=== PATIENT | male | born 1945 | race Caucasian/White ===

== ENCOUNTER → 2018-09-10 14:07 | Outpatient (CLI) | payer MEDICARE, SELFPAY ==
[2013-10-19 15:30] VITALS: BMI 32.5
[2018-09-10 14:30] LABS: International Normalized Ratio 2.2; Prothrombin Time (Protime)PT. 24.5 SECONDS (11.7-14.9)
== END ==
PROVIDERS: Referring Provider Family Medicine; Visit Provider Family Medicine
DX: I48.92 Unspecified atrial flutter (principal)
CPT/HCPCS: 85610

== ENCOUNTER → 2018-10-25 10:11 | Outpatient (CLI) | payer MEDICARE, SELFPAY ==
[2013-10-19 15:30] VITALS: BMI 32.5
[2018-10-25 10:39] LABS: International Normalized Ratio 1.9; Prothrombin Time (Protime)PT. 21.7 SECONDS (11.7-14.9)
== END ==
PROVIDERS: Visit Provider Family Medicine
DX: I26.99 Other pulmonary embolism without acute cor pulmonale (principal); Z86.718 Personal history of other venous thrombosis and embolism
CPT/HCPCS: 85610

== ENCOUNTER → 2018-12-27 09:54 | Outpatient (CLI) | payer MEDICARE, OTHER, SELFPAY ==
[2018-12-27 10:14] LABS: International Normalized Ratio 1.9
== END ==
PROVIDERS: Referring Provider Family Medicine; Visit Provider Family Medicine
DX: I74.9 Embolism and thrombosis of unspecified artery (principal)
CPT/HCPCS: 85610

== ENCOUNTER → 2019-12-26 08:50 | Outpatient (CLI) | payer MEDICARE, OTHER, SELFPAY ==
--- NOTE | 2019-12-26 09:10 | RAD_ITS ---
STUDY: BARIUM ENEMA. REASON FOR EXAM: Male, 74 years old. cologard test, multiple hernia repairs, hemorrhoids, spleenectomy, FLUOROSCOPY TIME (if supplied): ( 73 seconds ) minutes/seconds. 16 images were obtained. TECHNIQUE: A capital project engineer film was obtained. Following this, barium was introduced retrograde through the rectum. The entire colon was opacified. COMPARISON: None. FINDINGS: A IVC filter is seen. There is evidence of diffuse sigmoid diverticulosis. Diverticula are also seen in the descending colon and distal transverse colon. There is no evidence of obstruction to the retrograde or antegrade flow of barium. No mass lesion is seen. No filling defect is present. RAD/Barium Enema w/Air Contrast IMPRESSION: Diverticulosis. Electronically Signed: Yaya Walton, at 11:08 EDT , Service support ,
== END ==
PROVIDERS: PCP Family Medicine; Referring Provider Physician Assistant; Visit Provider Physician Assistant
DX: K92.1 Melena (principal)
CPT/HCPCS: 74280

== ENCOUNTER → 2021-04-29 12:10 | Outpatient (CLI) | payer MEDICARE, OTHER, SELFPAY ==
--- NOTE | 2021-04-29 12:33 | RAD_ITS ---
PROCEDURE: Fluoroscopic guided Hip Injection DATE: 04/29/2021. INDICATION: Male, 75 years old. PHYSICIAN: Yaya Walton M.D. MEDICATIONS: 40 mg of KENALOG and 4 cc of 1% LIDOCAINE. 2% Lidocaine administered subcutaneously for local anesthesia. ACCESS SITE: Left hip. NEEDLE: 22-gauge spinal needle. FLUOROSCOPY TIME (if supplied): (1:42) minutes/seconds. 2 images were obtained. FINDINGS: The risks, benefits, and alternatives to the procedure were explained to the patient. The specific risks of bleeding, infection, and neurovascular injury were detailed and accepted. Witnessed informed consent was obtained. A 22-gauge spinal needle was positioned under radiographic fluoroscopic localization. Approximately 2 cc of ISOVUE-300 instilled for localization purposes. Medication was then injected. The patient tolerated the procedure well without any immediate complications. RAD/Inj/Asp Buddy Jt Should/Hip/Knee IMPRESSION: 1. Successful fluoroscopic guided hip injection. Electronically Signed: Yaya Walton MD at 14:26 EST , Service support ,
[2021-04-29 13:05] LABS: International Normalized Ratio 1.3; Prothrombin Time (Protime)PT. 15.3 SECONDS (11.7-14.9)
[2021-04-29 13:06] LABS: Partial Thromboplast Time 28.5 Seconds (24.1-36.2)
[2021-04-29] MEDS: Lidocaine 2% (5ml sdv) 5 ML VIAL.MPF INFILT (13:45)
[2021-04-29] MEDS: Triamcinolone Acetonide 40 MG/ML Vial INTRAARTIC (13:45)
== END ==
PROVIDERS: PCP Family Medicine
DX: M16.12 Unilateral primary osteoarthritis, left hip (principal)
CPT/HCPCS: 20610; 36415; 77002; 85610; 85730; Q9967

== ENCOUNTER 2021-11-12 13:01 | Inpatient (IN) | payer MEDICARE, OTHER, SELFPAY ==
[2021-11-12] VITALS (14 sets, daily range): BP systolic 122–153; BP diastolic 43–100; PULSE 71–128; RESP 16–34; TEMP 36.4–36.7; O2SAT 92–100; BMI 47.7
--- NOTE | 2021-11-12 13:12 | EKG12_ITS ---
Test Reason : GI BLEED Blood Pressure : / mmHG Vent. Rate : 075 BPM Atrial Rate : 340 BPM P-R Int : 000 ms QRS Dur : 080 ms QT Int : 378 ms P-R-T Axes : 000 014 015 degrees QTc Int : 422 ms Atrial fibrillation Abnormal ECG Confirmed by JOVAN GUTIÉRREZ, MARCELA ([id number]), editor & co founder SUNITA SCHWARZ ([id number]) on 11/16/2021 8:05:11 AM Referred By: Confirmed By:MARCELA ALDANA MD
[2021-11-12 14:51] LABS: Absolute Lymphocyte Count 2.22 X10^3/uL (0.83-4.51); Absolute Neutrophil Count 12.2 X10^3/uL (2.0-7.7); Basophil# 0.07 X10^3/uL; Basophil% 0.4 % (0-1); Eosinophil# 0.56 X10^3/uL; Eosinophils% 3.2 % (0-5); Hematocrit 27.5 % (40-54); Hemoglobin 8.7 g/dL (13.0-16.5); Lymphocyte # 2.22 X10^3/ul (0.83-4.51); Lymphocyte % 12.8 % (19-41); Mean Corp Hgb Conc 31.6 g/dL (32-36); Mean Corpuscular Hgb 31.5 pg (27.0-32.0); Mean Corpuscular Volume 99.6 fL (80-94); Monocyte# 2.23 X10^3/uL; Monocyte% 12.8 % (0-10); NRBC Flagged by Analyzer 0.6 % (0-5); Neutrophil # 12.17 X10^3/uL (2.7-7.7); Neutrophil % 70.2 % (47-70); POSITIVE DIFFERENTIAL YES; Platelet Count 440 K/mm3 (150-450); RBC Distribution Width CV 15.6 % (11.6-14.6); RBC Distribution Width SD 55.5 fl (35.1-43.9); Red Blood Count 2.76 M/mm3 (4.6-6.2); White Blood Count 17.4 K/mm3 (4.4-11.0)
[2021-11-12 14:52] LABS: Differential Indicated SCAN CRITERIA MET
[2021-11-12 14:57] LABS: Prothrombin Time (Protime)PT. 30.9 SECONDS (11.7-14.9)
--- NOTE | 2021-11-12 15:05 | IMM_PTH ---
PATIENT: GLENYS ALARCON LOC: [facility] U#:[id number] AGE/SX: 76/M ROOM: [facility] RE11/12/[address]: Dr. Jose Mayo MD : 1945 BED: 1 DIS: 11/13/2021 SPEC #: [id number] RECD: 11/15/21 08:13 STATUS: JUAN ANTONIO AVALOS #: [id number] JAIME: 11/12/21 15:[address]: Speedy Flores DEPT: IMMUNOHISTOCHEMISTRY RECD BY: Aminta Oneal ENTERED: 11/15/21 08:13 SP TYPE: IMMUNO OTHR DR: MD Dr. Hubert Alejandra MD Tissues: A - Stomach, NOS Procedures: H Pylori (initial) PHYSICIAN & INSTITUTION [place] [id number] SPECIMEN INFORMATION: Tissue Source: A ? Gastric polyp Clinical Info: GI bleed Specimen Number: [id number] CPT code: 56716 METHODOLOGY: Deparaffinized sections of prefer/formalin-fixed tissue or PAP/DQ stained slides are incubated with monoclonal/polyclonal antibodies/oligonucleotide probes. Localization is made via biotin free immunoperoxidase method. Appropriate controls are performed and reacted as expected. Results on target cell population are indicated in the following table: RESULTS: ANTIBODY / CLONE RESULT Block A H Pylori (polyclonal) negative These tests were developed and their performance characteristics determined by [facility]. They may not have been cleared or approved by the U.S. Food and Drug Administration. The FDA has determined that such clearance or approval is not necessary. The above immunohistochemical/dualISH markers are ordered and reviewed by the Pathologist. INTERPRETATION: A. Gastric polyp, biopsy: Negative for Helicobacter pylori organisms. SJ:chloe 11/16/2021
--- NOTE | 2021-11-12 15:05 | EGD_PTH ---
PATIENT: GLENYS ALARCON LOC: [facility] U#:[id number] AGE/SX: 76/M ROOM: [facility] RE11/12/[address]: Dr. Jose Mayo MD : 1945 BED: 1 DIS: 11/13/2021 SPEC #: [id number] RECD: 11/12/21 18:39 STATUS: JUAN ANTONIO AVALOS #: [id number] JAIME: 11/12/21 15:[address]: Speedy Flores DEPT: SURGICAL PATHOLOGY RECD BY: Carol Ann Bansal ENTERED: 11/15/21 06:49 SP TYPE: EGD BIOPSY OTHR DR: MD Dr. Hubert Alejandra MD Tissues: A - Gastric mucous membrane B - Gastric mucous membrane Procedures: Surgery Specimen Level IV HEADER OPER[place] [place] with biopsy and snare PRE-OP DIAGNOSIS: GI bleed TISSUE SUBMITTED: A ? Gastric polyp #1, B - Gastric polyp #2 MICROSCOPIC DIAGNOSIS A. Gastric polyp #1, biopsy: Fragments of hyperplastic/inflammatory polyp. Mild chronic inflammation. See comment. B. Gastric polyp #2, polypectomy: Hyperplastic/inflammatory polyp. Mild chronic inflammation. LESLIE:chloe 11/16/2021 COMMENT A. The results of immunohistochemistry for Helicobacter pylori will be reported separately ([id number]). MICROSCOPIC DESCRIPTION Slides are reviewed. GROSS DESCRIPTION A - Received in fixative is one container labeled with the patient's name and designated gastric polyp #1. The specimen consists of two irregular fragments of light gotti soft tissue that in aggregate measure 0.6 x 0.7 x 0.1 cm. The specimen is totally submitted in one cassette. B - Received in fixative is one container labeled with the patient's name and designated gastric polyp #2. The specimen consists of a gotti-pink polyp measuring 1 x 1 x 0.5 cm. Apparent base is inked. The specimen serially sectioned and submitted entirely in one cassette. / LESLIE:chloe 11/15/2021 TC:5 CPT: 82512 x2
[2021-11-12 15:10] LABS: ALB/GLOB Ratio 0.7 RATIO (0.9-2.4); AST(SGOT) 19 U/L (15-37); Alanine Aminotransfer ALT/SGPT 20 U/L (16-61); Albumin, Serum 3.1 g/dL (3.2-5.0); Alkaline Phosphatase 91 U/L (45-117); Anion Gap 7 (5-15); BUN 19 mg/dL (7-18); BUN/Creat Ratio 13.3 RATIO (10-20); Calcium,Total 8.8 mg/dL (8.5-10.1); Chloride 104 mmol/L (98-107); Creatinine, Serum 1.43 mg/dL (0.70-1.30); EST Glomerular Filtration Rate 51 mL/min (>60); Est Glom Filt Rate - Afr Amer 62 mL/min (>60); Globulin 4.4 g/dL (2.2-4.2); Glucose 110 mg/dL (74-106); Protein, Total 7.5 g/dL (6.4-8.2); Sodium Level 137 mmol/L (136-145)
[2021-11-12 15:20] LABS: Lactic Acid 2.2 mmol/L (0.4-1.9)
--- NOTE | 2021-11-12 15:24 | EDS_ITS ---
HPI HPI - GI History of Present Illness Chief Complaint: GI Bleed Detail of Chief Complaint: Black to maroon-colored stool Informant: patient and family Abdominal Pain/Flank Pain Onset: - (Patient denies abdominal pain) Nausea/Vomiting/Emesis GI Symptom: Positive for Nausea Diarrhea/Melena/Hematochezia GI Symptom: Positive for Melena (Started approximately 5 to 7 days ago. Patient on Coumadin for atrial fibrillation) Onset: Days Stool Quality: Positive for Black and Maroon (Stool is maroon today) Severity: Moderate Associated Symptoms Associated Symptoms: Negative for Dysuria, Frequency, Hematuria or Urgency Narrative Narrative: Patient is an elderly male on Coumadin for A. fib. He presents because of significant drop in his hemoglobin. Hemoglobin last week was 13.6 at the [facility]. Hemoglobin that was obtained yesterday was 8.2. Patient gives orthostatic symptoms. He has numerous medical problems. He denies fever, chills night sweats. He denies ocular, visual or auditory symptoms. He denies chest discomfort. He does report dyspnea on exertion for the past 2 days. He denies hematuria. He states he bruises easily. He is aware that his INR was elevated. He refused admission last evening. I did receive a call from his physician, Dr. Camarena hours prior to his presentation. He was brought to the ER by his son-in-law. Patient has stable orthopnea. Denies PND. Patient has lymphedema with venous stasis dermatitis. Prior similar symptoms: No Recent Illness/Hospitalization: No PFSH PFSH Medical History CHF (congestive heart failure) HTN (hypertension) Home Medications Centrum Cardio 1 tab PO BID 10/01/13 [History Last Taken Unknown] Orderless Garlic 2,000 mg PO BID 10/01/13 [History Last Taken Unknown] aspirin 81 mg chewable tablet 81 mg PO DAILY@0800 10/01/13 [History Last Taken Unknown] calcium citrate 315 mg calcium-vitamin D3 6.25 mcg (250 unit) tablet 1 ea PO DAILY 10/01/13 [History Last Taken Unknown] folic acid 800 mcg tablet 2 mg PO QHS 10/01/13 [History Last Taken Unknown] furosemide 20 mg tablet 20 mg PO QHS 10/01/13 [History Last Taken Unknown] furosemide 40 mg tablet 40 mg PO DAILY 10/01/13 [History Last Taken Unknown] methotrexate sodium 2.5 mg tablet 10 mg PO Q7D 10/01/13 [History Last Taken Unknown] metoprolol tartrate 25 mg tablet 25 mg PO BID 10/01/13 [History Last Taken Unknown] omega-3 fatty acids-fish oil 684 mg-1,200 mg capsule,delayed release (One-Per-Day [place]-3) 2 ea PO DAILY 10/01/13 [History Last Taken Unknown] omeprazole 20 mg capsule,delayed release 20 mg PO BID 10/01/13 [History Last Taken Unknown] potassium chloride 20 mEq tablet,extended release(part/cryst) (Klor-Con M) 40 meq PO BID 10/01/13 [History Last Taken Unknown] spironolactone 25 mg tablet 25 mg PO DAILY 10/01/13 [History Last Taken Unknown] warfarin 4 mg tablet (Jantoven) 9 mg PO DAILY 10/01/13 [History Last Taken Unknown] Allergy/AdvReac Type Severity Reaction Status Date / Time chlorpromazine HCl Allergy Other Verified 11/12/21 13:04 [From Thorazine] Social History (Updated 11/12/21 @ 15:[address] Ramírez Jack MD) household members: none Smoking Status: Unknown if ever smoked substance use type: does not use ROS ROS ED Constitutional Constitutional ED: Denies chills, fever(s), subjective, sweats or weight loss ENT ENT ED: Denies ear pain, rhinorrhea or sore throat Cardiovascular Cardiovascular: Denies chest pain, orthopnea, palpitations, paroxysmal nocturnal dyspnea or racing heartbeat Respiratory/Chest Respiratory/Chest: Reports dyspnea and dyspnea on exertion; Denies cough, orthopnea or paroxysmal nocturnal dyspnea Gastrointestinal Gastrointestinal: Reports melena and nausea; Denies abdominal pain, constipation, diarrhea or vomiting Genitourinary Genitourinary ED: Denies dysuria, hematuria or urinary frequency Musculoskeletal Musculoskeletal: Denies arthralgias, back pain, myalgias or neck pain Integumentary Denies Abrasions or rash Neurologic Neurologic: Reports weakness; Denies headache(s) or paresthesias Endocrine Endocrinology: Denies polydipsia, polyphagia or polyuria Hematologic/Lymphatic Hematologic/Lymphatic: Reports easy bruising; Denies easy bleeding or lymphadenopathy EXAM Physical Exam Narrative Exam Narrative: Patient is morbidly obese. He is slightly tachypneic since he just walked from triage. He has a depends diaper on because of incontinence. Son-in-law states his stools been black. Const Vital Signs: 11/12/21 13:02 Temperature 98 F Temperature Source Temporal Pulse Rate 128 H Respiratory Rate 20 H Blood Pressure 122/43 H Blood Pressure Mean 69 Pulse Ox 96 Oxygen Delivery Method Room Air Positive well nourished, well developed, obese and unkempt; Negative for cachectic or contractures General Appearance ED: unkempt, well developed and pallor; Negative for cachectic or contractures Nutritional Appearance: obese; Negative for cachectic HEENT Reports moist mucous membranes normocephalic and atraumatic Eyes PERRL and EOMs intact bilaterally General Eye ED: Yes pale conjunctiva; Negative for scleral icterus Neck no lymphadenopathy, supple and no JVD Resp normal respiratory effort and clear to auscultation bilaterally Cardio regular rate, S1 normal heart sound, S2 normal heart sound and no murmurs Rhythm: abnormal rhythm irregularly irregular GI non-tender, non-distended and no masses GI Narrative: Stool is maroon. Auscultation: hyperactive bowel sounds Palpation: soft Narrative: Normal external genitalia. Prostate slightly enlarged. Back/Spine no CVA tenderness Cervical Spine: Negative for cervical spine tenderness Thoracic Spine / Upper Back: Negative for thoracic spinal tenderness Lumbar Spine / Lower Back: Negative for lumbar spinal tenderness Neuro CN's II-XII intact bilaterally, moves all extremities and no sensory deficits noted Sensorium / Orientation: alert Motor Exam: strength 5/5 throughout Psych mental status grossly normal and thought process normal Appearance: unkempt Skin Skin Narrative: Patient with significant lymphedema/elephantitis with venous aces dermatitis. General Skin Exam: pallor; Negative for jaundice MDM MDM MDM Narrative Medical decision making narrative: Kcentra and vitamin K were ordered for GI bleed on Coumadin. He had a significant drop in his hemoglobin. He was typed and crossed for 2 units of blo od. 2 units of blood sugar are to be administered. Hemoglobin has decreased approximately 5 g. White count is elevated 17.4 which is nonspecific. CO2 is normal as well as anion gap. BUN is elevated as well as creatinine at 19 and 1.43 respectively. Lactate elevated 2.2. Patient was tachycardic in triage. This most likely represents orthostatic hypotension. Patient's case was discussed with Dr. Flores. He agreed with IV Protonix and Kcentra. Will contact hospitalist for admission. Lab Data Labs: Laboratory Results - last 24 hr 11/12/21 11/12/21 11/12/21 14:32 14:32 14:32 WBC 17.4 H RBC 2.76 L Hgb 8.7 L Hct 27.5 L MCV 99.6 H MCH 31.5 MCHC 31.6 L RDW Std Deviation 55.5 H RDW Coeff of Ira 15.6 H Plt Count 440 MPV 10.0 Immature Gran % (Auto) 0.600 Neut % (Auto) 70.2 H Lymph % (Auto) 12.8 L [place] % (Auto) 12.8 H Eos % (Auto) 3.2 Baso % (Auto) 0.4 Absolute Neuts (auto) 12.2 H Absolute Lymphs (auto) 2.22 Nucleated RBC % 0.6 Differential Comment COMMENT Diff Path Review May foll PT 30.9 H INR 3.0 Sodium 137 Potassium 4.0 Chloride 104 Carbon Dioxide 26.0 Anion Gap 7 BUN 19 H Creatinine 1.43 H Estim Creat Clear Calc 39.80 Est GFR (MDRD) Af Amer 62 Est GFR (MDRD) Non-Af 51 L BUN/Creatinine Ratio 13.3 Glucose 110 H Lactic Acid Calcium 8.8 Total Bilirubin 0.60 AST 19 ALT 20 Alkaline Phosphatase 91 Total Protein 7.5 Albumin 3.1 L Globulin 4.4 H Albumin/Globulin Ratio 0.7 L Crossmatch 11/12/21 11/12/21 14:32 14:32 WBC RBC Hgb Hct MCV MCH MCHC RDW Std Deviation RDW Coeff of Ira Plt Count MPV Immature Gran % (Auto) Neut % (Auto) Lymph % (Auto) [place] % (Auto) Eos % (Auto) Baso % (Auto) Absolute Neuts (auto) Absolute Lymphs (auto) Nucleated RBC % Differential Comment Diff Path Review PT INR Sodium Potassium Chloride Carbon Dioxide Anion Gap BUN Creatinine Estim Creat Clear Calc Est GFR (MDRD) Af Amer Est GFR (MDRD) Non-Af BUN/Creatinine Ratio Glucose Lactic Acid 2.2 H* Calcium Total Bilirubin AST ALT Alkaline Phosphatase Total Protein Albumin Globulin Albumin/Globulin Ratio Crossmatch See Detail EKG Initial EKG: Attestation: I personally reviewed and interpreted this EKG as follows: Interpretation: Atrial Fibrillation (Ventricular rate of 75 otherwise normal. QS duration 80. QT durations are 70 ms. [place] normal) Critical Care Time Critical Care Time: Yes Critical care time (excluding procedures): 30-74 minutes (33 minutes), Including time spent: (History, physical, documentation, review of prior records, discussion with PCP, GI and hospitalist), Discussing w/Patient &/or Family/Cupola Charger, Discussing w/Consultants and Arranging Admission or Transfer Discharge Plan Dx/Rx/DC Orders Clinical Impression: Acute gastrointestinal bleeding, Anticoagulant long-term use, Anemia due to acute blood loss, Transfusion of blood during current hospitalization, Orthostatic hypotension, Atrial fibrillation, Acidosis, lactic Disposition Disposition: Acute Care Hospital [facility]
[2021-11-12] MEDS: HUMAN PROTHROMBIN COMPLX(PCC) 2,500 UNIT in Viaflex Bag 1 BAG 500 UNIT IV (15:56)
--- NOTE | 2021-11-12 16:45 | ED.RN ---
Pt called out complaining of severe lower back pain, ringing/hearing loss in left ear and pressure in his head. Notified Dr Cummins who prev doctor signed out to. States continue to monitor. Pt states he has never had pain like this before. VS remain stable.
--- NOTE | 2021-11-12 16:54 | ED.RN ---
Pt states it feels like it's around my kidneys and it is like a pulsating feeling. Page sent to Dr Mayo, admitting physician as he has already seen pt.
--- NOTE | 2021-11-12 17:04 | HP.PCM.HOS_ITS ---
HPI - General General Date of Admission: 11/12/21 HPI Narrative GLENYS ALARCON, is a 76 M who presents to the hospital at the urging of his PCP secondary to GI bleed. Last week blood test demonstrated at the [facility] that he had a hemoglobin of around 13 and today he is down to 8.7. He has been having some darker maroon stools, he does have a history of hemorrhoid bleeds but nothing as severe. He is feeling short of breath secondary to the GI bleed. He states that he did not come in sooner because he did not want to have a colonoscopy. He is on Coumadin for A. fib as well as a clotting disorder, he states that he will get blood clots with every type of procedure. And he has an IVC filter in place. [facility] Medical History (Updated 11/12/21 @ 15:[address] Ramírez Jack MD) CHF (congestive heart failure) HTN (hypertension) Home Medications calcium citrate 315 mg calcium-vitamin D3 6.25 mcg (250 unit) tablet 1 ea PO DAILY SUPPLEMENT 10/01/13 [History Last Taken 11/11/21] omeprazole 20 mg capsule,delayed release 20 mg PO BID GERD 10/01/13 [History Last Taken 11/12/21] potassium chloride 20 mEq tablet,extended release(part/cryst) (Klor-Con M) 40 meq PO BID SUPPLEMENT 10/01/13 [History Last Taken 11/12/21] spironolactone 25 mg tablet 25 mg PO DINNER FLUID 10/01/13 [History Last Taken 11/11/21] warfarin 4 mg tablet (Jantoven) 4 mg PO DAILY BLOOD THINNER 10/01/13 [History Last Taken 11/12/21 00:00] atorvastatin 20 mg tablet 20 mg PO DAILY CHOLESTEROL 11/12/21 [History Last Taken 11/12/21] bumetanide 1 mg tablet 1 mg PO DINNER FLUID 11/12/21 [History Last Taken 11/11/21] bumetanide 1 mg tablet 2 mg PO QHS FLUID 11/12/21 [History Last Taken 11/11/21] fluticasone propionate 45 mcg-salmeterol 21 mcg/actuation HFA inhaler (Advair HFA) 2 inh inhalation BID SOB 11/12/21 [History Last Taken 11/12/21] metoprolol tartrate 50 mg tablet 25 mg PO BID HEART 11/12/21 [History Last Taken 11/12/21] warfarin 1 mg tablet 1 mg PO DAILY BLOOD THINNER 11/12/21 [History Last Taken 11/12/21 00:00] Allergy/AdvReac Type Severity Reaction Status Date / Time chlorpromazine HCl Allergy Other Verified 11/12/21 13:04 [From Thorazine] Family History (Updated 11/12/21 @ 17:[address] Jose Mayo MD) Other Heart disease Hypertension Surgical History (Updated 11/12/21 @ 17:[address] Jose Mayo MD) Status post splenectomy Social History (Updated 11/12/21 @ 15:[address] Ramírez Jack MD) household members: none Smoking Status: Unknown if ever smoked substance use type: does not use ROS Constitutional Constitutional: Denies chills, fatigue, fever(s) or malaise Eyes Eyes: Denies blurry vision ENT HEENT: Denies headache(s) or nasal discharge Cardiovascular Cardiovascular: Reports dyspnea on exertion; Denies chest pain or syncope Respiratory/Chest Respiratory/Chest: Denies cough or shortness of breath with exertion Gastrointestinal Gastrointestinal: Denies constipation, diarrhea, nausea or vomiting Genitourinary Genitourinary: Denies dysuria Neurologic Neurologic: Denies focal weakness, numbness or tremor(s) Psychiatric Psychiatric: Denies anxiety or depression Vital Signs Vital Signs Vital Signs: 11/12/21 13:02 11/12/21 15:57 11/12/21 16:32 Temperature 98 F 98.0 F Temperature Source Temporal Temporal Pulse Rate 128 H 74 71 Respiratory Rate 20 H 18 18 Blood Pressure 122/43 H 139/67 H 140/71 H Blood Pressure Mean 69 91 94 Pulse Ox 96 96 96 Oxygen Delivery Method Room Air Room Air 11/12/21 16:45 11/12/21 16:50 Temperature Temperature Source Pulse Rate 84 78 Respiratory Rate 34 H 20 H Blood Pressure 142/100 H 143/69 H Blood Pressure Mean 114 93 Pulse Ox 96 95 Oxygen Delivery Method Room Air Room Air Weight Weight: 305 lb Body Mass Index (BMI) 47.7 Physical Exam Const alert, oriented x3 and no apparent distress General Appearance: cooperative HEENT normocephalic and moist oral mucous membranes Eyes PERRL, EOMs intact bilaterally and conjunctivae normal Neck supple and no JVD Resp normal respiratory effort, no retractions, no use of accessory muscles and clear to auscultation bilaterally Auscultation: Negative for crackles, rales, rhonchi or wheezes Cardio regular rate, S1 normal heart sound, S2 normal heart sound and no murmurs Rhythm: abnormal rhythm GI soft to palpation, non-tender and non-distended; Negative for hepatosplenomegaly Extremity Extremity Narrative: Chronic venous changes General Extremity: edema Skin no rashes or lesions noted Neuro no focal motor deficits and no sensory deficits noted Psych affect normal Appearance: appropriate Results Lab / Micro Data Result Diagrams: 11/12/21 14:32 11/12/21 14:32 Labs: Laboratory Results - last 24 hr 11/12/21 14:32: WBC 17.4 H, RBC 2.76 L, Hgb 8.7 L, Hct 27.5 L, MCV 99.6 H, MCH 31.5, MCHC 31.6 L, RDW Std Deviation 55.5 H, RDW Coeff of Ira 15.6 H, Plt Count 440, MPV 10.0, Immature Gran % (Auto) 0.600, Neut % (Auto) 70.2 H, Lymph % (Auto) 12.8 L, [place] % (Auto) 12.8 H, Eos % (Auto) 3.2, Baso % (Auto) 0.4, Absolute Neuts (auto) 12.2 H, Absolute Lymphs (auto) 2.22, Nucleated RBC % 0.6, Differential Comment COMMENT, Diff Path Review September11/12/21 14:32: PT 30.9 H, INR 3.0 11/12/21 14:32: Sodium 137, Potassium 4.0, Chloride 104, Carbon Dioxide 26.0, Anion Gap 7, BUN 19 H, Creatinine 1.43 H, Estim Creat Clear Calc 39.80, Est GFR (MDRD) Af Amer 62, Est GFR (MDRD) Non-Af 51 L, BUN/Creatinine Ratio 13.3, Glucose 110 H, Calcium 8.8, Total Bilirubin 0.60, AST 19, ALT 20, Alkaline Phosphatase 91, Total Protein 7.5, Albumin 3.1 L, Globulin 4.4 H, Albumin/Globulin Ratio 0.7 L 11/12/21 14:32: Lactic Acid 2.2 H* 11/12/21 14:32: Crossmatch See Detail Assessment & Plan Assessment/Plan (1) Acute gastrointestinal bleeding: PLAN: Plan 1. Acute GI bleed/GERD ? Hemoglobin is down about 5 points from last week ? Plan for blood transfusions of 2 units which were ordered in the ER ? Continue with PPI ? Consult GI for scope ? She did receive a dose of vitamin K secondary for his Coumadin for his A. fib 2. A. fib/HTN/HLD/heart failure of unknown type ? Creatinine is 1.43 so we will hold off of his daily Bumex however if he does develop some shortness of breath with blood transfusions can provide a x1 dose of Lasix ? Currently n.p.o. can restart his home medications 1 to p.o. ? We will hold his Coumadin, he does also have a bleeding disorder but he cannot describe exactly what it is but he does have an IVC filter in place and states that he has had blood clots with multiple different procedures in the past DVT: Therapeutic INR Charges/Coding Visit Charges Inpatient E&M: 29164 Init Hosp L2
--- NOTE | 2021-11-12 17:40 | PCM.CONS.GEN ---
Assessment & Plan Assessment/Plan (1) Acute gastrointestinal bleeding: PLAN: The differential diagnosis for his acute blood loss anemia would be GI bleed and upper GI tract secondary to peptic ulcer disease, AVM, H. pylori associated gastritis, atrophic gastritis, duodenal ulcer, telangiectasia or AVM of the upper GI tract. He should undergo an upper endoscopy. The patient and patient's family were explained alternatives, risk, benefits including not withstanding bleeding, infection, sepsis, perforation, need for surgery . ASA of 3. HPI Consult Data Date of Consult: 11/12/21 HPI Narrative Reason for Consultation: GI bleed HPI Narrative: GLENYS ALARCON, is a 76 M who presents with a recent history of melanotic stools. He is on Coumadin for A. fib.? He presents because of significant drop in his hemoglobin.? Hemoglobin last week was 13.6 at the [facility].? Hemoglobin that was obtained yesterday was 8.2.? Patient gives orthostatic symptoms.? He has numerous medical problems.? He denies fever, chills night sweats.? He denies ocular, visual or auditory symptoms.? He denies chest discomfort.? He does report dyspnea on exertion for the past 2 days.? He denies hematuria.? He states he bruises easily.? He is aware that his INR was elevated.? He refused admission last evening.? He has been having some darker maroon stools, he does have a history of hemorrhoid bleeds but nothing as severe.? He is feeling short of breath secondary to the GI bleed.? He states that he did not come in sooner because he did not want to have a colonoscopy.? He is on Coumadin for A. fib as well as a clotting disorder, he states that he will get blood clots with every type of procedure.? And he has an IVC filter in place. He was brought to the ER by his son-in-law. [facility] Medical History (Updated 11/12/21 @ 15:[address] Ramírez Jack MD) CHF (congestive heart failure) HTN (hypertension) Home Medications calcium citrate 315 mg calcium-vitamin D3 6.25 mcg (250 unit) tablet 1 ea PO DAILY SUPPLEMENT 10/01/13 [History Last Taken 11/11/21] omeprazole 20 mg capsule,delayed release 20 mg PO BID GERD 10/01/13 [History Last Taken 11/12/21] potassium chloride 20 mEq tablet,extended release(part/cryst) (Klor-Con M) 40 meq PO BID SUPPLEMENT 10/01/13 [History Last Taken 11/12/21] spironolactone 25 mg tablet 25 mg PO DINNER FLUID 10/01/13 [History Last Taken 11/11/21] warfarin 4 mg tablet (Jantoven) 4 mg PO DAILY BLOOD THINNER 10/01/13 [History Last Taken 11/12/21 00:00] atorvastatin 20 mg tablet 20 mg PO DAILY CHOLESTEROL 11/12/21 [History Last Taken 11/12/21] bumetanide 1 mg tablet 1 mg PO DINNER FLUID 11/12/21 [History Last Taken 11/11/21] bumetanide 1 mg tablet 2 mg PO QHS FLUID 11/12/21 [History Last Taken 11/11/21] fluticasone propionate 45 mcg-salmeterol 21 mcg/actuation HFA inhaler (Advair HFA) 2 inh inhalation BID SOB 11/12/21 [History Last Taken 11/12/21] metoprolol tartrate 50 mg tablet 25 mg PO BID HEART 11/12/21 [History Last Taken 11/12/21] warfarin 1 mg tablet 1 mg PO DAILY BLOOD THINNER 11/12/21 [History Last Taken 11/12/21 00:00] Allergy/AdvReac Type Severity Reaction Status Date / Time chlorpromazine HCl Allergy Other Verified 11/12/21 13:04 [From Thorazine] Family History (Updated 11/12/21 @ 17:[address] Jose Mayo MD) Other Heart disease Hypertension Surgical History (Updated 11/12/21 @ 17:[address] Jose Mayo MD) Status post splenectomy Social History (Updated 11/12/21 @ 15:[address] Ramírez Jack MD) household members: none Smoking Status: Unknown if ever smoked substance use type: does not use ROS Constitutional Constitutional: Denies chills, fatigue, fever(s) or malaise Eyes Eyes: Denies blurry vision ENT HEENT: Denies headache(s) or nasal discharge Cardiovascular Cardiovascular: Reports dyspnea on exertion; Denies chest pain or syncope Respiratory/Chest Respiratory/Chest: Denies cough or shortness of breath with exertion Gastrointestinal Gastrointestinal: Denies constipation, diarrhea, nausea or vomiting Genitourinary Genitourinary: Denies dysuria Neurologic Neurologic: Denies focal weakness, numbness or tremor(s) Psychiatric Psychiatric: Denies anxiety or depression Physical Exam Const alert, oriented x3 and no apparent distress General Appearance: cooperative HEENT normocephalic and moist oral mucous membranes Eyes PERRL, EOMs intact bilaterally and conjunctivae normal Neck supple and no JVD Resp normal respiratory effort, no retractions, no use of accessory muscles and clear to auscultation bilaterally Auscultation: Negative for crackles, rales, rhonchi or wheezes Cardio regular rate, S1 normal heart sound, S2 normal heart sound and no murmurs Rhythm: abnormal rhythm GI soft to palpation, non-tender and non-distended; Negative for hepatosplenomegaly Extremity Extremity Narrative: Chronic venous changes General Extremity: edema Skin no rashes or lesions noted Neuro no focal motor deficits and no sensory deficits noted Psych affect normal Appearance: appropriate Lab / Micro Data Result Diagrams: 11/12/21 14:32 11/12/21 14:32 Labs: Laboratory Results - last 24 hr 11/12/21 14:32: WBC 17.4 H, RBC 2.76 L, Hgb 8.7 L, Hct 27.5 L, MCV 99.6 H, MCH 31.5, MCHC 31.6 L, RDW Std Deviation 55.5 H, RDW Coeff of Ira 15.6 H, Plt Count 440, MPV 10.0, Immature Gran % (Auto) 0.600, Neut % (Auto) 70.2 H, Lymph % (Auto) 12.8 L, [place] % (Auto) 12.8 H, Eos % (Auto) 3.2, Baso % (Auto) 0.4, Absolute Neuts (auto) 12.2 H, Absolute Lymphs (auto) 2.22, Nucleated RBC % 0.6, Differential Comment COMMENT, Diff Path Review September11/12/21 14:32: PT 30.9 H, INR 3.0 11/12/21 14:32: Sodium 137, Potassium 4.0, Chloride 104, Carbon Dioxide 26.0, Anion Gap 7, BUN 19 H, Creatinine 1.43 H, Estim Creat Clear Calc 39.80, Est GFR (MDRD) Af Amer 62, Est GFR (MDRD) Non-Af 51 L, BUN/Creatinine Ratio 13.3, Glucose 110 H, Calcium 8.8, Total Bilirubin 0.60, AST 19, ALT 20, Alkaline Phosphatase 91, Total Protein 7.5, Albumin 3.1 L, Globulin 4.4 H, Albumin/Globulin Ratio 0.7 L 11/12/21 14:32: Lactic Acid 2.2 H* 11/12/21 14:32: Blood Type O POSITIVE, Antibody Screen POSITIVE H, Antibody Identification ANTI-E, Crossmatch See Detail
--- NOTE | 2021-11-12 17:51 | ED.RN ---
pt to pacu
--- NOTE | 2021-11-12 18:34 | OP.EGD_ITS ---
Patient Name: Vaughn Street Procedure Date: 11/12/2021 5:54 PM Date of : 1945 Age: 76 Procedure: Upper GI endoscopy Indications: Hematochezia, Melena Providers: Speedy Flores DO Medicines: Monitored Anesthesia Care Patient Profile: This is a 76 year old male. Refer to note in patient chart for documentation of history and physical. Patient has symptoms. Complications: No immediate complications. Procedure: Pre-Anesthesia Assessment: - Prior to the procedure, a History and Physical was performed, and patient medications and allergies were reviewed. The patient is competent. The risks and benefits of the procedure and the sedation options and risks were discussed with the patient. All questions were answered and informed consent was obtained. Patient identification and proposed procedure were verified by the physician in the pre-procedure area. Mental Status Examination: alert and oriented. Airway Examination: normal oropharyngeal airway and neck mobility. Respiratory Examination: clear to auscultation. CV Examination: normal. Prophylactic Antibiotics: The patient does not require prophylactic antibiotics. Prior Anticoagulants: The patient has taken no previous anticoagulant or antiplatelet agents. ASA Grade Assessment: II - A patient with mild systemic disease. After reviewing the risks and benefits, the patient was deemed in satisfactory condition to undergo the procedure. The anesthesia plan was to use moderate sedation / analgesia (conscious sedation). Immediately prior to administration of medications, the patient was re-assessed for adequacy to receive sedatives. The heart rate, respiratory rate, oxygen saturations, blood pressure, adequacy of pulmonary ventilation, and response to care were monitored throughout the procedure. The physical status of the patient was re-assessed after the procedure. After obtaining informed consent, the endoscope was passed under direct vision. Throughout the procedure, the patient's blood pressure, pulse, and oxygen saturations were monitored continuously. The gastroscope was introduced through the mouth, and advanced to the second part of duodenum. The upper GI endoscopy was accomplished without difficulty. The patient tolerated the procedure well. Scope In: 6:11:39 PM Scope Out: 6:23:21 PM Total Procedure Duration Time 0 hours 11 minutes 42 seconds Findings: The examined esophagus was normal. A large hiatal hernia was present. A single 5 mm sessile polyp with bleeding and stigmata of recent bleeding was found in the gastric fundus. The polyp was removed with a hot snare. Resection and retrieval were complete. Verification of patient identification for the specimen was done. Estimated blood loss was minimal. Red blood was found in the gastric body. A single 5 mm sessile polyp with no bleeding and no stigmata of recent bleeding was found in the gastric body. Biopsies were taken with a cold forceps for histology. Verification of patient identification for the specimen was done. Estimated blood loss was minimal. A single 5 mm bleeding angiodysplastic lesion was found in the stomach. Coagulation for hemostasis using heater probe was successful. To stop active bleeding, one hemostatic clip was successfully placed. There was no bleeding at the end of the procedure. No gross lesions were noted in the second portion of the duodenum. Impression: - Normal esophagus. - Large hiatal hernia. - A single gastric polyp. Resected and retrieved. - Red blood in the gastric body. - A single gastric polyp. Biopsied. - A single bleeding angiodysplastic lesion in the stomach. Treated with a heater probe. Clip was placed. - No gross lesions in the second portion of the duodenum. Recommendation: - return to the floors - Full liquid diet today. - Use Protonix (pantoprazole) 40 mg PO BID today. - Continue present medications. - Restart anticoagulation tomorrow Procedure Code(s): --- Professional --- 21343, 59, Esophagogastroduodenoscopy, flexible, transoral; with control of bleeding, any method 01644, Esophagogastroduodenoscopy, flexible, transoral; with removal of tumor(s), polyp(s), or other lesion(s) by snare technique 64200, 59,51, Esophagogastroduodenoscopy, flexible, transoral; with biopsy, single or multiple CPT copyright 2017 [employer]. All rights reserved. The codes documented in this report are preliminary and upon diesel dinkey engineer review may be revised to meet current compliance requirements. Speedy Flores DO 11/12/2021 6:33:37 PM This report has been signed electronically. Number of Addenda: 1 Note Initiated On: 11/12/2021 5:54 PM Addendum Number: 1 Addendum Date: 02/22/2022 6:08:11 AM MAC was used as sedation for this procedure. Speedy Flores DO 02/22/2022 6:08:15 AM This report has been signed electronically.
--- NOTE | 2021-11-12 18:34 | OP.CCLET_ITS ---
02/22/2022 Hubert Camarena Re : Upper GI endoscopy procedure for Vaughn Argueta Nicol This procedure was performed on Friday, November 12, 2021. My impressions and recommendations are as follows: Impressions : - Normal esophagus. - Large hiatal hernia. - A single gastric polyp. Resected and retrieved. - Red blood in the gastric body. - A single gastric polyp. Biopsied. - A single bleeding angiodysplastic lesion in the stomach. Treated with a heater probe. Clip was placed. - No gross lesions in the second portion of the duodenum. Recommendations : - return to the floors - Full liquid diet today. - Use Protonix (pantoprazole) 40 mg PO BID today. - Continue present medications. - Restart anticoagulation tomorrow My findings are described in the full procedure note, which is enclosed. If I can be of further assistance, please feel free to contact me at . Sincerely, Speedy Flores, 11/12/2021 6:33:37 PM This report has been signed electronically.
[2021-11-12 18:41] LABS: Reflex Lactate? Y
[2021-11-12 19:32] LABS: Lactic Acid 1.8 mmol/L (0.4-1.9)
[2021-11-12 21:45] LABS: Hematocrit 28.7 % (40-54); Hemoglobin 9.1 g/dL (13.0-16.5)
[2021-11-12] MEDS: 0.9% Saline Lock 10 ML Syringe IV (22:49)
[2021-11-13 00:42] VITALS: BP 146/63; PULSE 88; RESP 18; TEMP 36.4; O2SAT 94
[2021-11-13 03:58] VITALS: PULSE 83
[2021-11-13 04:42] VITALS: BP 158/73; PULSE 86; RESP 18; TEMP 36.9; O2SAT 94
[2021-11-13 06:48] LABS: Absolute Lymphocyte Count 1.83 X10^3/uL (0.83-4.51); Absolute Neutrophil Count 9.5 X10^3/uL (2.0-7.7); Basophil# 0.08 X10^3/uL; Basophil% 0.6 % (0-1); Eosinophil# 0.59 X10^3/uL; Eosinophils% 4.3 % (0-5); Hematocrit 27.1 % (40-54); Hemoglobin 8.4 g/dL (13.0-16.5); Lymphocyte # 1.83 X10^3/ul (0.83-4.51); Lymphocyte % 13.4 % (19-41); Mean Corpuscular Hgb 31.2 pg (27.0-32.0); Mean Corpuscular Volume 100.7 fL (80-94); Mean Platelet Vol. 9.6 fl (6.2-12.0); Monocyte# 1.57 X10^3/uL; Monocyte% 11.5 % (0-10); Neutrophil # 9.45 X10^3/uL (2.7-7.7); Neutrophil % 69.4 % (47-70); POSITIVE DIFFERENTIAL YES; Platelet Count 434 K/mm3 (150-450); RBC Distribution Width CV 15.7 % (11.6-14.6); Red Blood Count 2.69 M/mm3 (4.6-6.2); White Blood Count 13.6 K/mm3 (4.4-11.0)
[2021-11-13 06:49] LABS: Differential Indicated SCAN CRITERIA MET
[2021-11-13 06:59] LABS: International Normalized Ratio 1.3
[2021-11-13 07:03] LABS: Anisocytosis 1+; Differential Comment SCANNED; Hypochromasia 1+; Macrocytosis 1+; Polychromasia RARE
[2021-11-13 07:15] LABS: Anion Gap 7 (5-15); BUN 16 mg/dL (7-18); BUN/Creat Ratio 13.1 RATIO (10-20); Calcium,Total 8.8 mg/dL (8.5-10.1); Chloride 105 mmol/L (98-107); Creatinine, Serum 1.22 mg/dL (0.70-1.30); EST Glomerular Filtration Rate 61 mL/min (>60); Est Glom Filt Rate - Afr Amer 74 mL/min (>60); Estimated Creatinine Clearance 46.66 ml/min; Glucose 106 mg/dL (74-106); Potassium 4.1 mmol/L (3.5-5.1); Sodium Level 138 mmol/L (136-145)
[2021-11-13 08:42] VITALS: BP 157/70; PULSE 94; RESP 18; TEMP 36.7; O2SAT 95
[2021-11-13 09:11] VITALS: PULSE 91
--- NOTE | 2021-11-13 10:15 | CASEMGMT ---
Addendum entered by Nani Winters 11/13/21 13:34: 1015-Patient was provided a list of C providers including quality and resource use data and consistent with the patient?s preferred geographic region, medical needs, and insurance network. The patient?s preferred provider is Shannan, Maureentensteff and [place]. Pt is aware his county may be difficult to find a C, he is agreeable to any who will service him. He is aware this cannot be done today and LOKESH VELEZ will work on this Monday morning. Should pt be dc'd by then, LOKESH VELEZ will call him at home to make aware of arrangements. Pt and raquel verbalize understanding. Original Note: LOKESH VELEZ Assessment: Face to Face with pt for initial transition planning/care coordination assessment. LOKESH VELEZ introduced self and role at [facility], pt voices understanding and consents to assessment. Pt is A/O x4 and answers all questions appropriately at this time. Pt sitting up in chair in no distress on RA with raquel Barrow at bedside. Care providers, pharmacy, and demographics verified/updated. Admitting Dx: GIB PCP:Nicol Specialists:gen Supa OR; bari Aleman Preferred Pharmacy: [facility] Retail Insurance: [employer], [employer] Prescription Benefit: yes LW/HPOA: Pt states shabbir Rider dtquintin is his DPOA. He is aware this is not on file at [facility] and he may bring in to be scanned into his chart. LNOK:shabbir Rider dtr; [address], Living Arrangements: Pt lives with in a mobile home with 6 steps to enter with a rail. Pt reports he can dress his upper body but not his lower body. His will put his socks on. Pt states he is not able to wash his lower body. He pulls the blanket up to expose his very scaly dry brown LE's. Transportation: Pt drives self and denies concerns with transportation. DME/HHC/SNF: Pt has grab bars in the bathroom, cane and FWW. He does not use the FWW. Pt denies hx of HHC or SNF stays. Pt son and pt inquire on getting help in the home. States he needs help with bathing his LE's and work on options where he can be as independent as possible. 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 Discussed qualifications for HHC and that it is a short term service. Pt and son verbalize understanding. Pt states no concerns with going home at time of dc. Pt states no further concerns/needs. CM to follow. Advised pt to ask CM if any further question/concerns/needs arise, voices understanding. Pt Goal: Home with HHC Plan: Home with HHC
[2021-11-13 11:56] LABS: Hematocrit 26.5 % (40-54); Hemoglobin 8.4 g/dL (13.0-16.5)
--- NOTE | 2021-11-13 13:21 | DCINST_ITS ---
Discharge Instructions Diet Discharge Diet: Low fat / Low cholesterol Activity Discharge Activity: Return to Normal Activity Dressing / Incision Call your doctor if you observe: Fever of 101 or Higher, Shortness of breath, Dizziness, Fainting spells, Swelling in the ankles, Chest pain and Increased palpitations (irregular heartbeat) Follow Up Care Test Results: Test results from this visit will be discussed in further detail at your follow- up appointment, if applicable. Discharge Plan Admission Admit Date/Time: 11/12/21 15:58 Attending Provider: Jose Mayo Primary Care Provider: Hubert Camarena Discharge Orders/Prescriptions Prescriptions: Continued spironolactone 25 MG tablet 25 mg PO DINNER warfarin [Jantoven] 4 MG tablet 4 mg PO DAILY Label Comments: 7 MG TABS M,W,F AND 6MG ON REIS,TUES,THRS,SAT potassium chloride [Klor-Con M20] 20 MEQ tablet 40 meq PO BID calcium citrate-vitamin D3 1 EACH tablet 1 ea PO DAILY atorvastatin 20 mg Tablet 20 mg PO DAILY metoprolol tartrate 50 mg tablet 25 mg PO BID Label Comments: TAKE 1/2 TABLET BY MOUTHC2 TIMES A DAY bumetanide 1 mg tablet 1 mg PO DINNER Label Comments: TAKE 1 TABLET AT SUPPERwTIME AND 2 TABLETS AT BEDTIME bumetanide 1 mg tablet 2 mg PO QHS Label Comments: TAKE 1 TABLET AT SUPPERwTIME AND 2 TABLETS AT BEDTIME warfarin 1 mg tablet 1 mg PO DAILY Label Comments: take 3 milligrams by mouth ON MONDAY,MONDAY,AND MONDAY and 6 m... (REFER TO PRESCRIPTION NOTES). Advair HFA 45-21 mcg/actuation HFA aerosol inhaler 2 inh INHALATION BID Label Comments: Inhale 2 Puffs asTinstructed twice daily.PRinse mouth after use. Changed omeprazole 20 MG capsule 40 mg PO BID Qty: 60 0RF Referrals / Follow Up: FriendSpeedy DO [STAFF PHYSICIAN] - Within 1 Month Hubert Camarena MD [Primary Care Provider] - Within 1 Week Disposition Disposition (needs filled in before D/C Order can be placed): Home Health Service
[2021-11-13 13:24] VITALS: BP 154/54; PULSE 89; RESP 18; TEMP 36.6; O2SAT 99
--- NOTE | 2021-11-13 13:26 | DS.PCM_ITS ---
Providers Date of Admission: 11/12/21 Primary Care Physician: Dr. Hubert Camarena MD Consultations 11/12/21 19:40 Consult: Gastroenterology Routine Consulting Provider: [facility] Reason for Consult: GI bleed EMERGENT Consult: No MD Notified: Yes Date Notified: 11/12/21 Time Notified: 16:01 Method of Notification: ED Physician Initiated Reason For Visit: GI BLEED Diagnosis Discharge Diagnosis (1) Acute gastrointestinal bleeding: Status: Acute Code(s): K92.2 - Gastrointestinal hemorrhage, unspecified Plan 1. Acute GI bleed/GERD ? Hemoglobin is down about 5 points from last week ? Plan for blood transfusions of 2 units which were ordered in the ER ? Continue with PPI ? Consult GI for scope ? She did receive a dose of vitamin K secondary for his Coumadin for his A. fib 2. A. fib/HTN/HLD/heart failure of unknown type ? Creatinine is 1.43 so we will hold off of his daily Bumex however if he does develop some shortness of breath with blood transfusions can provide a x1 dose of Lasix ? Currently n.p.o. can restart his home medications 1 to p.o. ? We will hold his Coumadin, he does also have a bleeding disorder but he cannot describe exactly what it is but he does have an IVC filter in place and states that he has had blood clots with multiple different procedures in the past DVT: Therapeutic INR Medications at Discharge Home Medications calcium citrate 315 mg calcium-vitamin D3 6.25 mcg (250 unit) tablet 1 ea PO DAILY SUPPLEMENT 10/01/13 potassium chloride 20 mEq tablet,extended release(part/cryst) (Klor-Con M) 40 meq PO BID SUPPLEMENT 10/01/13 spironolactone 25 mg tablet 25 mg PO DINNER FLUID 10/01/13 warfarin 4 mg tablet (Jantoven) 4 mg PO DAILY BLOOD THINNER 10/01/13 atorvastatin 20 mg tablet 20 mg PO DAILY CHOLESTEROL 11/12/21 bumetanide 1 mg tablet 1 mg PO DINNER FLUID 11/12/21 bumetanide 1 mg tablet 2 mg PO QHS FLUID 11/12/21 fluticasone propionate 45 mcg-salmeterol 21 mcg/actuation HFA inhaler (Advair HFA) 2 inh inhalation BID SOB 11/12/21 metoprolol tartrate 50 mg tablet 25 mg PO BID HEART 11/12/21 warfarin 1 mg tablet 1 mg PO DAILY BLOOD THINNER 11/12/21 omeprazole 20 mg capsule,delayed release 40 mg PO BID GERD #60 caps 11/13/21 Hospital Course Operations None Procedures EGD Summary of Care Provided Minutes Spent on Discharge: 40 Hospital Course: Per HPI: GLENYS ALARCON, is a 76 M who presents to the hospital at the urging of his PCP secondary to GI bleed.? Last week blood test demonstrated at the [facility] that he had a hemoglobin of around 13 and today he is down to 8.7.? He has been having some darker maroon stools, he does have a history of hemorrhoid bleeds but nothing as severe.? He is feeling short of breath secondary to the GI bleed.? He states that he did not come in sooner because he did not want to have a colonoscopy.? He is on Coumadin for A. fib as well as a clotting disorder, he states that he will get blood clots with every type of procedure.? And he has an IVC filter in place. Hospital Course: 1.? Acute GI bleed/GERD ? Hemoglobin is down about 5 points from last week ? Transfusions were withheld by the overnight physician secondary to not a significant anemia ? Continue with his home twice daily omeprazole, will increase the dose to 40 mg ? 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 He did receive a dose of vitamin K secondary for his Coumadin for his A. fib. I discussed with him the plan for discharge today since he is had normal bowel movements and his hemoglobin has remained stable at 8.4. He expressed understanding of the risk benefits going home and would like to go home today. He can resume his home Coumadin dosing tomorrow per gastroenterology's recommendation. I do recommend that he follow-up with his PCP as an outpatient for check of his hemoglobin and he can also follow-up with his charcoal unloader within a month. If he has further episodes of GI bleeding he is to return to the hospital. He improved faster than anticipated. 2.? A. fib/HTN/HLD/heart failure of unknown type ? Creatinine has improved to 1.2 to, can resume his home Lasix in the morning ? Currently tolerating a diet ? He can resume his Coumadin tomorrow and follow-up as an outpatient to check his INR and his hemoglobin his PCP. He does have an IVC filter in place and he did share that he probably has a clotting disorder secondary to having multiple DVTs in the past during procedures. So I had discussed with him and his son on admission about the risks of needing to be on Coumadin and that we may need to except the risk of bleeding for now Physical Exam Narrative Const alert, oriented x3 and no apparent distress General Appearance: cooperative HEENT normocephalic and moist oral mucous membranes Eyes PERRL, EOMs intact bilaterally and conjunctivae normal Neck supple and no JVD Resp normal respiratory effort, no retractions, no use of accessory muscles and clear to auscultation bilaterally Auscultation: Negative for crackles, rales, rhonchi or wheezes Cardio regular rate, S1 normal heart sound, S2 normal heart sound and no murmurs Rhythm: abnormal rhythm GI soft to palpation, non-tender and non-distended; Negative for hepatosplenomegaly Extremity Extremity Narrative: Chronic venous changes General Extremity: edema Skin no rashes or lesions noted Neuro no focal motor deficits and no sensory deficits noted Psych affect normal Appearance: appropriate Weight / BMI Weight Weight: 306 lb 0.026 oz Body Mass Index (BMI) 47.7 ABG / Lab / Microbiology Data Result Diagrams: 11/13/21 11:36 11/13/21 06:18 Laboratory: Laboratory Results - last 24 hr 11/12/21 06:55: Lactic Acid 1.8 11/12/21 14:32: WBC 17.4 H, RBC 2.76 L, Hgb 8.7 L, Hct 27.5 L, MCV 99.6 H, MCH 31.5, MCHC 31.6 L, RDW Std Deviation 55.5 H, RDW Coeff of Ira 15.6 H, Plt Count 440, MPV 10.0, Immature Gran % (Auto) 0.600, Neut % (Auto) 70.2 H, Lymph % (Auto) 12.8 L, [place] % (Auto) 12.8 H, Eos % (Auto) 3.2, Baso % (Auto) 0.4, Absolute Neuts (auto) 12.2 H, Absolute Lymphs (auto) 2.22, Nucleated RBC % 0.6, Differential Comment COMMENT, Diff Path Review September foll 11/12/21 14:32: PT 30.9 H, INR 3.0 11/12/21 14:32: Sodium 137, Potassium 4.0, Chloride 104, Carbon Dioxide 26.0, Anion Gap 7, BUN 19 H, Creatinine 1.43 H, Estim Creat Clear Calc 39.80, Est GFR (MDRD) Af Amer 62, Est GFR (MDRD) Non-Af 51 L, BUN/Creatinine Ratio 13.3, Glucose 110 H, Calcium 8.8, Total Bilirubin 0.60, AST 19, ALT 20, Alkaline Phosphatase 91, Total Protein 7.5, Albumin 3.1 L, Globulin 4.4 H, Albumin/Globulin Ratio 0.7 L 11/12/21 14:32: Lactic Acid 2.2 H* 11/12/21 14:32: Blood Type O POSITIVE, Antibody Screen POSITIVE H, Antibody Identification ANTI-E, Antigen Identification E ANTIGEN - NEGATIVE, Crossmatch See Detail 11/12/21 21:25: Hgb 9.1 L, Hct 28.7 L 11/13/21 06:18: WBC 13.6 H, RBC 2.69 L, Hgb 8.4 L, Hct 27.1 L, MCV 100.7 H, MCH 31.2, MCHC 31.0 L, RDW Std Deviation 56.0 H, RDW Coeff of Ira 15.7 H, Plt Count 434, MPV 9.6, Immature Gran % (Auto) 0.800, Neut % (Auto) 69.4, Lymph % (Auto) 13.4 L, Jerauld % (Auto) 11.5 H, Eos % (Auto) 4.3, Baso % (Auto) 0.6, Absolute Neuts (auto) 9.5 H, Absolute Lymphs (auto) 1.83, Nucleated RBC % 1.0, Differential Comment SCANNED, Diff Path Review May foll, Polychromasia RARE, Hypochromasia 1+, Anisocytosis 1+, Macrocytosis 1+ 11/13/21 06:18: PT 16.0 H, INR 1.3 11/13/21 06:18: Sodium 138, Potassium 4.1, Chloride 105, Carbon Dioxide 26.0, Anion Gap 7, BUN 16, Creatinine 1.22, Estim Creat Clear Calc 46.66, Est GFR (MDRD) Af Amer 74, Est GFR (MDRD) Non-Af 61, BUN/Creatinine Ratio 13.1, Glucose 106, Calcium 8.8 11/13/21 11:36: Hgb 8.4 L, Hct 26.5 L D/C Instructions Discharge Diet: Low fat / Low cholesterol Call your doctor if you observe: Fever of 101 or Higher, Shortness of breath, Dizziness, Fainting spells, Swelling in the ankles, Chest pain and Increased palpitations (irregular heartbeat) Meaningful Use Info Meaningful Use Diagnoses (Choose all that apply): None applicable Discharge Plan Admission Admit Date/Time: 11/12/21 15:58 Attending Provider: Jose Mayo Primary Care Provider: Hubert Camarena Instructions Additional Instructions / Restrictions: Follow-up with your PCP in 3 to 5 days to obtain outpatient INR as well as a CBC to check your hemoglobin secondary to your GI bleed and anemia. Discharge Orders/Prescriptions Prescriptions: Continued spironolactone 25 MG tablet 25 mg PO DINNER warfarin [Jantoven] 4 MG tablet 4 mg PO DAILY Label Comments: 7 MG TABS M,W,F AND 6MG ON REIS,TUES,THRS,SAT potassium chloride [Klor-Con M20] 20 MEQ tablet 40 meq PO BID calcium citrate-vitamin D3 1 EACH tablet 1 ea PO DAILY atorvastatin 20 mg Tablet 20 mg PO DAILY metoprolol tartrate 50 mg tablet 25 mg PO BID Label Comments: TAKE 1/2 TABLET BY MOUTHC2 TIMES A DAY bumetanide 1 mg tablet 1 mg PO DINNER Label Comments: TAKE 1 TABLET AT SUPPERwTIME AND 2 TABLETS AT BEDTIME bumetanide 1 mg tablet 2 mg PO QHS Label Comments: TAKE 1 TABLET AT SUPPERwTIME AND 2 TABLETS AT BEDTIME warfarin 1 mg tablet 1 mg PO DAILY Label Comments: take 3 milligrams by mouth ON MONDAY,MONDAY,AND MONDAY and 6 m... (REFER TO PRESCRIPTION NOTES). Advair HFA 45-21 mcg/actuation HFA aerosol inhaler 2 inh INHALATION BID Label Comments: Inhale 2 Puffs asTinstructed twice daily.PRinse mouth after use. Changed omeprazole 20 MG capsule 40 mg PO BID Qty: 60 0RF Referrals / Follow Up: Speedy Flores DO [STAFF PHYSICIAN] - Within 1 Month Hubert Camarena MD [Primary Care Provider] - Within 1 Week Disposition Disposition (needs filled in before D/C Order can be placed): Home Health Service Charges/Coding Visit Charges Inpatient E&M: 64572 Disch Hosp
--- NOTE | 2021-11-15 10:03 | CASEMGMT ---
Addendum entered by Gudelia Agrawal 11/15/21 11:58: Call from Marcelle Hernandez at [facility] and she states they can accept pt but do not have any aides available at this time, but she states their OT will be able to help pt. Call to pt to update, voices understanding and is aware that [facility] will be calling to set up time to come out. Pt voices no further questions/concerns/needs. Uziel CAMPA CM Original Note: Pt discharged home over weekend but per Leticia CAMPA CM, pt would like [facility], see RN AGUSTIN note previously. Call to Marcelle Hernandez at [facility] and she states they do staff pt's area and referral faxed to her at this time. CM to follow. Uziel CAMPA CM
[2021-11-15 12:29] LABS: Pathologist Review Reviewed
[2021-11-15 12:31] LABS: Pathologist Review Reviewed
== END 2021-11-13 15:20 | disposition home health service (06) | DRG 378 ==
LOC: ED 15:59 → PCU 16:20
PROVIDERS: Internal Medicine Gastroenterology; Admitting Provider Family Medicine; Emergency Provider Emergency Medicine; PCP Family Medicine; Visit Provider Family Medicine
PROC: 0DJ08ZZ Inspection of Upper Intestinal Tract, Via Natural or Artificial Opening Endoscopic (ICD-10-PCS; CPT 43235; principal; 2021-11-12 15:00)
DX: K31.811 Angiodysplasia of stomach and duodenum with bleeding (principal); D62 Acute posthemorrhagic anemia; Z68.42 Body mass index [BMI] 45.0-49.9, adult; I11.0 Hypertensive heart disease with heart failure; I50.9 Heart failure, unspecified; I48.91 Unspecified atrial fibrillation; E66.01 Morbid (severe) obesity due to excess calories; J44.9 Chronic obstructive pulmonary disease, unspecified; D69.9 Hemorrhagic condition, unspecified; E78.5 Hyperlipidemia, unspecified; K21.9 Gastro-esophageal reflux disease without esophagitis; K44.9 Diaphragmatic hernia without obstruction or gangrene; K31.7 Polyp of stomach and duodenum; K92.1 Melena; Z95.828 Presence of other vascular implants and grafts; Z79.01 Long term (current) use of anticoagulants; Z79.899 Other long term (current) drug therapy; Z86.718 Personal history of other venous thrombosis and embolism
CPT/HCPCS: 36415; 80048; 80053; 83605; 85014; 85018; 85025; 85610; 86850; 86870; 86900; 86901; 86902; 86905; 86920; 86921; 86922; 88305; 88342; 93005; 97162; 97802; 99285; J7030; J7050; J7120; J7168; A4216; J2405; J3490

== ENCOUNTER 2021-12-08 17:31 | Inpatient (IN) | payer MEDICARE, OTHER, SELFPAY ==
[2021-12-08] VITALS (9 sets, daily range): BP systolic 113–140; BP diastolic 59–80; PULSE 65–82; RESP 16–22; TEMP 36.4–36.8; O2SAT 92–100; BMI 49.9
--- NOTE | 2021-12-08 17:46 | EKG12_ITS ---
Test Reason : SOB Blood Pressure : / mmHG Vent. Rate : 065 BPM Atrial Rate : 000 BPM P-R Int : 000 ms QRS Dur : 082 ms QT Int : 390 ms P-R-T Axes : 000 022 027 degrees QTc Int : 405 ms Atrial fibrillation Abnormal ECG Confirmed by JOVAN GUTIÉRREZ, MARCELA ([id number]), newspaper or periodical editor GUADALUPE DAVID ([id number]) on 12/10/2021 7:50:39 AM Referred By: Confirmed By:MARCELA ALDANA MD
--- NOTE | 2021-12-08 17:53 | ED.VIS.DYS ---
HPI History of Present Illness Chief Complaint: Shortness of Breath Narrative Narrative: 76-year-old male presenting with shortness of breath on exertion. He states he used to be able to walk across the parking lot and now he cannot. He reports that its been years since he has been able to do this. Patient also states that 5 years ago he could walk 5 miles but now cannot. He does admit to some increased lower extremity edema and increased abdominal fullness as well as increasing shortness of breath with exertion. Patient states that he is on Bumex and spironolactone. He is also on Coumadin. Patient reports he was recently admitted for GI bleed and after discharge was supposed to follow-up with his primary care provider. When he got to his primary care provider's office today they sent him back to the emergency room for shortness of breath. It is reported to me that they believe his symptoms may be a GI bleed and that is why he is short of breath. The patient states he has black stools but he takes iron. He is not having or bloody stools. He does not remember when he had a last echocardiogram. His medical office technologist is Dr. Ramirez. He is not having fever, chills, cough. He states has been orthopneic for about 10 years. [facility] Medical History Anemia due to acute blood loss Anticoagulant long-term use Atrial fibrillation CHF (congestive heart failure) COPD (chronic obstructive pulmonary disease) DVT (deep venous thrombosis) Former smoker GI bleed HTN (hypertension) Irregular heart beat Kidney disease Kidney stones Migraines Pulmonary embolism Sleep apnea Home Medications calcium citrate 315 mg calcium-vitamin D3 6.25 mcg (250 unit) tablet 1 ea PO DAILY SUPPLEMENT 10/01/13 [History Last Taken 11/11/21] potassium chloride 20 mEq tablet,extended release(part/cryst) (Klor-Con M) 40 meq PO BID SUPPLEMENT 10/01/13 [History Last Taken 11/12/21] spironolactone 25 mg tablet 25 mg PO DINNER FLUID 10/01/13 [History Last Taken 11/11/21] warfarin 4 mg tablet (Jantoven) 4 mg PO DAILY BLOOD THINNER 10/01/13 [History Last Taken 11/12/21 00:00] atorvastatin 20 mg tablet 20 mg PO DAILY CHOLESTEROL 11/12/21 [History Last Taken 11/12/21] bumetanide 1 mg tablet 1 mg PO DINNER FLUID 11/12/21 [History Last Taken 11/11/21] bumetanide 1 mg tablet 2 mg PO QHS FLUID 11/12/21 [History Last Taken 11/11/21] metoprolol tartrate 50 mg tablet 25 mg PO BID HEART 11/12/21 [History Last Taken 11/12/21] warfarin 1 mg tablet 1 mg PO DAILY BLOOD THINNER 11/12/21 [History Last Taken 11/12/21 00:00] omeprazole 20 mg capsule,delayed release 40 mg PO BID GERD #60 caps 11/13/21 [Rx Last Taken 11/12/21] ferrous sulfate 325 mg (65 mg iron) tablet (FeroSul) 1 tab PO BID 12/08/21 [History Last Taken Unknown] umeclidinium 62.5 mcg/actuation blister powder for inhalation (Incruse Ellipta) ea inhalation 12/08/21 [History Last Taken Unknown] Allergy/AdvReac Type Severity Reaction Status Date / Time chlorpromazine HCl Allergy Other Verified 12/08/21 17:35 [From Thorazine] metformin Allergy PT UNSURE Verified 12/08/21 17:35 OF REACTION Family History Other Heart disease Hypertension Surgical History History of embolic filter insertion Status post splenectomy Social History household members: none Smoking Status: Former smoker substance use type: does not use ROS ROS ED Constitutional Constitutional ED: Denies chills or fever(s) Eyes Eyes: Denies change in vision ENT ENT ED: Denies rhinorrhea or sore throat Cardiovascular Cardiovascular: Reports orthopnea; Denies chest pain or palpitations Respiratory/Chest Respiratory/Chest: Reports dyspnea, dyspnea on exertion and orthopnea; Denies cough Gastrointestinal Gastrointestinal: Reports other Details: Abdominal distention ; Denies abdominal pain or constipation Genitourinary Genitourinary ED: Denies dysuria or hematuria Musculoskeletal Musculoskeletal: Denies arthralgias or back pain Integumentary Denies abscess Neurologic Neurologic: Denies headache(s) or paresthesias Psychiatric Psychiatric: Denies anxiety or depression EXAM Physical Exam Const Vital Signs: 12/08/21 17:32 12/08/21 17:35 12/08/21 17:40 Temperature 98.1 F 98.1 F Temperature Source Oral Temporal Pulse Rate 82 71 Respiratory Rate 16 17 Respiratory Pattern Tachypnea Blood Pressure 137/71 H 137/71 H Blood Pressure Mean 93 93 Pulse Ox 95 95 Oxygen Delivery Method Room Air Room Air Room Air Oxygen Flow Rate (L/min) 12/08/21 18:08 12/08/21 18:57 12/08/21 19:19 Temperature 98.2 F 97.5 F L Temperature Source Temporal Oral Pulse Rate 65 77 Respiratory Rate 22 H 18 Respiratory Pattern Blood Pressure 140/78 H 137/66 H Blood Pressure Mean 98 89 Pulse Ox 96 92 97 Oxygen Delivery Method Room Air Room Air Room Air Oxygen Flow Rate (L/min) 12/08/21 20:00 Temperature 98.1 F Temperature Source Oral Pulse Rate 69 Respiratory Rate 20 H Respiratory Pattern Blood Pressure 133/59 H Blood Pressure Mean 83 Pulse Ox 100 Oxygen Delivery Method Nasal Cannula Oxygen Flow Rate (L/min) 2 Positive well nourished and obese General Appearance ED: NAD; Negative for pallor Nutritional Appearance: obese HEENT Reports moist mucous membranes atraumatic; Negative for trauma Eyes PERRL and EOMs intact bilaterally General Eye ED: Negative for pale conjunctiva or scleral icterus Resp normal respiratory effort and clear to auscultation bilaterally Cardio regular rate and regular rhythm GI GI Narrative: Abdomen slightly distended. No fluid wave. No tenderness to palpation. Extremity Extremity Narrative: Chronic stasis changes to the bilateral lower extremities. Neuro oriented x3 and CN's II-XII intact bilaterally Sensorium / Orientation: alert Speech: speech normal Psych mental status grossly normal Skin General Skin Exam: Negative for jaundice or pallor MDM MDM MDM Narrative Medical decision making narrative: Patient seen and evaluated on arrival. He complains of dyspnea on exertion. He has history of GI bleed and is on Coumadin. He states he is following up with his primary care provider who noted he was short of breath and thought that he was anemic still. He sent him to the ER for an evaluation. He arrives by EMS. He states his dyspnea is not much worsening usual however he does have lower extremity edema and some increasing abdominal girth. He states has been vomiting for years. He sleeps in a chair and this is unchanged. EKG obtained on arrival shows atrial fibrillation with controlled ventricular sponsor 65 bpm without sign of ischemic change. INR therapeutic at 2.0 so not have concern for PE. Creatinine slightly elevated at 1.51. This is not much different than his previous admission however this did normalize before he was discharged. Review of the medical record shows that the patient had a single AVM clipped by Dr. Flores. Patient was not given hemoglobin in the hospital. He was discharged home and he was restarted on his anticoagulation. BNP is slightly elevated today at 192.5. Chest x-ray on my interpretation is no acute cardiopulmonary process and radiologist does agree. After discussing the findings with the patient he did state to me that he was very dyspneic at his doctor's office today. I ambulated him with pulse ox without oxygen he dropped to 86%. He is extremely dyspneic. At this point patient was given 40 mg of Lasix. Discussed with hospitalist for admission as this is likely CHF exacerbation. Impression: 1. CHF exacerbation 2. Hypoxia with exertion Lab Data Attestation: I reviewed the patient's lab results. Labs: Laboratory Results - last 24 hr 12/08/21 12/08/21 12/08/21 18:05 18:05 18:05 WBC RBC Hgb Hct MCV MCH MCHC RDW Std Deviation RDW Coeff of Ira Plt Count MPV Immature Gran % (Auto) Neut % (Auto) Lymph % (Auto) Orange % (Auto) Eos % (Auto) Baso % (Auto) Absolute Neuts (auto) Absolute Lymphs (auto) Nucleated RBC % Differential Comment PT 22.2 H INR 2.0 Sodium 138 Potassium 4.2 Chloride 103 Carbon Dioxide 30.0 Anion Gap 5 BUN 17 Creatinine 1.51 H Estim Creat Clear Calc 37.69 Est GFR (MDRD) Af Amer 58 L Est GFR (MDRD) Non-Af 48 L BUN/Creatinine Ratio 11.3 Glucose 114 H Calcium 9.2 Troponin I High Sens 14 B-Natriuretic Peptide 192.5 H 12/08/21 12/08/21 20:17 21:45 WBC 12.1 H RBC 3.56 L Hgb 11.0 L Hct 35.2 L MCV 98.9 H MCH 30.9 MCHC 31.3 L RDW Std Deviation 60.3 H RDW Coeff of Ira 16.8 H Plt Count 505 H MPV 9.6 Immature Gran % (Auto) 0.500 Neut % (Auto) 69.0 Lymph % (Auto) 15.0 L Orange % (Auto) 10.9 H Eos % (Auto) 4.0 Baso % (Auto) 0.6 Absolute Neuts (auto) 8.4 H Absolute Lymphs (auto) 1.82 Nucleated RBC % 0.2 Differential Comment SCANNED PT INR Sodium Potassium Chloride Carbon Dioxide Anion Gap BUN Creatinine Estim Creat Clear Calc Est GFR (MDRD) Af Amer Est GFR (MDRD) Non-Af BUN/Creatinine Ratio Glucose Calcium Troponin I High Sens 13 B-Natriuretic Peptide Radiography Diagnostic Testing: Clinical Impression(s) from Imaging Studies Chest X-Ray 12/08/21 17:55 IMPRESSION: There are no acute findings. Electronically Signed: Kelby Roman MD at 18:10 EDT Reading Location ID and State: [facility] [place] / [place] , Service support , Discharge Plan Triage Chief Complaint: Shortness of Breath ED Provider: Clifford Frank Dx/Rx/DC Orders Prescriptions: No Action spironolactone 25 MG tablet 25 mg PO DINNER warfarin [Jantoven] 4 MG tablet 4 mg PO DAILY Label Comments: 7 MG TABS M,W,F AND 6MG ON REIS,TUES,THRS,SAT potassium chloride [Klor-Con M20] 20 MEQ tablet 40 meq PO BID calcium citrate-vitamin D3 1 EACH tablet 1 ea PO DAILY atorvastatin 20 mg Tablet 20 mg PO DAILY metoprolol tartrate 50 mg tablet 25 mg PO BID Label Comments: TAKE 1/2 TABLET BY MOUTHC2 TIMES A DAY bumetanide 1 mg tablet 1 mg PO DINNER Label Comments: TAKE 1 TABLET AT SUPPERwTIME AND 2 TABLETS AT BEDTIME bumetanide 1 mg tablet 2 mg PO QHS Label Comments: TAKE 1 TABLET AT SUPPERwTIME AND 2 TABLETS AT BEDTIME warfarin 1 mg tablet 1 mg PO DAILY Label Comments: take 3 milligrams by mouth ON MONDAY,MONDAY,AND MONDAY and 6 m... (REFER TO PRESCRIPTION NOTES). omeprazole 20 MG capsule 40 mg PO BID Qty: 60 0RF Incruse Ellipta 62.5 mcg/actuation blister with device INHALATION ferrous sulfate [FeroSul] 325 mg (65 mg iron) tablet 1 tab PO BID Label Comments: Take 1 tablet by mouthEtwice daily with meals.N Primary Care Provider: Hubert Camarena Referrals: Hubert Camarena MD [Primary Care Provider] -
--- NOTE | 2021-12-08 17:55 | RAD_ITS ---
STUDY: XR Chest 1 View 12/08/2021 5:57 PM REASON FOR EXAM: Male, 76 years old. CHEST PAIN chest pain COMPARISON: None TECHNIQUE: XR Chest 1 View FINDINGS: There is no demonstrated pleural abnormality. Chronic deformity of the left ribs. Normal heart size. Normal mediastinum. Normal syd. Prominent appearing increased interstitial lung markings. Normal visualized pulmonary arteries. There is atherosclerotic calcification of the aortic arch with tortuosity. There are diffuse degenerative changes of the visualized thoracic spine. There is degenerative osteoarthritis of the bilateral shoulders. There is no demonstrated abnormality of the visualized soft tissue structures of the upper abdomen. RAD/Chest 1 View (Portable) IMPRESSION: There are no acute findings. Electronically Signed: Kelby Roman MD at 18:10 EDT ,
[2021-12-08 18:25] LABS: BNP,B-Type NATRIURETIC PEPTIDE 192.5 pg/mL (0-100)
[2021-12-08 18:29] LABS: Anion Gap 5 (5-15); BUN 17 mg/dL (7-18); BUN/Creat Ratio 11.3 RATIO (10-20); Calcium,Total 9.2 mg/dL (8.5-10.1); Chloride 103 mmol/L (98-107); Creatinine, Serum 1.51 mg/dL (0.70-1.30); EST Glomerular Filtration Rate 48 mL/min (>60); Est Glom Filt Rate - Afr Amer 58 mL/min (>60); Estimated Creatinine Clearance 37.69 ml/min; Glucose 114 mg/dL (74-106); Potassium 4.2 mmol/L (3.5-5.1); Sodium Level 138 mmol/L (136-145); Troponin-I HS 14 pg/mL (3.0-78.0)
[2021-12-08 18:30] LABS: Prothrombin Time (Protime)PT. 22.2 SECONDS (11.7-14.9)
[2021-12-08 20:54] LABS: Troponin-I HS (w/2H Reflex) 13 pg/mL (3.0-78.0)
[2021-12-08 22:11] LABS: Absolute Lymphocyte Count 1.82 X10^3/uL (0.83-4.51); Absolute Neutrophil Count 8.4 X10^3/uL (2.0-7.7); Basophil# 0.07 X10^3/uL; Basophil% 0.6 % (0-1); Eosinophil# 0.49 X10^3/uL; Hematocrit 35.2 % (40-54); Lymphocyte # 1.82 X10^3/ul (0.83-4.51); Mean Corp Hgb Conc 31.3 g/dL (32-36); Mean Corpuscular Hgb 30.9 pg (27.0-32.0); Mean Corpuscular Volume 98.9 fL (80-94); Mean Platelet Vol. 9.6 fl (6.2-12.0); Monocyte# 1.32 X10^3/uL; Monocyte% 10.9 % (0-10); NRBC Flagged by Analyzer 0.2 % (0-5); Neutrophil # 8.38 X10^3/uL (2.7-7.7); POSITIVE COUNT YES; Platelet Count 505 K/mm3 (150-450); RBC Distribution Width CV 16.8 % (11.6-14.6); RBC Distribution Width SD 60.3 fl (35.1-43.9); Red Blood Count 3.56 M/mm3 (4.6-6.2); White Blood Count 12.1 K/mm3 (4.4-11.0)
[2021-12-08 22:12] LABS: Differential Indicated SCAN CRITERIA MET
[2021-12-08 22:23] LABS: Reflex Troponin-HS? (from REC) Y
[2021-12-08 22:44] LABS: Differential Comment SCANNED
--- NOTE | 2021-12-08 23:22 | HP.PCM.HOS_ITS ---
[facility] - General General Date of Admission: 12/08/21 Date of Service: 12/08/21 Chief Complaint: Dyspnea on exertion HPI Narrative GLENYS ALARCON, is a 76 M with a significant history of DVT and PE on warfarin; atrial fibrillation; AVM status post clipping on 11/12/2021 presenting to the emergency department with dyspnea on exertion. Reportedly his dyspnea on exertion has been going on for 1 month. He was placed on iron tablets and his dyspnea seem to have improved. However his dyspnea on exertion got worse again. Associated with symptom is bilateral lower extremity swelling. Also he reports abdominal fullness. Patient has chronic orthopnea for which he sleeps in a recliner. Further, patient has fatigue. He denies anorexia. He denies paroxysmal nocturnal dyspnea. On the same day of presentation patient went to his PCPs office for hospital follow-up. At the emergent department it was noted that patient was very dyspneic. His dyspnea was attributed to possibly GI bleed. Patient was subsequently sent to emergency department. At the emergent department patient's hemoglobin was found to be stable. Emergency Department doctor discussed the case with patient's PCP on-call who had recommended that patient's spironolactone be increased and sent home if possible. However at the emergent department with ambulation patient oxygen saturation dropped to 87% so a decision was made to admit the patient. [facility] Medical History Anemia due to acute blood loss Anticoagulant long-term use Atrial fibrillation CHF (congestive heart failure) COPD (chronic obstructive pulmonary disease) DVT (deep venous thrombosis) Former smoker GI bleed HTN (hypertension) Irregular heart beat Kidney disease Kidney stones Migraines Pulmonary embolism Sleep apnea Home Medications calcium citrate 315 mg calcium-vitamin D3 6.25 mcg (250 unit) tablet 1 ea PO DAILY SUPPLEMENT 10/01/13 [History Last Taken 11/11/21] potassium chloride 20 mEq tablet,extended release(part/cryst) (Klor-Con M) 40 meq PO BID SUPPLEMENT 10/01/13 [History Last Taken 11/12/21] spironolactone 25 mg tablet 25 mg PO DINNER FLUID 10/01/13 [History Last Taken 11/11/21] warfarin 4 mg tablet (Jantoven) 4 mg PO DAILY BLOOD THINNER 10/01/13 [History Last Taken 11/12/21 00:00] atorvastatin 20 mg tablet 20 mg PO DAILY CHOLESTEROL 11/12/21 [History Last Taken 11/12/21] bumetanide 1 mg tablet 1 mg PO DINNER FLUID 11/12/21 [History Last Taken 11/11/21] bumetanide 1 mg tablet 2 mg PO QHS FLUID 11/12/21 [History Last Taken 11/11/21] metoprolol tartrate 50 mg tablet 25 mg PO BID HEART 11/12/21 [History Last Taken 11/12/21] warfarin 1 mg tablet 1 mg PO DAILY BLOOD THINNER 11/12/21 [History Last Taken 11/12/21 00:00] omeprazole 20 mg capsule,delayed release 40 mg PO BID GERD #60 caps 11/13/21 [Rx Last Taken 11/12/21] ferrous sulfate 325 mg (65 mg iron) tablet (FeroSul) 1 tab PO BID 12/08/21 [History Last Taken Unknown] umeclidinium 62.5 mcg/actuation blister powder for inhalation (Incruse Ellipta) ea inhalation 12/08/21 [History Last Taken Unknown] Allergy/AdvReac Type Severity Reaction Status Date / Time chlorpromazine HCl Allergy Other Verified 12/08/21 17:35 [From Thorazine] metformin Allergy PT UNSURE Verified 12/08/21 17:35 OF REACTION Family History Other Heart disease Hypertension Surgical History History of embolic filter insertion Status post splenectomy Social History household members: none Smoking Status: Former smoker substance use type: does not use ROS ROS Narrative Pertinent positives and pertinent negatives as noted in HPI. All other systems were reviewed and are negative. Vital Signs Vital Signs Vital Signs: 12/08/21 17:32 12/08/21 17:35 12/08/21 17:40 Temperature 98.1 F 98.1 F Temperature Source Oral Temporal Pulse Rate 82 71 Respiratory Rate 16 17 Respiratory Pattern Tachypnea Blood Pressure 137/71 H 137/71 H Blood Pressure Mean 93 93 Pulse Ox 95 95 Oxygen Delivery Method Room Air Room Air Room Air Oxygen Flow Rate (L/min) 12/08/21 18:08 12/08/21 18:57 12/08/21 19:19 Temperature 98.2 F 97.5 F L Temperature Source Temporal Oral Pulse Rate 65 77 Respiratory Rate 22 H 18 Respiratory Pattern Blood Pressure 140/78 H 137/66 H Blood Pressure Mean 98 89 Pulse Ox 96 92 97 Oxygen Delivery Method Room Air Room Air Room Air Oxygen Flow Rate (L/min) 12/08/21 20:00 12/08/21 22:49 Temperature 98.1 F Temperature Source Oral Pulse Rate 69 79 Respiratory Rate 20 H 21 H Respiratory Pattern Blood Pressure 133/59 H 113/80 Blood Pressure Mean 83 91 Pulse Ox 100 96 Oxygen Delivery Method Nasal Cannula Nasal Cannula Oxygen Flow Rate (L/min) 2 2 Weight Weight: 144.7 kg Body Mass Index (BMI) 49.9 Physical Exam Narrative Physical exam: General: Well-nourished, well-developed. Head: Normocephalic, atraumatic, no tenderness Eyes: Vision is grossly intact. EOMI ENT, no trauma, moist mucous membranes, no rhinorrhea Neck: Nontender, full range of motion. CVS: Increased work of breathing with activity in bed. Regular rate and rhythm. S1-S2 present. No murmur, gallop or rub. Respiratory : clear to auscultation bilaterally, chest wall nontender, no wheezing Abdomen: Soft, nontender, nondistended, normal bowel sounds, no masses : Deferred Back: Nontender, no CVA tenderness, no midline spinal tenderness, deformities, step-offs Extremities: Nontender full range of motion, no trauma Skin: Swelling of bilateral lower extremities with hyperkeratosis. Neuro: Alert, oriented, cranial nerves II through XII grossly intact. Psychiatry: Normal mood. Normal affect. Not depressed. Not anxious. Results Lab / Micro Data Result Diagrams: 12/08/21 21:45 12/08/21 18:05 Labs: Laboratory Results - last 24 hr 12/08/21 18:05: PT 22.2 H, INR 2.0 12/08/21 18:05: Sodium 138, Potassium 4.2, Chloride 103, Carbon Dioxide 30.0, Anion Gap 5, BUN 17, Creatinine 1.51 H, Estim Creat Clear Calc 37.69, Est GFR (MDRD) Af Amer 58 L, Est GFR (MDRD) Non-Af 48 L, BUN/Creatinine Ratio 11.3, Glucose 114 H, Calcium 9.2, Troponin I High Sens 14 12/08/21 18:05: B-Natriuretic Peptide 192.5 H 12/08/21 20:17: Troponin I High Sens 13 12/08/21 21:45: WBC 12.1 H, RBC 3.56 L, Hgb 11.0 L, Hct 35.2 L, MCV 98.9 H, MCH 30.9, MCHC 31.3 L, RDW Std Deviation 60.3 H, RDW Coeff of Ira 16.8 H, Plt Count 505 H, MPV 9.6, Immature Gran % (Auto) 0.500, Neut % (Auto) 69.0, Lymph % (Auto) 15.0 L, [place] % (Auto) 10.9 H, Eos % (Auto) 4.0, Baso % (Auto) 0.6, Absolute Neuts (auto) 8.4 H, Absolute Lymphs (auto) 1.82, Nucleated RBC % 0.2, Differential Comment SCANNED Radiology Impression Chest X-Ray 12/08/21 17:55 IMPRESSION: There are no acute findings. Electronically Signed: Kelby Roman MD at 18:10 EDT , Assessment & Plan Assessment/Plan (1) CHF (congestive heart failure): (2) HTN (hypertension): (3) Atrial fibrillation: PLAN: Plan Acute Exacerbation of heart failure Unknown whether reduced ejection fraction preserved. Place on monitored bed on PCU Weight on admission to the floor; and then daily Strict I&O's CXR was visualized and independently. I agree with radiology interpretation of no acute cardiopulmonary process BNP on day of presentation was 102.5. Lasix was offered at the emergency department by ED doc. However patient stated that his kidney function worsens with Lasix to once Bumex. Escalate home Bumex; and give IV dose. Escalate home spironolactone Transthoracic echocardiogram to evaluate left ventricular wall motion and systolic function. Monitor electrolytes and renal function Elevate bilateral lower extremities. Farooq wrap to bilateral lower extremities Fluid restriction of 1500 mls daily cardiac diet ordered Leukocytosis CBC showed mild elevated white count 12.1. Review of labs ordered on 11/13/2021 WBC was 13.6. And on 11/12/2021 CBC showed white count of 17.4. Trend. Atrial fibrillation In sinus rhythm. INR therapeutic. Coumadin continued. Hypertension Blood pressure is stable Spironolactone and Bumex as above. Trend blood pressure and adjust blood pressure medications. DVT prophylaxis Subcutaneous Lovenox ordered. Charges/Coding Visit Charges Inpatient E&M: 25459 Init Hosp L3
[2021-12-09] VITALS (18 sets, daily range): BP systolic 143–164; BP diastolic 60–85; PULSE 65–92; RESP 16–20; TEMP 36.3–36.7; O2SAT 89–98; BMI 48.4
[2021-12-09 00:29] LABS: Troponin-I HS 13 pg/mL (3.0-78.0)
--- NOTE | 2021-12-09 00:47 | ECHOCS_ITS ---
Reason For Study: DYSPNEA/SOB Procedure This was a 2D Doppler, Color Flow transthoracic echocardiogram. The study was technically difficult. Exam performed portable in patient room. Left Ventricle Normal LV size. Left ventricular systolic function is normal. The estimated ejection fraction is 60 %. No regional wall motion abnormalities noted. Right Ventricle Normal RV size. Normal systolic function. Atria Normal left atrium. Normal right atrium. Mitral Valve Normal mitral valve. Tricuspid Valve Normal tricuspid valve. Mild (1+) tricuspid valve insufficiency. Pulmonary artery systolic pressure is 42 mmHg. Aortic Valve Trisinus/trileaflet aortic valve. Mild focal aortic valve calcification. Pulmonic Valve The pulmonic valve is not well visualized. Great Vessels Normal aortic root. The pulmonary artery is normal size. Normal inferior vena cava. Pericardium/Pleural No pericardial effusion. Medication Diluted definity 2.5ml given slow IV push to enhance endocardial definition. MMode/2D Measurements & Calculations LVIDd: 4.4 cm IVSd: 0.82 cm Ao root diam: 3.3 cm LVIDs: 3.0 cm LVPWd: 0.82 cm RVDd: 3.7 cm FS: 30.9 % LAV(MOD-bp): 50.5 ml LVAd ap4: 27.9 cm2 SV(MOD-sp4): 49.0 ml LAV(MOD-bp) Indexed: 20.8 ml/m2 LVLd ap4: 8.0 cm LAV(MOD-sp2): 54.9 ml EDV(MOD-sp4): 79.6 ml LAV(MOD-sp4): 46.8 ml EDV(sp4-el): 82.8 ml LVAs ap4: 16.1 cm2 LVLs ap4: 7.0 cm ESV(MOD-sp4): 30.6 ml ESV(sp4-el): 31.5 ml EF(MOD-sp4): 61.6 % EF(sp4-el): 61.9 % SV(sp4-el): 51.3 ml LA A4 area: 19.4 cm2 RA A4 area: 23.2 cm2 Doppler Measurements & Calculations MV E max gabbie: 100.2 cm/sec Ao V2 max: 169.3 cm/sec LV V1 max: 117.4 cm/sec Ao max P.5 mmHg LV V1 max P.5 mmHg PA V2 max: 111.4 cm/sec TR max gabbie: 310.6 cm/sec TR max P.7 mmHg ECHO/Echo Complete W/ Contrast Interpretation Summary Normal LV size. Left ventricular systolic function is normal. The estimated ejection fraction is 60 %. Pulmonary artery systolic pressure is 42 mmHg. Contrast injection was performed. The study was technically difficult. Ordering Physician: Dany Almeida Referring Physician: ALEXANDRE JHAVERI Performed By: Vilma Tabares RDCS
[2021-12-09] MEDS: 0.9% Saline Lock 10 ML Syringe IV ×3 (01:07→17:04)
[2021-12-09] MEDS: Bumetanide 1 MG/4 ML Vial 2 MG IV ×3 (01:07→17:04)
[2021-12-09] MEDS: CLARIFY ORDER NOTE (02:34)
[2021-12-09 05:53] LABS: Absolute Neutrophil Count 7.1 X10^3/uL (2.0-7.7); Basophil# 0.05 X10^3/uL; Basophil% 0.5 % (0-1); Eosinophils% 5.7 % (0-5); Hematocrit 33.1 % (40-54); Hemoglobin 9.8 g/dL (13.0-16.5); Lymphocyte % 14.2 % (19-41); Mean Corp Hgb Conc 29.6 g/dL (32-36); Mean Corpuscular Hgb 30.1 pg (27.0-32.0); Mean Corpuscular Volume 101.5 fL (80-94); Mean Platelet Vol. 9.6 fl (6.2-12.0); Monocyte# 1.24 X10^3/uL; Monocyte% 11.7 % (0-10); NRBC Flagged by Analyzer 0.3 % (0-5); Neutrophil # 7.14 X10^3/uL (2.7-7.7); Neutrophil % 67.4 % (47-70); Platelet Count 523 K/mm3 (150-450); RBC Distribution Width SD 63.5 fl (35.1-43.9); Red Blood Count 3.26 M/mm3 (4.6-6.2); White Blood Count 10.6 K/mm3 (4.4-11.0)
[2021-12-09 06:07] LABS: International Normalized Ratio 1.9; Prothrombin Time (Protime)PT. 21.5 SECONDS (11.7-14.9)
[2021-12-09 06:27] LABS: Anion Gap 5 (5-15); BUN 16 mg/dL (7-18); BUN/Creat Ratio 12.9 RATIO (10-20); Calcium,Total 8.9 mg/dL (8.5-10.1); Chloride 104 mmol/L (98-107); Creatinine, Serum 1.24 mg/dL (0.70-1.30); EST Glomerular Filtration Rate 60 mL/min (>60); Est Glom Filt Rate - Afr Amer 73 mL/min (>60); Glucose 110 mg/dL (74-106); Potassium 3.6 mmol/L (3.5-5.1); Sodium Level 139 mmol/L (136-145)
[2021-12-09] MEDS: Potassium Chloride Oral Tablet 20 MEQ 40 MEQ PO ×2 (09:02→17:05)
[2021-12-09] MEDS: Pantoprazole Sodium 40 MG Tablet PO ×2 (09:02→21:48)
[2021-12-09] MEDS: Calcium Carb/Vitamin D 1 TABLET Tablet PO (09:02)
[2021-12-09] MEDS: Metoprolol Tartrate 25 MG Tablet PO (09:03)
[2021-12-09] MEDS: Menthol/Lanolin/Calamine/Znox 113 GM Tube 1 APPLIC TOPICAL ×2 (09:04→21:54)
[2021-12-09] MEDS: Ferrous Sulfate 325 MG Tablet PO ×2 (11:21→17:04)
--- NOTE | 2021-12-09 15:13 | PCM.PN.HOSP ---
Subjective Subjective Follow-up on acute on chronic CHF: Patient was seen and examined. He complains of feeling slightly improved. He has gained about 10 pounds in the last few days. He admits to eating from the local deli place. He denied any chest pain or dizziness or palpitations, All questions answered from patient and his stepdaughter, GEETHA Naylor on phone. Objective Data Objective Data Vital Signs: Vital Signs Temp Pulse Resp BP Pulse Ox O2 Del Method O2 Flow Rate 97.4 F L 75 18 164/65 H 95 Nasal Cannula 2 12/09/21 09:00 12/09/21 11:35 12/09/21 09:00 12/09/21 09:00 12/09/21 09:14 12/09/21 09:14 12/09/21 09:14 Oxygen Flow Rate (L/min) 2 Oxygen Delivery Method Nasal Cannula Weight: 140.3 kg Body Mass Index (BMI) 48.4 Intake & Output: Intake and Output for Last 24 Hours 12/07/21 12/08/21 12/09/21 23:59 23:59 23:59 Intake Total 500 / 500 Output Total 2350 / 2350 Balance -1850 / -1850 Lab / Micro Data Result Diagrams: 12/09/21 05:11 12/09/21 05:11 Labs: Laboratory Results - last 24 hr 12/08/21 18:05: PT 22.2 H, INR 2.0 12/08/21 18:05: Sodium 138, Potassium 4.2, Chloride 103, Carbon Dioxide 30.0, Anion Gap 5, BUN 17, Creatinine 1.51 H, Estim Creat Clear Calc 37.69, Est GFR (MDRD) Af Amer 58 L, Est GFR (MDRD) Non-Af 48 L, BUN/Creatinine Ratio 11.3, Glucose 114 H, Calcium 9.2, Troponin I High Sens 14 12/08/21 18:05: B-Natriuretic Peptide 192.5 H 12/08/21 20:17: Troponin I High Sens 13 12/08/21 21:45: WBC 12.1 H, RBC 3.56 L, Hgb 11.0 L, Hct 35.2 L, MCV 98.9 H, MCH 30.9, MCHC 31.3 L, RDW Std Deviation 60.3 H, RDW Coeff of Ira 16.8 H, Plt Count 505 H, MPV 9.6, Immature Gran % (Auto) 0.500, Neut % (Auto) 69.0, Lymph % (Auto) 15.0 L, [place] % (Auto) 10.9 H, Eos % (Auto) 4.0, Baso % (Auto) 0.6, Absolute Neuts (auto) 8.4 H, Absolute Lymphs (auto) 1.82, Nucleated RBC % 0.2, Differential Comment SCANNED 12/09/21 00:07: Troponin I High Sens 13 12/09/21 05:11: WBC 10.6, RBC 3.26 L, Hgb 9.8 L, Hct 33.1 L, MCV 101.5 H, MCH 30.1, MCHC 29.6 L D, RDW Std Deviation 63.5 H, RDW Coeff of Ira 17.0 H, Plt Count 523 H, MPV 9.6, Immature Gran % (Auto) 0.500, Neut % (Auto) 67.4, Lymph % (Auto) 14.2 L, [place] % (Auto) 11.7 H, Eos % (Auto) 5.7 H, Baso % (Auto) 0.5, Absolute Neuts (auto) 7.1, Absolute Lymphs (auto) 1.50, Nucleated RBC % 0.3 12/09/21 05:11: PT 21.5 H, INR 1.9 12/09/21 05:11: Sodium 139, Potassium 3.6, Chloride 104, Carbon Dioxide 30.0, Anion Gap 5, BUN 16, Creatinine 1.24, Estim Creat Clear Calc 45.90, Est GFR (MDRD) Af Amer 73, Est GFR (MDRD) Non-Af 60, BUN/Creatinine Ratio 12.9, Glucose 110 H, Calcium 8.9 Radiography Diagnostic Testing: Radiology Impression Chest X-Ray 12/08/21 17:55 IMPRESSION: There are no acute findings. Electronically Signed: Kelby Roman MD at 18:10 EDT , Echocardiogram 12/09/21 00:47 Interpretation Summary Normal LV size. Left ventricular systolic function is normal. The estimated ejection fraction is 60 %. Pulmonary artery systolic pressure is 42 mmHg. Contrast injection was performed. The study was technically difficult. Ordering Physician: Dany Almeida Referring Physician: ALEXANDRE JHAVERI Performed By: Vilma Tabares RDCS Physical Exam Narrative Physical exam: General: Alert, Oriented x3, Cooperative, morbidly obese, on 2 L of oxygen HEENT: Atraumatic Oral: Moist Mucosa Neck: Supple Lungs: Diminished to auscultation Cardiovascular: HS I+II, regular, no murmurs Abdomen: Bowel Sounds Present, Soft, Non Tender Extremities: Bilateral leg extremity, class III-IV, Farooq wrapped, weepy Skin: No rashes, No breakdown Neurological: Grossly intact Psych/Mental Status: Appropriate Assessment & Plan Assessment/Plan (1) Hypoxia: (2) CHF exacerbation: PLAN: Plan 1. Acute hypoxia secondary to acute on chronic CHF exacerbation Patient is currently on 2 L of oxygen, continue CHF management, Wean off for SPO2 more than 94%, encourage use of incentive spirometer 2. Acute on chronic heart failure preserved EF, EF 60% Continue on IV Bumex, CHF protocol 3. History of DVT/PE/chronic atrial fibrillation INR is 1.9, continue Coumadin 4. CORAL on CPAP 5. Recent GI bleed, status post gastric polyp snaring and AVM treated with heater probe and clipping, on EGD done 11/12/2021 Continue on oral iron and PPI 6. Anemia, chronic, hemoglobin is 9.8, improved from his recent discharged Continue on oral iron 7. Morbid obesity, BMI 48.4, lifestyle modification recommended 8. DVT prophylaxis?on Coumadin Charges/Coding Visit Charges Inpatient E&M: 26112 Subs Hosp L2
--- NOTE | 2021-12-09 16:17 | CASEMGMT ---
LOKESH VELEZ NOTE: Taylor w/Marcelle Hernandez @ [facility]. She was notified pt has been admitted to [facility] [place]. H/P faxed to [facility] at this time. Mihir STAPLES RN, CM
[2021-12-09] MEDS: Spironolactone 50 MG Tablet PO (17:04)
[2021-12-09] MEDS: Ipratropium 0.5 MG/2.5 ML SOLUTION INHALATION (18:47)
[2021-12-09] MEDS: Atorvastatin Calcium 20 MG Tablet PO (21:49)
[2021-12-09] MEDS: Metoprolol Tartrate 50 MG Tablet PO (21:52)
[2021-12-10] VITALS (14 sets, daily range): BP systolic 123–147; BP diastolic 62–86; PULSE 66–95; RESP 16–20; TEMP 36.6–36.7; O2SAT 91–97
[2021-12-10 05:27] LABS: Absolute Lymphocyte Count 1.37 X10^3/uL (0.83-4.51); Absolute Neutrophil Count 7.1 X10^3/uL (2.0-7.7); Basophil# 0.07 X10^3/uL; Basophil% 0.7 % (0-1); Eosinophil# 0.47 X10^3/uL; Eosinophils% 4.6 % (0-5); Hematocrit 34.4 % (40-54); Hemoglobin 10.1 g/dL (13.0-16.5); Lymphocyte # 1.37 X10^3/ul (0.83-4.51); Lymphocyte % 13.3 % (19-41); Mean Corp Hgb Conc 29.4 g/dL (32-36); Mean Corpuscular Hgb 30.4 pg (27.0-32.0); Mean Corpuscular Volume 103.6 fL (80-94); Mean Platelet Vol. 9.4 fl (6.2-12.0); Monocyte# 1.24 X10^3/uL; Monocyte% 12.1 % (0-10); NRBC Flagged by Analyzer 0.2 % (0-5); Neutrophil # 7.07 X10^3/uL (2.7-7.7); Neutrophil % 68.8 % (47-70); Platelet Count 517 K/mm3 (150-450); RBC Distribution Width CV 16.9 % (11.6-14.6); RBC Distribution Width SD 64.2 fl (35.1-43.9); Red Blood Count 3.32 M/mm3 (4.6-6.2); White Blood Count 10.3 K/mm3 (4.4-11.0)
[2021-12-10 05:36] LABS: International Normalized Ratio 1.6
[2021-12-10 06:05] LABS: ALB/GLOB Ratio 0.7 RATIO (0.9-2.4); AST(SGOT) 15 U/L (15-37); Alanine Aminotransfer ALT/SGPT 15 U/L (16-61); Albumin, Serum 2.8 g/dL (3.2-5.0); Alkaline Phosphatase 85 U/L (45-117); Anion Gap 3 (5-15); BUN 19 mg/dL (7-18); BUN/Creat Ratio 14.5 RATIO (10-20); Calcium,Total 8.9 mg/dL (8.5-10.1); Chloride 103 mmol/L (98-107); Creatinine, Serum 1.31 mg/dL (0.70-1.30); EST Glomerular Filtration Rate 56 mL/min (>60); Est Glom Filt Rate - Afr Amer 68 mL/min (>60); Estimated Creatinine Clearance 43.45 ml/min; Globulin 4.2 g/dL (2.2-4.2); Glucose 105 mg/dL (74-106); Potassium 3.9 mmol/L (3.5-5.1); Sodium Level 137 mmol/L (136-145)
[2021-12-10] MEDS: Ipratropium 0.5 MG/2.5 ML SOLUTION INHALATION ×3 (07:08→19:17)
--- NOTE | 2021-12-10 08:04 | PCM.PN.HOSP ---
Subjective Subjective Follow-up on acute on chronic CHF: Patient was seen and examined.? He feels a little improved. Off oxygen. He has been diuresing. His weight today is 137.2 from 140.3. Objective Data Objective Data Vital Signs: Vital Signs Temp Pulse Resp BP Pulse Ox O2 Del Method O2 Flow Rate 98 F 66 20 H 123/63 H 95 Nasal Cannula 1 12/10/21 03:18 12/10/21 03:18 12/10/21 03:18 12/10/21 03:18 12/10/21 03:18 12/10/21 03:18 12/10/21 03:18 Oxygen Flow Rate (L/min) 1 Oxygen Delivery Method Nasal Cannula Weight: 137.2 kg Body Mass Index (BMI) 48.4 Intake & Output: Intake and Output for Last 24 Hours 12/08/21 12/09/21 12/10/21 23:59 23:59 23:59 Intake Total 900 / 1200 400 / 400 Output Total 3250 / 4300 1800 / 1800 Balance -2350 / -3100 -1400 / -1400 Lab / Micro Data Result Diagrams: 12/10/21 05:03 12/10/21 05:03 Labs: Laboratory Results - last 24 hr 12/10/21 05:03: PT 19.0 H, INR 1.6 12/10/21 05:03: WBC 10.3, RBC 3.32 L, Hgb 10.1 L, Hct 34.4 L, MCV 103.6 H, MCH 30.4, MCHC 29.4 L, RDW Std Deviation 64.2 H, RDW Coeff of Ira 16.9 H, Plt Count 517 H, MPV 9.4, Immature Gran % (Auto) 0.500, Neut % (Auto) 68.8, Lymph % (Auto) 13.3 L, [place] % (Auto) 12.1 H, Eos % (Auto) 4.6, Baso % (Auto) 0.7, Absolute Neuts (auto) 7.1, Absolute Lymphs (auto) 1.37, Nucleated RBC % 0.2 12/10/21 05:03: Sodium 137, Potassium 3.9, Chloride 103, Carbon Dioxide 31.0, Anion Gap 3 L, BUN 19 H, Creatinine 1.31 H, Estim Creat Clear Calc 43.45, Est GFR (MDRD) Af Amer 68, Est GFR (MDRD) Non-Af 56 L, BUN/Creatinine Ratio 14.5, Glucose 105, Calcium 8.9, Total Bilirubin 0.60, AST 15, ALT 15 L, Alkaline Phosphatase 85, Total Protein 7.0, Albumin 2.8 L, Globulin 4.2, Albumin/Globulin Ratio 0.7 L Radiography Diagnostic Testing: Radiology Impression Echocardiogram 12/09/21 00:47 Interpretation Summary Normal LV size. Left ventricular systolic function is normal. The estimated ejection fraction is 60 %. Pulmonary artery systolic pressure is 42 mmHg. Contrast injection was performed. The study was technically difficult. Ordering Physician: Dany Almeida Referring Physician: ALEXANDRE JHAVERI Performed By: Vilma Tabares RDCS Physical Exam Narrative Physical exam: General: Alert, Oriented x3, Cooperative, morbidly obese, off oxygen HEENT: Atraumatic Oral: Moist Mucosa Neck: Supple Lungs: Diminished to auscultation Cardiovascular: HS I+II, regular, no murmurs Abdomen: Bowel Sounds Present, Soft, Non Tender Extremities: Bilateral leg extremity, class III-IV, Farooq wrapped, chronic lichenification of skin, venous stasis dermatitis Skin: No rashes, No breakdown Neurological: Grossly intact Psych/Mental Status: Appropriate Assessment & Plan Assessment/Plan (1) Hypoxia: (2) CHF exacerbation: PLAN: Plan 1. Acute hypoxia secondary to acute on chronic CHF exacerbation, improving Patient is currently off oxygen, Continue to wean off for SPO2 more than 94%, encourage use of incentive spirometer 2. Acute on chronic heart failure preserved EF, EF 60%, diuresing well Continue on IV Bumex, CHF protocol 3. History of DVT/PE/chronic atrial fibrillation INR is 1.6, continue Coumadin 4. CORAL on CPAP 5. Recent GI bleed, status post gastric polyp snaring and AVM treated with heater probe and clipping, on EGD done 11/12/2021 Continue on oral iron and PPI 6. Anemia, chronic, hemoglobin is 10.1, improved from his recent discharged Continue on oral iron 7. Morbid obesity, BMI 48.4, lifestyle modification recommended 8. DVT prophylaxis?on Coumadin Charges/Coding Visit Charges Inpatient E&M: 16169 Subs Hosp L2
--- NOTE | 2021-12-10 08:23 | WOUNDNOTE ---
Was asked to see patient for weeping ulcers to the legs. removed the CHEO wraps and dressings. there was a small amount of serous drainage noted on the old wraps. there are no open wounds noted. legs are edematous with lichenified skin noted from the knees to ankles. there is hemosiderin staining noted. toenails are thick. 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 washed legs and feet with soap and water. pat dry. applied Lac-Hydrin. pt got breakfast. will try to remove some of the dry skin before rewrapping with kerlix and CHEO wraps. will let patient eat breakfast first and will come back to wrap legs.
--- NOTE | 2021-12-10 08:41 | WOUNDNOTE ---
skin photo: left lower leg
--- NOTE | 2021-12-10 08:42 | WOUNDNOTE ---
skin photo: right lower leg
[2021-12-10] MEDS: Calcium Carb/Vitamin D 1 TABLET Tablet PO (08:43)
[2021-12-10] MEDS: Bumetanide 1 MG/4 ML Vial 2 MG IV ×2 (08:43→16:19)
[2021-12-10] MEDS: Potassium Chloride Oral Tablet 20 MEQ 40 MEQ PO ×2 (08:44→16:17)
[2021-12-10] MEDS: Ferrous Sulfate 325 MG Tablet PO ×2 (08:44→16:18)
[2021-12-10] MEDS: Pantoprazole Sodium 40 MG Tablet PO ×2 (08:44→21:10)
[2021-12-10] MEDS: Menthol/Lanolin/Calamine/Znox 113 GM Tube 1 APPLIC TOPICAL ×2 (08:45→21:09)
[2021-12-10] MEDS: Metoprolol Tartrate 50 MG Tablet PO ×2 (08:54→21:10)
--- NOTE | 2021-12-10 11:00 | CASEMGMT ---
Addendum entered by Ksenia Rhodes 12/10/21 15:00: Green sheet also w/instructions for resumption of HHC. Original Note: RN CM readmission note: Prior admission: Admitted w/GIB 11/12/21 and discharged home w/HHC 11/13/21. Current admission: Admitted 12/08/21 w/Acute CHF. RN CM to room. Introduced self and role of RN AGUSTIN. Pt states he did go to his f/u appt w/Dr Camarena since last admission, but he has not scheduled a f/u appt w/Dr Flores yet. He also sees Dr Ramirez--cardiology @ [facility], and Dr Herman-. He states he has been taking his medications as prescribed. He has been getting HHC through [facility]. He reports he is not able to do wound or skin care to his BLE and states SN has been applying some stuff on his BLE but has not been needing dressing changes or wraps to BLE. DME: He is still just using a cane, but does have a FWW available if needed. He has a lift chair. He has recently obtained a marketing communications specialist and sock aide which has been helping him be more independent w/dressing of BLE. He does not have home O2. Pt provided w/list of local DME companies. He states [employer]. He does not have a pulse ox. Pt reports he is able to bath and dress himself, he drives, and does his own grocery shopping and meals. Pt state he lives w/his , who has Alzheimers and he helps to care for her, is currently staying at her daughter's home while he is in the hospital. Broached topic of Palliative care and questions answered. Pt is agreeable to a referral. Dr Head notified and order received. E-mail sent to Palliative [facility] re: referral and call placed to Kiera @ [facility]. She states they will try to have someone come talk w/pt today. PT/OT evals are pending. Pt made aware. Pt states he does not want to go to a SNF. He would like to resume HHC through [facility]. Plan: Resumptions of [facility]: SN, PT/OT Palliative referral placed. Follow for any home O2 needs @ d/c. Green sheet on chart for instructions of O2 set up, if pt qualifies for O2 @ d/c. Pulse ox placed w/pt chart and to be given to pt and instructed on use @ d/c. Mihir STAPLES RN CM
[2021-12-10] MEDS: Spironolactone 50 MG Tablet PO (16:17)
[2021-12-10] MEDS: Atorvastatin Calcium 20 MG Tablet PO (21:10)
[2021-12-11] VITALS (14 sets, daily range): BP systolic 125–138; BP diastolic 61–74; PULSE 56–85; RESP 18–20; TEMP 36.2–37; O2SAT 92–98
[2021-12-11 07:17] LABS: Absolute Lymphocyte Count 1.41 X10^3/uL (0.83-4.51); Absolute Neutrophil Count 6.8 X10^3/uL (2.0-7.7); Basophil# 0.06 X10^3/uL; Basophil% 0.6 % (0-1); Eosinophil# 0.64 X10^3/uL; Eosinophils% 6.3 % (0-5); Hematocrit 33.9 % (40-54); Hemoglobin 10.5 g/dL (13.0-16.5); Lymphocyte # 1.41 X10^3/ul (0.83-4.51); Lymphocyte % 13.8 % (19-41); Mean Corpuscular Hgb 31.3 pg (27.0-32.0); Mean Corpuscular Volume 101.2 fL (80-94); Mean Platelet Vol. 9.4 fl (6.2-12.0); Monocyte# 1.24 X10^3/uL; Monocyte% 12.1 % (0-10); NRBC Flagged by Analyzer 0 % (0-5); Neutrophil # 6.84 X10^3/uL (2.7-7.7); Neutrophil % 66.8 % (47-70); Platelet Count 508 K/mm3 (150-450); RBC Distribution Width CV 16.8 % (11.6-14.6); RBC Distribution Width SD 61.9 fl (35.1-43.9); Red Blood Count 3.35 M/mm3 (4.6-6.2); White Blood Count 10.2 K/mm3 (4.4-11.0)
[2021-12-11] MEDS: Ipratropium 0.5 MG/2.5 ML SOLUTION INHALATION ×4 (07:27→19:20)
[2021-12-11 07:28] LABS: International Normalized Ratio 1.7; Prothrombin Time (Protime)PT. 19.6 SECONDS (11.7-14.9)
[2021-12-11 07:38] LABS: ALB/GLOB Ratio 0.6 RATIO (0.9-2.4); AST(SGOT) 15 U/L (15-37); Alanine Aminotransfer ALT/SGPT 15 U/L (16-61); Albumin, Serum 2.8 g/dL (3.2-5.0); Alkaline Phosphatase 85 U/L (45-117); Anion Gap 4 (5-15); BUN 23 mg/dL (7-18); BUN/Creat Ratio 16.7 RATIO (10-20); Chloride 103 mmol/L (98-107); Creatinine, Serum 1.38 mg/dL (0.70-1.30); EST Glomerular Filtration Rate 53 mL/min (>60); Est Glom Filt Rate - Afr Amer 64 mL/min (>60); Estimated Creatinine Clearance 41.25 ml/min; Globulin 4.5 g/dL (2.2-4.2); Glucose 99 mg/dL (74-106); Potassium 4.1 mmol/L (3.5-5.1); Protein, Total 7.3 g/dL (6.4-8.2); Sodium Level 138 mmol/L (136-145)
[2021-12-11] MEDS: Calcium Carb/Vitamin D 1 TABLET Tablet PO (09:51)
[2021-12-11] MEDS: Potassium Chloride Oral Tablet 20 MEQ 40 MEQ PO ×2 (09:51→16:55)
[2021-12-11] MEDS: Bumetanide 1 MG/4 ML Vial 2 MG IV (09:52)
[2021-12-11] MEDS: Menthol/Lanolin/Calamine/Znox 113 GM Tube 1 APPLIC TOPICAL (09:53)
[2021-12-11] MEDS: Metoprolol Tartrate 50 MG Tablet PO ×2 (09:54→20:39)
[2021-12-11] MEDS: Pantoprazole Sodium 40 MG Tablet PO ×2 (09:55→20:39)
[2021-12-11] MEDS: 0.9% Saline Lock 10 ML Syringe IV ×3 (10:02→16:56)
--- NOTE | 2021-12-11 10:10 | RAD_ITS ---
STUDY: X-RAY CHEST REASON FOR EXAM: Male, 76 years old. SOB TECHNIQUE: Single AP portable view of the chest. COMPARISON: December 08, 2021 FINDINGS: There are interstitial fibrotic changes of the lungs. No visualized consolidation. There is no demonstrated pleural abnormality. Normal size heart. Normal mediastinum and syd. Normal visualized pulmonary arteries. There is atherosclerotic calcification of the aortic arch with tortuosity. There are diffuse degenerative changes of the visualized thoracic spine. Reidentification of multiple healed left-sided rib fractures and underlying pleural scarring. There is no demonstrated abnormality of the visualized soft tissue structures of the upper abdomen. RAD/Chest 1 View (Portable) IMPRESSION: No acute process. Electronically Signed: Bartolo Alexander MD at 11:25 EDT ,
[2021-12-11] MEDS: Ferrous Sulfate 325 MG Tablet PO ×2 (10:54→16:55)
--- NOTE | 2021-12-11 15:02 | PN.HOSP_ITS ---
Subjective Subjective Follow-up on acute on chronic CHF: Patient was seen and examined.? He was off oxygen yesterday. He is now back on oxygen again. Weaned down to 2 L from 4 L earlier this morning. Complains of feeling wheezy. Objective Data Objective Data Vital Signs: Vital Signs Temp Pulse Resp BP Pulse Ox O2 Del Method O2 Flow Rate 97.2 F L 56 L 18 125/61 H 92 Room Air 4 12/11/21 09:00 12/11/21 11:30 12/11/21 11:30 12/11/21 09:54 12/11/21 09:00 12/11/21 09:42 12/11/21 07:27 Oxygen Flow Rate (L/min) 4 Oxygen Delivery Method Room Air Weight: 138.1 kg Body Mass Index (BMI) 48.4 Intake & Output: Intake and Output for Last 24 Hours 12/09/21 12/10/21 12/11/21 23:59 23:59 23:59 Intake Total 900 / 1200 1010 / 1010 290 / 290 Output Total 3250 / 4300 3500 / 3500 625 / 625 Balance -2350 / -3100 -2490 / -2490 -335 / -335 Lab / Micro Data Result Diagrams: 12/11/21 06:30 12/11/21 06:30 Labs: Laboratory Results - last 24 hr 12/11/21 06:30: PT 19.6 H, INR 1.7 12/11/21 06:30: WBC 10.2, RBC 3.35 L, Hgb 10.5 L, Hct 33.9 L, MCV 101.2 H, MCH 31.3, MCHC 31.0 L D, RDW Std Deviation 61.9 H, RDW Coeff of Ira 16.8 H, Plt Count 508 H, MPV 9.4, Immature Gran % (Auto) 0.400, Neut % (Auto) 66.8, Lymph % (Auto) 13.8 L, [place] % (Auto) 12.1 H, Eos % (Auto) 6.3 H, Baso % (Auto) 0.6, Absolute Neuts (auto) 6.8, Absolute Lymphs (auto) 1.41, Nucleated RBC % 0 12/11/21 06:30: Sodium 138, Potassium 4.1, Chloride 103, Carbon Dioxide 31.0, Anion Gap 4 L, BUN 23 H, Creatinine 1.38 H, Estim Creat Clear Calc 41.25, Est GFR (MDRD) Af Amer 64, Est GFR (MDRD) Non-Af 53 L, BUN/Creatinine Ratio 16.7, Gl ucose 99, Calcium 9.0, Total Bilirubin 0.60, AST 15, ALT 15 L, Alkaline Phosp hatase 85, Total Protein 7.3, Albumin 2.8 L, Globulin 4.5 H, Albumin/Globulin Ratio 0.6 L Radiography Diagnostic Testing: Radiology Impression Chest X-Ray 12/11/21 10:10 IMPRESSION: No acute process. Electronically Signed: Bartolo Alexander MD at 11:25 EDT Reading Location ID and State: [facility] / [place] , Service support , Physical Exam Narrative Physical exam: General: Alert, Oriented x3, Cooperative, morbidly obese, on 2L oxygen HEENT: Atraumatic Oral: Moist Mucosa Neck: Supple Lungs: Diminished to auscultation, wheezes++, scattered Cardiovascular: HS I+II, regular, no murmurs Abdomen: Bowel Sounds Present, Soft, Non Tender Extremities: Bilateral leg extremity, class III-IV, Farooq wrapped, chronic lichenification of skin, venous stasis dermatitis Skin: No rashes, No breakdown Neurological: Grossly intact Psych/Mental Status: Appropriate Assessment & Plan Assessment/Plan (1) Hypoxia: (2) CHF exacerbation: PLAN: Plan 1. Acute hypoxia secondary to acute on chronic CHF exacerbation/acute COPD exacerbation Currently on 4L of oxygen, continue to wean off for SPO2 more than 94%, Encourage use of incentive spirometer 2. Acute on chronic heart failure preserved EF, EF 60%, diuresing well Decrease IV Bumex to 1mg BID, CHF protocol 3. Acute COPD exacerbation, chest x-ray shows no acute infiltrate, started on Solu-Medrol, breathing treatment We will continue to monitor 4. History of DVT/PE/chronic atrial fibrillation INR is 1.7, continue Coumadin, repeat INR in a.m. 5. CORAL on CPAP 6. Recent GI bleed, status post gastric polyp snaring and AVM treated with heat er probe and clipping, on EGD done 11/12/2021 Continue on oral iron and PPI 7. Anemia, chronic, hemoglobin is 10.1, improved from his recent discharged Continue on oral iron 8. Morbid obesity, BMI 48.4, lifestyle modification recommended 9. DVT prophylaxis?on Coumadin Charges/Coding Visit Charges Inpatient E&M: 90650 Subs Hosp L2
[2021-12-11] MEDS: Bumetanide 1 MG/4 ML Vial IV (16:55)
[2021-12-11] MEDS: Spironolactone 50 MG Tablet PO (16:55)
[2021-12-11] MEDS: Atorvastatin Calcium 20 MG Tablet PO (20:39)
[2021-12-11] MEDS: Enoxaparin 40 MG/0.4 ML Syringe SC (20:39)
[2021-12-12] VITALS (18 sets, daily range): BP systolic 118–175; BP diastolic 51–99; PULSE 61–94; RESP 16–18; TEMP 36.4–36.9; O2SAT 84–98
--- NOTE | 2021-12-12 04:08 | NURSING ---
Aid reported that pt refuses to wear tele while using the bsc. This RN provided education about the importance of wearing his monitor all the time while in the hospital, also provided additional education about balance intake of fluids. Pt agrees at this time.
--- NOTE | 2021-12-12 04:10 | NURSING ---
Pt refused to wear tele monitor on bedside commode; pt was on bedside commode for 45+ minutes; educated pt on importance of wearing tele monitor at all times.
[2021-12-12 06:15] LABS: Absolute Lymphocyte Count 0.79 X10^3/uL (0.83-4.51); Absolute Neutrophil Count 11.2 X10^3/uL (2.0-7.7); Basophil# 0.01 X10^3/uL; Basophil% 0.1 % (0-1); Hematocrit 36.1 % (40-54); Hemoglobin 10.9 g/dL (13.0-16.5); Lymphocyte # 0.79 X10^3/ul (0.83-4.51); Lymphocyte % 6.3 % (19-41); Mean Corp Hgb Conc 30.2 g/dL (32-36); Mean Corpuscular Hgb 30.4 pg (27.0-32.0); Mean Corpuscular Volume 100.8 fL (80-94); Mean Platelet Vol. 9.5 fl (6.2-12.0); Monocyte# 0.52 X10^3/uL; Monocyte% 4.1 % (0-10); NRBC Flagged by Analyzer 0 % (0-5); Neutrophil # 11.23 X10^3/uL (2.7-7.7); Neutrophil % 88.9 % (47-70); Platelet Count 532 K/mm3 (150-450); RBC Distribution Width CV 16.3 % (11.6-14.6); RBC Distribution Width SD 59.9 fl (35.1-43.9); Red Blood Count 3.58 M/mm3 (4.6-6.2); White Blood Count 12.6 K/mm3 (4.4-11.0)
[2021-12-12 06:50] LABS: ALB/GLOB Ratio 0.6 RATIO (0.9-2.4); AST(SGOT) 21 U/L (15-37); Alanine Aminotransfer ALT/SGPT 15 U/L (16-61); Alkaline Phosphatase 84 U/L (45-117); Anion Gap 5 (5-15); BUN 34 mg/dL (7-18); Calcium,Total 9.2 mg/dL (8.5-10.1); Chloride 101 mmol/L (98-107); Creatinine, Serum 1.48 mg/dL (0.70-1.30); EST Glomerular Filtration Rate 49 mL/min (>60); Est Glom Filt Rate - Afr Amer 59 mL/min (>60); Estimated Creatinine Clearance 38.46 ml/min; Globulin 4.7 g/dL (2.2-4.2); Glucose 160 mg/dL (74-106); Potassium 4.5 mmol/L (3.5-5.1); Protein, Total 7.7 g/dL (6.4-8.2); Sodium Level 135 mmol/L (136-145)
[2021-12-12] MEDS: Ipratropium 0.5 MG/2.5 ML SOLUTION INHALATION ×3 (07:17→20:04)
[2021-12-12 08:06] LABS: International Normalized Ratio 1.9
[2021-12-12] MEDS: Metoprolol Tartrate 50 MG Tablet PO ×2 (08:40→21:40)
[2021-12-12] MEDS: Calcium Carb/Vitamin D 1 TABLET Tablet PO (08:41)
[2021-12-12] MEDS: Pantoprazole Sodium 40 MG Tablet PO ×2 (08:41→21:41)
[2021-12-12] MEDS: Potassium Chloride Oral Tablet 20 MEQ 40 MEQ PO ×2 (08:41→17:37)
[2021-12-12] MEDS: Enoxaparin 40 MG/0.4 ML Syringe SC ×2 (08:42→21:41)
[2021-12-12] MEDS: Menthol/Lanolin/Calamine/Znox 113 GM Tube 1 APPLIC TOPICAL ×2 (08:43→21:40)
[2021-12-12] MEDS: Bumetanide 1 MG/4 ML Vial IV (08:43)
[2021-12-12] MEDS: 0.9% Saline Lock 10 ML Syringe IV ×3 (08:43→21:45)
--- NOTE | 2021-12-12 11:30 | PCM.PN.HOSP ---
Subjective Subjective Follow-up on acute on chronic CHF: Patient was seen and examined.? Patient stated that he feels about the same. He is on 2 L of oxygen. Objective Data Objective Data Vital Signs: Vital Signs Temp Pulse Resp BP Pulse Ox O2 Del Method O2 Flow Rate 97.5 F L 80 18 118/79 92 Nasal Cannula 1 12/12/21 08:22 12/12/21 10:37 12/12/21 10:37 12/12/21 08:22 12/12/21 10:40 12/12/21 10:40 12/12/21 10:40 Oxygen Flow Rate (L/min) 1 Oxygen Delivery Method Nasal Cannula Weight: 139.2 kg Body Mass Index (BMI) 48.4 Intake & Output: Intake and Output for Last 24 Hours 12/10/21 12/11/21 12/12/21 23:59 23:59 23:59 Intake Total 1010 / 1010 530 / 530 Output Total 3500 / 3500 1025 / 1025 200 / 200 Balance -2490 / -2490 -495 / -495 -200 / -200 Lab / Micro Data Result Diagrams: 12/12/21 05:50 12/12/21 05:50 Labs: Laboratory Results - last 24 hr 12/12/21 05:50: PT Cancelled, INR Cancelled 12/12/21 05:50: WBC 12.6 H, RBC 3.58 L, Hgb 10.9 L, Hct 36.1 L, MCV 100.8 H, MCH 30.4, MCHC 30.2 L, RDW Std Deviation 59.9 H, RDW Coeff of Ira 16.3 H, Plt Count 532 H, MPV 9.5, Immature Gran % (Auto) 0.600, Neut % (Auto) 88.9 H, Lymph % (Auto) 6.3 L, [place] % (Auto) 4.1, Eos % (Auto) 0.0, Baso % (Auto) 0.1, Absolute Neuts (auto) 11.2 H, Absolute Lymphs (auto) 0.79 L, Nucleated RBC % 0 12/12/21 05:50: Sodium 135 L, Potassium 4.5, Chloride 101, Carbon Dioxide 29.0, Anion Gap 5, BUN 34 H, Creatinine 1.48 H, Estim Creat Clear Calc 38.46, Est GFR (MDRD) Af Amer 59 L, Est GFR (MDRD) Non-Af 49 L, BUN/Creatinine Ratio 23.0 H, Glucose 160 H, Calcium 9.2, Total Bilirubin 0.50, AST 21, ALT 15 L, Alkaline Phosphatase 84, Total Protein 7.7, Albumin 3.0 L, Globulin 4.7 H, Albumin/Globulin Ratio 0.6 L 12/12/21 05:50: PT 21.0 H, INR 1.9 Physical Exam Narrative Physical exam: General: Alert, Oriented x3, Cooperative, morbidly obese, on 2L oxygen HEENT: Atraumatic Oral: Moist Mucosa Neck: Supple Lungs: Diminished to auscultation Cardiovascular: HS I+II, regular, no murmurs Abdomen: Bowel Sounds Present, Soft, Non Tender Extremities: Bilateral leg extremity, class III-IV, Farooq wrapped, chronic lichenification of skin, venous stasis dermatitis Skin: No rashes, No breakdown Neurological: Grossly intact Psych/Mental Status: Appropriate Assessment & Plan Assessment/Plan (1) Hypoxia: (2) CHF exacerbation: PLAN: Plan Summary: 76-year-old male with past medical history of chronic heart failure preserved EF who presented with progressive shortness of breath, orthopnea and worsening leg swelling. 1. Acute hypoxia secondary to acute on chronic CHF exacerbation/acute COPD exacerbation On 2 L of oxygen, continue to wean off for SPO2 more than 94%, Encourage use of incentive spirometer 2. Acute on chronic heart failure preserved EF, EF 60%, diuresing well We will switch from IV Bumex to p.o. Bumex, continue on CHF protocol 3. Acute COPD exacerbation, chest x-ray shows no acute infiltrate, Will switch from IV solumedrol to prednisone, breathing tsreatment Continue to monitor 4. History of DVT/PE/chronic atrial fibrillation INR is 1.9, continue Coumadin, repeat INR in a.m. 5. CORAL on CPAP 6. Recent GI bleed, status post gastric polyp snaring and AVM treated with heater probe and clipping, on EGD done 11/12/2021 Continue on oral iron and PPI 7. Anemia, chronic, hemoglobin is 10.9, improved from his recent discharged Continue on oral iron 8. Morbid obesity, BMI 48.4, lifestyle modification recommended 9. DVT prophylaxis?on Coumadin Charges/Coding Visit Charges Inpatient E&M: 96285 Subs Hosp L2
[2021-12-12] MEDS: Ferrous Sulfate 325 MG Tablet PO ×2 (12:41→17:37)
--- NOTE | 2021-12-12 16:58 | PCM.CONS.R ---
Assessment & Plan Assessment/Plan (1) DARY (acute kidney injury): PLAN: Baseline creatinine is around 1.1-1.2. Increased to 1.4 today. Denies any obstructive symptoms. He was admitted with fluid overload, received IV Bumex, currently on oral Bumex. No history of kidney stones or urinary infections. He did have this kind of fluctuations before. Most likely acute renal failure is cardiorenal syndrome. No changes made for now. Okay to discharge home on same medications. We will get a renal ultrasound as outpatient. We will arrange follow-up in office. HPI Consult Data Date of Consult: 12/12/21 HPI Narrative Reason for Consultation: Acute renal failure HPI Narrative: GLENYS ALARCON, is a 76 M who presents to the hospital with complaints of progressively worsening shortness of breath. Nephrology consulted in view of renal failure. Primary care is Dr. Camarena, registration rep Dr. Ramirez. He has chronic venous stasis in lower extremities. Presented to the hospital with worsening shortness of breath. At baseline he uses about 4 L of oxygen by nasal cannula. Could not tell me how much he gained. No urinary symptoms right now. No kidney stones or urine infections recently. [facility] Medical History (Updated 12/12/21 @ 17:[address] Walter Nance MD) Anemia due to acute blood loss Anticoagulant long-term use Atrial fibrillation Broken collarbone Broken ribs CHF (congestive heart failure) COPD (chronic obstructive pulmonary disease) DVT (deep venous thrombosis) Failed fundoplication Former smoker GI bleed HTN (hypertension) Irregular heart beat Kidney disease Kidney stones Migraines Pulmonary embolism Sleep apnea Home Medications calcium citrate 315 mg calcium-vitamin D3 6.25 mcg (250 unit) tablet 1 ea PO DAILY SUPPLEMENT 10/01/13 [History Last Taken 11/11/21] potassium chloride 20 mEq tablet,extended release(part/cryst) (Klor-Con M) 40 meq PO BID SUPPLEMENT 10/01/13 [History Last Taken 11/12/21] spironolactone 25 mg tablet 25 mg PO DINNER FLUID 10/01/13 [History Last Taken 11/11/21] warfarin 4 mg tablet (Jantoven) 4 mg PO DAILY BLOOD THINNER 10/01/13 [History Last Taken 11/12/21 00:00] atorvastatin 20 mg tablet 20 mg PO DAILY CHOLESTEROL 11/12/21 [History Last Taken 11/12/21] bumetanide 1 mg tablet 1 mg PO DINNER FLUID 11/12/21 [History Last Taken 11/11/21] bumetanide 1 mg tablet 2 mg PO QHS FLUID 11/12/21 [History Last Taken 11/11/21] metoprolol tartrate 50 mg tablet 25 mg PO BID HEART 11/12/21 [History Last Taken 11/12/21] warfarin 1 mg tablet 1 mg PO DAILY BLOOD THINNER 11/12/21 [History Last Taken 11/12/21 00:00] omeprazole 20 mg capsule,delayed release 40 mg PO BID GERD #60 caps 11/13/21 [Rx Last Taken 11/12/21] ferrous sulfate 325 mg (65 mg iron) tablet (FeroSul) 1 tab PO BID 12/08/21 [History Last Taken Unknown] umeclidinium 62.5 mcg/actuation blister powder for inhalation (Incruse Ellipta) See Rx Instructions .Route .COMPLEX Check with primary doctor 12/08/21 [History Last Taken 12/08/21] Allergy/AdvReac Type Severity Reaction Status Date / Time chlorpromazine HCl Allergy Other Verified 12/08/21 17:35 [From Thorazine] metformin Allergy PT UNSURE Verified 12/08/21 17:35 OF REACTION Family History Other Heart disease Hypertension Surgical History History of embolic filter insertion Status post splenectomy Social History household members: none Smoking Status: Former smoker substance use type: does not use ROS ROS Narrative Negative except above Physical Exam Narrative Alert awake oriented x 3 no obvious distress no pallor no icterus no JVD s1s2 no murmurs lungs clear abdomen soft no organomegaly ++ edema no cyanosis Lab / Micro Data Result Diagrams: 12/12/21 05:50 12/12/21 05:50 Labs: Laboratory Results - last 24 hr 12/12/21 05:50: PT Cancelled, INR Cancelled 12/12/21 05:50: WBC 12.6 H, RBC 3.58 L, Hgb 10.9 L, Hct 36.1 L, MCV 100.8 H, MCH 30.4, MCHC 30.2 L, RDW Std Deviation 59.9 H, RDW Coeff of Ira 16.3 H, Plt Count 532 H, MPV 9.5, Immature Gran % (Auto) 0.600, Neut % (Auto) 88.9 H, Lymph % (Auto) 6.3 L, [place] % (Auto) 4.1, Eos % (Auto) 0.0, Baso % (Auto) 0.1, Absolute Neuts (auto) 11.2 H, Absolute Lymphs (auto) 0.79 L, Nucleated RBC % 0 12/12/21 05:50: Sodium 135 L, Potassium 4.5, Chloride 101, Carbon Dioxide 29.0, Anion Gap 5, BUN 34 H, Creatinine 1.48 H, Estim Creat Clear Calc 38.46, Est GFR (MDRD) Af Amer 59 L, Est GFR (MDRD) Non-Af 49 L, BUN/Creatinine Ratio 23.0 H, Glucose 160 H, Calcium 9.2, Total Bilirubin 0.50, AST 21, ALT 15 L, Alkaline Phosphatase 84, Total Protein 7.7, Albumin 3.0 L, Globulin 4.7 H, Albumin/Globulin Ratio 0.6 L 12/12/21 05:50: PT 21.0 H, INR 1.9
[2021-12-12] MEDS: Bumetanide 0.5 MG Tablet 1 MG PO (17:37)
[2021-12-12] MEDS: Spironolactone 50 MG Tablet PO (17:37)
[2021-12-12] MEDS: Atorvastatin Calcium 20 MG Tablet PO (21:40)
[2021-12-13] VITALS (9 sets, daily range): BP systolic 126–135; BP diastolic 70–71; PULSE 66–82; RESP 16–18; TEMP 36.3–36.4; O2SAT 90–94
[2021-12-13] MEDS: Ipratropium 0.5 MG/2.5 ML SOLUTION INHALATION ×2 (07:00→10:24)
--- NOTE | 2021-12-13 08:34 | PCM.PN.HOSP ---
Subjective Subjective Patient is a 76-year-old gentleman who presented with progressive shortness of breath, orthopnea and bilateral lower extremity swelling. An assessment of acute on chronic congestive heart failure made admitted to a monitored bed for further management Objective Data Objective Data Vital Signs: Vital Signs Temp Pulse Resp BP Pulse Ox O2 Del Method O2 Flow Rate 97.5 F L 66 17 126/70 H 93 Nasal Cannula 3 12/13/21 03:05 12/13/21 07:01 12/13/21 07:01 12/13/21 03:05 12/13/21 07:01 12/13/21 07:01 12/13/21 07:01 Oxygen Flow Rate (L/min) 3 Oxygen Delivery Method Nasal Cannula Weight: 138.7 kg Body Mass Index (BMI) 48.4 Intake & Output: Intake and Output for Last 24 Hours 12/11/21 12/12/21 12/13/21 23:59 23:59 23:59 Intake Total 530 / 530 Output Total 1025 / 1025 575 / 575 Balance -495 / -495 -575 / -575 Lab / Micro Data Result Diagrams: 12/12/21 05:50 12/12/21 05:50 Physical Exam Narrative GENERAL: cooperative HEENT: Atraumatic; EYES; Anicteric, Normal Conjunctiva NECK; supple, normal thyroid, RESPIRATORY: Diminished to auscultation CARDIOVASCULAR: Regular S1 S2, GI: soft, normoactive bowel sounds, : No Renal angle tenderness; EXTREMITIES: Bipedal edema, no clubbing, MUSCULOSKELETAL: no muscle wasting NEURO: Awake; no lateralizing signs. SKIN: No Rash PSYCH; Flat affect Assessment & Plan Assessment/Plan (1) Hypoxia: (2) CHF exacerbation: PLAN: Plan Patient is a 76-year-old gentleman who presented with progressive shortness of breath, orthopnea and bilateral lower extremity swelling. An assessment of acute on chronic congestive heart failure made admitted to a monitored bed for further management 1. Acute hypoxia ? Secondary to combination of CHF and COPD exacerbation 2. Acute on chronic congestive heart failure with preserved ejection fraction ? Patient placed on a monitored bed managed with strict input and output, daily weight, fluid restriction as well as IV diuretics 3. COPD with acute exacerbation ? Managed with systemic steroid bronchodilator treatment as well as supplemental oxygen 4. Paroxysmal A. fib ? Rate controlled. On systemic anticoagulation with Coumadin monitoring with daily INR 5. History of VTE?DVT/PE ? Systemic anticoagulation with Coumadin 6. Obstructive sleep apnea ? On CPAP at night 7. Anemia - Secondary to chronic disorder monitoring H&H and transfuse if patient becomes symptomatic or hemoglobin falls below 7. Patient has history of recent GI bleed. Underwent EGD on 11/12/2021 and was found to have a gastric polyp which was snared and AVM treated with a heater probe and clipping. This was 8. Class III obesity with BMI of 48.4 ? Weight loss advised 9. DVT prophylaxis ? On Coumadin Charges/Coding Visit Charges Inpatient E&M: 64515 Subs Hosp L2
[2021-12-13] MEDS: Pantoprazole Sodium 40 MG Tablet PO (09:15)
[2021-12-13] MEDS: predniSONE 20 MG Tablet 40 MG PO (09:16)
[2021-12-13] MEDS: Calcium Carb/Vitamin D 1 TABLET Tablet PO (09:16)
[2021-12-13] MEDS: Potassium Chloride Oral Tablet 20 MEQ 40 MEQ PO (09:16)
[2021-12-13] MEDS: Bumetanide 0.5 MG Tablet 1 MG PO (09:16)
[2021-12-13] MEDS: Metoprolol Tartrate 50 MG Tablet PO (09:16)
[2021-12-13] MEDS: Menthol/Lanolin/Calamine/Znox 113 GM Tube 1 APPLIC TOPICAL (09:17)
[2021-12-13] MEDS: Enoxaparin 40 MG/0.4 ML Syringe SC (09:18)
--- NOTE | 2021-12-13 09:25 | NURSING ---
Pt refusing dressing change by this nurse. Pt says it was just changed last night after midnight.
--- NOTE | 2021-12-13 10:23 | WOUNDNOTE ---
Pt is refusing to let this nurse remove the dressings and CHEO wraps to bilateral lower legs. pt states I am not have them rewrapped today. will leave dressings in place. will notify LOKESH Hughes. will monitor.
--- NOTE | 2021-12-13 11:09 | PCM.DC.SUM ---
Providers Date of Admission: 12/08/21 Primary Care Physician: Dr. Hubert Camarena MD Consultations 12/09/21 15:22 Consult: Onc/Wound/business services tech Routine Comment: Reason for Consult:: bilateral leg weepy lesions 12/12/21 10:26 Consult: Nephrology Routine Consulting Provider: Walter Nance Reason for Consult: CKD, heart failure EMERGENT Consult: No MD Notified: Yes Date Notified: 12/12/21 Time Notified: 10:26 Method of Notification: Answering Service Comments:: spoke with vinnie Reason For Visit: ACUTE CHF EXACERBATION Diagnosis Discharge Diagnosis (1) Hypoxia: Status: Acute Code(s): R09.02 - Hypoxemia (2) CHF exacerbation: Status: Chronic Code(s): I50.9 - Heart failure, unspecified Medications at Discharge Home Medications calcium citrate 315 mg calcium-vitamin D3 6.25 mcg (250 unit) tablet 1 ea PO DAILY SUPPLEMENT 10/01/13 potassium chloride 20 mEq tablet,extended release(part/cryst) (Klor-Con M) 40 meq PO BID SUPPLEMENT 10/01/13 spironolactone 25 mg tablet 25 mg PO DINNER FLUID 10/01/13 warfarin 4 mg tablet (Jantoven) 4 mg PO DAILY BLOOD THINNER 10/01/13 atorvastatin 20 mg tablet 20 mg PO DAILY CHOLESTEROL 11/12/21 bumetanide 1 mg tablet 1 mg PO DINNER FLUID 11/12/21 bumetanide 1 mg tablet 2 mg PO QHS FLUID 11/12/21 metoprolol tartrate 50 mg tablet 25 mg PO BID HEART 11/12/21 warfarin 1 mg tablet 1 mg PO DAILY BLOOD THINNER 11/12/21 omeprazole 20 mg capsule,delayed release 40 mg PO BID GERD #60 caps 11/13/21 ferrous sulfate 325 mg (65 mg iron) tablet (FeroSul) 1 tab PO BID 12/08/21 umeclidinium 62.5 mcg/actuation blister powder for inhalation (Incruse Ellipta) See Rx Instructions .Route .COMPLEX Check with primary doctor 12/08/21 prednisone 20 mg tablet 40 mg PO BREAKFAST 5 days #10 tabs 12/13/21 Hospital Course Summary of Care Provided Minutes Spent on Discharge: 35 Hospital Course: Patient is a 76-year-old gentleman who presented with progressive shortness of breath, orthopnea and bilateral lower extremity swelling. An assessment of acute on chronic congestive heart failure made admitted to a monitored bed for further management 1. Acute hypoxia ? Secondary to combination of CHF and COPD exacerbation 2. Acute on chronic congestive heart failure with preserved ejection fraction ? Patient placed on a monitored bed managed with strict input and output, daily weight, fluid restriction as well as IV diuretics -2D echo obtained on 12/09/2021 demonstrated ejection fraction of 60% with no regional wall motion abnormalities with 3. COPD with acute exacerbation ? Managed with systemic steroid bronchodilator treatment as well as supplemental oxygen 4. Paroxysmal A. fib ? Rate controlled. On systemic anticoagulation with Coumadin monitoring with daily INR 5. History of VTE?DVT/PE ? Systemic anticoagulation with Coumadin 6. Obstructive sleep apnea ? On CPAP at night 7. Anemia - Secondary to chronic disorder monitoring H&H and transfuse if patient becomes symptomatic or hemoglobin falls below 7. Patient has history of recent GI bleed. Underwent EGD on 11/12/2021 and was found to have a gastric polyp which was snared and AVM treated with a heater probe and clipping. This was 8. Class III obesity with BMI of 48.4 ? Weight loss advised 9. DVT prophylaxis ? On Coumadin Physical Exam Narrative GENERAL: cooperative HEENT: Atraumatic; EYES; Anicteric, Normal Conjunctiva NECK; supple, normal thyroid, RESPIRATORY: Diminished to auscultation CARDIOVASCULAR: Regular S1 S2, GI: soft, normoactive bowel sounds, : No Renal angle tenderness; EXTREMITIES: Bipedal edema, no clubbing, MUSCULOSKELETAL: no muscle wasting NEURO: Awake; no lateralizing signs. SKIN: No Rash PSYCH; Flat affect Weight / BMI Weight Weight: 138.7 kg Body Mass Index (BMI) 48.4 ABG / Lab / Microbiology Data Result Diagrams: 12/12/21 05:50 12/12/21 05:50 D/C Instructions Discharge Diet: 8 Cup Fluid Restriction and 2000 mg Sodium Diet Discharge Activity: Return to Normal Activity Call your doctor if you observe: Fever of 101 or Higher, Shortness of breath, Fainting spells and Chest pain Meaningful Use Info Meaningful Use Diagnoses (Choose all that apply): CHF CHF CHEO/ARB ordered at discharge?: No Reason CHEO/ARB not ordered?: Normal EF Documented LVEF (%): 60 Discharge Plan Admission Admit Date/Time: 12/08/21 23:14 Attending Provider: Cali Ruiz Primary Care Provider: Hubert Camarena Consulting Providers: Dany Almeida ; Walter Nance ; Ebonie Head Discharge Orders/Prescriptions Prescriptions: New prednisone 20 mg Tablet 40 mg PO BREAKFAST 5 Days Qty: 10 0RF Continued spironolactone 25 MG tablet 25 mg PO DINNER warfarin [Jantoven] 4 MG tablet 4 mg PO DAILY Label Comments: 7 MG TABS M,W,F AND 6MG ON REIS,TUES,THRS,SAT potassium chloride [Klor-Con M20] 20 MEQ tablet 40 meq PO BID calcium citrate-vitamin D3 1 EACH tablet 1 ea PO DAILY atorvastatin 20 mg Tablet 20 mg PO DAILY metoprolol tartrate 50 mg tablet 25 mg PO BID Label Comments: TAKE 1/2 TABLET BY MOUTHC2 TIMES A DAY bumetanide 1 mg tablet 1 mg PO DINNER Label Comments: TAKE 1 TABLET AT SUPPERwTIME AND 2 TABLETS AT BEDTIME bumetanide 1 mg tablet 2 mg PO QHS Label Comments: TAKE 1 TABLET AT SUPPERwTIME AND 2 TABLETS AT BEDTIME warfarin 1 mg tablet 1 mg PO DAILY Label Comments: take 3 milligrams by mouth ON MONDAY,MONDAY,AND MONDAY and 6 m... (REFER TO PRESCRIPTION NOTES). omeprazole 20 MG capsule 40 mg PO BID Qty: 60 0RF Incruse Ellipta 62.5 mcg/actuation blister with device See Rx Instructions .ROUTE .COMPLEX Rx Instructions: one puff daily ferrous sulfate [FeroSul] 325 mg (65 mg iron) tablet 1 tab PO BID Label Comments: Take 1 tablet by mouthEtwice daily with meals.N Referrals / Follow Up: Hubert Camarena MD [Primary Care Provider] - In 1 Week Disposition Disposition (needs filled in before D/C Order can be placed): Home Health Service Charges/Coding Visit Charges Inpatient E&M: 68731 Disch Hosp
--- NOTE | 2021-12-13 11:35 | CASEMGMT ---
Palliative met with pt this morning and per Roxana, pt declined services. ANITA order placed for HHC and clinicals with ANITA order and d/c summary faxed to [facility]. Call to Marcelle Hernandez at [facility] to notify of d/c, voices understanding. Pt voices no further questions/concerns/needs. Uziel CAMPA CM
--- NOTE | 2021-12-13 11:42 | PHA.DC.MC ---
Pharmacy Service has performed discharge medication reconciliation and counseling for this patient. 1. PREDNISONE 40MG PO BREAKFAST X 5 DAYS The patient's discharge medication list was reviewed for discrepancies and discrepancies were resolved. Home Medications calcium citrate 315 mg calcium-vitamin D3 6.25 mcg (250 unit) tablet 1 ea PO DAILY SUPPLEMENT 10/01/13 potassium chloride 20 mEq tablet,extended release(part/cryst) (Klor-Con M) 40 meq PO BID SUPPLEMENT 10/01/13 spironolactone 25 mg tablet 25 mg PO DINNER FLUID 10/01/13 warfarin 4 mg tablet (Jantoven) 4 mg PO DAILY BLOOD THINNER 10/01/13 atorvastatin 20 mg tablet 20 mg PO DAILY CHOLESTEROL 11/12/21 bumetanide 1 mg tablet 1 mg PO DINNER FLUID 11/12/21 bumetanide 1 mg tablet 2 mg PO QHS FLUID 11/12/21 metoprolol tartrate 50 mg tablet 25 mg PO BID HEART 11/12/21 warfarin 1 mg tablet 1 mg PO DAILY BLOOD THINNER 11/12/21 omeprazole 20 mg capsule,delayed release 40 mg PO BID GERD #60 caps 11/13/21 ferrous sulfate 325 mg (65 mg iron) tablet (FeroSul) 1 tab PO BID 12/08/21 umeclidinium 62.5 mcg/actuation blister powder for inhalation (Incruse Ellipta) See Rx Instructions .Route .COMPLEX Check with primary doctor 12/08/21 prednisone 20 mg tablet 40 mg PO BREAKFAST 5 days #10 tabs 12/13/21 The patient was counseled on the following discharge medications and changes in medications for homegoing were reviewed. The Reason for Use, instructions for use, and potential side effects were reviewed for all new medications. The patient's questions regarding all of their medications were answered. The patient was able to verbally demonstrate an understanding of their discharge medications.
[2021-12-13] MEDS: Ferrous Sulfate 325 MG Tablet PO (11:48)
--- NOTE | 2021-12-13 12:57 | PCM.PN.REN ---
Subjective Subjective feels ok urinating more appetite is good Objective Data Objective Data Vital Signs: Vital Signs Temp Pulse Resp BP Pulse Ox O2 Del Method O2 Flow Rate 97.4 F L 82 18 135/71 H 94 Room Air 2 12/13/21 12:14 12/13/21 12:14 12/13/21 12:14 12/13/21 12:14 12/13/21 12:14 12/13/21 12:14 12/13/21 09:02 Oxygen Flow Rate (L/min) 2 Oxygen Delivery Method Room Air Weight: 138.7 kg Body Mass Index (BMI) 48.4 Intake & Output: Intake and Output for Last 24 Hours 12/11/21 12/12/21 12/13/21 23:59 23:59 23:59 Intake Total 530 / 530 240 / 240 Output Total 1025 / 1025 575 / 575 Balance -495 / -495 -575 / -575 240 / 240 Lab / Micro Data Result Diagrams: 12/12/21 05:50 12/12/21 05:50 Physical Exam Narrative awake, no acute distress oral pharynx crowded [id number] regular b/s diminished abdomen obese, +edema with chronic skin changes Assessment & Plan Assessment/Plan (1) DARY (acute kidney injury): PLAN: Baseline creatinine is around 1.1-1.2. Increased to 1.4 today. Denies any obstructive symptoms. He was admitted with fluid overload, received IV Bumex, currently on oral Bumex. No history of kidney stones or urinary infections. He did have this kind of fluctuations before. Most likely acute renal failure is cardiorenal syndrome. No changes made for now. Okay to discharge home on same medications. We will get a renal ultrasound as outpatient. We will arrange follow-up in office. 12/13 -overall stable from renal's standpoint -bumex increased to 2mg qhs -needs outpatient f/u -ok for d/c from renal's standpoint thanks please call [phone] with any concerns
== END 2021-12-13 14:02 | disposition home health service (06) | DRG 291 ==
LOC: ED 18:29 → PCU 12-09 00:11
PROVIDERS: Internal Medicine; Admitting Provider Hospitalist; Emergency Provider Student in an Organized Health Care Education/Training Program; PCP Family Medicine; Visit Provider Internal Medicine
DX: I11.0 Hypertensive heart disease with heart failure (principal); I50.33 Acute on chronic diastolic (congestive) heart failure; J44.1 Chronic obstructive pulmonary disease with (acute) exacerbation; N17.9 Acute kidney failure, unspecified; Z68.42 Body mass index [BMI] 45.0-49.9, adult; I48.0 Paroxysmal atrial fibrillation; E66.01 Morbid (severe) obesity due to excess calories; G47.33 Obstructive sleep apnea (adult) (pediatric); I87.8 Other specified disorders of veins; D50.0 Iron deficiency anemia secondary to blood loss (chronic); R09.02 Hypoxemia; Z79.01 Long term (current) use of anticoagulants; Z79.899 Other long term (current) drug therapy; Z86.711 Personal history of pulmonary embolism; Z86.718 Personal history of other venous thrombosis and embolism; Z87.891 Personal history of nicotine dependence
CPT/HCPCS: 36415; 71045; 80048; 80053; 83880; 84484; 85025; 85610; 93005; 93306; 94640; 97162; 97165; 97530; 99251; 99285; Q9957; A4216; C8929; G0463

== ENCOUNTER 2022-03-18 10:45 | Outpatient (RCR) | payer MEDICARE, OTHER, SELFPAY ==
[2022-02-22 13:21] VITALS: BP 123/83; PULSE 70; TEMP 36.1
[2022-02-22 14:30] VITALS: BMI 47.0
--- NOTE | 2022-02-22 21:37 | PCM.WC.HP ---
History of Present Illness Date of Service: 02/22/22 Chief Complaint: Severe swelling, edema, lymphedema, and venous stasis dermatitis in the lower extremities bilaterally History of Wound: This is a morbidly obese 76-year-old male who presents with very profound venous stasis dermatitis in his lower extremities bilaterally, associated with swelling, edema, and lymphedema. His lower extremities have been in this condition for at least 2 to 3 years. The patient's mobility is extremely limited. He ambulates very slowly and deliberately due to shortness of breath secondary to COPD, as well as back problems. He requires the use of a cane. He sleeps in a recliner, and sits idlely throughout the day. He rarely elevates his lower extremities. Furthermore, he is morbidly obese. [facility] Medical History Anemia due to acute blood loss Anticoagulant long-term use Asplenia after surgical procedure Atrial fibrillation Broken collarbone Broken ribs CHF (congestive heart failure) Chronic renal insufficiency, stage III (moderate) COPD (chronic obstructive pulmonary disease) Current use of penitentiary anticoagulation Degenerative joint disease of spine DVT (deep venous thrombosis) Failed fundoplication Former smoker GI bleed History of deep vein thrombosis History of gastrointestinal bleeding History of pulmonary embolism HTN (hypertension) Hyperlipidemia Irregular heart beat Kidney disease Kidney stones Leg edema Leg swelling Limited mobility Lymphedema of left lower extremity Lymphedema of right lower extremity Migraines Morbid obesity with BMI of 45.0-49.9, adult Obstructive sleep apnea Prediabetes Presence of IVC filter Pulmonary embolism Sleep apnea Venous stasis dermatitis of both lower extremities Home Medications calcium citrate 315 mg calcium-vitamin D3 6.25 mcg (250 unit) tablet 1 ea PO DAILY SUPPLEMENT 10/01/13 [History Last Taken 11/11/21] potassium chloride 20 mEq tablet,extended release(part/cryst) (Klor-Con M) 40 meq PO BID SUPPLEMENT 10/01/13 [History Last Taken 11/12/21] spironolactone 25 mg tablet 25 mg PO DINNER FLUID 10/01/13 [History Last Taken 11/11/21] warfarin 4 mg tablet (Jantoven) 4 mg PO DAILY BLOOD THINNER 10/01/13 [History Last Taken 11/12/21 00:00] atorvastatin 20 mg tablet 20 mg PO DAILY CHOLESTEROL 11/12/21 [History Last Taken 11/12/21] bumetanide 1 mg tablet 1 mg PO DINNER FLUID 11/12/21 [History Last Taken 11/11/21] bumetanide 1 mg tablet 2 mg PO QHS FLUID 11/12/21 [History Last Taken 11/11/21] metoprolol tartrate 50 mg tablet 25 mg PO BID HEART 11/12/21 [History Last Taken 11/12/21] warfarin 1 mg tablet 1 mg PO DAILY BLOOD THINNER 11/12/21 [History Last Taken 11/12/21 00:00] omeprazole 20 mg capsule,delayed release 40 mg PO BID GERD #60 caps 11/13/21 [Rx Last Taken 11/12/21] ferrous sulfate 325 mg (65 mg iron) tablet (FeroSul) 1 tab PO BID 12/08/21 [History Last Taken Unknown] umeclidinium 62.5 mcg/actuation blister powder for inhalation (Incruse Ellipta) See Rx Instructions .Route .COMPLEX Check with primary doctor 12/08/21 [History Last Taken 12/08/21] prednisone 20 mg tablet 40 mg PO BREAKFAST 5 days #10 tabs 12/13/21 [Rx Last Taken Unknown] Allergy/AdvReac Type Severity Reaction Status Date / Time chlorpromazine HCl Allergy Other Verified 12/08/21 17:35 [From Thorazine] metformin Allergy PT UNSURE Verified 12/08/21 17:35 OF REACTION Family History Other Heart disease Hypertension Surgical History History of embolic filter insertion History of Myrtle fundoplication History of splenectomy History of ventral hernia repair Status post splenectomy Social History household members: none Smoking Status: Former smoker substance use type: does not use Vital Signs Vital Signs Vital Signs: 02/22/22 13:21 Temperature 97.0 F L Temperature Source Temporal Pulse Rate 70 Blood Pressure 123/83 H Blood Pressure Mean 96 Blood Pressure Source Monitor Blood Pressure Position Sitting Blood Pressure Location Left Arm Weight Weight: 300 lb Body Mass Index (BMI) 47.0 Physical Exam Const alert, oriented x3, no apparent distress and well nourished Constitutional Narrative: The patient is morbidly obese. He appears winded with minimal physical activity. General Appearance: cooperative and well developed Orientation / Consciousness: awake, oriented to person, oriented to place and oriented to time HEENT normocephalic and head/scalp atraumatic Head and Scalp: normal to inspection, normocephalic and atraumatic External Ear: external ears normal Eyes PERRL and EOMs intact bilaterally General Eye: normal appearance of both eyes Resp normal respiratory effort, normal air movement, no retractions and no use of accessory muscles Resp Narrative: Upon minimal physical activity, the patient appears to be winded and short of breath. Effort and Inspection: able to speak in complete sentences GI GI Narrative: The abdomen is obese. A large reducible upper abdominal ventral hernia is noted. Extremity no calf tenderness General Extremity: Negative for clubbing or cyanosis Skin Wound Narrative: Severe swelling, edema, and lymphedema are noted in the patient's lower extremities bilaterally. 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 A very small superficial excoriation is noted on the left pretibial surface. Dimensions are documented elsewhere. There is no sign of infection or cellulitis. Neuro oriented x3, CN's II-XII intact bilaterally and moves all extremities Sensorium / Orientation: awake, alert, oriented to person, oriented to place and oriented to time Psych Appearance: grossly normal and appropriate Attitude: calm Activity / Motor Behavior: appropriate eye contact Speech: normal speech Mood & Affect: euthymic mood Thought Process: normal thought process Thought Content: normal thought content Attention / Concentration: attention grossly intact Debridement Note Debridement Note No debridement was completed: No debridement was completed today Post-Debridement Measurements and Additional Note: Post-Debridement Measurements/Treatment - Nurse 1 - General Ulcer Assessment Start: 02/22/22 13:19 Freq: Status: Active Protocol: THAO Activity Type Activity Date Activity User E-sign Co-sign Detail Recorded Client Recorded Date Recorded By Document 02/22/22 13:21 KR [id number] 02/22/22 13:26 KR Document 02/22/22 14:30 KHOI [id number] 02/22/22 14:31 KR 02/22/22 02/22/22 13:21 14:30 - Today's Visit Information Type of service Initial Visit Arrival Mode Ambulatory,Cane Patient Identification Verified (Name & Yes ) Height and Weight Height 5 ft 7 in Weight 300 lb Weight in Pounds 300.0 lbs Body Mass Index (BMI) 47.0 BMI Classification Obese BSA - Roberto Carlos 2.40 Vital Signs Temperature (97.8 F-99.1 F) 97.0 F L Temperature Source Temporal Pulse Rate (60-100) 70 Pulse Location Monitor Blood Pressure (90/60-120/80) 123/83 H Blood Pressure Mean 96 Source Monitor Position Sitting Blood Pressure Location Left Arm History Since Last Visit- (Skip if this is Patient's initial visit) Have you changed medications since your No last visit? Any new allergies or adverse reactions No Had a fall/change in ADL's that may No increase risk of falls Signs or symptoms of abuse and/or No neglect since last visit Have you been in the hospital since your No last visit? Has dressing in place as prescribed No Has compression in place as prescribed N/A Has offloadiing in place as prescribed N/A Experienced any changes in pain level or No management Left Footwear Regular Shoe Right Footwear Regular Shoe Pain Scale: 0-10 Numeric Is Patient Pain Free? Yes Yes - Nurse 1 - General Ulcer Measurement Start: 02/22/22 13:19 Freq: Status: Active Protocol: Activity Type Activity Date Activity User E-sign Co-sign Detail Recorded Client Recorded Date Recorded By Document 02/22/22 13:21 KHOI [id number] 02/22/22 13:26 KR 02/22/22 13:21 Wound Center Nurse 1 Right Calf (cm) 55.5 Right Ankle (cm) 34 Left Calf (cm) 58.5 Left Ankle (cm) 37.5 - Nurse 3 - General Ulcer D/C NN Start: 02/22/22 13:19 Freq: Status: Active Protocol: Activity Type Activity Date Activity User E-sign Co-sign Detail Recorded Client Recorded Date Recorded By Document 02/22/22 14:31 KHOI [id number] 02/22/22 14:32 KR 02/22/22 14:31 Wound Care Nurse 3 Left -Multi-Layered Wrap Application Unna Boot - Bilateral ($) -Unna Boots (Bilat) ($) 2 Pain Scale: 0-10 Numeric Is Patient Pain Free? Yes WC - Visit Discharge Discharge Condition Stable Ambulatory Status Ambulatory,Cane Transportation Private Auto Assessment/Plan Assessment/Plan (1) Venous stasis dermatitis of both lower extremities: CODE(S): I87.2 - Venous insufficiency (chronic) (peripheral) (2) Lymphedema of left lower extremity: CODE(S): I89.0 - Lymphedema, not elsewhere classified (3) Leg swelling: CODE(S): M79.89 - Other specified soft tissue disorders (4) Leg edema: CODE(S): R60.0 - Localized edema (5) Morbid obesity with BMI of 45.0-49.9, adult: CODE(S): E66.01 - Morbid (severe) obesity due to excess calories; Z68.42 - Body mass index [BMI] 45.0-49.9, adult (6) Limited mobility: CODE(S): Z74.09 - Other reduced mobility (7) GERD (gastroesophageal reflux disease): CODE(S): K21.9 - Gastro-esophageal reflux disease without esophagitis (8) HTN (hypertension): CODE(S): I10 - Essential (primary) hypertension (9) Atrial fibrillation: CODE(S): I48.91 - Unspecified atrial fibrillation (10) CHF (congestive heart failure): CODE(S): I50.9 - Heart failure, unspecified (11) History of deep vein thrombosis: CODE(S): Z86.718 - Personal history of other venous thrombosis and embolism (12) History of pulmonary embolism: CODE(S): Z86.711 - Personal history of pulmonary embolism (13) Hyperlipidemia: CODE(S): E78.5 - Hyperlipidemia, unspecified (14) Obstructive sleep apnea: CODE(S): G47.33 - Obstructive sleep apnea (adult) (pediatric) (15) Chronic renal insufficiency, stage III (moderate): CODE(S): N18.30 - Chronic kidney disease, stage 3 unspecified (16) Asplenia after surgical procedure: CODE(S): Z90.81 - Acquired absence of spleen (17) Degenerative joint disease of spine: CODE(S): M47.9 - Spondylosis, unspecified (18) Prediabetes: CODE(S): R73.03 - Prediabetes (19) History of gastrointestinal bleeding: CODE(S): Z87.19 - Personal history of other diseases of the digestive system (20) History of ventral hernia repair: CODE(S): Z98.890 - Other specified postprocedural states; Z87.19 - Personal history of other diseases of the digestive system (21) History of splenectomy: CODE(S): Z90.81 - Acquired absence of spleen (22) History of Myrtle fundoplication: CODE(S): Z98.890 - Other specified postprocedural states (23) Presence of IVC filter: CODE(S): Z95.828 - Presence of other vascular implants and grafts (24) Current use of continuous churn buttermaker anticoagulation: CODE(S): Z79.01 - continuous churn buttermaker (current) use of anticoagulants (25) Lymphedema of right lower extremity: CODE(S): I89.0 - Lymphedema, not elsewhere classified PLAN: Plan This is a morbidly obese 76-year-old male with limited mobility. He has a history of deep vein thrombosis and pulmonary embolism in the past. He presents with multiple pre-existing medical problems, as listed above. He has been referred for severe swelling, edema, and lymphedema in his lower extremities, associated with severe ichthyosis vulgaris bilaterally. The patient is of limited mobility, and sleeps in a recliner, with his lower extremities in a chronically dependent position. A lengthy discussion has been undertaken with the patient to quit him with the reasons for his lower extremity symptoms and manifestations. He has been urged to avoid sleeping in a recliner. He has been encouraged to sleep on a flat mattress with his legs level with his heart, or higher. Leg elevation to heart level, or higher, has also been encouraged during daytime hours. Prolonged idle sitting has been discouraged. Activity has been encouraged, though the patient's pulmonary disease, morbid obesity, and back problems will likely preclude any enhancement of his activity to a significant degree. Weight loss has been recommended. We are to implement compression to the lower extremities by means of Unna boots, which will be applied bilaterally, and changed twice weekly. Patient has undergone relatively recent laboratory studies on December 12, 2021, with results as follows: White blood count 12.6, hemoglobin 10.9, hematocrit 36.1, platelets 532,000, PT 21.0 INR 1.9, sodium 135, potassium 4.5, chloride 101, BUN 34, creatinine 1.48, glucose 160, calcium 9.2, albumin 3.0, total protein 7.7. The patient is to return in 1 week for reassessment. Total time: 65 minutes
[2022-02-25 11:13] VITALS: BP 163/78; PULSE 83; TEMP 36.4; BMI 47.0
[2022-03-01 11:30] VITALS: BP 159/90; PULSE 77; RESP 24; TEMP 36.8; BMI 47.0
--- NOTE | 2022-03-01 12:26 | HP.PCM_ITS ---
History of Present Illness Date of Service: 03/01/22 Chief Complaint: Severe swelling, edema, lymphedema, and venous stasis tavon matitis in the lower extremities bilaterally History of Wound: This is a morbidly obese 76-year-old male who presents with very profound venous stasis dermatitis in his lower extremities bilaterally, associated with swelling, edema, and lymphedema. His lower extremities have been in this condition for at least 2 to 3 years. The patient's mobility is extremely limited. He ambulates very slowly and deliberately due to shortness of breath secondary to COPD, as well as back problems. He requires the use of a cane. He sleeps in a recliner, and sits idlely throughout the day. He rarely elevates his lower extremities. Furthermore, he is morbidly obese. [facility] Medical History Anemia due to acute blood loss Anticoagulant long-term use Asplenia after surgical procedure Atrial fibrillation Broken collarbone Broken ribs CHF (congestive heart failure) Chronic renal insufficiency, stage III (moderate) COPD (chronic obstructive pulmonary disease) Current use of long term care administrator anticoagulation Degenerative joint disease of spine DVT (deep venous thrombosis) Failed fundoplication Former smoker GI bleed History of deep vein thrombosis History of gastrointestinal bleeding History of pulmonary embolism HTN (hypertension) Hyperlipidemia Irregular heart beat Kidney disease Kidney stones Leg edema Leg swelling Limited mobility Lymphedema of left lower extremity Lymphedema of right lower extremity Migraines Morbid obesity with BMI of 45.0-49.9, adult Obstructive sleep apnea Prediabetes Presence of IVC filter Pulmonary embolism Sleep apnea Venous stasis dermatitis of both lower extremities Home Medications calcium citrate 315 mg calcium-vitamin D3 6.25 mcg (250 unit) tablet 1 ea PO DAILY SUPPLEMENT 10/01/13 [History Last Taken 11/11/21] potassium chloride 20 mEq tablet,extended release(part/cryst) (Klor-Con M) 40 meq PO BID SUPPLEMENT 10/01/13 [History Last Taken 11/12/21] spironolactone 25 mg tablet 25 mg PO DINNER FLUID 10/01/13 [History Last Taken 11/11/21] warfarin 4 mg tablet (Jantoven) 4 mg PO DAILY BLOOD THINNER 10/01/13 [History Last Taken 11/12/21 00:00] atorvastatin 20 mg tablet 20 mg PO DAILY CHOLESTEROL 11/12/21 [History Last Taken 11/12/21] bumetanide 1 mg tablet 1 mg PO DINNER FLUID 11/12/21 [History Last Taken 11/11/21] bumetanide 1 mg tablet 2 mg PO QHS FLUID 11/12/21 [History Last Taken 11/11/21] metoprolol tartrate 50 mg tablet 25 mg PO BID HEART 11/12/21 [History Last Taken 11/12/21] warfarin 1 mg tablet 1 mg PO DAILY BLOOD THINNER 11/12/21 [History Last Taken 11/12/21 00:00] omeprazole 20 mg capsule,delayed release 40 mg PO BID GERD #60 caps 11/13/21 [Rx Last Taken 11/12/21] ferrous sulfate 325 mg (65 mg iron) tablet (FeroSul) 1 tab PO BID 12/08/21 [History Last Taken Unknown] umeclidinium 62.5 mcg/actuation blister powder for inhalation (Incruse Ellipta) See Rx Instructions .Route .COMPLEX Check with primary doctor 12/08/21 [History Last Taken 12/08/21] prednisone 20 mg tablet 40 mg PO BREAKFAST 5 days #10 tabs 12/13/21 [Rx Last Taken Unknown] Allergy/AdvReac Type Severity Reaction Status Date / Time chlorpromazine HCl Allergy Other Verified 12/08/21 17:35 [From Thorazine] metformin Allergy PT UNSURE Verified 12/08/21 17:35 OF REACTION Family History Other Heart disease Hypertension Surgical History History of embolic filter insertion History of Myrtle fundoplication History of splenectomy History of ventral hernia repair Status post splenectomy Social History household members: none Smoking Status: Former smoker substance use type: does not use Vital Signs Vital Signs Vital Signs: 03/01/22 11:30 Temperature 98.2 F Temperature Source Temporal Pulse Rate 77 Respiratory Rate 24 H Blood Pressure 159/90 H Blood Pressure Mean 113 Blood Pressure Source Monitor Weight Weight: 300 lb Body Mass Index (BMI) 47.0 Physical Exam Const alert, oriented x3, no apparent distress and well nourished Constitutional Narrative: The patient is morbidly obese. He appears winded with minimal physical activity. General Appearance: cooperative and well developed Orientation / Consciousness: awake, oriented to person, oriented to place and oriented to time HEENT normocephalic and head/scalp atraumatic Head and Scalp: normal to inspection, normocephalic and atraumatic External Ear: external ears normal Eyes PERRL and EOMs intact bilaterally General Eye: normal appearance of both eyes Resp normal respiratory effort, normal air movement, no retractions and no use of accessory muscles Resp Narrative: Upon minimal physical activity, the patient appears to be winded and short of breath. Effort and Inspection: able to speak in complete sentences GI GI Narrative: The abdomen is obese. A large reducible upper abdominal ventral hernia is noted. Extremity no calf tenderness General Extremity: Negative for clubbing or cyanosis Skin Wound Narrative: Severe swelling, edema, and lymphedema are noted in the patient's lower extremities bilaterally. 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 A very small superficial excoriation is noted on the left pretibial surface. Dimensions are documented elsewhere. There is no sign of infection or cellulitis. Neuro oriented x3, CN's II-XII intact bilaterally, moves all extremities and no focal motor deficits Sensorium / Orientation: awake, alert, oriented to person, oriented to place and oriented to time Psych Appearance: grossly normal and appropriate Attitude: calm Activity / Motor Behavior: appropriate eye contact Speech: normal speech Mood & Affect: euthymic mood Thought Process: normal thought process Thought Content: normal thought content Attention / Concentration: attention grossly intact Debridement Note Debridement Note No debridement was completed: No debridement was completed today Post-Debridement Measurements and Additional Note: Post-Debridement Measurements/Treatment CAROL - Nurse 1 - General Ulcer Assessment Start: 02/22/22 13:19 Freq: Status: Active Protocol: THAO Activity Type Activity Date Activity User E-sign Co-sign Detail Recorded Client Recorded Date Recorded By Document 02/22/22 13:21 KHOI [id number] 02/22/22 13:26 KR Document 02/22/22 14:30 KR [id number] 02/22/22 14:31 KR Document 02/25/22 11:13 KR [id number] 02/25/22 11:13 KR Document 03/01/22 11:30 DL [id number] 03/01/22 11:37 DL 02/22/22 02/22/22 02/25/22 13:21 14:30 11:13 - Today's Visit Information Type of service Initial Visit Nurse-only Visit Arrival Mode Ambulatory,Cane Ambulatory,Cane Transfer Assistance Patient Identification Verified (Name & Yes Yes ) Patient Requires Transmission-Based Precautions Height and Weight Height 5 ft 7 in Weight 300 lb Weight in Pounds 300.0 lbs Body Mass Index (BMI) 47.0 47.0 BMI Classification Obese Obese BSA - Roberto Carlos 2.40 Vital Signs Temperature (97.8 F-99.1 F) 97.0 F L 97.6 F L Temperature Source Temporal Temporal Pulse Rate (60-100) 70 83 Pulse Location Monitor Monitor Respiratory Rate (12-18) Respiratory rate source Blood Pressure (90/60-120/80) 123/83 H 163/78 H Blood Pressure Mean 96 106 Source Monitor Monitor Position Sitting Sitting Blood Pressure Location Left Arm Left Arm History Since Last Visit- (Skip if this is Patient's initial visit) Have you changed medications since your No No last visit? Any new allergies or adverse reactions No No Had a fall/change in ADL's that may No No increase risk of falls Signs or symptoms of abuse and/or No No neglect since last visit Have you been in the hospital since your No No last visit? Has dressing in place as prescribed No No Has compression in place as prescribed N/A Yes Has offloadiing in place as prescribed N/A N/A Experienced any changes in pain level or No No management Left Footwear Regular Shoe Regular Shoe Right Footwear Regular Shoe Regular Shoe Pain Scale: 0-10 Numeric Is Patient Pain Free? Yes Yes Yes 03/01/22 11:30 WC - Today's Visit Information Type of service Follow-up Visit (Physician/[employer]IME [employer]ORATORY ANALYST ) Arrival Mode Ambulatory Transfer Assistance None Patient Identification Verified (Name & Yes ) Patient Requires Transmission-Based No Precautions Height and Weight Height Weight Weight in Pounds Body Mass Index (BMI) 47.0 BMI Classification Obese BSA - Roberto Carlos Vital Signs Temperature (97.8 F-99.1 F) 98.2 F Temperature Source Temporal Pulse Rate (60-100) 77 Pulse Location Monitor Respiratory Rate (12-18) 24 H Respiratory rate source Observation Blood Pressure (90/60-120/80) 159/90 H Blood Pressure Mean 113 Source Monitor Position Blood Pressure Location History Since Last Visit- (Skip if this is Patient's initial visit) Have you changed medications since your No last visit? Any new allergies or adverse reactions No Had a fall/change in ADL's that may No increase risk of falls Signs or symptoms of abuse and/or No neglect since last visit Have you been in the hospital since your last visit? Has dressing in place as prescribed Yes Has compression in place as prescribed Yes Has offloadiing in place as prescribed N/A Experienced any changes in pain level or No management Left Footwear Right Footwear Pain Scale: 0-10 Numeric Is Patient Pain Free? Yes WC - Nurse 1 - General Ulcer Measurement Start: 02/22/22 13:19 Freq: Status: Active Protocol: Activity Type Activity Date Activity User E-sign Co-sign Detail Recorded Client Recorded Date Recorded By Document 02/22/22 13:21 KR [id number] 02/22/22 13:26 KR Document 02/25/22 11:13 KR [id number] 02/25/22 11:14 KR Document 03/01/22 11:30 DL [id number] 03/01/22 11:37 DL 02/22/22 02/25/22 03/01/22 13:21 11:13 11:30 Wound Center Nurse 1 Right Calf (cm) 55.5 58 59.8 Right Ankle (cm) 34 30 31.4 Left Calf (cm) 58.5 57 58.7 Left Ankle (cm) 37.5 32 32.3 WC - Nurse 2 - General Ulcer CM Notes Start: 02/22/22 13:19 Freq: Status: Active Protocol: Activity Type Activity Date Activity User E-sign Co-sign Detail Recorded Client Recorded Date Recorded By Document 03/01/22 12:21 PL [id number] 03/01/22 12:21 PL 03/01/22 12:21 Pain Scale: 0-10 Numeric Is Patient Pain Free? Yes - Nurse 3 - General Ulcer D/C NN Start: 02/22/22 13:19 Freq: Status: Active Protocol: Activity Type Activity Date Activity User E-sign Co-sign Detail Recorded Client Recorded Date Recorded By Document 02/22/22 14:31 KR [id number] 02/22/22 14:32 KR Document 02/25/22 11:13 KR [id number] 02/25/22 11:13 KR 02/22/22 02/25/22 14:31 11:13 Wound Care Nurse 3 Left -Multi-Layered Wrap Application Unna Boot - Unna Boot - Bilateral ($) Bilateral ($) -Unna Boots (Bilat) ($) 2 2 Vital Signs Temperature (97.8 F-99.1 F) 97.6 F L Temperature Source Temporal Pulse Rate (60-100) 83 Pulse Location Monitor Blood Pressure (90/60-120/80) 163/78 H Blood Pressure Mean 106 Source Monitor Position Sitting Blood Pressure Location Left Arm Pain Scale: 0-10 Numeric Is Patient Pain Free? Yes Yes WC - Visit Discharge Discharge Condition Stable Stable Ambulatory Status Ambulatory,Cane Ambulatory,Cane Transportation Private Auto Private Auto Assessment/Plan Assessment/Plan (1) Venous stasis dermatitis of both lower extremities: CODE(S): I87.2 - Venous insufficiency (chronic) (peripheral) (2) Lymphedema of left lower extremity: CODE(S): I89.0 - Lymphedema, not elsewhere classified (3) Leg swelling: CODE(S): M79.89 - Other specified soft tissue disorders (4) Leg edema: CODE(S): R60.0 - Localized edema (5) Morbid obesity with BMI of 45.0-49.9, adult: CODE(S): E66.01 - Morbid (severe) obesity due to excess calories; Z68.42 - Body mass index [BMI] 45.0-49.9, adult (6) Limited mobility: CODE(S): Z74.09 - Other reduced mobility (7) GERD (gastroesophageal reflux disease): CODE(S): K21.9 - Gastro-esophageal reflux disease without esophagitis (8) HTN (hypertension): CODE(S): I10 - Essential (primary) hypertension (9) Atrial fibrillation: CODE(S): I48.91 - Unspecified atrial fibrillation (10) CHF (congestive heart failure): CODE(S): I50.9 - Heart failure, unspecified (11) History of deep vein thrombosis: CODE(S): Z86.718 - Personal history of other venous thrombosis and embolism (12) History of pulmonary embolism: CODE(S): Z86.711 - Personal history of pulmonary embolism (13) Hyperlipidemia: CODE(S): E78.5 - Hyperlipidemia, unspecified (14) Obstructive sleep apnea: CODE(S): G47.33 - Obstructive sleep apnea (adult) (pediatric) (15) Chronic renal insufficiency, stage III (moderate): CODE(S): N18.30 - Chronic kidney disease, stage 3 unspecified (16) Asplenia after surgical procedure: CODE(S): Z90.81 - Acquired absence of spleen (17) Degenerative joint disease of spine: CODE(S): M47.9 - Spondylosis, unspecified (18) Prediabetes: CODE(S): R73.03 - Prediabetes (19) History of gastrointestinal bleeding: CODE(S): Z87.19 - Personal history of other diseases of the digestive system (20) History of ventral hernia repair: CODE(S): Z98.890 - Other specified postprocedural states; Z87.19 - Personal history of other diseases of the digestive system (21) History of splenectomy: CODE(S): Z90.81 - Acquired absence of spleen (22) History of Myrtle fundoplication: CODE(S): Z98.890 - Other specified postprocedural states (23) Presence of IVC filter: CODE(S): Z95.828 - Presence of other vascular implants and grafts (24) Current use of long term care administrator anticoagulation: CODE(S): Z79.01 - long term care administrator (current) use of anticoagulants (25) Lymphedema of right lower extremity: CODE(S): I89.0 - Lymphedema, not elsewhere classified PLAN: Plan This is a morbidly obese 76-year-old male with limited mobility. He has a history of deep vein thrombosis and pulmonary embolism in the past. He presents with multiple pre-existing medical problems, as listed above. He has been referred for severe swelling, edema, and lymphedema in his lower extremities, associated with severe ichthyosis vulgaris bilaterally. The patient is of limited mobility, and sleeps in a recliner, with his lower extremities in a chronically dependent position. A lengthy discussion has been undertaken with the patient to acquaint him with the reasons for his lower extremity symptoms and manifestations. He has been urged to avoid sleeping in a recliner. He has been encouraged to sleep on a flat mattress with his legs level with his heart, or higher. Leg elevation to heart level, or higher, has also been encouraged during daytime hours. Prolonged idle sitting has been discouraged. Activity has been encouraged, though the patient's pulmonary disease, morbid obesity, and back problems will likely preclude any enhancement of his activity to a signi ficant degree. Weight loss has been recommended. We are to continue compression to the lower extremities by means of Unna boots, which will be applied bilaterally, and changed twice weekly. Patient has undergone relatively recent laboratory studies on December 12, 2021, with results as follows: White blood count 12.6, hemoglobin 10.9, hematocrit 36.1, platelets 532,000, PT 21.0 INR 1.9, sodium 135, potassium 4.5, chloride 101, BUN 34, creatinine 1.48, glucose 160, calcium 9.2, albumin 3.0, total protein 7.7. The patient is to return in 1 week for reassessment. Total time: 28 minutes
[2022-03-03 13:14] VITALS: BP 150/103; PULSE 96; RESP 22; TEMP 36.1; BMI 47.0
[2022-03-08 15:13] VITALS: BP 145/75; PULSE 78; RESP 16; TEMP 35.9; BMI 47.0
[2022-03-11 11:17] VITALS: BP 134/76; PULSE 76; TEMP 36.6; BMI 47.0
[2022-03-15 11:18] VITALS: BP 157/81; PULSE 72; RESP 18; TEMP 36.2; BMI 47.0
--- NOTE | 2022-03-15 12:54 | HP.PCM_ITS ---
History of Present Illness Date of Service: 03/15/22 Chief Complaint: Severe swelling, edema, lymphedema, and venous stasis tavon matitis in the lower extremities bilaterally History of Wound: This is a morbidly obese 76-year-old male who presented with very profound venous stasis dermatitis in his lower extremities bilaterally, associated with swelling, edema, and lymphedema. His lower extremities have been in this condition for at least 2 to 3 years. The patient's mobility is extremely limited. He ambulates very slowly and deliberately due to shortness of breath secondary to COPD, as well as back problems. He requires the use of a cane. He sleeps in a recliner, and sits idlely throughout the day. He rarely elevates his lower extremities. Furthermore, he is morbidly obese. 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 Degenerative joint disease of spine DVT (deep venous thrombosis) Failed fundoplication Former smoker GI bleed History of deep vein thrombosis History of gastrointestinal bleeding History of pulmonary embolism HTN (hypertension) Hyperlipidemia Irregular heart beat Kidney disease Kidney stones Leg edema Leg swelling Limited mobility Lymphedema of left lower extremity Lymphedema of right lower extremity Migraines Morbid obesity with BMI of 45.0-49.9, adult Obstructive sleep apnea Prediabetes Presence of IVC filter Pulmonary embolism Sleep apnea Venous stasis dermatitis of both lower extremities Home Medications calcium citrate 315 mg calcium-vitamin D3 6.25 mcg (250 unit) tablet 1 ea PO DAILY SUPPLEMENT 10/01/13 [History Last Taken 11/11/21] potassium chloride 20 mEq tablet,extended release(part/cryst) (Klor-Con M) 40 meq PO BID SUPPLEMENT 10/01/13 [History Last Taken 11/12/21] spironolactone 25 mg tablet 25 mg PO DINNER FLUID 10/01/13 [History Last Taken 11/11/21] warfarin 4 mg tablet (Jantoven) 4 mg PO DAILY BLOOD THINNER 10/01/13 [History Last Taken 11/12/21 00:00] atorvastatin 20 mg tablet 20 mg PO DAILY CHOLESTEROL 11/12/21 [History Last Taken 11/12/21] bumetanide 1 mg tablet 1 mg PO DINNER FLUID 11/12/21 [History Last Taken 11/11/21] bumetanide 1 mg tablet 2 mg PO QHS FLUID 11/12/21 [History Last Taken 11/11/21] metoprolol tartrate 50 mg tablet 25 mg PO BID HEART 11/12/21 [History Last Taken 11/12/21] warfarin 1 mg tablet 1 mg PO DAILY BLOOD THINNER 11/12/21 [History Last Taken 11/12/21 00:00] omeprazole 20 mg capsule,delayed release 40 mg PO BID GERD #60 caps 11/13/21 [Rx Last Taken 11/12/21] ferrous sulfate 325 mg (65 mg iron) tablet (FeroSul) 1 tab PO BID 12/08/21 [History Last Taken Unknown] umeclidinium 62.5 mcg/actuation blister powder for inhalation (Incruse Ellipta) See Rx Instructions .Route .COMPLEX Check with primary doctor 12/08/21 [History Last Taken 12/08/21] prednisone 20 mg tablet 40 mg PO BREAKFAST 5 days #10 tabs 12/13/21 [Rx Last Taken Unknown] Allergy/AdvReac Type Severity Reaction Status Date / Time chlorpromazine HCl Allergy Other Verified 12/08/21 17:35 [From Thorazine] metformin Allergy PT UNSURE Verified 12/08/21 17:35 OF REACTION Family History Other Heart disease Hypertension Surgical History History of embolic filter insertion History of Myrtle fundoplication History of splenectomy History of ventral hernia repair Status post splenectomy Social History household members: none Smoking Status: Former smoker substance use type: does not use Vital Signs Vital Signs Vital Signs: 03/15/22 11:18 Temperature 97.2 F L Temperature Source Temporal Pulse Rate 72 Respiratory Rate 18 Blood Pressure 157/81 H Blood Pressure Mean 106 Blood Pressure Source Monitor Blood Pressure Position Sitting Blood Pressure Location Left Arm Weight Weight: 300 lb Body Mass Index (BMI) 47.0 Physical Exam Const alert, oriented x3, no apparent distress and well nourished Constitutional Narrative: The patient is morbidly obese. He appears winded with minimal physical activity. General Appearance: cooperative and well developed Orientation / Consciousness: awake, oriented to person, oriented to place and oriented to time HEENT normocephalic and head/scalp atraumatic Head and Scalp: normal to inspection, normocephalic and atraumatic External Ear: external ears normal Eyes PERRL and EOMs intact bilaterally General Eye: normal appearance of both eyes Resp normal respiratory effort, normal air movement, no retractions and no use of accessory muscles Resp Narrative: Upon minimal physical activity, the patient appears to be winded and short of breath. Effort and Inspection: able to speak in complete sentences GI GI Narrative: The abdomen is obese. A large reducible upper abdominal ventral hernia is noted. Extremity no calf tenderness General Extremity: Negative for clubbing or cyanosis Skin Wound Narrative: Severe swelling, edema, and lymphedema are noted in the patient's lower extremities bilaterally. 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 The degree of swelling and edema also appears to be slightly improved. A very small superficial excoriation is noted on the left pretibial surface. Dimensions are documented elsewhere. There is no sign of infection or cellulitis. Neuro oriented x3, CN's II-XII intact bilaterally, moves all extremities and no focal motor deficits Sensorium / Orientation: awake, alert, oriented to person, oriented to place and oriented to time Psych Appearance: grossly normal and appropriate Attitude: calm Activity / Motor Behavior: appropriate eye contact Speech: normal speech Mood & Affect: euthymic mood Thought Process: normal thought process Thought Content: normal thought content Attention / Concentration: attention grossly intact Debridement Note Debridement Note No debridement was completed: No debridement was completed today Post-Debridement Measurements and Additional Note: Post-Debridement Measurements/Treatment WC - Nurse 1 - General Ulcer Assessment Start: 02/22/22 13:19 Freq: Status: Active Protocol: THAO Activity Type Activity Date Activity User E-sign Co-sign Detail Recorded Client Recorded Date Recorded By Document 02/22/22 13:21 KR [id number] 02/22/22 13:26 KR Document 02/22/22 14:30 KR [id number] 02/22/22 14:31 KR Document 02/25/22 11:13 KR [id number] 02/25/22 11:13 KR Document 03/01/22 11:30 DL [id number] 03/01/22 11:37 DL Document 03/03/22 13:14 MW [id number] 03/03/22 13:36 MW Document 03/08/22 15:13 BMF [id number] 03/08/22 15:22 BMF Document 03/11/22 11:17 KR [id number] 03/11/22 11:18 KR Document 03/15/22 11:18 RB [id number] 03/15/22 11:22 RB 02/22/22 02/22/22 02/25/22 13:21 14:30 11:13 WC - Today's Visit Information Type of service Initial Visit Nurse-only Visit Arrival Mode Ambulatory,Cane Ambulatory,Cane Transfer Assistance Accompanied by Patient Identification Verified (Name & Yes Yes ) Patient Requires Transmission-Based Precautions Safety Precautions Height and Weight Height 5 ft 7 in Weight 300 lb Weight in Pounds 300.0 lbs Body Mass Index (BMI) 47.0 47.0 BMI Classification Obese Obese BSA - [place] 2.40 Vital Signs Temperature (97.8 F-99.1 F) 97.0 F L 97.6 F L Temperature Source Temporal Temporal Pulse Rate (60-100) 70 83 Pulse Location Monitor Monitor Respiratory Rate (12-18) Respiratory rate source Oxygen Delivery Method Blood Pressure (90/60-120/80) 123/83 H 163/78 H Blood Pressure Mean 96 106 Source Monitor Monitor Position Sitting Sitting Blood Pressure Location Left Arm Left Arm History Since Last Visit- (Skip if this is Patient's initial visit) Have you changed medications since your No No last visit? Any new allergies or adverse reactions No No Had a fall/change in ADL's that may No No increase risk of falls Signs or symptoms of abuse and/or No No neglect since last visit Have you been in the hospital since your No No last visit? Has dressing in place as prescribed No No Has compression in place as prescribed N/A Yes Has offloadiing in place as prescribed N/A N/A Experienced any changes in pain level or No No management Left Footwear Regular Shoe Regular Shoe Right Footwear Regular Shoe Regular Shoe Pain Scale: 0-10 Numeric Is Patient Pain Free? Yes Yes Yes 03/01/22 03/03/22 03/08/22 11:30 13:14 15:13 WC - Today's Visit Information Type of service Follow-up Visit Follow-up Visit Nurse-only (Physician/FINAL ASSEMBLER BOAT (Physician/FINAL ASSEMBLER BOAT Visit ) ) Arrival Mode Ambulatory Ambulatory,Cane Ambulatory,Cane Transfer Assistance None None None Accompanied by self Patient Identification Verified (Name & Yes Yes Yes ) Patient Requires Transmission-Based No No No Precautions Safety Precautions Fall Prevention Height and Weight Height Weight Weight in Pounds Body Mass Index (BMI) 47.0 47.0 47.0 BMI Classification Obese Obese Obese [facility] - [place] Vital Signs Temperature (97.8 F-99.1 F) 98.2 F 96.9 F L 96.6 F L Temperature Source Temporal Temporal Temporal Pulse Rate (60-100) 77 96 78 Pulse Location Monitor Monitor Monitor Respiratory Rate (12-18) 24 H 22 H 16 Respiratory rate source Observation Observation Observation Oxygen Delivery Method Room Air Room Air Blood Pressure (90/60-120/80) 159/90 H 150/103 H 145/75 H Blood Pressure Mean 113 118 98 Source Monitor Monitor Monitor Position Sitting Sitting Blood Pressure Location Left Arm Left Arm History Since Last Visit- (Skip if this is Patient's initial visit) Have you changed medications since your No No No last visit? Any new allergies or adverse reactions No No No Had a fall/change in ADL's that may No No No increase risk of falls Signs or symptoms of abuse and/or No No No neglect since last visit Have you been in the hospital since your No No last visit? Has dressing in place as prescribed Yes No Yes Has compression in place as prescribed Yes Yes Yes Has offloadiing in place as prescribed N/A Yes N/A Experienced any changes in pain level or No No No management Left Footwear Regular Shoe Regular Shoe Right Footwear Regular Shoe Regular Shoe Pain Scale: 0-10 Numeric Is Patient Pain Free? Yes Yes Yes 03/11/22 03/15/22 11:17 11:18 WC - Today's Visit Information Type of service Nurse-only Follow-up Visit Visit (Physician/FINAL ASSEMBLER BOAT ) Arrival Mode Ambulatory,Cane Ambulatory Transfer Assistance None Accompanied by Patient Identification Verified (Name & Yes Yes ) Patient Requires Transmission-Based Precautions Safety Precautions Height and Weight Height Weight Weight in Pounds Body Mass Index (BMI) 47.0 47.0 BMI Classification Obese Obese [facility] - [place] Vital Signs Temperature (97.8 F-99.1 F) 97.8 F 97.2 F L Temperature Source Temporal Temporal Pulse Rate (60-100) 76 72 Pulse Location Monitor Monitor Respiratory Rate (12-18) 18 Respiratory rate source Observation Oxygen Delivery Method Blood Pressure (90/60-120/80) 134/76 H 157/81 H Blood Pressure Mean 95 106 Source Monitor Monitor Position Semi-Fowlers Sitting Blood Pressure Location Right Arm Left Arm History Since Last Visit- (Skip if this is Patient's initial visit) Have you changed medications since your No No last visit? Any new allergies or adverse reactions No No Had a fall/change in ADL's that may No No increase risk of falls Signs or symptoms of abuse and/or No No neglect since last visit Have you been in the hospital since your No No last visit? Has dressing in place as prescribed Yes Yes Has compression in place as prescribed Yes Yes Has offloadiing in place as prescribed N/A No Experienced any changes in pain level or No No management Left Footwear Regular Shoe Right Footwear Regular Shoe Pain Scale: 0-10 Numeric Is Patient Pain Free? Yes Yes WC - Nurse 1 - General Ulcer Measurement Start: 02/22/22 13:19 Freq: Status: Active Protocol: Activity Type Activity Date Activity User E-sign Co-sign Detail Recorded Client Recorded Date Recorded By Document 02/22/22 13:21 KR [id number] 02/22/22 13:26 KR Document 02/25/22 11:13 KR [id number] 02/25/22 11:14 KR Document 03/01/22 11:30 DL [id number] 03/01/22 11:37 DL Document 03/03/22 13:14 MW [id number] 03/03/22 13:36 MW Document 03/08/22 15:13 BMF [id number] 03/08/22 15:22 BMF Document 03/15/22 11:18 RB [id number] 03/15/22 11:22 RB 02/22/22 02/25/22 03/01/22 13:21 11:13 11:30 Wound Center Nurse 1 Lower Limb Edema Present Right Calf (cm) 55.5 58 59.8 Right Ankle (cm) 34 30 31.4 Left Calf (cm) 58.5 57 58.7 Left Ankle (cm) 37.5 32 32.3 03/03/22 03/08/22 03/15/22 13:14 15:13 11:18 Wound Center Nurse 1 Lower Limb Edema Present Yes Yes Yes Right Calf (cm) 54.0 50.1 54.5 Right Ankle (cm) 30.5 30.2 30.5 Left Calf (cm) 53.8 52.5 56.2 Left Ankle (cm) 31.5 30.4 31 WC - Nurse 2 - General Ulcer CM Notes Start: 02/22/22 13:19 Freq: Status: Active Protocol: Activity Type Activity Date Activity User E-sign Co-sign Detail Recorded Client Recorded Date Recorded By Document 03/01/22 12:21 PL [id number] 03/01/22 12:21 PL 03/01/22 12:21 Pain Scale: 0-10 Numeric Is Patient Pain Free? Yes WC - Nurse 3 - General Ulcer D/C NN Start: 02/22/22 13:19 Freq: Status: Active Protocol: Activity Type Activity Date Activity User E-sign Co-sign Detail Recorded Client Recorded Date Recorded By Document 02/22/22 14:31 KR [id number] 02/22/22 14:32 KR Document 02/25/22 11:13 KR [id number] 02/25/22 11:13 KR Document 03/01/22 12:30 DL [id number] 03/01/22 12:32 DL Document 03/03/22 13:14 MW [id number] 03/03/22 13:36 MW Document 03/08/22 15:13 BMF [id number] 03/08/22 15:22 BMF Edit Result 03/08/22 15:13 BMF (1) [id number] 03/08/22 15:31 BMF Document 03/11/22 11:17 KR [id number] 03/11/22 11:18 KR Document 03/15/22 11:58 DL [id number] 03/15/22 12:01 DL (1) Bilateral Lower Extremities - Unna Boots (Bilat) ($) 1 => 2 02/22/22 02/25/22 03/01/22 14:31 11:13 12:30 Wound Care Nurse 3 Bilateral Lower Extremities -Lotion applied to leg before compression wrap -Multi-Layered Wrap Application -Unna Boots (Bilat) ($) -Other Left -Multi-Layered Wrap Application Unna Boot - Unna Boot - Unna Boot - Bilateral ($) Bilateral ($) Bilateral ($) -Unna Boots (Bilat) ($) 2 2 2 Treatment Response Procedure Tolerated Well Vital Signs Temperature (97.8 F-99.1 F) 97.6 F L Temperature Source Temporal Pulse Rate (60-100) 83 Pulse Location Monitor Respiratory Rate (12-18) Respiratory rate source Oxygen Delivery Method Blood Pressure (90/60-120/80) 163/78 H Blood Pressure Mean 106 Source Monitor Position Sitting Blood Pressure Location Left Arm Pain Scale: 0-10 Numeric Is Patient Pain Free? Yes Yes Yes WC - Visit Discharge Discharge Condition Stable Stable Stable Ambulatory Status Ambulatory,Cane Ambulatory,Cane Ambulatory,Cane Transportation Private Auto Private Auto Private Auto Accompanied by Medication Reconcilliation completed & provided to patient/care provider Clinical Summary of Care Provided Notes: 03/03/22 03/08/22 03/11/22 13:14 15:13 11:17 Wound Care Nurse 3 Bilateral Lower Extremities -Lotion applied to leg before No compression wrap -Multi-Layered Wrap Application Unna Boot - Unna Boot - Unna Boot - Bilateral ($) Bilateral ($) Bilateral ($) -Unna Boots (Bilat) ($) 2 2 2 -Other PER MW RN Left -Multi-Layered Wrap Application -Unna Boots (Bilat) ($) Treatment Response Procedure Procedure Tolerated Well Tolerated Well Vital Signs Temperature (97.8 F-99.1 F) 96.9 F L 96.6 F L 97.8 F Temperature Source Temporal Temporal Temporal Pulse Rate (60-100) 96 78 76 Pulse Location Monitor Monitor Monitor Respiratory Rate (12-18) 22 H 16 Respiratory rate source Observation Observation Oxygen Delivery Method Room Air Room Air Blood Pressure (90/60-120/80) 150/103 H 145/75 H 134/76 H Blood Pressure Mean 118 98 95 Source Monitor Monitor Monitor Position Sitting Sitting Semi-Fowlers Blood Pressure Location Left Arm Left Arm Right Arm Pain Scale: 0-10 Numeric Is Patient Pain Free? Yes Yes Yes WC - Visit Discharge Discharge Condition Stable Stable Stable Ambulatory Status Ambulatory,Cane Ambulatory Ambulatory,Cane Transportation Private Auto Private Auto Private Auto Accompanied by self Medication Reconcilliation completed & No provided to patient/care provider Clinical Summary of Care Provided Yes Notes: 03/15/22 11:58 Wound Care Nurse 3 Bilateral Lower Extremities -Lotion applied to leg before compression wrap -Multi-Layered Wrap Application Unna Boot - Bilateral ($) -Unna Boots (Bilat) ($) 2 -Other Left -Multi-Layered Wrap Application -Unna Boots (Bilat) ($) Treatment Response Procedure Tolerated Well Vital Signs Temperature (97.8 F-99.1 F) Temperature Source Pulse Rate (60-100) Pulse Location Respiratory Rate (12-18) Respiratory rate source Oxygen Delivery Method Blood Pressure (90/60-120/80) Blood Pressure Mean Source Position Blood Pressure Location Pain Scale: 0-10 Numeric Is Patient Pain Free? Yes WC - Visit Discharge Discharge Condition Stable Ambulatory Status Ambulatory Transportation Private Auto Accompanied by Medication Reconcilliation completed & provided to patient/care provider Clinical Summary of Care Provided Notes: Dressing applied per Charlotte Davies RN today in clinic . Assessment/Plan Assessment/Plan (1) Venous stasis dermatitis of both lower extremities: CODE(S): I87.2 - Venous insufficiency (chronic) (peripheral) (2) Lymphedema of left lower extremity: CODE(S): I89.0 - Lymphedema, not elsewhere classified (3) Leg swelling: CODE(S): M79.89 - Other specified soft tissue disorders (4) Leg edema: CODE(S): R60.0 - Localized edema (5) Morbid obesity with BMI of 45.0-49.9, adult: CODE(S): E66.01 - Morbid (severe) obesity due to excess calories; Z68.42 - Body mass index [BMI] 45.0-49.9, adult (6) Limited mobility: CODE(S): Z74.09 - Other reduced mobility (7) GERD (gastroesophageal reflux disease): CODE(S): K21.9 - Gastro-esophageal reflux disease without esophagitis (8) HTN (hypertension): CODE(S): I10 - Essential (primary) hypertension (9) Atrial fibrillation: CODE(S): I48.91 - Unspecified atrial fibrillation (10) CHF (congestive heart failure): CODE(S): I50.9 - Heart failure, unspecified (11) History of deep vein thrombosis: CODE(S): Z86.718 - Personal history of other venous thrombosis and embolism (12) History of pulmonary embolism: CODE(S): Z86.711 - Personal history of pulmonary embolism (13) Hyperlipidemia: CODE(S): E78.5 - Hyperlipidemia, unspecified (14) Obstructive sleep apnea: CODE(S): G47.33 - Obstructive sleep apnea (adult) (pediatric) (15) Chronic renal insufficiency, stage III (moderate): CODE(S): N18.30 - Chronic kidney disease, stage 3 unspecified (16) Asplenia after surgical procedure: CODE(S): Z90.81 - Acquired absence of spleen (17) Degenerative joint disease of spine: CODE(S): M47.9 - Spondylosis, unspecified (18) Prediabetes: CODE(S): R73.03 - Prediabetes (19) History of gastrointestinal bleeding: CODE(S): Z87.19 - Personal history of other diseases of the digestive system (20) History of ventral hernia repair: CODE(S): Z98.890 - Other specified postprocedural states; Z87.19 - Personal history of other diseases of the digestive system (21) History of splenectomy: CODE(S): Z90.81 - Acquired absence of spleen (22) History of Myrtle fundoplication: CODE(S): Z98.890 - Other specified postprocedural states (23) Presence of IVC filter: CODE(S): Z95.828 - Presence of other vascular implants and grafts (24) Current use of fpc anticoagulation: CODE(S): Z79.01 - FCI (current) use of anticoagulants (25) Lymphedema of right lower extremity: CODE(S): I89.0 - Lymphedema, not elsewhere classified PLAN: Plan This is a morbidly obese 76-year-old male with limited mobility. He has a history of deep vein thrombosis and pulmonary embolism in the past. He presents with multiple pre-existing medical problems, as listed above. He has been referred for severe swelling, edema, and lymphedema in his lower extremities, associated with severe ichthyosis vulgaris bilaterally. The patient is of limited mobility, and sleeps in a recliner, with his lower extremities in a chronically dependent position. A lengthy discussion has been undertaken with the patient to acquaint him with the reasons for his lower extremity symptoms and manifestations. He has been urged to avoid sleeping in a recliner. He has been encouraged to sleep on a flat mattress with his legs level with his heart, or higher. Leg elevation to heart level, or higher, has also been encouraged during daytime hours. Prolonged idle sitting has been discouraged. Activity has been encouraged, though the patient's pulmonary disease, morbid obesity, and back problems will likely preclude any enhancement of his activity to a significant degree. Weight loss has been recommended. We are to continue compression to the lower extremities by means of Unna boots, which will be applied bilaterally, and changed twice weekly. The patient has undergone relatively recent laboratory studies on December 12, 2021, with results as follows: White blood count 12.6, hemoglobin 10.9, hematocrit 36.1, platelets 532,000, PT 21.0 INR 1.9, sodium 135, potassium 4.5, chloride 101, BUN 34, creatinine 1.48, glucose 160, calcium 9.2, albumin 3.0, total protein 7.7. The patient is to ret urn in 2 weeks for reassessment. Total time: 29 minutes
[2022-03-18 11:13] VITALS: BP 146/82; PULSE 56; RESP 18; TEMP 36.2; BMI 47.0
== END 2022-03-21 23:59 | disposition home or self-care (01) ==
LOC: WC 10:45
PROVIDERS: PCP Family Medicine; Visit Provider Surgery
DX: I89.0 Lymphedema, not elsewhere classified (principal); J44.9 Chronic obstructive pulmonary disease, unspecified; I13.0 Hypertensive heart and chronic kidney disease with heart failure and stage 1 through stage 4 chronic kidney disease, or unspecified chronic kidney disease; I50.9 Heart failure, unspecified; I48.91 Unspecified atrial fibrillation; E66.01 Morbid (severe) obesity due to excess calories; Z68.42 Body mass index [BMI] 45.0-49.9, adult; N18.30 Chronic kidney disease, stage 3 unspecified; R73.03 Prediabetes; Z95.828 Presence of other vascular implants and grafts; I87.2 Venous insufficiency (chronic) (peripheral); Z87.891 Personal history of nicotine dependence; K21.9 Gastro-esophageal reflux disease without esophagitis; E78.5 Hyperlipidemia, unspecified; Z79.01 Long term (current) use of anticoagulants; Q89.01 Asplenia (congenital); M79.89 Other specified soft tissue disorders; Z79.899 Other long term (current) drug therapy
CPT/HCPCS: 29580; 99213; G0463

== ENCOUNTER 2022-04-19 15:00 | Outpatient (RCR) | payer MEDICARE, OTHER, SELFPAY ==
[2022-03-22 00:09] VITALS: BP 146/82; PULSE 56; RESP 18; TEMP 36.2; BMI 47.0
[2022-03-22 14:52] VITALS: BP 160/96; PULSE 75; RESP 18; TEMP 35.7; BMI 47.0
[2022-03-29 10:53] VITALS: TEMP 36.1; BMI 47.0
--- NOTE | 2022-03-29 12:03 | PCM.WC.HP ---
History of Present Illness Date of Service: 03/29/22 Chief Complaint: Severe swelling, edema, lymphedema, and venous stasis dermatitis in the lower extremities bilaterally History of Wound: This is a morbidly obese 76-year-old male who presented with very profound venous stasis dermatitis in his lower extremities bilaterally, associated with swelling, edema, and lymphedema. His lower extremities have been in this condition for at least 2 to 3 years. The patient's mobility is extremely limited. He ambulates very slowly and deliberately due to shortness of breath secondary to COPD, as well as back problems. He requires the use of a cane. He sleeps in a recliner, and sits idlely throughout the day. He rarely elevates his lower extremities. Furthermore, he is morbidly obese. FORMERLY [facility] Medical History Anemia due to acute blood loss Anticoagulant long-term use Asplenia after surgical procedure Atrial fibrillation Broken collarbone Broken ribs CHF (congestive heart failure) Chronic renal insufficiency, stage III (moderate) COPD (chronic obstructive pulmonary disease) Current use of termite helper anticoagulation Degenerative joint disease of spine DVT (deep venous thrombosis) Failed fundoplication Former smoker GI bleed History of deep vein thrombosis History of gastrointestinal bleeding History of pulmonary embolism HTN (hypertension) Hyperlipidemia Irregular heart beat Kidney disease Kidney stones Leg edema Leg swelling Limited mobility Lymphedema of left lower extremity Lymphedema of right lower extremity Migraines Morbid obesity with BMI of 45.0-49.9, adult Obstructive sleep apnea Prediabetes Presence of IVC filter Pulmonary embolism Sleep apnea Venous stasis dermatitis of both lower extremities Home Medications calcium citrate 315 mg calcium-vitamin D3 6.25 mcg (250 unit) tablet 1 ea PO DAILY SUPPLEMENT 10/01/13 [History Last Taken 11/11/21] potassium chloride 20 mEq tablet,extended release(part/cryst) (Klor-Con M) 40 meq PO BID SUPPLEMENT 10/01/13 [History Last Taken 11/12/21] spironolactone 25 mg tablet 25 mg PO DINNER FLUID 10/01/13 [History Last Taken 11/11/21] warfarin 4 mg tablet (Jantoven) 4 mg PO DAILY BLOOD THINNER 10/01/13 [History Last Taken 11/12/21 00:00] atorvastatin 20 mg tablet 20 mg PO DAILY CHOLESTEROL 11/12/21 [History Last Taken 11/12/21] bumetanide 1 mg tablet 1 mg PO DINNER FLUID 11/12/21 [History Last Taken 11/11/21] bumetanide 1 mg tablet 2 mg PO QHS FLUID 11/12/21 [History Last Taken 11/11/21] metoprolol tartrate 50 mg tablet 25 mg PO BID HEART 11/12/21 [History Last Taken 11/12/21] warfarin 1 mg tablet 1 mg PO DAILY BLOOD THINNER 11/12/21 [History Last Taken 11/12/21 00:00] omeprazole 20 mg capsule,delayed release 40 mg PO BID GERD #60 caps 11/13/21 [Rx Last Taken 11/12/21] ferrous sulfate 325 mg (65 mg iron) tablet (FeroSul) 1 tab PO BID 12/08/21 [History Last Taken Unknown] umeclidinium 62.5 mcg/actuation blister powder for inhalation (Incruse Ellipta) See Rx Instructions .Route .COMPLEX Check with primary doctor 12/08/21 [History Last Taken 12/08/21] prednisone 20 mg tablet 40 mg PO BREAKFAST 5 days #10 tabs 12/13/21 [Rx Last Taken Unknown] Allergy/AdvReac Type Severity Reaction Status Date / Time chlorpromazine HCl Allergy Other Verified 12/08/21 17:35 [From Thorazine] metformin Allergy PT UNSURE Verified 12/08/21 17:35 OF REACTION Family History Other Heart disease Hypertension Surgical History History of embolic filter insertion History of Myrtle fundoplication History of splenectomy History of ventral hernia repair Status post splenectomy Social History household members: none Smoking Status: Former smoker substance use type: does not use Vital Signs Vital Signs Vital Signs: 03/29/22 10:53 Temperature 97 F L Temperature Source Temporal Blood Pressure Source Monitor Blood Pressure Position Sitting Blood Pressure Location Right Arm Weight Weight: 300 lb Body Mass Index (BMI) 47.0 Physical Exam Const alert, oriented x3, no apparent distress and well nourished Constitutional Narrative: The patient is morbidly obese. He appears winded with minimal physical activity. General Appearance: cooperative and well developed Orientation / Consciousness: awake, oriented to person, oriented to place and oriented to time HEENT normocephalic and head/scalp atraumatic Head and Scalp: normal to inspection, normocephalic and atraumatic External Ear: external ears normal Eyes PERRL and EOMs intact bilaterally General Eye: normal appearance of both eyes Resp normal respiratory effort, normal air movement, no retractions and no use of accessory muscles Resp Narrative: Upon minimal physical activity, the patient appears to be winded and short of breath. Effort and Inspection: able to speak in complete sentences GI GI Narrative: The abdomen is obese. A large reducible upper abdominal ventral hernia is noted. Extremity no calf tenderness General Extremity: Negative for clubbing or cyanosis Skin Wound Narrative: Severe swelling, edema, and lymphedema are noted in the patient's lower extremities bilaterally. 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 The degree of swelling and edema is getting worse, with circumferences which are larger bilaterally. A very small superficial excoriation is noted on the left pretibial surface. Circumference measurements are documented elsewhere. There is no sign of infection or cellulitis. Neuro oriented x3, CN's II-XII intact bilaterally, moves all extremities and no focal motor deficits Sensorium / Orientation: awake, alert, oriented to person, oriented to place and oriented to time Psych Appearance: grossly normal and appropriate Attitude: calm Activity / Motor Behavior: appropriate eye contact Speech: normal speech Mood & Affect: euthymic mood Thought Process: normal thought process Thought Content: normal thought content Attention / Concentration: attention grossly intact Debridement Note Debridement Note No debridement was completed: No debridement was completed today Post-Debridement Measurements and Additional Note: Post-Debridement Measurements/Treatment CAROL - Nurse 1 - General Ulcer Assessment Start: 03/22/22 14:52 Freq: Status: Active Protocol: THAO Activity Type Activity Date Activity User E-sign Co-sign Detail Recorded Client Recorded Date Recorded By Document 03/22/22 14:52 [facility] [id number] 03/22/22 14:55 BM Document 03/29/22 10:53 KHOI [id number] 03/29/22 10:58 KR 03/22/22 03/29/22 14:52 10:53 - Today's Visit Information Type of service Follow-up Visit Follow-up Visit (Physician/DERRICK MAN (Physician/DERRICK MAN ) ) Arrival Mode Ambulatory Ambulatory,Cane Transfer Assistance None Patient Identification Verified (Name & Yes Yes ) Patient Requires Transmission-Based No Precautions Height and Weight Body Mass Index (BMI) 47.0 47.0 BMI Classification Obese Obese Vital Signs Temperature (97.8 F-99.1 F) 96.3 F L 97 F L Temperature Source Temporal Temporal Pulse Rate (60-100) 75 Pulse Location Monitor Monitor Respiratory Rate (12-18) 18 Respiratory rate source Observation Oxygen Delivery Method Room Air Blood Pressure (90/60-120/80) 160/96 H Blood Pressure Mean 117 Source Monitor Monitor Position Sitting Sitting Blood Pressure Location Right Forearm Right Arm History Since Last Visit- (Skip if this is Patient's initial visit) Have you changed medications since your No No last visit? Any new allergies or adverse reactions No No Had a fall/change in ADL's that may No No increase risk of falls Signs or symptoms of abuse and/or No No neglect since last visit Have you been in the hospital since your No No last visit? Has dressing in place as prescribed Yes Yes Has compression in place as prescribed Yes Yes Has offloadiing in place as prescribed N/A N/A Experienced any changes in pain level or No No management Left Footwear Regular Shoe Regular Shoe Right Footwear Regular Shoe Regular Shoe Pain Scale: 0-10 Numeric Is Patient Pain Free? Yes Yes - Nurse 1 - General Ulcer Measurement Start: 03/22/22 14:52 Freq: Status: Active Protocol: Activity Type Activity Date Activity User E-sign Co-sign Detail Recorded Client Recorded Date Recorded By Document 03/22/22 14:52 [facility] [id number] 03/22/22 14:55 [facility] Document 03/29/22 10:53 KHOI [id number] 03/29/22 10:58 KHOI 03/22/22 03/29/22 14:52 10:53 Wound Center Nurse 1 Lower Limb Edema Present Yes Right Calf (cm) 56 58.5 Right Ankle (cm) 31.6 33.4 Left Calf (cm) 55 57 Left Ankle (cm) 32.5 31 - Nurse 3 - General Ulcer D/C NN Start: 03/22/22 14:52 Freq: Status: Active Protocol: Activity Type Activity Date Activity User E-sign Co-sign Detail Recorded Client Recorded Date Recorded By Document 03/22/22 14:52 [facility] [id number] 03/22/22 14:55 [facility] Document 03/29/22 11:29 KR [id number] 03/29/22 11:30 KR 03/22/22 03/29/22 14:52 11:29 Vital Signs Temperature (97.8 F-99.1 F) 96.3 F L Temperature Source Temporal Pulse Rate (60-100) 75 Pulse Location Monitor Respiratory Rate (12-18) 18 Respiratory rate source Observation Oxygen Delivery Method Room Air Blood Pressure (90/60-120/80) 160/96 H Blood Pressure Mean 117 Source Monitor Position Sitting Blood Pressure Location Right Forearm Pain Scale: 0-10 Numeric Is Patient Pain Free? 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 OFFICER Treatment Response Procedure Tolerated Well WC - Visit Discharge Discharge Condition Stable Stable Ambulatory Status Ambulatory Ambulatory,Cane Transportation Private Auto Private Auto Assessment/Plan Assessment/Plan (1) Venous stasis dermatitis of both lower extremities: CODE(S): I87.2 - Venous insufficiency (chronic) (peripheral) (2) Lymphedema of left lower extremity: CODE(S): I89.0 - Lymphedema, not elsewhere classified (3) Leg swelling: CODE(S): M79.89 - Other specified soft tissue disorders (4) Leg edema: CODE(S): R60.0 - Localized edema (5) Morbid obesity with BMI of 45.0-49.9, adult: CODE(S): E66.01 - Morbid (severe) obesity due to excess calories; Z68.42 - Body mass index [BMI] 45.0-49.9, adult (6) Limited mobility: CODE(S): Z74.09 - Other reduced mobility (7) GERD (gastroesophageal reflux disease): CODE(S): K21.9 - Gastro-esophageal reflux disease without esophagitis (8) HTN (hypertension): CODE(S): I10 - Essential (primary) hypertension (9) Atrial fibrillation: CODE(S): I48.91 - Unspecified atrial fibrillation (10) CHF (congestive heart failure): CODE(S): I50.9 - Heart failure, unspecified (11) History of deep vein thrombosis: CODE(S): Z86.718 - Personal history of other venous thrombosis and embolism (12) History of pulmonary embolism: CODE(S): Z86.711 - Personal history of pulmonary embolism (13) Hyperlipidemia: CODE(S): E78.5 - Hyperlipidemia, unspecified (14) Obstructive sleep apnea: CODE(S): G47.33 - Obstructive sleep apnea (adult) (pediatric) (15) Chronic renal insufficiency, stage III (moderate): CODE(S): N18.30 - Chronic kidney disease, stage 3 unspecified (16) Asplenia after surgical procedure: CODE(S): Z90.81 - Acquired absence of spleen (17) Degenerative joint disease of spine: CODE(S): M47.9 - Spondylosis, unspecified (18) Prediabetes: CODE(S): R73.03 - Prediabetes (19) History of gastrointestinal bleeding: CODE(S): Z87.19 - Personal history of other diseases of the digestive system (20) History of ventral hernia repair: CODE(S): Z98.890 - Other specified postprocedural states; Z87.19 - Personal history of other diseases of the digestive system (21) History of splenectomy: CODE(S): Z90.81 - Acquired absence of spleen (22) History of Myrtle fundoplication: CODE(S): Z98.890 - Other specified postprocedural states (23) Presence of IVC filter: CODE(S): Z95.828 - Presence of other vascular implants and grafts (24) Current use of termite helper anticoagulation: CODE(S): Z79.01 - termite control technician (current) use of anticoagulants (25) Lymphedema of right lower extremity: CODE(S): I89.0 - Lymphedema, not elsewhere classified PLAN: Plan This is a morbidly obese 76-year-old male with limited mobility. He has a history of deep vein thrombosis and pulmonary embolism in the past. He presents with multiple pre-existing medical problems, as listed above. He has been referred for severe swelling, edema, and lymphedema in his lower extremities, associated with severe ichthyosis vulgaris bilaterally. The patient is of limited mobility, and sleeps in a recliner, with his lower extremities in a chronically dependent position. A lengthy discussion has been undertaken with the patient to acquaint him with the reasons for his lower extremity symptoms and manifestations. He has been urged to avoid sleeping in a recliner. He has been encouraged to sleep on a flat mattress with his legs level with his heart, or higher. Leg elevation to heart level, or higher, has also been encouraged during daytime hours. Prolonged idle sitting has been discouraged. Activity has been encouraged, though the patient's pulmonary disease, morbid obesity, and back problems will likely preclude any enhancement of his activity to a significant degree. Weight loss has been recommended. Unfortunately, it is apparent that the patient has been noncompliant with the recommended measures. He continues to sleep in a recliner, without significant elevation of his lower extremities, either level with, or above, heart level. In fact, the patient admits that he does not even have a bed to sleep in. The patient's noncompliance thus far represents a poor prognostic outlook. We are to make attempts to obtain a hospital bed for the patient, which would allow him to maneuver the sleeping surface so as to achieve the desired degree of leg elevation. It is his back pain which is currently preventing him from achieving the desired position with his legs elevated. Furthermore, we are to request pneumatic mechanical compression pumps for his lower extremities, which may also be of benefit in reducing the swelling and edema in his lower extremities. We are to continue compression to the lower extremities by means of Unna boots, which will be applied bilaterally, and changed twice weekly. The patient has undergone relatively recent laboratory studies on December 12, 2021, with results as follows: White blood count 12.6, hemoglobin 10.9, hematocrit 36.1, platelets 532,000, PT 21.0 INR 1.9, sodium 135, potassium 4.5, chloride 101, BUN 34, creatinine 1.48, glucose 160, calcium 9.2, albumin 3.0, total protein 7.7. The patient is to return in 2 weeks for reassessment. Total time: 28 minutes
[2022-04-01 10:43] VITALS: BP 145/81; PULSE 70; RESP 18; TEMP 36.1; BMI 47.0
[2022-04-05 14:43] VITALS: BP 141/72; PULSE 84; RESP 18; TEMP 36.2; BMI 47.0
[2022-04-08 12:20] VITALS: BP 165/90; PULSE 88; TEMP 36.3; BMI 47.0
[2022-04-12 10:45] VITALS: BP 158/85; PULSE 69; TEMP 36.3; BMI 47.0
--- NOTE | 2022-04-12 14:36 | HP.PCM_ITS ---
History of Present Illness Date of Service: 04/12/22 Chief Complaint: Severe swelling, edema, lymphedema, and venous stasis tavon matitis in the lower extremities bilaterally History of Wound: This is a morbidly obese 76-year-old male who presented with very profound venous stasis dermatitis in his lower extremities bilaterally, associated with swelling, edema, and lymphedema. His lower extremities have been in this condition for at least 2 to 3 years. The patient's mobility is extremely limited. He ambulates very slowly and deliberately due to shortness of breath secondary to COPD, as well as back problems. He requires the use of a cane. He sleeps in a recliner, and sits idlely throughout the day. He rarely elevates his lower extremities. Furthermore, he is morbidly obese. 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 Degenerative joint disease of spine DVT (deep venous thrombosis) Failed fundoplication Former smoker GI bleed History of deep vein thrombosis History of gastrointestinal bleeding History of pulmonary embolism HTN (hypertension) Hyperlipidemia Irregular heart beat Kidney disease Kidney stones Leg edema Leg swelling Limited mobility Lymphedema of left lower extremity Lymphedema of right lower extremity Migraines Morbid obesity with BMI of 45.0-49.9, adult Obstructive sleep apnea Prediabetes Presence of IVC filter Pulmonary embolism Sleep apnea Venous stasis dermatitis of both lower extremities Home Medications calcium citrate 315 mg calcium-vitamin D3 6.25 mcg (250 unit) tablet 1 ea PO DAILY SUPPLEMENT 10/01/13 [History Last Taken 11/11/21] potassium chloride 20 mEq tablet,extended release(part/cryst) (Klor-Con M) 40 meq PO BID SUPPLEMENT 10/01/13 [History Last Taken 11/12/21] spironolactone 25 mg tablet 25 mg PO DINNER FLUID 10/01/13 [History Last Taken 11/11/21] warfarin 4 mg tablet (Jantoven) 4 mg PO DAILY BLOOD THINNER 10/01/13 [History Last Taken 11/12/21 00:00] atorvastatin 20 mg tablet 20 mg PO DAILY CHOLESTEROL 11/12/21 [History Last Taken 11/12/21] bumetanide 1 mg tablet 1 mg PO DINNER FLUID 11/12/21 [History Last Taken 11/11/21] bumetanide 1 mg tablet 2 mg PO QHS FLUID 11/12/21 [History Last Taken 11/11/21] metoprolol tartrate 50 mg tablet 25 mg PO BID HEART 11/12/21 [History Last Taken 11/12/21] warfarin 1 mg tablet 1 mg PO DAILY BLOOD THINNER 11/12/21 [History Last Taken 11/12/21 00:00] omeprazole 20 mg capsule,delayed release 40 mg PO BID GERD #60 caps 11/13/21 [Rx Last Taken 11/12/21] ferrous sulfate 325 mg (65 mg iron) tablet (FeroSul) 1 tab PO BID 12/08/21 [History Last Taken Unknown] umeclidinium 62.5 mcg/actuation blister powder for inhalation (Incruse Ellipta) See Rx Instructions .Route .COMPLEX Check with primary doctor 12/08/21 [History Last Taken 12/08/21] prednisone 20 mg tablet 40 mg PO BREAKFAST 5 days #10 tabs 12/13/21 [Rx Last Taken Unknown] Allergy/AdvReac Type Severity Reaction Status Date / Time chlorpromazine HCl Allergy Other Verified 12/08/21 17:35 [From Thorazine] metformin Allergy PT UNSURE Verified 12/08/21 17:35 OF REACTION Family History Other Heart disease Hypertension Surgical History History of embolic filter insertion History of Myrtle fundoplication History of splenectomy History of ventral hernia repair Status post splenectomy Social History household members: none Smoking Status: Former smoker substance use type: does not use Vital Signs Vital Signs Vital Signs: 04/12/22 10:45 Temperature 97.3 F L Temperature Source Temporal Pulse Rate 69 Blood Pressure 158/85 H Blood Pressure Mean 109 Blood Pressure Source Monitor Blood Pressure Position Semi-Fowlers Blood Pressure Location Right Arm Weight Weight: 300 lb Body Mass Index (BMI) 47.0 Physical Exam Const alert, oriented x3, no apparent distress and well nourished Constitutional Narrative: The patient is morbidly obese. He appears winded with minimal physical activity. General Appearance: cooperative and well developed Orientation / Consciousness: awake, oriented to person, oriented to place and oriented to time HEENT normocephalic and head/scalp atraumatic Head and Scalp: normal to inspection, normocephalic and atraumatic External Ear: external ears normal Eyes PERRL and EOMs intact bilaterally General Eye: normal appearance of both eyes Resp normal respiratory effort, normal air movement, no retractions and no use of accessory muscles Resp Narrative: Upon minimal physical activity, the patient appears to be winded and short of breath. Effort and Inspection: able to speak in complete sentences GI GI Narrative: The abdomen is obese. A large reducible upper abdominal ventral hernia is noted. Extremity no calf tenderness General Extremity: Negative for clubbing or cyanosis Skin Wound Narrative: Severe swelling, edema, and lymphedema are noted in the patient's lower extremities bilaterally. 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 Several scattered excoriations are noted, though no specific wounds or ulcerations. Circumference measurements are documented elsewhere. There is no sign of infection or cellulitis. Neuro oriented x3, CN's II-XII intact bilaterally, moves all extremities and no focal motor deficits Sensorium / Orientation: awake, alert, oriented to person, oriented to place and oriented to time Psych Appearance: grossly normal and appropriate Attitude: calm Activity / Motor Behavior: appropriate eye contact Speech: normal speech Mood & Affect: euthymic mood Thought Process: normal thought process Thought Content: normal thought content Attention / Concentration: attention grossly intact Debridement Note Debridement Note No debridement was completed: No debridement was completed today Post-Debridement Measurements and Additional Note: Post-Debridement Measurements/Treatment WC - Nurse 1 - General Ulcer Assessment Start: 03/22/22 14:52 Freq: Status: Active Protocol: THAO Activity Type Activity Date Activity User E-sign Co-sign Detail Recorded Client Recorded Date Recorded By Document 03/22/22 14:52 [facility] [id number] 03/22/22 14:55 [facility] Document 03/29/22 10:53 KR [id number] 03/29/22 10:58 KR Document 04/01/22 10:43 RB [id number] 04/01/22 10:51 RB Document 04/05/22 14:43 BMF [id number] 04/05/22 14:54 BMF Document 04/08/22 12:20 AK [id number] 04/08/22 12:22 AK Document 04/12/22 10:45 KR [id number] 04/12/22 10:59 KR 03/22/22 03/29/22 04/01/22 14:52 10:53 10:43 WC - Today's Visit Information Type of service Follow-up Visit Follow-up Visit Nurse-only (Physician/HIGH SCHOOL ASSISTANT PRINCIPAL (Physician/HIGH SCHOOL ASSISTANT PRINCIPAL Visit ) ) Arrival Mode Ambulatory Ambulatory,Cane Ambulatory,Cane Transfer Assistance None None Patient Identification Verified (Name & Yes Yes ) Patient Requires Transmission-Based No No Precautions Height and Weight Body Mass Index (BMI) 47.0 47.0 47.0 BMI Classification Obese Obese Obese Vital Signs Temperature (97.8 F-99.1 F) 96.3 F L 97 F L 97 F L Temperature Source Temporal Temporal Temporal Pulse Rate (60-100) 75 70 Pulse Location Monitor Monitor Monitor Respiratory Rate (12-18) 18 18 Respiratory rate source Observation Observation Oxygen Delivery Method Room Air Blood Pressure (90/60-120/80) 160/96 H 145/81 H Blood Pressure Mean 117 102 Source Monitor Monitor Monitor Position Sitting Sitting Semi-Fowlers Blood Pressure Location Right Forearm Right Arm Left Arm History Since Last Visit- (Skip if this is Patient's initial visit) Have you changed medications since your No No No last visit? Any new allergies or adverse reactions No No No Had a fall/change in ADL's that may No No No increase risk of falls Signs or symptoms of abuse and/or No No No neglect since last visit Have you been in the hospital since your No No No last visit? Has dressing in place as prescribed Yes Yes Yes Has compression in place as prescribed Yes Yes Yes Has offloadiing in place as prescribed N/A N/A No Experienced any changes in pain level or No No No management Left Footwear Regular Shoe Regular Shoe Right Footwear Regular Shoe Regular Shoe Pain Scale: 0-10 Numeric Is Patient Pain Free? Yes Yes Yes 11/04/08/22 04/12/22 14:43 12:20 10:45 - Today's Visit Information Type of service Nurse-only Nurse-only Follow-up Visit Visit Visit (Physician/HIGH SCHOOL ASSISTANT PRINCIPAL ) Arrival Mode Ambulatory Ambulatory,Cane Ambulatory Transfer Assistance None Patient Identification Verified (Name & Yes Yes Yes ) Patient Requires Transmission-Based No No Precautions Height and Weight Body Mass Index (BMI) 47.0 47.0 47.0 BMI Classification Obese Obese Obese Vital Signs Temperature (97.8 F-99.1 F) 97.2 F L 97.3 F L 97.3 F L Temperature Source Temporal Temporal Temporal Pulse Rate (60-100) 84 88 69 Pulse Location Monitor Monitor Monitor Respiratory Rate (12-18) 18 Respiratory rate source Observation Oxygen Delivery Method Room Air Blood Pressure (90/60-120/80) 141/72 H 165/90 H 158/85 H Blood Pressure Mean 95 115 109 Source Monitor Monitor Monitor Position Sitting Semi-Fowlers Blood Pressure Location Right Arm Right Arm History Since Last Visit- (Skip if this is Patient's initial visit) Have you changed medications since your No No No last visit? Any new allergies or adverse reactions No No No Had a fall/change in ADL's that may No No No increase risk of falls Signs or symptoms of abuse and/or No No No neglect since last visit Have you been in the hospital since your No No No last visit? Has dressing in place as prescribed Yes Yes Yes Has compression in place as prescribed Yes Yes Yes Has offloadiing in place as prescribed N/A N/A N/A Experienced any changes in pain level or No No No management Left Footwear Regular Shoe Regular Shoe Regular Shoe Right Footwear Regular Shoe Regular Shoe Regular Shoe Pain Scale: 0-10 Numeric Is Patient Pain Free? Yes Yes Yes - Nurse 1 - General Ulcer Measurement Start: 03/22/22 14:52 Freq: Status: Active Protocol: Activity Type Activity Date Activity User E-sign Co-sign Detail Recorded Client Recorded Date Recorded By Document 03/22/22 14:52 [facility] [id number] 03/22/22 14:55 BMF Document 03/29/22 10:53 KR [id number] 03/29/22 10:58 KR Document 04/01/22 10:43 RB [id number] 04/01/22 10:51 RB Document 04/05/22 14:43 BMF [id number] 04/05/22 14:54 BMF Document 04/12/22 10:45 KR [id number] 04/12/22 10:59 KR 03/22/22 03/29/22 04/01/22 14:52 10:53 10:43 Wound Center Nurse 1 Lower Limb Edema Present Yes Yes Right Calf (cm) 56 58.5 55.5 Right Ankle (cm) 31.6 33.4 31.5 Left Calf (cm) 55 57 56 Left Ankle (cm) 32.5 31 31 04/05/22 04/12/22 14:43 10:45 Wound Center Nurse 1 Lower Limb Edema Present Yes Right Calf (cm) 56 59 Right Ankle (cm) 31 32 Left Calf (cm) 57 55 Left Ankle (cm) 32 32 WC - Nurse 3 - General Ulcer D/C NN Start: 03/22/22 14:52 Freq: Status: Active Protocol: Activity Type Activity Date Activity User E-sign Co-sign Detail Recorded Client Recorded Date Recorded By Document 03/22/22 14:52 [facility] [id number] 03/22/22 14:55 [facility] Document 03/29/22 11:29 KR [id number] 03/29/22 11:30 KR Document 04/01/22 10:43 RB [id number] 04/01/22 10:51 RB Document 04/05/22 14:43 [facility] [id number] 04/05/22 14:54 [facility] Document 04/08/22 12:20 AK [id number] 04/08/22 12:22 AK Document 04/12/22 13:20 KR [id number] 04/12/22 13:20 KR 03/22/22 03/29/22 04/01/22 14:52 11:29 10:43 Vital Signs Temperature (97.8 F-99.1 F) 96.3 F L 97 F L Temperature Source Temporal Temporal Pulse Rate (60-100) 75 70 Pulse Location Monitor Monitor Respiratory Rate (12-18) 18 18 Respiratory rate source Observation Observation Oxygen Delivery Method Room Air Blood Pressure (90/60-120/80) 160/96 H 145/81 H Blood Pressure Mean 117 102 Source Monitor Monitor Position Sitting Semi-Fowlers Blood Pressure Location Right Forearm Left Arm Pain Scale: 0-10 Numeric Is Patient Pain Free? Yes Yes Yes Pain Scale: Adult NonVerbal Is Patient Pain Free? Wound Care Nurse 3 BLE -Lotion applied to leg before compression wrap -Multi-Layered Wrap Application Unna Boot - Unna Boot - Unna Boot - Bilateral ($) Bilateral ($) Bilateral ($) -Unna Boots (Bilat) ($) 2 2 2 -Other [facility] Treatment Response Procedure Procedure Tolerated Well Tolerated Well WC - Visit Discharge Discharge Condition Stable Stable Stable Ambulatory Status Ambulatory Ambulatory,Cane Ambulatory,Cane Transportation Private Auto Private Auto Private Auto Medication Reconcilliation completed & No provided to patient/care provider Clinical Summary of Care Provided Yes Notes: 04/05/22 04/08/22 04/12/22 14:43 12:20 13:20 Vital Signs Temperature (97.8 F-99.1 F) 97.2 F L 97.3 F L Temperature Source Temporal Temporal Pulse Rate (60-100) 84 88 Pulse Location Monitor Monitor Respiratory Rate (12-18) 18 Respiratory rate source Observation Oxygen Delivery Method Room Air Blood Pressure (90/60-120/80) 141/72 H 165/90 H Blood Pressure Mean 95 115 Source Monitor Monitor Position Sitting Blood Pressure Location Right Arm Pain Scale: 0-10 Numeric Is Patient Pain Free? Yes Yes Yes Pain Scale: Adult NonVerbal Is Patient Pain Free? Yes Wound Care Nurse 3 BLE -Lotion applied to leg before No No compression wrap -Multi-Layered Wrap Application Unna Boot - Unna Boot - Unna Boot - Bilateral ($) Bilateral ($) Bilateral ($) -Unna Boots (Bilat) ($) 2 2 2 -Other APPPLIED [facility] Treatment Response Procedure Tolerated Well WC - Visit Discharge Discharge Condition Stable Stable Stable Ambulatory Status Ambulatory Ambulatory,Cane Ambulatory,Cane Transportation Private Auto Private Auto Private Auto Medication Reconcilliation completed & Yes Yes provided to patient/care provider Clinical Summary of Care Provided Yes Yes Notes: picked of alot of the scales from both legs and feet before reapplying unnas Assessment/Plan Assessment/Plan (1) Venous stasis dermatitis of both lower extremities: CODE(S): I87.2 - Venous insufficiency (chronic) (peripheral) (2) Lymphedema of left lower extremity: CODE(S): I89.0 - Lymphedema, not elsewhere classified (3) Leg swelling: CODE(S): M79.89 - Other specified soft tissue disorders (4) Leg edema: CODE(S): R60.0 - Localized edema (5) Morbid obesity with BMI of 45.0-49.9, adult: CODE(S): E66.01 - Morbid (severe) obesity due to excess calories; Z68.42 - Body mass index [BMI] 45.0-49.9, adult (6) Limited mobility: CODE(S): Z74.09 - Other reduced mobility (7) GERD (gastroesophageal reflux disease): CODE(S): K21.9 - Gastro-esophageal reflux disease without esophagitis (8) HTN (hypertension): CODE(S): I10 - Essential (primary) hypertension (9) Atrial fibrillation: CODE(S): I48.91 - Unspecified atrial fibrillation (10) CHF (congestive heart failure): CODE(S): I50.9 - Heart failure, unspecified (11) History of deep vein thrombosis: CODE(S): Z86.718 - Personal history of other venous thrombosis and embolism (12) History of pulmonary embolism: CODE(S): Z86.711 - Personal history of pulmonary embolism (13) Hyperlipidemia: CODE(S): E78.5 - Hyperlipidemia, unspecified (14) Obstructive sleep apnea: CODE(S): G47.33 - Obstructive sleep apnea (adult) (pediatric) (15) Chronic renal insufficiency, stage III (moderate): CODE(S): N18.30 - Chronic kidney disease, stage 3 unspecified (16) Asplenia after surgical procedure: CODE(S): Z90.81 - Acquired absence of spleen (17) Degenerative joint disease of spine: CODE(S): M47.9 - Spondylosis, unspecified (18) Prediabetes: CODE(S): R73.03 - Prediabetes (19) History of gastrointestinal bleeding: CODE(S): Z87.19 - Personal history of other diseases of the digestive system (20) History of ventral hernia repair: CODE(S): Z98.890 - Other specified postprocedural states; Z87.19 - Personal history of other diseases of the digestive system (21) History of splenectomy: CODE(S): Z90.81 - Acquired absence of spleen (22) History of Myrtle fundoplication: CODE(S): Z98.890 - Other specified postprocedural states (23) Presence of IVC filter: CODE(S): Z95.828 - Presence of other vascular implants and grafts (24) Current use of alf anticoagulation: CODE(S): Z79.01 - supervisor intermediates (current) use of anticoagulants (25) Lymphedema of right lower extremity: CODE(S): I89.0 - Lymphedema, not elsewhere classified PLAN: Plan This is a morbidly obese 76-year-old male with limited mobility. He has a history of deep vein thrombosis and pulmonary embolism in the past. He presents with multiple pre-existing medical problems, as listed above. He has been referred for severe swelling, edema, and lymphedema in his lower extremities, associated with severe ichthyosis vulgaris bilaterally. The patient is of limited mobility, and sleeps in a recliner, with his lower extremities in a chronically dependent position. A lengthy discussion has been undertaken with the patient to acquaint him with the reasons for his lower extremity symptoms and manifestations. He has been urged to avoid sleeping in a recliner. He has been encouraged to sleep on a flat mattress with his legs level with his heart, or higher. Leg elevation to heart level, or higher, has also been encouraged during daytime hours. Prolonged idle sitting has been discouraged. Activity has been encouraged, though the patient's pulmonary disease, morbid obesity, and back problems will likely preclude any enhancement of his activity to a significant degree. Weight loss has been recommended. Unfortunately, it is apparent that the patient has been noncompliant with the recommended measures. He continues to sleep in a recliner, without significant elevation of his lower extremities, either level with, or above, heart level. In fact, the patient admits that he does not even have a bed to sleep in. The patient's noncompliance thus far represents a poor prognostic outlook. We are to make attempts to obtain a hospital bed for the patient, which would allow him to maneuver the sleeping surface so as to achieve the desired degree of leg elevation. It is his back pain which is currently preventing him from achieving the desired position with his legs elevated. Furthermore, we may request pneumatic mechanical compression pumps for his lower extremities, which may also be of benefit in reducing the swelling and edema in his lower extremities. We are to continue compression to the lower extremities by means of Unna boots, which will be applied bilaterally, and changed twice weekly. We are also to implement the use of Lac-Hydrin topically with each change of the Unna boots. The patient has undergone relatively recent laboratory studies on December 12, 2021, with results as follows: White blood count 12.6, hemoglobin 10.9, hematocrit 36.1, platelets 532,000, PT 21.0 INR 1.9, sodium 135, potassium 4.5, chloride 101, BUN 34, creatinine 1.48, glucose 160, calcium 9.2, albumin 3.0, total protein 7.7. The patient is to return in 2 weeks for reassessment. Total time: 29 minutes
[2022-04-19 15:20] VITALS: BP 164/74; PULSE 72; RESP 20; TEMP 36.4; BMI 47.0
== END 2022-04-20 23:59 | disposition home or self-care (01) ==
LOC: WC 15:00
PROVIDERS: PCP Family Medicine; Visit Provider Surgery
DX: I89.0 Lymphedema, not elsewhere classified (principal); J44.9 Chronic obstructive pulmonary disease, unspecified; I13.0 Hypertensive heart and chronic kidney disease with heart failure and stage 1 through stage 4 chronic kidney disease, or unspecified chronic kidney disease; I50.9 Heart failure, unspecified; I48.91 Unspecified atrial fibrillation; E66.01 Morbid (severe) obesity due to excess calories; Z68.42 Body mass index [BMI] 45.0-49.9, adult; N18.30 Chronic kidney disease, stage 3 unspecified; R73.03 Prediabetes; I87.2 Venous insufficiency (chronic) (peripheral); Z95.828 Presence of other vascular implants and grafts; Z90.81 Acquired absence of spleen; Z79.01 Long term (current) use of anticoagulants; K21.9 Gastro-esophageal reflux disease without esophagitis; G47.33 Obstructive sleep apnea (adult) (pediatric); Z87.891 Personal history of nicotine dependence; E78.5 Hyperlipidemia, unspecified; Z79.899 Other long term (current) drug therapy
CPT/HCPCS: 29580; 99213; G0463

== ENCOUNTER 2022-05-17 15:15 | Outpatient (RCR) | payer MEDICARE, OTHER, SELFPAY ==
[2022-04-21 00:11] VITALS: BP 164/74; PULSE 72; RESP 20; TEMP 36.4; BMI 47.0
[2022-04-22 11:13] VITALS: BP 153/94; PULSE 94; RESP 16; TEMP 35.7; BMI 47.0
[2022-04-26 12:55] VITALS: BP 169/77; PULSE 77; TEMP 35.7; BMI 47.0
--- NOTE | 2022-04-26 15:06 | HP.PCM_ITS ---
History of Present Illness Date of Service: 04/26/22 Chief Complaint: Severe swelling, edema, lymphedema, and venous stasis tavon matitis in the lower extremities bilaterally History of Wound: This is a morbidly obese 76-year-old male who presented with very profound venous stasis dermatitis in his lower extremities bilaterally, associated with swelling, edema, and lymphedema. His lower extremities have been in this condition for at least 2 to 3 years. The patient's mobility is extremely limited. He ambulates very slowly and deliberately due to shortness of breath secondary to COPD, as well as back problems. He requires the use of a cane. He sleeps in a recliner, and sits idlely throughout the day. He rarely elevates his lower extremities. Furthermore, he is morbidly obese. 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 Degenerative joint disease of spine DVT (deep venous thrombosis) Failed fundoplication Former smoker GI bleed History of deep vein thrombosis History of gastrointestinal bleeding History of pulmonary embolism HTN (hypertension) Hyperlipidemia Irregular heart beat Kidney disease Kidney stones Leg edema Leg swelling Limited mobility Lymphedema of left lower extremity Lymphedema of right lower extremity Migraines Morbid obesity with BMI of 45.0-49.9, adult Obstructive sleep apnea Prediabetes Presence of IVC filter Pulmonary embolism Sleep apnea Venous stasis dermatitis of both lower extremities Home Medications calcium citrate 315 mg calcium-vitamin D3 6.25 mcg (250 unit) tablet 1 ea PO DAILY SUPPLEMENT 10/01/13 [History Last Taken 11/11/21] potassium chloride 20 mEq tablet,extended release(part/cryst) (Klor-Con M) 40 meq PO BID SUPPLEMENT 10/01/13 [History Last Taken 11/12/21] spironolactone 25 mg tablet 25 mg PO DINNER FLUID 10/01/13 [History Last Taken 11/11/21] warfarin 4 mg tablet (Jantoven) 4 mg PO DAILY BLOOD THINNER 10/01/13 [History Last Taken 11/12/21 00:00] atorvastatin 20 mg tablet 20 mg PO DAILY CHOLESTEROL 11/12/21 [History Last Taken 11/12/21] bumetanide 1 mg tablet 1 mg PO DINNER FLUID 11/12/21 [History Last Taken 11/11/21] bumetanide 1 mg tablet 2 mg PO QHS FLUID 11/12/21 [History Last Taken 11/11/21] metoprolol tartrate 50 mg tablet 25 mg PO BID HEART 11/12/21 [History Last Taken 11/12/21] warfarin 1 mg tablet 1 mg PO DAILY BLOOD THINNER 11/12/21 [History Last Taken 11/12/21 00:00] omeprazole 20 mg capsule,delayed release 40 mg PO BID GERD #60 caps 11/13/21 [Rx Last Taken 11/12/21] ferrous sulfate 325 mg (65 mg iron) tablet (FeroSul) 1 tab PO BID 12/08/21 [History Last Taken Unknown] umeclidinium 62.5 mcg/actuation blister powder for inhalation (Incruse Ellipta) See Rx Instructions .Route .COMPLEX Check with primary doctor 12/08/21 [History Last Taken 12/08/21] prednisone 20 mg tablet 40 mg PO BREAKFAST 5 days #10 tabs 12/13/21 [Rx Last Taken Unknown] Allergy/AdvReac Type Severity Reaction Status Date / Time chlorpromazine HCl Allergy Other Verified 12/08/21 17:35 [From Thorazine] metformin Allergy PT UNSURE Verified 12/08/21 17:35 OF REACTION Family History Other Heart disease Hypertension Surgical History History of embolic filter insertion History of Myrtle fundoplication History of splenectomy History of ventral hernia repair Status post splenectomy Social History household members: none Smoking Status: Former smoker substance use type: does not use Vital Signs Vital Signs Vital Signs: 04/26/22 12:55 Temperature 96.3 F L Temperature Source Temporal Pulse Rate 77 Blood Pressure 169/77 H Blood Pressure Mean 107 Blood Pressure Source Monitor Weight Weight: 300 lb Body Mass Index (BMI) 47.0 Physical Exam Const alert, oriented x3, no apparent distress and well nourished Constitutional Narrative: The patient is morbidly obese. He appears winded with minimal physical activity. General Appearance: cooperative and well developed Orientation / Consciousness: awake, oriented to person, oriented to place and oriented to time HEENT normocephalic and head/scalp atraumatic Head and Scalp: normal to inspection, normocephalic and atraumatic External Ear: external ears normal Eyes PERRL and EOMs intact bilaterally General Eye: normal appearance of both eyes Resp normal respiratory effort, normal air movement, no retractions and no use of accessory muscles Resp Narrative: Upon minimal physical activity, the patient appears to be winded and short of breath. Effort and Inspection: able to speak in complete sentences GI GI Narrative: The abdomen is obese. A large reducible upper abdominal ventral hernia is noted. Extremity no calf tenderness General Extremity: Negative for clubbing or cyanosis Skin Wound Narrative: Severe swelling, edema, and lymphedema are noted in the patient's lower extremities bilaterally. 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 Several scattered excoriations are noted, though no specific wounds or ulcerations. Circumference measurements are documented elsewhere. There is no sign of infection or cellulitis. Neuro oriented x3, CN's II-XII intact bilaterally, moves all extremities and no focal motor deficits Sensorium / Orientation: awake, alert, oriented to person, oriented to place and oriented to time Psych Appearance: grossly normal and appropriate Attitude: calm Activity / Motor Behavior: appropriate eye contact Speech: normal speech Mood & Affect: euthymic mood Thought Process: normal thought process Thought Content: normal thought content Attention / Concentration: attention grossly intact Debridement Note Debridement Note No debridement was completed: No debridement was completed today Post-Debridement Measurements and Additional Note: Post-Debridement Measurements/Treatment - Nurse 1 - General Ulcer Assessment Start: 04/22/22 11:12 Freq: Status: Active Protocol: THAO Activity Type Activity Date Activity User E-sign Co-sign Detail Recorded Client Recorded Date Recorded By Document 04/22/22 11:13 [facility] [id number] 04/22/22 11:15 [facility] Document 04/26/22 12:55 [place] [id number] 04/26/22 12:56 [place] 04/22/22 04/26/22 11:13 12:55 - Today's Visit Information Type of service Nurse-only Follow-up Visit Visit (Physician/DATABASE 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 PROJECT MANAGER ) Arrival Mode Ambulatory,Cane Ambulatory Transfer Assistance None Patient Identification Verified (Name & Yes No ) Patient Requires Transmission-Based No No Precautions Height and Weight Body Mass Index (BMI) 47.0 47.0 BMI Classification Obese Obese Vital Signs Temperature (97.8 F-99.1 F) 96.2 F L 96.3 F L Temperature Source Temporal Temporal Pulse Rate (60-100) 94 77 Pulse Location Monitor Monitor Respiratory Rate (12-18) 16 Respiratory rate source Observation Oxygen Delivery Method Room Air Blood Pressure (90/60-120/80) 153/94 H 169/77 H Blood Pressure Mean 113 107 Source Monitor Monitor Position Sitting Blood Pressure Location Right Arm History Since Last Visit- (Skip if this is Patient's initial visit) Have you changed medications since your No No last visit? Any new allergies or adverse reactions No No Had a fall/change in ADL's that may No No increase risk of falls Signs or symptoms of abuse and/or No No neglect since last visit Have you been in the hospital since your No No last visit? Has dressing in place as prescribed Yes Yes Has compression in place as prescribed Yes Yes Has offloadiing in place as prescribed N/A N/A Experienced any changes in pain level or No No management Left Footwear Regular Shoe Regular Shoe Right Footwear Regular Shoe Regular Shoe Pain Scale: 0-10 Numeric Is Patient Pain Free? Yes Yes - Nurse 1 - General Ulcer Measurement Start: 04/22/22 11:12 Freq: Status: Active Protocol: Activity Type Activity Date Activity User E-sign Co-sign Detail Recorded Client Recorded Date Recorded By Document 04/22/22 11:13 [facility] [id number] 04/22/22 11:15 [facility] 04/22/22 11:13 Wound Center Nurse 1 Lower Limb Edema Present Yes Right Calf (cm) 54.5 Right Ankle (cm) 30 Left Calf (cm) 58.5 Left Ankle (cm) 34.4 - Nurse 3 - General Ulcer D/C NN Start: 04/22/22 11:12 Freq: Status: Active Protocol: Activity Type Activity Date Activity User E-sign Co-sign Detail Recorded Client Recorded Date Recorded By Document 04/22/22 11:13 [facility] [id number] 04/22/22 11:15 [facility] Document 04/26/22 12:55 MD [id number] 04/26/22 12:56 [place] 04/22/22 04/26/22 11:13 12:55 Vital Signs Temperature (97.8 F-99.1 F) 96.2 F L 96.3 F L Temperature Source Temporal Temporal Pulse Rate (60-100) 94 77 Pulse Location Monitor Monitor Respiratory Rate (12-18) 16 Respiratory rate source Observation Oxygen Delivery Method Room Air Blood Pressure (90/60-120/80) 153/94 H 169/77 H Blood Pressure Mean 113 107 Source Monitor Monitor Position Sitting Blood Pressure Location Right Arm Pain Scale: 0-10 Numeric Is Patient Pain Free? Yes Yes Wound Care Nurse 3 BLE -Lotion applied to leg before Yes compression wrap -Multi-Layered Wrap Application Unna Boot - Unna Boot - Bilateral ($) Bilateral ($) -Unna Boots (Bilat) ($) 2 2 -Other APPLIED PER [place] PROJECT MANAGER INTERIOR DESIGN Treatment Response Procedure Tolerated Well WC - Visit Discharge Discharge Condition Stable Ambulatory Status Ambulatory,Cane Transportation Private Auto Assessment/Plan Assessment/Plan (1) Venous stasis dermatitis of both lower extremities: CODE(S): I87.2 - Venous insufficiency (chronic) (peripheral) (2) Lymphedema of left lower extremity: CODE(S): I89.0 - Lymphedema, not elsewhere classified (3) Leg swelling: CODE(S): M79.89 - Other specified soft tissue disorders (4) Leg edema: CODE(S): R60.0 - Localized edema (5) Morbid obesity with BMI of 45.0-49.9, adult: CODE(S): E66.01 - Morbid (severe) obesity due to excess calories; Z68.42 - Body mass index [BMI] 45.0-49.9, adult (6) Limited mobility: CODE(S): Z74.09 - Other reduced mobility (7) GERD (gastroesophageal reflux disease): CODE(S): K21.9 - Gastro-esophageal reflux disease without esophagitis (8) HTN (hypertension): CODE(S): I10 - Essential (primary) hypertension (9) Atrial fibrillation: CODE(S): I48.91 - Unspecified atrial fibrillation (10) CHF (congestive heart failure): CODE(S): I50.9 - Heart failure, unspecified (11) History of deep vein thrombosis: CODE(S): Z86.718 - Personal history of other venous thrombosis and embolism (12) History of pulmonary embolism: CODE(S): Z86.711 - Personal history of pulmonary embolism (13) Hyperlipidemia: CODE(S): E78.5 - Hyperlipidemia, unspecified (14) Obstructive sleep apnea: CODE(S): G47.33 - Obstructive sleep apnea (adult) (pediatric) (15) Chronic renal insufficiency, stage III (moderate): CODE(S): N18.30 - Chronic kidney disease, stage 3 unspecified (16) Asplenia after surgical procedure: CODE(S): Z90.81 - Acquired absence of spleen (17) Degenerative joint disease of spine: CODE(S): M47.9 - Spondylosis, unspecified (18) Prediabetes: CODE(S): R73.03 - Prediabetes (19) History of gastrointestinal bleeding: CODE(S): Z87.19 - Personal history of other diseases of the digestive system (20) History of ventral hernia repair: CODE(S): Z98.890 - Other specified postprocedural states; Z87.19 - Personal history of other diseases of the digestive system (21) History of splenectomy: CODE(S): Z90.81 - Acquired absence of spleen (22) History of Myrtle fundoplication: CODE(S): Z98.890 - Other specified postprocedural states (23) Presence of IVC filter: CODE(S): Z95.828 - Presence of other vascular implants and grafts (24) 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 He has a history of deep vein thrombosis and pulmonary embolism in the past. He presents with multiple pre-existing medical problems, as listed above. He has been referred for severe swelling, edema, and lymphedema in his lower extremities, associated with severe ichthyosis vulgaris bilaterally. The patient is of limi naresh mobility, and sleeps in a recliner, with his lower extremities in a chronically dependent position. A lengthy discussion has been undertaken with the patient to acquaint him with the reasons for his lower extremity symptoms and manifestations. He has been urged to avoid sleeping in a recliner. He has been encouraged to sleep on a flat mattress with his legs level with his heart, or higher. Leg elevation to heart level, or higher, has also been encouraged during daytime hours. Prolonged idle sitting has been discouraged. Activity has been encouraged, though the patient's pulmonary disease, morbid obesity, and back problems will likely preclude any enhancement of his activity to a significant degree. Weight loss has been recommended. Unfortunately, it is apparent that the patient has been noncompliant with the recommended measures. He continues to sleep in a recliner, without significant elevation of his lower extremities, either level with, or above, heart level. In fact, the patient admits that he does not even have a bed to sleep in. The patient's noncompliance thus far represents a poor prognostic outlook. We are to make attempts to obtain a hospital bed for the patient, which would allow him to maneuver the sleeping surface so as to achieve the desired degree of leg elevation. It is his back pain which is currently preventing him from achieving the desired position with his legs elevated. Furthermore, we have requested pneumatic mechanical compression pumps, which are expected to be delivered in the near future. Once obtained, they are to be utilized as a means of addressing the chronic swelling, edema, and lymphedema in the patient's lower extremities. We are to continue compression to the lower extremities by means of Unna boots, which will be applied bilaterally, and changed twice weekly. We are also to continue the use of moisturizing skin lotion with each change of the Unna boots. The patient has undergone relatively recent laboratory studies on December 12, 2021, with results as follows: White blood count 12.6, hemoglobin 10.9, hematocrit 36.1, platelets 532,000, PT 21.0 INR 1.9, sodium 135, potassium 4.5, chloride 101, BUN 34, creatinine 1.48, glucose 160, calcium 9.2, albumin 3.0, total protein 7.7. The patient is to return in 2 weeks for reassessment. Total time: 28 minutes
[2022-04-29 12:39] VITALS: BP 135/87; PULSE 66; RESP 22; TEMP 36.4; BMI 47.0
[2022-05-03 15:02] VITALS: BP 162/82; PULSE 77; RESP 16; TEMP 35.5; BMI 47.0
[2022-05-06 12:37] VITALS: BP 156/75; PULSE 72; RESP 18; TEMP 35.2; BMI 47.0
[2022-05-10 11:06] VITALS: BP 141/81; PULSE 70; RESP 16; TEMP 35.6; BMI 47.0
--- NOTE | 2022-05-10 13:13 | HP.PCM_ITS ---
History of Present Illness Date of Service: 05/10/22 Chief Complaint: Severe swelling, edema, lymphedema, and venous stasis tavon matitis in the lower extremities bilaterally History of Wound: This is a morbidly obese 76-year-old male who presented with very profound venous stasis dermatitis in his lower extremities bilaterally, associated with swelling, edema, and lymphedema. His lower extremities have been in this condition for at least 2 to 3 years. The patient's mobility is extremely limited. He ambulates very slowly and deliberately due to shortness of breath secondary to COPD, as well as back problems. He requires the use of a cane. He sleeps in a recliner, and sits idlely throughout the day. He rarely elevates his lower extremities. Furthermore, he is morbidly obese. 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 Degenerative joint disease of spine DVT (deep venous thrombosis) Failed fundoplication Former smoker GI bleed History of deep vein thrombosis History of gastrointestinal bleeding History of pulmonary embolism HTN (hypertension) Hyperlipidemia Irregular heart beat Kidney disease Kidney stones Leg edema Leg swelling Limited mobility Lymphedema of left lower extremity Lymphedema of right lower extremity Migraines Morbid obesity with BMI of 45.0-49.9, adult Obstructive sleep apnea Prediabetes Presence of IVC filter Pulmonary embolism Sleep apnea Venous stasis dermatitis of both lower extremities Home Medications calcium citrate 315 mg calcium-vitamin D3 6.25 mcg (250 unit) tablet 1 ea PO DAILY SUPPLEMENT 10/01/13 [History Last Taken 11/11/21] potassium chloride 20 mEq tablet,extended release(part/cryst) (Klor-Con M) 40 meq PO BID SUPPLEMENT 10/01/13 [History Last Taken 11/12/21] spironolactone 25 mg tablet 25 mg PO DINNER FLUID 10/01/13 [History Last Taken 11/11/21] warfarin 4 mg tablet (Jantoven) 4 mg PO DAILY BLOOD THINNER 10/01/13 [History Last Taken 11/12/21 00:00] atorvastatin 20 mg tablet 20 mg PO DAILY CHOLESTEROL 11/12/21 [History Last Taken 11/12/21] bumetanide 1 mg tablet 1 mg PO DINNER FLUID 11/12/21 [History Last Taken 11/11/21] bumetanide 1 mg tablet 2 mg PO QHS FLUID 11/12/21 [History Last Taken 11/11/21] metoprolol tartrate 50 mg tablet 25 mg PO BID HEART 11/12/21 [History Last Taken 11/12/21] warfarin 1 mg tablet 1 mg PO DAILY BLOOD THINNER 11/12/21 [History Last Taken 11/12/21 00:00] omeprazole 20 mg capsule,delayed release 40 mg PO BID GERD #60 caps 11/13/21 [Rx Last Taken 11/12/21] ferrous sulfate 325 mg (65 mg iron) tablet (FeroSul) 1 tab PO BID 12/08/21 [History Last Taken Unknown] umeclidinium 62.5 mcg/actuation blister powder for inhalation (Incruse Ellipta) See Rx Instructions .Route .COMPLEX Check with primary doctor 12/08/21 [History Last Taken 12/08/21] prednisone 20 mg tablet 40 mg PO BREAKFAST 5 days #10 tabs 12/13/21 [Rx Last Taken Unknown] Allergy/AdvReac Type Severity Reaction Status Date / Time chlorpromazine HCl Allergy Other Verified 12/08/21 17:35 [From Thorazine] metformin Allergy PT UNSURE Verified 12/08/21 17:35 OF REACTION Family History Other Heart disease Hypertension Surgical History History of embolic filter insertion History of Myrtle fundoplication History of splenectomy History of ventral hernia repair Status post splenectomy Social History household members: none Smoking Status: Former smoker substance use type: does not use Vital Signs Vital Signs Vital Signs: 05/10/22 11:06 Temperature 96.0 F L Temperature Source Temporal Pulse Rate 70 Respiratory Rate 16 Blood Pressure 141/81 H Blood Pressure Mean 101 Blood Pressure Source Monitor Blood Pressure Position Supine Blood Pressure Location Right Arm Oxygen Delivery Method Room Air Weight Weight: 300 lb Body Mass Index (BMI) 47.0 Physical Exam Const alert, oriented x3, no apparent distress and well nourished Constitutional Narrative: The patient is morbidly obese. He appears winded with minimal physical ac tivity. General Appearance: cooperative and well developed Orientation / Consciousness: awake, oriented to person, oriented to place and oriented to time HEENT normocephalic and head/scalp atraumatic Head and Scalp: normal to inspection, normocephalic and atraumatic External Ear: external ears normal Eyes PERRL and EOMs intact bilaterally General Eye: normal appearance of both eyes Resp normal respiratory effort, normal air movement, no retractions and no use of accessory muscles Resp Narrative: Upon minimal physical activity, the patient appears to be winded and short of breath. Effort and Inspection: able to speak in complete sentences GI GI Narrative: The abdomen is obese. A large reducible upper abdominal ventral hernia is noted. Extremity no calf tenderness General Extremity: Negative for clubbing or cyanosis Skin Wound Narrative: The swelling, edema, and lymphedema in the patient's lower extremities appears to be improving. It is now only minimal. 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 A superficial excoriation is noted on the left pretibial surface, but no other open wounds, ulcerations, or excoriations. Circumference measurements are documented elsewhere. There is no sign of infection or cellulitis. Neuro oriented x3, CN's II-XII intact bilaterally, moves all extremities and no focal motor deficits Sensorium / Orientation: awake, alert, oriented to person, oriented to place and oriented to time Psych Appearance: grossly normal and appropriate Attitude: calm Activity / Motor Behavior: appropriate eye contact Speech: normal speech Mood & Affect: euthymic mood Thought Process: normal thought process Thought Content: normal thought content Attention / Concentration: attention grossly intact Debridement Note Debridement Note No debridement was completed: No debridement was completed today Post-Debridement Measurements and Additional Note: Post-Debridement Measurements/Treatment WC - Nurse 1 - General Ulcer Assessment Start: 04/22/22 11:12 Freq: Status: Active Protocol: THAO Activity Type Activity Date Activity User E-sign Co-sign Detail Recorded Client Recorded Date Recorded By Document 04/22/22 11:13 [facility] [id number] 04/22/22 11:15 BMF Document 04/26/22 12:55 AK [id number] 04/26/22 12:56 AK Document 04/29/22 12:39 DL [id number] 04/29/22 13:08 DL Document 05/03/22 15:02 BMF [id number] 05/03/22 15:04 BMF Document 05/06/22 12:37 RB [id number] 05/06/22 12:40 RB Document 05/10/22 11:06 MW [id number] 05/10/22 11:20 MW 04/22/22 04/26/22 04/29/22 11:13 12:55 12:39 WC - Today's Visit Information Type of service Nurse-only Follow-up Visit Nurse-only Visit (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/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 Visit ) Arrival Mode Ambulatory,Cane Ambulatory Ambulatory,Cane Transfer Assistance None None Accompanied by Patient Identification Verified (Name & Yes No Yes ) Patient Requires Transmission-Based No No No Precautions Safety Precautions Height and Weight Body Mass Index (BMI) 47.0 47.0 47.0 BMI Classification Obese Obese Obese Vital Signs Temperature (97.8 F-99.1 F) 96.2 F L 96.3 F L 97.6 F L Temperature Source Temporal Temporal Temporal Pulse Rate (60-100) 94 77 66 Pulse Location Monitor Monitor Monitor Respiratory Rate (12-18) 16 22 H Respiratory rate source Observation Observation Oxygen Delivery Method Room Air Blood Pressure (90/60-120/80) 153/94 H 169/77 H 135/87 H Blood Pressure Mean 113 107 103 Source Monitor Monitor Monitor Position Sitting Blood Pressure Location Right Arm History Since Last Visit- (Skip if this is Patient's initial visit) Have you changed medications since your No No No last visit? Any new allergies or adverse reactions No No No Had a fall/change in ADL's that may No No No increase risk of falls Signs or symptoms of abuse and/or No No No neglect since last visit Have you been in the hospital since your No No No last visit? Has dressing in place as prescribed Yes Yes Yes Has compression in place as prescribed Yes Yes Yes Has offloadiing in place as prescribed N/A N/A N/A Experienced any changes in pain level or No No Yes management Left Footwear Regular Shoe Regular Shoe Right Footwear Regular Shoe Regular Shoe Pain Scale: 0-10 Numeric Is Patient Pain Free? 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 (Physician/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 ) ) Arrival Mode Ambulatory,Cane Ambulatory,Cane Ambulatory Transfer Assistance None None None Accompanied by self Patient Identification Verified (Name & Yes Yes Yes ) Patient Requires Transmission-Based No No No Precautions Safety Precautions NA Height and Weight Body Mass Index (BMI) 47.0 47.0 47.0 BMI Classification Obese Obese Obese Vital Signs Temperature (97.8 F-99.1 F) 96 F L 95.4 F L 96.0 F L Temperature Source Temporal Temporal Temporal Pulse Rate (60-100) 77 72 70 Pulse Location Monitor Monitor Monitor Respiratory Rate (12-18) 16 18 16 Respiratory rate source Observation Observation Observation Oxygen Delivery Method Room Air Room Air Blood Pressure (90/60-120/80) 162/82 H 156/75 H 141/81 H Blood Pressure Mean 108 102 101 Source Monitor Monitor Monitor Position Sitting Semi-Fowlers Supine Blood Pressure Location Left Arm Right Arm History Since Last Visit- (Skip if this is Patient's initial visit) Have you changed medications since your No No No last visit? Any new allergies or adverse reactions No No No Had a fall/change in ADL's that may No No No increase risk of falls Signs or symptoms of abuse and/or No No No neglect since last visit Have you been in the hospital since your No No No last visit? Has dressing in place as prescribed Yes Yes Yes Has compression in place as prescribed Yes Yes Yes Has offloadiing in place as prescribed N/A No N/A Experienced any changes in pain level or No No No management Left Footwear Regular Shoe Regular Shoe Right Footwear Regular Shoe Regular Shoe Pain Scale: 0-10 Numeric Is Patient Pain Free? Yes Yes Yes - Nurse 1 - General Ulcer Measurement Start: 04/22/22 11:12 Freq: Status: Active Protocol: Activity Type Activity Date Activity User E-sign Co-sign Detail Recorded Client Recorded Date Recorded By Document 04/22/22 11:13 [facility] [id number] 04/22/22 11:15 BMF Document 05/03/22 15:02 BMF [id number] 05/03/22 15:04 BMF Document 05/06/22 12:37 RB [id number] 05/06/22 12:40 RB Document 05/10/22 11:06 MW [id number] 05/10/22 11:20 MW 04/22/22 05/03/22 05/06/22 11:13 15:02 12:37 Wound Center Nurse 1 #1 left bennett -Combined with other wound -Current Size (cm) - Length -Current Size (cm) - Width -Current Size (cm) - Depth -Total Square Cm -Date of Last Picture (Recall this field) -Photo Taken -Epithelialization -Tunneling -Undermining/Tunneling -Circular Undermining -Exudate Amt -Exudate Type -Wound Margin -Granulation Amt -Granulation Quality -Slough/Fibrin -Necrosis Amt -Necrotic Tissue Type -Structure Exposed -Texture (Joie-wound Skin Appearance) -Moisture (Joie-wound Skin Appearance) -Color (Joie-wound Skin Appearance) -Temperature (Joie-wound Skin Appearance) -Tenderness on Palpation (Joie-wound Skin Appearance) -Ulcer Cleansing -Foul Odor after Cleansing -Anesthetic Used Lower Limb Edema Present Yes Yes Yes Right Calf (cm) 54.5 57.5 56.2 Right Ankle (cm) 30 29.6 30 Left Calf (cm) 58.5 59 57 Left Ankle (cm) 34.4 32.5 32 05/10/22 11:06 Wound Center Nurse 1 #1 left bennett -Combined with other wound No -Current Size (cm) - Length 1.5 -Current Size (cm) - Width 1.0 -Current Size (cm) - Depth 0.1 -Total Square Cm 1.50 -Date of Last Picture (Recall this 05/10/22 field) -Photo Taken Yes -Epithelialization None Present -Tunneling No -Undermining/Tunneling No -Circular Undermining No -Exudate Amt Medium -Exudate Type Serosanguineous -Wound Margin Flat & Intact -Granulation Amt Large (67-100%) -Granulation Quality Poth -Slough/Fibrin Yes -Necrosis Amt Small (1-33%) -Necrotic Tissue Type Adherent Slough -Structure Exposed N/A -Texture (Joie-wound Skin Appearance) Assessed, Localized Edema ,Scarring -Moisture (Joie-wound Skin Appearance) Assessed -Color (Joie-wound Skin Appearance) Assessed, Hemosiderin Staining -Temperature (Joie-wound Skin No Abnormality Appearance) (Pt Warm) -Tenderness on Palpation (Joie-wound No Skin Appearance) -Ulcer Cleansing Soap and Water -Foul Odor after Cleansing No -Anesthetic Used 5% Lidocaine Gel Lower Limb Edema Present Yes Right Calf (cm) 55.0 Right Ankle (cm) 31.0 Left Calf (cm) 56.5 Left Ankle (cm) 31.0 WC - Nurse 3 - General Ulcer D/C NN Start: 04/22/22 11:12 Freq: Status: Active Protocol: Activity Type Activity Date Activity User E-sign Co-sign Detail Recorded Client Recorded Date Recorded By Document 04/22/22 11:13 [facility] [id number] 04/22/22 11:15 [facility] Document 04/26/22 12:55 AK [id number] 04/26/22 12:56 AK Document 04/29/22 12:39 DL [id number] 04/29/22 13:08 DL Document 05/03/22 15:02 BM [id number] 05/03/22 15:04 [facility] Document 05/06/22 12:37 RB [id number] 05/06/22 12:40 RB 04/22/22 04/26/22 04/29/22 11:13 12:55 12:39 Vital Signs Temperature (97.8 F-99.1 F) 96.2 F L 96.3 F L 97.6 F L Temperature Source Temporal Temporal Temporal Pulse Rate (60-100) 94 77 66 Pulse Location Monitor Monitor Monitor Respiratory Rate (12-18) 16 22 H Respiratory rate source Observation Observation Oxygen Delivery Method Room Air Blood Pressure (90/60-120/80) 153/94 H 169/77 H 135/87 H Blood Pressure Mean 113 107 103 Source Monitor Monitor Monitor Position Sitting Blood Pressure Location Right Arm Pain Scale: 0-10 Numeric Is Patient Pain Free? Yes Yes Yes Wound Care Nurse 3 BLE -Lotion applied to leg before Yes compression wrap -Multi-Layered Wrap Application Unna Boot - Unna Boot - Unna Boot - Bilateral ($) Bilateral ($) Bilateral ($) -Unna Boots (Bilat) ($) 2 2 2 -Other APPLIED PER [place] TELEMETRY REGISTERED NURSE Treatment Response Procedure Procedure Tolerated Well Tolerated Well WC - Visit Discharge Discharge Condition Stable Stable Ambulatory Status Ambulatory,Cane Ambulatory,Cane Transportation Private Auto Private Auto 05/03/22 05/06/22 15:02 12:37 Vital Signs Temperature (97.8 F-99.1 F) 96 F L 95.4 F L Temperature Source Temporal Temporal Pulse Rate (60-100) 77 72 Pulse Location Monitor Monitor Respiratory Rate (12-18) 16 18 Respiratory rate source Observation Observation Oxygen Delivery Method Room Air Blood Pressure (90/60-120/80) 162/82 H 156/75 H Blood Pressure Mean 108 102 Source Monitor Monitor Position Sitting Semi-Fowlers Blood Pressure Location Left Arm Pain Scale: 0-10 Numeric Is Patient Pain Free? Yes Yes Wound Care Nurse 3 BLE -Lotion applied to leg before compression wrap -Multi-Layered Wrap Application Unna Boot - Unna Boot - Bilateral ($) Bilateral ($) -Unna Boots (Bilat) ($) 2 2 -Other PER [place] TELEMETRY REGISTERED NURSE; LAC lachydrin HYDRIN UNDER lotion applied UNNAS before unnas Treatment Response Procedure Procedure Tolerated Well Tolerated Well WC - Visit Discharge Discharge Condition Stable Stable Ambulatory Status Ambulatory,Cane Transportation Private Auto Assessment/Plan Assessment/Plan (1) Venous stasis dermatitis of both lower extremities: CODE(S): I87.2 - Venous insufficiency (chronic) (peripheral) (2) Lymphedema of left lower extremity: CODE(S): I89.0 - Lymphedema, not elsewhere classified (3) Leg swelling: CODE(S): M79.89 - Other specified soft tissue disorders (4) Leg edema: CODE(S): R60.0 - Localized edema (5) Morbid obesity with BMI of 45.0-49.9, adult: CODE(S): E66.01 - Morbid (severe) obesity due to excess calories; Z68.42 - Body mass index [BMI] 45.0-49.9, adult (6) Limited mobility: CODE(S): Z74.09 - Other reduced mobility (7) GERD (gastroesophageal reflux disease): CODE(S): K21.9 - Gastro-esophageal reflux disease without esophagitis (8) HTN (hypertension): CODE(S): I10 - Essential (primary) hypertension (9) Atrial fibrillation: CODE(S): I48.91 - Unspecified atrial fibrillation (10) CHF (congestive heart failure): CODE(S): I50.9 - Heart failure, unspecified (11) History of deep vein thrombosis: CODE(S): Z86.718 - Personal history of other venous thrombosis and embolism (12) History of pulmonary embolism: CODE(S): Z86.711 - Personal history of pulmonary embolism (13) Hyperlipidemia: CODE(S): E78.5 - Hyperlipidemia, unspecified (14) Obstructive sleep apnea: CODE(S): G47.33 - Obstructive sleep apnea (adult) (pediatric) (15) Chronic renal insufficiency, stage III (moderate): CODE(S): N18.30 - Chronic kidney disease, stage 3 unspecified (16) Asplenia after surgical procedure: CODE(S): Z90.81 - Acquired absence of spleen (17) Degenerative joint disease of spine: CODE(S): M47.9 - Spondylosis, unspecified (18) Prediabetes: CODE(S): R73.03 - Prediabetes (19) History of gastrointestinal bleeding: CODE(S): Z87.19 - Personal history of other diseases of the digestive system (20) History of ventral hernia repair: CODE(S): Z98.890 - Other specified postprocedural states; Z87.19 - Personal history of other diseases of the digestive system (21) History of splenectomy: CODE(S): Z90.81 - Acquired absence of spleen (22) History of Myrtle fundoplication: CODE(S): Z98.890 - Other specified postprocedural states (23) Presence of IVC filter: CODE(S): Z95.828 - Presence of other vascular implants and grafts (24) Current use of residential anticoagulation: CODE(S): Z79.01 - alf (current) use of anticoagulants (25) Lymphedema of right lower extremity: CODE(S): I89.0 - Lymphedema, not elsewhere classified PLAN: Plan This is a morbidly obese 76-year-old male with limited mobility. He has a history of deep vein thrombosis and pulmonary embolism in the past. He presented with multiple pre-existing medical problems, as listed above. He was referred for severe swelling, edema, and lymphedema in his lower extremities, associated with severe ichthyosis vulgaris bilaterally. The patient is of limited mobility, and sleeps in a recliner, with his lower extremities in a chronically dependent position. A lengthy discussion has been undertaken with the patient to acquaint him with the reasons for his lower extremity symptoms and manifestations. He has been urged to avoid sleeping in a recliner. He has been encouraged to sleep on a flat mattress with his legs level with his heart, or higher. Leg elevation to heart level, or higher, has also been encouraged during daytime hours. Prolonged idle sitting has been discouraged. Activity has been encouraged, though the patient's pulmonary disease, morbid obesity, and back problems will likely preclude any enhancement of his activity to a significant degree. Weight loss has been recommended. Unfortunately, it is apparent that the patient has been only moderately compliant with the recommended measures. He continues to sleep in a recliner, without significant elevation of his lower extremities, either level with, or above, heart level. In fact, the patient admits that he does not even have a bed to sleep in. The patient's limited compliance thus far represents a poor prognostic outlook. It is his back pain which is currently preventing him from achieving the desired position with his legs elevated. Furthermore, we have requested pneumatic mechanical compression pumps, which has now been received. [employer] pumps were obtained recently, though the initial pair was dysfunctional, and the company is indicating their intent to replace the original pair. These pneumatic pumps are to be utilized as a means of addressing the chronic swelling, edema, and lymphedema in the patient's lower extremities. We are to continue compression to the lower extremities by means of Unna boots, which will be applied bilaterally, and changed twice weekly. We are also to continue the use of moisturizing skin lotion with each change of the Unna boots. The patient has undergone relatively recent laboratory studies on December 12, 2021, with results as follows: White blood count 12.6, hemoglobin 10.9, hematocrit 36.1, platelets 532,000, PT 21.0 INR 1.9, sodium 135, potassium 4.5, chloride 101, BUN 34, creatinine 1.48, glucose 160, calcium 9.2, albumin 3.0, total protein 7.7. The patient is to return in 2 weeks for reassessment. If the patient continues to show continued improvement, and the left pretibial excoriation heals, it is likely that the patient will be appropriate for discharge within the next several weeks. Total time: 29 minutes
[2022-05-17 15:41] VITALS: BP 147/84; PULSE 88; RESP 24; TEMP 36.1; BMI 47.0
[2022-05-20 13:30] VITALS: BP 125/89; PULSE 72; TEMP 36.2; BMI 47.0
== END 2022-05-21 23:59 | disposition home or self-care (01) ==
LOC: WC 15:15
PROVIDERS: PCP Family Medicine; Visit Provider Surgery
DX: I89.0 Lymphedema, not elsewhere classified (principal); J44.9 Chronic obstructive pulmonary disease, unspecified; I13.0 Hypertensive heart and chronic kidney disease with heart failure and stage 1 through stage 4 chronic kidney disease, or unspecified chronic kidney disease; I50.9 Heart failure, unspecified; I48.91 Unspecified atrial fibrillation; E66.01 Morbid (severe) obesity due to excess calories; Z68.42 Body mass index [BMI] 45.0-49.9, adult; N18.30 Chronic kidney disease, stage 3 unspecified; K21.9 Gastro-esophageal reflux disease without esophagitis; Z95.828 Presence of other vascular implants and grafts; R73.03 Prediabetes; Z79.01 Long term (current) use of anticoagulants; I87.2 Venous insufficiency (chronic) (peripheral); E78.5 Hyperlipidemia, unspecified; G47.33 Obstructive sleep apnea (adult) (pediatric); Z87.891 Personal history of nicotine dependence
CPT/HCPCS: 29580; 99213; G0463

== ENCOUNTER 2022-05-24 10:42 | Outpatient (RCR) | payer MEDICARE, OTHER, SELFPAY ==
[2022-05-22 00:11] VITALS: BP 125/89; PULSE 72; RESP 24; TEMP 36.2; BMI 47.0
[2022-05-24 11:39] VITALS: BP 138/76; PULSE 74; TEMP 35.3; BMI 47.0
--- NOTE | 2022-05-24 12:56 | HP.PCM_ITS ---
History of Present Illness Date of Service: 05/24/22 Chief Complaint: Severe swelling, edema, lymphedema, and venous stasis tavon matitis in the lower extremities bilaterally History of Wound: This is a morbidly obese 76-year-old male who presented with very profound venous stasis dermatitis in his lower extremities bilaterally, associated with swelling, edema, and lymphedema. His lower extremities have been in this condition for at least 2 to 3 years. The patient's mobility is extremely limited. He ambulates very slowly and deliberately due to shortness of breath secondary to COPD, as well as back problems. He requires the use of a cane. He sleeps in a recliner, and sits idly throughout the day. He rarely elevates his lower extremities. Furthermore, he is morbidly obese. [facility] Medical History Anemia due to acute blood loss Anticoagulant long-term use Asplenia after surgical procedure Atrial fibrillation Broken collarbone Broken ribs CHF (congestive heart failure) Chronic renal insufficiency, stage III (moderate) COPD (chronic obstructive pulmonary disease) Current use of penitentiary anticoagulation Degenerative joint disease of spine DVT (deep venous thrombosis) Failed fundoplication Former smoker GI bleed History of deep vein thrombosis History of gastrointestinal bleeding History of pulmonary embolism HTN (hypertension) Hyperlipidemia Irregular heart beat Kidney disease Kidney stones Leg edema Leg swelling Limited mobility Lymphedema of left lower extremity Lymphedema of right lower extremity Migraines Morbid obesity with BMI of 45.0-49.9, adult Obstructive sleep apnea Prediabetes Presence of IVC filter Pulmonary embolism Sleep apnea Venous stasis dermatitis of both lower extremities Home Medications calcium citrate 315 mg calcium-vitamin D3 6.25 mcg (250 unit) tablet 1 ea PO DAILY SUPPLEMENT 10/01/13 [History Last Taken 11/11/21] potassium chloride 20 mEq tablet,extended release(part/cryst) (Klor-Con M) 40 meq PO BID SUPPLEMENT 10/01/13 [History Last Taken 11/12/21] spironolactone 25 mg tablet 25 mg PO DINNER FLUID 10/01/13 [History Last Taken 11/11/21] warfarin 4 mg tablet (Jantoven) 4 mg PO DAILY BLOOD THINNER 10/01/13 [History Last Taken 11/12/21 00:00] atorvastatin 20 mg tablet 20 mg PO DAILY CHOLESTEROL 11/12/21 [History Last Taken 11/12/21] bumetanide 1 mg tablet 1 mg PO DINNER FLUID 11/12/21 [History Last Taken 11/11/21] bumetanide 1 mg tablet 2 mg PO QHS FLUID 11/12/21 [History Last Taken 11/11/21] metoprolol tartrate 50 mg tablet 25 mg PO BID HEART 11/12/21 [History Last Taken 11/12/21] warfarin 1 mg tablet 1 mg PO DAILY BLOOD THINNER 11/12/21 [History Last Taken 11/12/21 00:00] omeprazole 20 mg capsule,delayed release 40 mg PO BID GERD #60 caps 11/13/21 [Rx Last Taken 11/12/21] ferrous sulfate 325 mg (65 mg iron) tablet (FeroSul) 1 tab PO BID 12/08/21 [History Last Taken Unknown] umeclidinium 62.5 mcg/actuation blister powder for inhalation (Incruse Ellipta) See Rx Instructions .Route .COMPLEX Check with primary doctor 12/08/21 [History Last Taken 12/08/21] prednisone 20 mg tablet 40 mg PO BREAKFAST 5 days #10 tabs 12/13/21 [Rx Last Taken Unknown] Allergy/AdvReac Type Severity Reaction Status Date / Time chlorpromazine HCl Allergy Other Verified 12/08/21 17:35 [From Thorazine] metformin Allergy PT UNSURE Verified 12/08/21 17:35 OF REACTION Family History Other Heart disease Hypertension Surgical History History of embolic filter insertion History of Myrtle fundoplication History of splenectomy History of ventral hernia repair Status post splenectomy Social History household members: none Smoking Status: Former smoker substance use type: does not use Vital Signs Vital Signs Vital Signs: 05/24/22 11:39 Temperature 95.6 F L Temperature Source Temporal Pulse Rate 74 Blood Pressure 138/76 H Blood Pressure Mean 96 Blood Pressure Source Monitor Weight Weight: 300 lb Body Mass Index (BMI) 47.0 Physical Exam Const alert, oriented x3, no apparent distress and well nourished Constitutional Narrative: The patient is morbidly obese. He appears winded with minimal physical activity. General Appearance: cooperative, comfortable and well developed Orientation / Consciousness: awake, oriented to person, oriented to place and oriented to time HEENT normocephalic and head/scalp atraumatic Head and Scalp: normal to inspection, normocephalic and atraumatic External Ear: external ears normal Eyes PERRL and EOMs intact bilaterally General Eye: normal appearance of both eyes Resp normal respiratory effort, normal air movement, no retractions and no use of accessory muscles Resp Narrative: Upon minimal physical activity, the patient appears to be winded and short of breath. Effort and Inspection: able to speak in complete sentences GI GI Narrative: The abdomen is obese. A large reducible upper abdominal ventral hernia is noted. Extremity no calf tenderness General Extremity: Negative for clubbing or cyanosis Skin Wound Narrative: The swelling, edema, and lymphedema in the patient's lower extremities appears much improved, and minimal. Venous stasis dermatitis and hyperpigmentation are noted in the lower extremities bilaterally in the gaiter areas, with continuing improvement each week. There are no open wounds or ulcerations. Circumference measurements are documented elsewhere. There is no sign of infection or cellulitis. Neuro oriented x3, CN's II-XII intact bilaterally, moves all extremities and no focal motor deficits Sensorium / Orientation: awake, alert, oriented to person, oriented to place and oriented to time Psych Appearance: grossly normal and appropriate Attitude: calm Activity / Motor Behavior: appropriate eye contact Speech: normal speech Mood & Affect: euthymic mood Thought Process: normal thought process Thought Content: normal thought content Attention / Concentration: attention grossly intact Debridement Note Debridement Note No debridement was completed: No debridement was completed today (There are no open wounds or ulcerations.) Post-Debridement Measurements and Additional Note: Post-Debridement Measurements/Treatment CAROL - Nurse 1 - General Ulcer Assessment Start: 05/24/22 11:39 Freq: Status: Active Protocol: THAO Activity Type Activity Date Activity User E-sign Co-sign Detail Recorded Client Recorded Date Recorded By Document 05/24/22 11:39 RAMIREZ [id number] 05/24/22 11:43 RAMIREZ 05/24/22 11:39 - Today's Visit Information Type of service Follow-up Visit (Physician/COUNTER FORMER ) Arrival Mode Ambulatory,Cane Height and Weight Body Mass Index (BMI) 47.0 BMI Classification Obese Vital Signs Temperature (97.8 F-99.1 F) 95.6 F L Temperature Source Temporal Pulse Rate (60-100) 74 Pulse Location Monitor Blood Pressure (90/60-120/80) 138/76 H Blood Pressure Mean 96 Source Monitor History Since Last Visit- (Skip if this is Patient's initial visit) Have you changed medications since your No last visit? Any new allergies or adverse reactions No Had a fall/change in ADL's that may No increase risk of falls Signs or symptoms of abuse and/or No neglect since last visit Have you been in the hospital since your No last visit? Has dressing in place as prescribed Yes Has compression in place as prescribed Yes Has offloadiing in place as prescribed N/A Experienced any changes in pain level or No management Left Footwear Regular Shoe Right Footwear Regular Shoe Pain Scale: 0-10 Numeric Is Patient Pain Free? Yes WC - Nurse 1 - General Ulcer Measurement Start: 05/24/22 11:39 Freq: Status: Active Protocol: Activity Type Activity Date Activity User E-sign Co-sign Detail Recorded Client Recorded Date Recorded By Document 05/24/22 11:39 AK [id number] 05/24/22 11:43 AK 05/24/22 11:39 Wound Center Nurse 1 #1 left bennett -Combined with other wound No Right Calf (cm) 56 Right Ankle (cm) 30 Left Calf (cm) 55 Left Ankle (cm) 33 WC - Nurse 2 - General Ulcer CM Notes Start: 05/24/22 11:39 Freq: Status: Active Protocol: Activity Type Activity Date Activity User E-sign Co-sign Detail Recorded Client Recorded Date Recorded By Document 05/24/22 12:38 PL [id number] 05/24/22 12:38 PL 05/24/22 12:38 Wound Center Nurse 2 #1 left bennett -Procedure Performed No -Wound/Ulcer Outcome Healed- Epithelialized Pain Scale: 0-10 Numeric Is Patient Pain Free? Yes - Nurse 3 - General Ulcer D/C NN Start: 05/24/22 11:39 Freq: Status: Active Protocol: Activity Type Activity Date Activity User E-sign Co-sign Detail Recorded Client Recorded Date Recorded By Document 05/24/22 11:39 AK [id number] 05/24/22 11:43 AK 05/24/22 11:39 Vital Signs Temperature (97.8 F-99.1 F) 95.6 F L Temperature Source Temporal Pulse Rate (60-100) 74 Pulse Location Monitor Blood Pressure (90/60-120/80) 138/76 H Blood Pressure Mean 96 Source Monitor Pain Scale: 0-10 Numeric Is Patient Pain Free? Yes Wound Care Nurse 3 srikanth -Tubular Bandage Single Layer -Size of Tubigrip Used Size F -Size F ($) 2 WC - Visit Discharge Discharge Condition Stable Ambulatory Status Ambulatory,Cane Transportation Private Auto Medication Reconcilliation completed & Yes provided to patient/care provider Clinical Summary of Care Provided Yes Assessment/Plan Assessment/Plan (1) Venous stasis dermatitis of both lower extremities: CODE(S): I87.2 - Venous insufficiency (chronic) (peripheral) (2) Lymphedema of left lower extremity: CODE(S): I89.0 - Lymphedema, not elsewhere classified (3) Leg swelling: CODE(S): M79.89 - Other specified soft tissue disorders (4) Leg edema: CODE(S): R60.0 - Localized edema (5) Morbid obesity with BMI of 45.0-49.9, adult: CODE(S): E66.01 - Morbid (severe) obesity due to excess calories; Z68.42 - Body mass index [BMI] 45.0-49.9, adult (6) Limited mobility: CODE(S): Z74.09 - Other reduced mobility (7) GERD (gastroesophageal reflux disease): CODE(S): K21.9 - Gastro-esophageal reflux disease without esophagitis (8) HTN (hypertension): CODE(S): I10 - Essential (primary) hypertension (9) Atrial fibrillation: CODE(S): I48.91 - Unspecified atrial fibrillation (10) CHF (congestive heart failure): CODE(S): I50.9 - Heart failure, unspecified (11) History of deep vein thrombosis: CODE(S): Z86.718 - Personal history of other venous thrombosis and embolism (12) History of pulmonary embolism: CODE(S): Z86.711 - Personal history of pulmonary embolism (13) Hyperlipidemia: CODE(S): E78.5 - Hyperlipidemia, unspecified (14) Obstructive sleep apnea: CODE(S): G47.33 - Obstructive sleep apnea (adult) (pediatric) (15) Chronic renal insufficiency, stage III (moderate): CODE(S): N18.30 - Chronic kidney disease, stage 3 unspecified (16) Asplenia after surgical procedure: CODE(S): Z90.81 - Acquired absence of spleen (17) Degenerative joint disease of spine: CODE(S): M47.9 - Spondylosis, unspecified (18) Prediabetes: CODE(S): R73.03 - Prediabetes (19) History of gastrointestinal bleeding: CODE(S): Z87.19 - Personal history of other diseases of the digestive system (20) History of ventral hernia repair: CODE(S): Z98.890 - Other specified postprocedural states; Z87.19 - Personal history of other diseases of the digestive system (21) History of splenectomy: CODE(S): Z90.81 - Acquired absence of spleen (22) History of Myrtle fundoplication: CODE(S): Z98.890 - Other specified postprocedural states (23) Presence of IVC filter: CODE(S): Z95.828 - Presence of other vascular implants and grafts (24) 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 He has a history of deep vein thrombosis and pulmonary embolism in the past. He presented with multiple pre-existing medical problems, as listed above. He was referred for severe swelling, edema, and lymphedema in his lower extremities, associated with severe ichthyosis vulgaris bilaterally. The patient is of limited mobility, and sleeps in a recliner, with his lower extremities in a chronically dependent position. A lengthy discussion has been undertaken with the patient repeatedly to acquaint him with the reasons for his lower extremity symptoms and manifestations. He has been urged to avoid sleeping in a recliner. He has been encouraged to sleep on a flat mattress with his legs level with his heart, or higher. Leg elevation to heart level, or higher, has also been encouraged during daytime hours. Prolonged idle sitting has been discouraged. Activity has been encouraged, though the patient's pulmonary disease, morbid obesity, and back problems will likely preclude any enhancement of his activity to a significant degree. Weight loss has been recommended. Unfortunately, it is apparent that the patient has been only moderately compliant with the recommended measures. His back pain is a deterrent to sleeping on a flat surface at night, and donning compression stockings to his lower extremities. The patient has received pneumatic mechanical compression pumps (Koya pumps). These pneumatic pumps are to be utilized as a means of addressing the chronic swelling, edema, and lymphedema in the patient's lower extremities. However, he has had trouble donning the pneumatic compression pumps, due to his obesity and his low back pain. At this juncture, there are no wounds or ulcerations in the patient's lower extremities, and the swelling, edema, and lymphedema in the patient's lower extremities appears to be reasonably well controlled. Therefore, the patient is to be discharged, and will follow-up henceforth on an as-needed basis. His inability to don graduated compression stockings and use his pneumatic pumps, however, represent a poor long-term prognosis. Furthermore, his morbid obesity is also an issue of concern. Patient is to be discharged, and will follow-up henceforth on an as-needed basis. The patient has been provided all available resources, but will require efforts of his own to recruit relatives or other acquaintances to assist him in his daily needs. Total time: 28 minutes
== END 2022-05-25 15:55 | disposition home or self-care (01) ==
LOC: WC 10:42
PROVIDERS: PCP Family Medicine; Visit Provider Surgery
DX: I89.0 Lymphedema, not elsewhere classified (principal); J44.9 Chronic obstructive pulmonary disease, unspecified; I13.0 Hypertensive heart and chronic kidney disease with heart failure and stage 1 through stage 4 chronic kidney disease, or unspecified chronic kidney disease; I50.9 Heart failure, unspecified; I48.91 Unspecified atrial fibrillation; E66.01 Morbid (severe) obesity due to excess calories; N18.30 Chronic kidney disease, stage 3 unspecified; Z79.01 Long term (current) use of anticoagulants; Z95.828 Presence of other vascular implants and grafts; R73.03 Prediabetes; G47.33 Obstructive sleep apnea (adult) (pediatric); K21.9 Gastro-esophageal reflux disease without esophagitis; Z87.891 Personal history of nicotine dependence; E78.5 Hyperlipidemia, unspecified; I87.2 Venous insufficiency (chronic) (peripheral)
CPT/HCPCS: 99213; G0463

== ENCOUNTER 2022-08-08 14:48 | Emergency (ER) | payer MEDICARE, OTHER, SELFPAY ==
[2022-08-08 14:48] VITALS: BP 147/67; PULSE 80; RESP 18; TEMP 36.4; O2SAT 98
--- NOTE | 2022-08-08 15:22 | EX.ED.DYSGE1 ---
HPI History of Present Illness Chief Complaint: Edema Detail of Chief Complaint: Bilateral leg swelling Informant: patient and family Narrative Narrative: Patient presents to the emergency department with complaint of bilateral leg swelling. Patient has been dealing with leg swelling for over a year and has been diagnosed with lymphedema. Patient has history of CHF and COPD. Patient used to be seen by wound clinic and they were managing his legs and was not getting better as far as the edema and the weeping skin but was not getting worse. They discharged him from the wound clinic about a month ago and since that time he had increased swelling of his extremities as well as excoriated skin and weeping. Patient states that he is gained about 16 pounds since his last physician visit about a month ago. Patient was seen by his PCP Dr. Camarena today and was advised to be seen in the emergency department. Patient denies any fevers or chills or sweats. He does complain of dyspnea that is chronic but may be slightly worse than usual. Patient is not on home O2. He is on warfarin for history of DVT and he has an IVC filter. 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 Degenerative joint disease of spine DVT (deep venous thrombosis) Failed fundoplication Former smoker GI bleed History of deep vein thrombosis History of gastrointestinal bleeding History of pulmonary embolism HTN (hypertension) Hyperlipidemia Irregular heart beat Kidney disease Kidney stones Leg edema Leg swelling Limited mobility Lymphedema of left lower extremity Lymphedema of right lower extremity Migraines Morbid obesity with BMI of 45.0-49.9, adult Obstructive sleep apnea Prediabetes Presence of IVC filter Pulmonary embolism Sleep apnea Venous stasis dermatitis of both lower extremities Home Medications calcium citrate 315 mg calcium-vitamin D3 6.25 mcg (250 unit) tablet 1 ea PO DAILY SUPPLEMENT 10/01/13 [History Last Taken 11/11/21] potassium chloride 20 mEq tablet,extended release(part/cryst) (Klor-Con M) 40 meq PO BID SUPPLEMENT 10/01/13 [History Last Taken 11/12/21] spironolactone 25 mg tablet 25 mg PO DINNER FLUID 05/13/14 [History Last Taken 11/11/21] atorvastatin 20 mg tablet 20 mg PO DAILY CHOLESTEROL 11/12/21 [History Last Taken 11/12/21] bumetanide 1 mg tablet 1 mg PO DINNER FLUID 11/12/21 [History Last Taken 11/11/21] bumetanide 1 mg tablet 2 mg PO QHS FLUID 11/12/21 [History Last Taken 11/11/21] metoprolol tartrate 50 mg tablet 25 mg PO BID HEART 11/12/21 [History Last Taken 11/12/21] warfarin 1 mg tablet See Rx Instructions .Route .COMPLEX BLOOD THINNER 11/12/21 [History Last Taken 11/12/21 00:00] omeprazole 20 mg capsule,delayed release 40 mg PO BID GERD #60 caps 11/13/21 [Rx Last Taken 11/12/21] ferrous sulfate 325 mg (65 mg iron) tablet (FeroSul) 1 tab PO BID 12/08/21 [History Last Taken Unknown] umeclidinium 62.5 mcg/actuation blister powder for inhalation (Incruse Ellipta) See Rx Instructions .Route .COMPLEX Check with primary doctor 12/08/21 [History Last Taken 12/08/21] cephalexin 500 mg capsule 500 mg PO Q6 #40 CAPSULES 08/08/22 [Rx Last Taken Unknown] sulfamethoxazole 800 mg-trimethoprim 160 mg tablet 1 tab PO BID #20 TABLETS 08/08/22 [Rx Last Taken Unknown] Allergy/AdvReac Type Severity Reaction Status Date / Time chlorpromazine HCl Allergy Other Verified 08/08/22 14:50 [From Thorazine] metformin Allergy PT UNSURE Verified 08/08/22 14:50 OF REACTION Family History Other Heart disease Hypertension Surgical History History of embolic filter insertion History of Myrtle fundoplication History of splenectomy History of ventral hernia repair Status post splenectomy Social History household members: none Smoking Status: Former smoker substance use type: does not use ROS ROS ED Review of Systems ROS Unobtainable: other Constitutional Constitutional ED: Reports lethargy; Denies chills, fever(s), sweats or weight loss Eyes Eyes: Denies blurry vision, change in vision or diplopia ENT ENT ED: Denies rhinorrhea or sore throat Cardiovascular Cardiovascular: Denies chest pain, orthopnea or racing heartbeat Respiratory/Chest Respiratory/Chest: Reports dyspnea and dyspnea on exertion; Denies cough, orthopnea or sputum Gastrointestinal Gastrointestinal: Denies abdominal pain, diarrhea, nausea or vomiting Genitourinary Genitourinary ED: Denies dysuria, hematuria or urinary frequency Musculoskeletal Musculoskeletal: Denies arthralgias, back pain, myalgias or neck pain Integumentary Reports other Details: Bilateral leg edema with erythema to legs and weeping skin. ; Denies abscess, Abrasions or rash Neurologic Neurologic: Denies headache(s) or weakness Psychiatric Psychiatric: Denies anxiety, depression or suicidal thoughts Endocrine Endocrinology: Denies polydipsia, polyphagia or polyuria Hematologic/Lymphatic Hematologic/Lymphatic: Denies easy bleeding, easy bruising or lymphadenopathy Allergic/Immunologic Allergic/Immunologic ED: Denies mouth swelling, tongue swelling or urticaria EXAM Physical Exam Const Vital Signs: 08/08/22 14:48 Temperature 97.6 F L Temperature Source Temporal Pulse Rate 80 Respiratory Rate 18 Blood Pressure 147/67 H Blood Pressure Mean 93 Pulse Ox 98 Oxygen Delivery Method Room Air Positive well nourished and well developed General Appearance ED: well developed and NAD HEENT Reports TM's clear and moist mucous membranes normocephalic and atraumatic; Negative for trauma or tenderness Tympanic Membrane ED: Yes TM's clear Eyes PERRL and EOMs intact bilaterally General Eye ED: Negative for pale conjunctiva or scleral icterus Neck no lymphadenopathy, supple and no JVD General: Negative for tenderness Chest Wall inspection of chest normal and palpation of chest normal Chest: Negative for tenderness Resp normal respiratory effort and clear to auscultation bilaterally Effort and Inspection: Negative for respiratory distress or pain with movement Auscultation: Negative for rhonchi, wheezes or diminished lung sounds Cardio regular rate, regular rhythm, S1 normal heart sound, S2 normal heart sound and no murmurs Peripheral Pulses: pulses 2+ throughout GI normal to inspection, nondistended, normoactive bowel sounds, soft to palpation, non-tender, non-distended and no masses Back/Spine no CVA tenderness and no thoracic nor lumbar tenderness Extremity Extremity Narrative: Patient with bilateral leg edema/lymphedema. He has chronic venous stasis skin changes associated with some weeping lesions mostly from below the knees to the ankles. He has chronic thickened skin. There is diffuse faint erythema to both lower extremities extending to the thighs. Normal cap refill bilaterally. Normal dorsal pedal and posterior tibial pulses noted. General Extremety ED: Negative for edema General Extremity: Negative for edema Neuro oriented x3, CN's II-XII intact bilaterally, no sensory deficits noted and gait normal Sensorium / Orientation: awake, alert, oriented to person, oriented to place and oriented to time Motor Exam: strength 5/5 throughout and strength abnormal Psych mental status grossly normal Skin no rashes or lesions noted and no wounds MDM MDM MDM Narrative Medical decision making narrative: IV line established on arrival. Patient has chronic edema both lower extremities with some increased erythema per his PCP however the patient and family member state that his legs are always a little bit red from where they rub together. He has had no fevers or chills or sweats. WBC count was slightly elevated 12.0 however this seems to be a chronic finding for this patient. Hemoglobin was 13 and hematocrit was 40.1. INR was 1.5. Lactate was normal at 1.0. Chemistries were unremarkable. BUN was 20 and creatinine 1.29. BNP minimally elevated 138.7 however this is lower than prior BNPs. Chest x-ray obtained 1 view showed no evidence of pulmonary edema or effusions. Patient's vital signs stable. At this time I do not feel he meets criteria for admission. I did discuss case with Dr. Camarena who his his primary care physician. He did asked that I start him on antibiotics and will start him on Keflex and Bactrim for possible cellulitis of his lower extremities. Patient also will have his Bumex increased by 9 mg/day for a week and advised to follow-up with primary care physician within next 5 to 7 days. Patient I feel will likely require to go back to the wound center for chronic management of his leg edema and chronic venous stasis changes. Patient advised to keep legs elevated is much as possible. Lab Data Labs: Laboratory Results - last 24 hr 08/08/22 08/08/22 08/08/22 15:50 15:50 15:50 WBC 12.0 H RBC 4.12 L Hgb 13.1 Hct 40.1 MCV 97.3 H MCH 31.8 MCHC 32.7 RDW Std Deviation 54.1 H RDW Coeff of Ira 15.4 H Plt Count 363 MPV 10.3 Immature Gran % (Auto) 0.300 Neut % (Auto) 71.8 H Lymph % (Auto) 10.8 L [place] % (Auto) 12.6 H Eos % (Auto) 3.9 Baso % (Auto) 0.6 Absolute Neuts (auto) 8.6 H Absolute Lymphs (auto) 1.30 Nucleated RBC % 0 Differential Comment SCANNED Diff Path Review September foll PT 17.8 H INR 1.5 Sodium 141 Potassium 4.0 Chloride 108 H Carbon Dioxide 27.0 Anion Gap 6 BUN 20 H Creatinine 1.29 Estim Creat Clear Calc 44.12 Est GFR (MDRD) Af Amer 69 Est GFR (MDRD) Non-Af 57 L BUN/Creatinine Ratio 15.5 Glucose 109 H Lactic Acid Calcium 9.2 B-Natriuretic Peptide 08/08/22 08/08/22 15:50 15:50 WBC RBC Hgb Hct MCV MCH MCHC RDW Std Deviation RDW Coeff of Ira Plt Count MPV Immature Gran % (Auto) Neut % (Auto) Lymph % (Auto) [place] % (Auto) Eos % (Auto) Baso % (Auto) Absolute Neuts (auto) Absolute Lymphs (auto) Nucleated RBC % Differential Comment Diff Path Review PT INR Sodium Potassium Chloride Carbon Dioxide Anion Gap BUN Creatinine Estim Creat Clear Calc Est GFR (MDRD) Af Amer Est GFR (MDRD) Non-Af BUN/Creatinine Ratio Glucose Lactic Acid 1.0 Calcium B-Natriuretic Peptide 138.7 H Radiography Diagnostic Testing: Clinical Impression(s) from Imaging Studies Chest X-Ray 08/08/22 16:00 IMPRESSION: No acute cardiopulmonary disease or interval change. Electronically Signed: Dominick George DO at 17:02 EDT Reading Location ID and State: [address] [place] [address] Tel [phone], Service support , Discharge Plan Triage Chief Complaint: Edema ED Provider: Christophe Marrufo Dx/Rx/DC Orders Clinical Impression: Cellulitis, Lymphedema Instructions: Cellulitis Dc, ED Lymphedema Prescriptions: New sulfamethoxazole-trimethoprim [sulfamethoxazole-trimethoprim] 800-160 mg tablet 1 tab PO BID Qty: 20 0RF cephalexin [cephalexin] 500 mg capsule 500 mg PO Q6 Qty: 40 0RF No Action spironolactone 25 MG tablet 25 mg PO DINNER potassium chloride [Klor-Con M20] 20 MEQ tablet 40 meq PO BID calcium citrate-vitamin D3 1 EACH tablet 1 ea PO DAILY atorvastatin 20 mg Tablet 20 mg PO DAILY metoprolol tartrate 50 mg tablet 25 mg PO BID Label Comments: TAKE 1/2 TABLET BY MOUTHC2 TIMES A DAY bumetanide 1 mg tablet 1 mg PO DINNER Label Comments: TAKE 1 TABLET AT SUPPERwTIME AND 2 TABLETS AT BEDTIME bumetanide 1 mg tablet 2 mg PO QHS Label Comments: TAKE 1 TABLET AT SUPPERwTIME AND 2 TABLETS AT BEDTIME warfarin 1 mg tablet See Rx Instructions .ROUTE .COMPLEX Rx Instructions: 5 mg orally omeprazole 20 MG capsule 40 mg PO BID Qty: 60 0RF Incruse Ellipta 62.5 mcg/actuation blister with device See Rx Instructions .ROUTE .COMPLEX Rx Instructions: one puff daily ferrous sulfate [FeroSul] 325 mg (65 mg iron) tablet 1 tab PO BID Label Comments: Take 1 tablet by mouthEtwice daily with meals.N Primary Care Provider: Hubert Camarena Referrals: Hubert Camarena MD [Primary Care Provider] - 5-7 Days Activity Restrictions/Additional Instructions: Take 1 extra milligram of Bumex daily for the next 7 days. Disposition Disposition: Home, Self Care
[2022-08-08 15:49] VITALS: BMI 48.9
--- NOTE | 2022-08-08 16:00 | RAD_ITS ---
STUDY: X-RAY CHEST REASON FOR EXAM: Male, 76 years old. Dyspnea. TECHNIQUE: Single AP portable view of the chest. COMPARISON: December 11, 2021. FINDINGS: Chronic interstitial changes are again seen in the lungs. There is no new infiltrate or mass. There is no demonstrated pleural abnormality. Normal size heart. Normal mediastinum and syd. Normal visualized pulmonary arteries. Normal visualized aortic arch and descending thoracic aorta. There are diffuse degenerative changes of the visualized thoracic spine. Again seen are multiple healed right rib fractures. There is no demonstrated abnormality of the visualized soft tissue structures of the upper abdomen. RAD/Chest 1 View (Portable) IMPRESSION: No acute cardiopulmonary disease or interval change. Electronically Signed: Dominick George DO at 17:02 EDT ,
[2022-08-08 16:14] LABS: Absolute Neutrophil Count 8.6 X10^3/uL (2.0-7.7); Basophil# 0.07 X10^3/uL; Basophil% 0.6 % (0-1); Eosinophil# 0.47 X10^3/uL; Eosinophils% 3.9 % (0-5); Hematocrit 40.1 % (40-54); Hemoglobin 13.1 g/dL (13.0-16.5); Lymphocyte % 10.8 % (19-41); Mean Corp Hgb Conc 32.7 g/dL (32-36); Mean Corpuscular Hgb 31.8 pg (27.0-32.0); Mean Corpuscular Volume 97.3 fL (80-94); Mean Platelet Vol. 10.3 fl (6.2-12.0); Monocyte# 1.52 X10^3/uL; Monocyte% 12.6 % (0-10); NRBC Flagged by Analyzer 0 % (0-5); Neutrophil # 8.63 X10^3/uL (2.7-7.7); Neutrophil % 71.8 % (47-70); POSITIVE DIFFERENTIAL YES; Platelet Count 363 K/mm3 (150-450); RBC Distribution Width CV 15.4 % (11.6-14.6); RBC Distribution Width SD 54.1 fl (35.1-43.9); Red Blood Count 4.12 M/mm3 (4.6-6.2)
[2022-08-08 16:18] LABS: International Normalized Ratio 1.5; Prothrombin Time (Protime)PT. 17.8 SECONDS (11.7-14.9)
[2022-08-08 16:25] LABS: Anion Gap 6 (5-15); BUN 20 mg/dL (7-18); BUN/Creat Ratio 15.5 RATIO (10-20); Calcium,Total 9.2 mg/dL (8.5-10.1); Chloride 108 mmol/L (98-107); Creatinine, Serum 1.29 mg/dL (0.70-1.30); EST Glomerular Filtration Rate 57 mL/min (>60); Est Glom Filt Rate - Afr Amer 69 mL/min (>60); Estimated Creatinine Clearance 44.12 ml/min; Glucose 109 mg/dL (74-106); Sodium Level 141 mmol/L (136-145)
[2022-08-08 16:40] LABS: Differential Indicated SCAN CRITERIA MET
[2022-08-08 16:46] LABS: BNP,B-Type NATRIURETIC PEPTIDE 138.7 pg/mL (0-100)
[2022-08-08 16:57] LABS: Differential Comment SCANNED
[2022-08-08] MEDS: Smz/Tmp Ds Tablet 1 TABLET PO (17:13)
[2022-08-08] MEDS: Cephalexin 250 MG Capsule 500 MG PO (17:13)
[2022-08-09 13:24] LABS: Pathologist Review Reviewed
== END 2022-08-08 18:00 | disposition home or self-care (01) ==
PROVIDERS: Emergency Provider Emergency Medicine; PCP Family Medicine; Visit Provider Emergency Medicine
DX: L03.115 Cellulitis of right lower limb (principal); I13.0 Hypertensive heart and chronic kidney disease with heart failure and stage 1 through stage 4 chronic kidney disease, or unspecified chronic kidney disease; I50.9 Heart failure, unspecified; I48.91 Unspecified atrial fibrillation; N18.30 Chronic kidney disease, stage 3 unspecified; L03.116 Cellulitis of left lower limb; I89.0 Lymphedema, not elsewhere classified; E78.5 Hyperlipidemia, unspecified; G47.33 Obstructive sleep apnea (adult) (pediatric); Z86.718 Personal history of other venous thrombosis and embolism; Z86.711 Personal history of pulmonary embolism; Z79.899 Other long term (current) drug therapy; Z79.01 Long term (current) use of anticoagulants; Z87.891 Personal history of nicotine dependence
CPT/HCPCS: 71045; 80048; 83605; 83880; 85025; 85610; 87040; 99282; A4216

== ENCOUNTER 2022-08-22 14:44 | Outpatient (RCR) | payer MEDICARE, OTHER, SELFPAY ==
--- NOTE | 2022-08-30 16:44 | HP.OTEVAL_ITS ---
Patient's Visit Information GLENYS ALARCON is a 77 year old M, referred to Occupational Therapy by BREANNA Trujillo, with a diagnosis of lymphedema. Date of Evaluation: 08/22/22 Occupational Therapist: Alyssa Troy, GLO/Claudette, CHT - Subjective This 76 year old male was seen for OT eval with dx of lymphedema. pt states he has had swelling in his legs for over three years. pt states he has more difficulty with lifting his legs because they are heavy. pt states he does take water pill but did not take due to having to go out of his house to this apt. pt states he was being seen by the wound center and last he was there was in May. States Dr D/c him after legs stopped seeping. pt states he does have a devices ( [employer] koya pump) to help mtg his lymphedema but can not use it because he hand not get straps at ankle secure due to back pain and limited mobility. pt states he was using [facility]metabolic specialist but has not done so for a few months. Pt states he lives in [place] [facility] and it is 50+ miles round trip. and does not want to drive distance. Dr. Bullard office did assist pt in ed. and get him the tool necessary to mtg his LE. but pt would need to get relatives/or others to assist him in his selfcare. At this time pt has not acquired consistent help from family or others. pt ambulates with straight cane, pt drives car IND. arrives today in as pt can not ambulate distance to therapy center. lives with him she has dementia and can not assist pt in self care or with is legs. pt reports a hardship with leaving home and attending apts. due to limited mobility- and leaving his . pt expressed interest in if home health would be an option for him. 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 pt states he typically does not wear pants because they are difficulty to mtg. pt states he wears depends due to water pill causing incontinence. pt states he sleeps in a recliner - states he has back pain and can not sleep in bed. pt has grab bars in shower and has shower chair. pt states he is taking shower every other week when step dtr comes over. pt has back pain and can not bend forward. pt states he can not get his socks on or off-. pt states his son is a long distance help desk support and put his socks on him two days ago. pt has dayspring koya compression device but states he can not use it because he can not get it hooked around his ankle-. pt states he has tubi-metabolic specialist but is not wearing them. Pt at this time self reports he is unable to mtg his self care/mobility or his leg swelling. - Lymphedema (Circumferential Measure) Ankle: right left 31.5cm Lower calf: right 32c left 36cm Largest calf: right 60cm left 63 Below knee: right 56 left 57 Above knee: right 70 left 70 - Lower Limb Functional Index Lower Extremity Functional Score: 9 - Rehabilitation General Assessment: This 76 year old male demo poor functional mobility. pt demo with Stage III Pitting is absent and trophic skin changes such as acanthosis, fat deposits and warty overgrowths excessive dry, scaly skin . Due to pts limi naresh ability to reach LE therapist advised pt in using long handle sponge/roller to mtg and a massage lotion into his legs- therapist advised soak lower legs while sitting on shower chair at home and use long handled brush/sponge to massage the dry scaly skin off. pt not receptive ( step-dtr. assist every other week pt would need more assistance). pt has order from family indicating Hydrotherapy. We do not have this available at this facility. pt has compression device (dayspring) to assist with circulation but is not using it. pt reports avoiding taking his water pills due to incontinence -. pt was receptive to Home health services-. Pt would benefit from home health services or SNF due to pts difficulty in ambulation/mobility/and pts reports of the difficulty he has mtg. his medical condition as well as limited assistance from family. Rehabilitation Potential: Questionable - Anticipated Interventions Other - Visit Plan TEXT: Thank you for the opportunity to evaluate your patient. For Medicare and Medicare HMO plans, please review the plan of care and approve it. It will need to be FAXED BACK to us at [phone] for Medicare purposes. Please let me know if there are questions or concerns regarding this plan of care. Physician Signature: Date:
== END 2022-08-22 19:00 | disposition home or self-care (01) ==
LOC: OT 14:44
PROVIDERS: PCP Family Medicine; Referring Provider Physician Assistant; Visit Provider Physician Assistant
DX: I89.0 Lymphedema, not elsewhere classified (principal); I87.2 Venous insufficiency (chronic) (peripheral)
CPT/HCPCS: 97166

== ENCOUNTER 2022-12-16 10:00 | Outpatient (RCR) | payer MEDICARE, OTHER, SELFPAY ==
--- NOTE | 2022-10-10 18:15 | HP.OTEVAL ---
Patient's Visit Information GLENYS ALARCON is a 77 year old M, referred to Occupational Therapy by Dr. Brandie Moore MD, with a diagnosis of lymphedema. Date of Evaluation: 10/10/22 Occupational Therapist: Alyssa Troy, OTR/L, CHT - Subjective This 77 year old male was seen in OT with dx of LE lymphedema- this pt was seen here prior but due to drive distance and his incontinences he was unable to drive to apt. Pt was unable to perform care of his LE due to limited mobility- was rec'd at that time for placement or alodize machine helper. Due to change in health new dx of COPD, CHF along with lymphedema pt is now residing in SNF to get stronger and try to become more IND. Pt states he continues to need assistance with LE dressing as well as safe functional mobility. pt states he has not returned to wound center as they were wrapping his LE with 3M wraps- pt is unable to wrap his legs and would like the staff from SNF be able to wrap his legs to address his LE edema-. pt states he can not bend forward due to back pain. pt states SNF staff is putting a cream on his legs nightly. Pt reports they do not wrap his legs. pt states he can not wrap his legs. - Lymphedema (Circumferential Measure) Ankle: right 32cm left 31.5cm Lower calf: right 34cm left 36cm Largest calf: right 62cm left 64cm Below knee: right 56cm left 57 cm Above knee: right 70cm left 70 cm Lower Exremity Comments: Ankle: right left 31.5cm. Lower calf: right 32c left 36cm. Largest calf: right 60cm left 63. Below knee: right 56 left 57. Above knee: right 70 left 70 - Rehabilitation General Assessment: pt arrives from SNF in need of lymphedema POC. Due to pts inability to bend forward ( due to back issue) pt is unable to care for is legs/ wrap his legs. Therapist advised staff at SNF to continue with using lotion, use stockinet and cotton wraps ( foot to below knee) to protect skin then apply surepress compression wraps- - advised daily unwrap/ LE wash and re wrap to mtg edema. Pt receptive to POC. Pt states staff at SNF is helping him with getting skin off his legs. this therapists discussed with pt if he can not bend forward and mtg his LE care he may need alodize machine helper daily if her returned home. Pt receptive. Rehabilitation Potential: Questionable - Anticipated Interventions Caregiver Training, Home Program - Visit Plan General Plan: therapist gave written instructions to SNF to provide treatment for LE edema for wrapping LE. pt receptive to POC. TEXT: Thank you for the opportunity to evaluate your patient. For Medicare and Medicare HMO plans, please review the plan of care and approve it. It will need to be FAXED BACK to us at [phone] for Medicare purposes. Please let me know if there are questions or concerns regarding this plan of care. Physician Signature: Date:
== END 2022-12-16 19:00 | disposition home or self-care (01) ==
LOC: OT 10:00
PROVIDERS: PCP Family Medicine; Referring Provider Student in an Organized Health Care Education/Training Program; Visit Provider Student in an Organized Health Care Education/Training Program
DX: I89.0 Lymphedema, not elsewhere classified (principal)
CPT/HCPCS: 97166; 97530

== ENCOUNTER 2023-04-08 14:35 | Emergency (ER) | payer MEDICARE, OTHER, SELFPAY ==
[2023-04-08 14:36] VITALS: BP 160/97; PULSE 74; RESP 16; TEMP 35.9; O2SAT 98; BMI 49.6
--- NOTE | 2023-04-08 14:54 | EDS_ITS ---
HPI <BREANNA Mckinney - Last Filed: 04/08/23 17:44> History of Present Illness Chief Complaint: Cellulitis Narrative Narrative: Patient presenting today due to swelling to his bilateral lower extremities that he has chronically but has been worse since today. He generally takes Bumex 3 times a day but missed all 3 of his doses yesterday. He did see his PCP, Dr. Camarena yesterday but did not have this much swelling at that time. He is on warfarin due to history of DVT and had his INR checked yesterday which was 2.6. He reports that he had the COVID-vaccine yesterday and thinks that it gave him a bad reaction as he had several episodes of loose stools last night. He denies any fever, chills, shortness of breath, and chest pain. PMH includes CHF, CKD, CORAL, HTN, and history of blood clots. 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 Degenerative joint disease of spine DVT (deep venous thrombosis) Failed fundoplication Former smoker GI bleed History of deep vein thrombosis History of gastrointestinal bleeding History of pulmonary embolism HTN (hypertension) Hyperlipidemia Irregular heart beat Kidney disease Kidney stones Leg edema Leg swelling Limited mobility Lymphedema of left lower extremity Lymphedema of right lower extremity Migraines Morbid obesity with BMI of 45.0-49.9, adult Obstructive sleep apnea Prediabetes Presence of IVC filter Pulmonary embolism Sleep apnea Venous stasis dermatitis of both lower extremities Home Medications calcium citrate 315 mg calcium-vitamin D3 6.25 mcg (250 unit) tablet 1 ea PO DAILY SUPPLEMENT 10/01/13 [History Last Taken 11/11/21] potassium chloride 20 mEq tablet,extended release(part/cryst) (Klor-Con M) 40 meq PO BID SUPPLEMENT 10/01/13 [History Last Taken 11/12/21] spironolactone 25 mg tablet 25 mg PO DINNER FLUID 10/01/13 [History Last Taken 11/11/21] atorvastatin 20 mg tablet 20 mg PO DAILY CHOLESTEROL 11/12/21 [History Last T aken 11/12/21] bumetanide 1 mg tablet 1 mg PO DINNER FLUID 11/12/21 [History Last Taken 11/11/21] bumetanide 1 mg tablet 2 mg PO QHS FLUID 11/12/21 [History Last Taken 11/11/21] metoprolol tartrate 50 mg tablet 25 mg PO BID HEART 11/12/21 [History Last Taken 11/12/21] warfarin 1 mg tablet See Rx Instructions .Route .COMPLEX BLOOD THINNER 11/12/21 [History Last Taken 11/12/21 00:00] omeprazole 20 mg capsule,delayed release 40 mg (2 x 20 mg) PO BID GERD #60 caps 11/13/21 [Rx Last Taken 11/12/21] ferrous sulfate 325 mg (65 mg iron) tablet (FeroSul) 1 tab PO BID 12/08/21 [History Last Taken Unknown] umeclidinium 62.5 mcg/actuation blister powder for inhalation (Incruse Ellipta) See Rx Instructions .Route .COMPLEX Check with primary doctor 12/08/21 [History Last Taken 12/08/21] cephalexin 500 mg capsule 500 mg PO Q6 #40 CAPSULES 08/08/22 [Rx Last Taken Unknown] sulfamethoxazole 800 mg-trimethoprim 160 mg tablet 1 tab PO BID #20 TABLETS 08/08/22 [Rx Last Taken Unknown] Allergy/AdvReac Type Severity Reaction Status Date / Time chlorpromazine HCl Allergy Other Verified 04/08/23 14:42 [From Thorazine] metformin Allergy PT UNSURE Verified 04/08/23 14:42 OF REACTION Family History Other Heart disease Hypertension Surgical History History of embolic filter insertion History of Myrtle fundoplication History of splenectomy History of ventral hernia repair Status post splenectomy Social History household members: none Smoking Status: Former smoker substance use type: does not use ROS <BREANNA Mckinney - Last Filed: 04/08/23 17:44> ROS ED Constitutional Constitutional ED: Denies chills or fever(s) Cardiovascular Cardiovascular: Denies chest pain or palpitations Respiratory/Chest Respiratory/Chest: Denies cough or dyspnea Gastrointestinal Gastrointestinal: Reports diarrhea; Denies abdominal pain, nausea or vomiting Genitourinary Genitourinary ED: Denies dysuria, hematuria or urinary urgency Musculoskeletal Musculoskeletal: Denies arthralgias or myalgias Integumentary Denies Abrasions or rash Neurologic Neurologic: Denies paresthesias or weakness EXAM <BREANNA Mckinney - Last Filed: 04/08/23 17:44> Physical Exam Const Vital Signs: 04/08/23 14:36 04/08/23 16:00 Temperature 96.7 F L Temperature Source Temporal Pulse Rate 74 Respiratory Rate 16 18 Blood Pressure 160/97 H Blood Pressure Mean 118 Pulse Ox 98 Oxygen Delivery Method Room Air Positive well nourished, well developed and no apparent distress General Appearance ED: well developed HEENT Reports normocephalic and head/scalp atraumatic Mouth ED: Yes moist mucous membranes normal Eyes PERRL and EOMs intact bilaterally Neck full ROM and supple Chest Wall inspection of chest normal Resp normal respiratory effort and clear to auscultation bilaterally Cardio regular rate and regular rhythm GI soft to palpation, non-tender, non-distended and no masses Back/Spine normal ROM and normal to inspection Extremity full ROM Extremity Narrative: Bilateral lower extremities have chronic venous stasis changes associated with faint erythema bilaterally that extends to the knees. 2+ pitting edema. No warmth, chronic thickened skin. Neuro oriented x3, CN's II-XII intact bilaterally, moves all extremities, no focal motor deficits and no sensory deficits noted Sensorium / Orientation: awake and alert Psych mental status grossly normal and thought process normal Skin no rashes or lesions noted and no wounds <Dr. Josué Marr MD - Last Filed: 04/08/23 15:00> Physical Exam Const Vital Signs: 04/08/23 14:36 04/08/23 16:00 Temperature 96.7 F L Temperature Source Temporal Pulse Rate 74 Respiratory Rate 16 18 Blood Pressure 160/97 H Blood Pressure Mean 118 Pulse Ox 98 Oxygen Delivery Method Room Air MDM <BREANNA Mckinney - Last Filed: 04/08/23 17:44> MDM MDM Narrative Medical decision making narrative: Patient presenting today due to bilateral lower extremity edema, no signs of infection, low suspicion for DVT given swelling is symmetrical and patient is t herapeutic on his warfarin. He will be given a dose of Lasix here, based labs obtain. He was also given a dose of Pepcid after reporting that he forgot to take his GERD medication this morning and his throat feels irritated from his gastric reflux. His labs overall are unremarkable. He has been encouraged to take his Bumex as prescribed and follow-up with his PCP. He will be discharged home in stable condition and is comfortable with plan. I have personally performed a face to face assessment of the patient and have reviewed the YONY Note. I performed a substantive portion of the visit including all aspects of the following. My middleton findings include: History is 77-year-old male extensive past medical history. Chronic lower extremity edema on Bumex as recently missed some dosages. Saw his primary care physician in the last several days. Denies any shortness of breath. Just states his legs are more swollen. Exam is [77-year-old male. Vital signs stable and afebrile. Pulse ox 98% on room air no signs hypoxia. He is in no distress. HEENT exam unremarkable. Lungs clear to auscultation bilaterally. Regular rhythm. Abdomen soft nontender. Normal bowel sounds. No peritoneal signs. Moving all 4 extremities. 1-2+ pitting edema both lower extremities. Equal symmetrical. Chronic venous stasis changes. Neurologically he is awake and alert. No focal motor deficits.] Medical Decision Making [patient screening labs. Be given a dose of IV Lasix.] Other additions or changes: [None] Lab Data Attestation: I reviewed the patient's lab results. Lab results narrative: WBC 12.4, consistent with previous labs. Labs: Laboratory Results - last 24 hr 04/08/23 15:30 WBC 12.4 H RBC 4.59 L Hgb 14.1 Hct 43.2 MCV 94.1 H MCH 30.7 MCHC 32.6 RDW Std Deviation 52.8 H RDW Coeff of Ira 15.4 H Plt Count 378 MPV 10.1 Immature Gran % (Auto) 0.300 Neut % (Auto) 69.3 Lymph % (Auto) 12.9 L [place] % (Auto) 12.0 H Eos % (Auto) 4.9 Baso % (Auto) 0.6 Absolute Neuts (auto) 8.6 H Absolute Lymphs (auto) 1.60 Nucleated RBC % 0 Sodium 137 Potassium 4.3 Chloride 110 H Carbon Dioxide 22.0 Anion Gap 5 BUN 17 Creatinine 1.22 Estim Creat Clear Calc 45.90 Est GFR (MDRD) Af Amer 74 Est GFR (MDRD) Non-Af 61 BUN/Creatinine Ratio 13.9 Glucose 108 H Calcium 9.3 <Dr. Josué Marr MD - Last Filed: 04/08/23 15:00> [facility] Narrative Medical decision making narrative: I have personally performed a face to face assessment of the patient and have reviewed the YONY Note. I performed a substantive portion of the visit including all aspects of the following. My middleton findings include: History is 77-year-old male extensive past medical history. Chronic lower extremity edema on Bumex as recently missed some dosages. Saw his primary care physician in the last several days. Denies any shortness of breath. Just states his legs are more swollen. Exam is [77-year-old male. Vital signs stable and afebrile. Pulse ox 98% on room air no signs hypoxia. He is in no distress. HEENT exam unremarkable. Lungs clear to auscultation bilaterally. Regular rhythm. Abdomen soft nontender. Normal bowel sounds. No peritoneal signs. Moving all 4 extremities. 1-2+ pitting edema both lower extremities. Equal symmetrical. Chronic venous stasis changes. Neurologically he is awake and alert. No focal motor deficits.] Medical Decision Making [patient screening labs. Be given a dose of IV Lasix.] Other additions or changes: [None] History & Record Review Discussion w/independent historian: Patient Additional record(s) reviewed:: Prior inpatient record, Prior outpatient record, Prior ED visit and Prior labs Lab Data Labs: Laboratory Results - last 24 hr 04/08/23 15:30 WBC 12.4 H RBC 4.59 L Hgb 14.1 Hct 43.2 MCV 94.1 H MCH 30.7 MCHC 32.6 RDW Std Deviation 52.8 H RDW Coeff of Ira 15.4 H Plt Count 378 MPV 10.1 Immature Gran % (Auto) 0.300 Neut % (Auto) 69.3 Lymph % (Auto) 12.9 L [place] % (Auto) 12.0 H Eos % (Auto) 4.9 Baso % (Auto) 0.6 Absolute Neuts (auto) 8.6 H Absolute Lymphs (auto) 1.60 Nucleated RBC % 0 Sodium 137 Potassium 4.3 Chloride 110 H Carbon Dioxide 22.0 Anion Gap 5 BUN 17 Creatinine 1.22 Estim Creat Clear Calc 45.90 Est GFR (MDRD) Af Amer 74 Est GFR (MDRD) Non-Af 61 BUN/Creatinine Ratio 13.9 Glucose 108 H Calcium 9.3 Discharge Plan Triage Chief Complaint: Cellulitis ED Midlevel Provider: Renetta Salazar ED Provider: Josué Marr Dx/Rx/DC Orders Clinical Impression: Venous stasis dermatitis of both lower extremities, Lymphedema of left lower extremity, Lymphedema of right lower extremity Instructions: ED Lymphedema Prescriptions: No Action spironolactone 25 MG tablet 25 mg PO DINNER potassium chloride [Klor-Con M20] 20 MEQ tablet 40 meq PO BID calcium citrate-vitamin D3 1 EACH tablet 1 ea PO DAILY atorvastatin 20 mg Tablet 20 mg PO DAILY metoprolol tartrate 50 mg tablet 25 mg PO BID Patient Comments: TAKE 1/2 TABLET BY MOUTHC2 TIMES A DAY bumetanide 1 mg tablet 1 mg PO DINNER Patient Comments: TAKE 1 TABLET AT SUPPERwTIME AND 2 TABLETS AT BEDTIME bumetanide 1 mg tablet 2 mg PO QHS Patient Comments: TAKE 1 TABLET AT SUPPERwTIME AND 2 TABLETS AT BEDTIME warfarin 1 mg tablet See Rx Instructions .ROUTE .COMPLEX Rx Instructions: 5 mg orally omeprazole 20 MG capsule 40 mg PO BID Qty: 60 0RF Incruse Ellipta 62.5 mcg/actuation blister with device See Rx Instructions .ROUTE .COMPLEX Rx Instructions: one puff daily ferrous sulfate [FeroSul] 325 mg (65 mg iron) tablet 1 tab PO BID Patient Comments: Take 1 tablet by mouthEtwice daily with meals.N sulfamethoxazole-trimethoprim [sulfamethoxazole-trimethoprim] 800-160 mg tablet 1 tab PO BID Qty: 20 0RF cephalexin [cephalexin] 500 mg capsule 500 mg PO Q6 Qty: 40 0RF Primary Care Provider: Hubert Camarena Referrals: Hubert Camarena MD [Primary Care Provider] - 5-7 Days Activity Restrictions/Additional Instructions: Please follow-up with your PCP and return for any worsening of your symptoms. Take your Bumex as prescribed. Disposition Disposition: Home, Self Care Discharge Date/Time: 04/08/23 17:05
[2023-04-08] MEDS: Furosemide 20 MG/2 ML VIAL IV (15:25)
[2023-04-08 15:40] LABS: Absolute Neutrophil Count 8.6 X10^3/uL (2.0-7.7); Basophil# 0.08 X10^3/uL; Basophil% 0.6 % (0-1); Eosinophils% 4.9 % (0-5); Hematocrit 43.2 % (40-54); Hemoglobin 14.1 g/dL (13.0-16.5); Lymphocyte % 12.9 % (19-41); Mean Corp Hgb Conc 32.6 g/dL (32-36); Mean Corpuscular Hgb 30.7 pg (27.0-32.0); Mean Corpuscular Volume 94.1 fL (80-94); Mean Platelet Vol. 10.1 fl (6.2-12.0); Monocyte# 1.49 X10^3/uL; NRBC Flagged by Analyzer 0 % (0-5); Neutrophil # 8.56 X10^3/uL (2.7-7.7); Neutrophil % 69.3 % (47-70); Platelet Count 378 K/mm3 (150-450); RBC Distribution Width CV 15.4 % (11.6-14.6); RBC Distribution Width SD 52.8 fl (35.1-43.9); Red Blood Count 4.59 M/mm3 (4.6-6.2); White Blood Count 12.4 K/mm3 (4.4-11.0)
[2023-04-08] MEDS: Famotidine 20 MG Tablet 40 MG PO (15:46)
[2023-04-08 15:58] LABS: Anion Gap 5 (5-15); BUN 17 mg/dL (7-18); BUN/Creat Ratio 13.9 RATIO (10-20); Calcium,Total 9.3 mg/dL (8.5-10.1); Chloride 110 mmol/L (98-107); Creatinine, Serum 1.22 mg/dL (0.70-1.30); EST Glomerular Filtration Rate 61 mL/min (>60); Est Glom Filt Rate - Afr Amer 74 mL/min (>60); Glucose 108 mg/dL (74-106); Potassium 4.3 mmol/L (3.5-5.1); Sodium Level 137 mmol/L (136-145)
[2023-04-08 16:00] VITALS: RESP 18
== END 2023-04-08 17:05 | disposition home or self-care (01) ==
PROVIDERS: Physician Assistant; Emergency Provider Emergency Medicine; PCP Family Medicine; Visit Provider Emergency Medicine
DX: I87.2 Venous insufficiency (chronic) (peripheral) (principal); J44.9 Chronic obstructive pulmonary disease, unspecified; E66.01 Morbid (severe) obesity due to excess calories; Z68.42 Body mass index [BMI] 45.0-49.9, adult; N18.30 Chronic kidney disease, stage 3 unspecified; I12.9 Hypertensive chronic kidney disease with stage 1 through stage 4 chronic kidney disease, or unspecified chronic kidney disease; I89.0 Lymphedema, not elsewhere classified; E78.5 Hyperlipidemia, unspecified; Z79.01 Long term (current) use of anticoagulants; Z79.899 Other long term (current) drug therapy; Z86.711 Personal history of pulmonary embolism; Z86.718 Personal history of other venous thrombosis and embolism; Z87.891 Personal history of nicotine dependence
CPT/HCPCS: 80048; 85025; 96374; 99285; A4216; J1940

== ENCOUNTER 2023-04-11 13:01 | Emergency (ER) | payer MEDICARE, OTHER, SELFPAY ==
[2023-04-11 13:03] VITALS: BP 138/124; PULSE 62; RESP 16; TEMP 36.7; O2SAT 98; BMI 47.9
--- NOTE | 2023-04-11 13:19 | EX.ED.DYSGE1 ---
HPI History of Present Illness Chief Complaint: Edema Informant: patient Narrative Narrative: Patient presents secondary to increasing lower extremity edema. Patient has chronic venous skin changes in the lower extremities but notes increasing swelling. He has some seeping of clear fluid from the left leg. He does report slight increase shortness of breath. He states he is able to lie down flat in his recliner to sleep at night. He is currently on Bumex and states he does feel like he urinates well when he takes this. He does not check his weight on a regular basis. 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 Degenerative joint disease of spine DVT (deep venous thrombosis) Failed fundoplication Former smoker GI bleed History of deep vein thrombosis History of gastrointestinal bleeding History of pulmonary embolism HTN (hypertension) Hyperlipidemia Irregular heart beat Kidney disease Kidney stones Leg edema Leg swelling Limited mobility Lymphedema of left lower extremity Lymphedema of right lower extremity Migraines Morbid obesity with BMI of 45.0-49.9, adult Obstructive sleep apnea Prediabetes Presence of IVC filter Pulmonary embolism Sleep apnea Venous stasis dermatitis of both lower extremities Home Medications calcium citrate 315 mg calcium-vitamin D3 6.25 mcg (250 unit) tablet 1 ea PO DAILY SUPPLEMENT 10/01/13 [History Last Taken 11/11/21] potassium chloride 20 mEq tablet,extended release(part/cryst) (Klor-Con M) 40 meq PO BID SUPPLEMENT 10/01/13 [History Last Taken 11/12/21] spironolactone 25 mg tablet 25 mg PO DINNER FLUID 10/01/13 [History Last Taken 11/11/21] atorvastatin 20 mg tablet 20 mg PO DAILY CHOLESTEROL 11/12/21 [History Last Taken 11/12/21] bumetanide 1 mg tablet 1 mg PO DINNER FLUID 11/12/21 [History Last Taken 11/11/21] bumetanide 1 mg tablet 2 mg PO QHS FLUID 11/12/21 [History Last Taken 11/11/21] metoprolol tartrate 50 mg tablet 25 mg PO BID HEART 11/12/21 [History Last Taken 11/12/21] warfarin 1 mg tablet See Rx Instructions .Route .COMPLEX BLOOD THINNER 11/12/21 [History Last Taken 11/12/21 00:00] omeprazole 20 mg capsule,delayed release 40 mg (2 x 20 mg) PO BID GERD #60 caps 11/13/21 [Rx Last Taken 11/12/21] ferrous sulfate 325 mg (65 mg iron) tablet (FeroSul) 1 tab PO BID 12/08/21 [History Last Taken Unknown] umeclidinium 62.5 mcg/actuation blister powder for inhalation (Incruse Ellipta) See Rx Instructions .Route .COMPLEX Check with primary doctor 12/08/21 [History Last Taken 12/08/21] cephalexin 500 mg capsule 500 mg PO Q6 #40 CAPSULES 08/08/22 [Rx Last Taken Unknown] sulfamethoxazole 800 mg-trimethoprim 160 mg tablet 1 tab PO BID #20 TABLETS 08/08/22 [Rx Last Taken Unknown] cephalexin 500 mg capsule 500 mg PO Q12 #10 CAPSULES 04/11/23 [Rx Last Taken Unknown] Allergy/AdvReac Type Severity Reaction Status Date / Time chlorpromazine HCl Allergy Other Verified 04/11/23 13:03 [From Thorazine] metformin Allergy PT UNSURE Verified 04/11/23 13:03 OF REACTION Family History Other Heart disease Hypertension Surgical History History of embolic filter insertion History of Myrtle fundoplication History of splenectomy History of ventral hernia repair Status post splenectomy Social History household members: none Smoking Status: Former smoker substance use type: does not use ROS ROS ED Constitutional Constitutional ED: Denies chills or fever(s) Eyes Eyes: Denies discharge from eye(s) ENT ENT ED: Denies discharge from eye(s), rhinorrhea or sore throat Cardiovascular Cardiovascular: Denies chest pain or palpitations Respiratory/Chest Respiratory/Chest: Reports dyspnea; Denies cough Gastrointestinal Gastrointestinal: Denies abdominal pain, diarrhea, nausea or vomiting Genitourinary Genitourinary ED: Denies dysuria Musculoskeletal Musculoskeletal: Reports extremity pain; Denies back pain Integumentary Denies Abrasions or rash Neurologic Neurologic: Denies headache(s) or weakness Psychiatric Psychiatric: Denies anxiety or depression Allergic/Immunologic Allergic/Immunologic ED: Denies lip swelling or urticaria EXAM Physical Exam Const Vital Signs: 04/11/23 13:03 04/11/23 13:05 Temperature 98.1 F Temperature Source Oral Pulse Rate 62 Respiratory Rate 16 Respiratory Effort Short of Breath Respiratory Pattern Normal Blood Pressure 138/124 H Blood Pressure Mean 128 Pulse Ox 98 Oxygen Delivery Method Room Air Positive well nourished and well developed General Appearance ED: well developed Eyes EOMs intact bilaterally Chest Wall inspection of chest normal and palpation of chest normal Resp normal respiratory effort and clear to auscultation bilaterally Cardio regular rate and regular rhythm GI GI Narrative: Abdomen is soft, obese, nontender. Extremity Extremity Narrative: Patient with 4+ bilateral lower extremity edema with chronic venous skin changes. Erythema noted bilaterally. Clear fluid draining from the left leg. Psych mental status grossly normal Skin Skin Narrative: Chronic venous skin changes noted to the lower extremities bilaterally. MDM MDM MDM Narrative Medical decision making narrative: Patient placed on rn cardiac. IV line initiated. EKG obtained to evaluate for cardiac arrhythmia/ischemia. Chest x-ray obtained to evaluate for acute lung pathology, cardiac size, or mediastinal abnormality. Labwork obtained to evaluate for leukocytosis, anemia, and electrolyte derangement. History & Record Review Discussion w/independent historian: Patient Additional record(s) reviewed:: Prior labs Lab Data Attestation: I reviewed the patient's lab results. Labs: Laboratory Results - last 24 hr 04/11/23 13:35 WBC 9.0 RBC 4.39 L Hgb 13.6 Hct 41.5 MCV 94.5 H MCH 31.0 MCHC 32.8 RDW Std Deviation 53.6 H RDW Coeff of Ira 15.6 H Plt Count 339 MPV 10.2 Immature Gran % (Auto) 0.200 Neut % (Auto) 66.7 Lymph % (Auto) 13.4 L [place] % (Auto) 13.5 H Eos % (Auto) 5.5 H Baso % (Auto) 0.7 Absolute Neuts (auto) 6.0 Absolute Lymphs (auto) 1.20 Nucleated RBC % 0 PT 27.5 H INR 2.5 Sodium 137 Potassium 5.1 Chloride 106 Carbon Dioxide 28.0 Anion Gap 3 L BUN 17 Creatinine 1.39 H Estim Creat Clear Calc 40.29 Est GFR (MDRD) Af Amer 63 Est GFR (MDRD) Non-Af 52 L BUN/Creatinine Ratio 12.2 Glucose 119 H Calcium 9.1 B-Natriuretic Peptide 136.5 H Radiography Chest X-Ray - ED: 1 View, Read by ED Physician, Chronic Changes and No Infiltrates Diagnostic Testing: Clinical Impression(s) from Imaging Studies Chest X-Ray 04/11/23 13:42 IMPRESSION: No acute cardiopulmonary abnormality. Electronically Signed: Baudilio Antonio MD at 13:59 EST , EKG Initial EKG: Attestation: I personally reviewed and interpreted this EKG as follows: Interpretation: Atrial Fibrillation (Atrial fibrillation with ventricular rate of 53 bpm. No acute ischemia.) Treatment and Re-Evaluation :: CBC was normal white count 9.0 with a hemoglobin of 13.6. Differential unremarkable. INR therapeutic at 2.5. Chemistry studies reveal a BUN of 17 and creatinine 1.39. This is only slightly bumped when compared to his prior values. Glucose is normal at 119. BNP is 136, consistent with his prior values. Portable chest x-ray per my interpretation reveals chronic changes with no significant overt signs of CHF. Radiology interpretation reviewed and agrees. EKG is atrial fibrillation with slow ventricular rate. Patient does have chronic venous skin changes with wounds to the lower extremities. He states he is scheduled to see the wound care center on the . We will wrap both legs and put him on a 5-day course of Keflex to help prevent any further infection. He does have slight erythema at this time but no overt sign of cellulitis. Discharge Plan Triage Chief Complaint: Edema ED Provider: Kiera Rai Dx/Rx/DC Orders Clinical Impression: Lymphedema Instructions: ED Lymphedema Prescriptions: New cephalexin 500 mg capsule 500 mg PO Q12 Qty: 10 0RF No Action spironolactone 25 MG tablet 25 mg PO DINNER potassium chloride [Klor-Con M20] 20 MEQ tablet 40 meq PO BID calcium citrate-vitamin D3 1 EACH tablet 1 ea PO DAILY atorvastatin 20 mg Tablet 20 mg PO DAILY metoprolol tartrate 50 mg tablet 25 mg PO BID Patient Comments: TAKE 1/2 TABLET BY MOUTHC2 TIMES A DAY bumetanide 1 mg tablet 1 mg PO DINNER Patient Comments: TAKE 1 TABLET AT SUPPERwTIME AND 2 TABLETS AT BEDTIME bumetanide 1 mg tablet 2 mg PO QHS Patient Comments: TAKE 1 TABLET AT SUPPERwTIME AND 2 TABLETS AT BEDTIME warfarin 1 mg tablet See Rx Instructions .ROUTE .COMPLEX Rx Instructions: 5 mg orally omeprazole 20 MG capsule 40 mg PO BID Qty: 60 0RF Incruse Ellipta 62.5 mcg/actuation blister with device See Rx Instructions .ROUTE .COMPLEX Rx Instructions: one puff daily ferrous sulfate [FeroSul] 325 mg (65 mg iron) tablet 1 tab PO BID Patient Comments: Take 1 tablet by mouthEtwice daily with meals.N sulfamethoxazole-trimethoprim [sulfamethoxazole-trimethoprim] 800-160 mg tablet 1 tab PO BID Qty: 20 0RF cephalexin [cephalexin] 500 mg capsule 500 mg PO Q6 Qty: 40 0RF Primary Care Provider: Hubert Camarena Referrals: Hubert Camarena MD [Primary Care Provider] - Wound,Center [Non-Staff] - [facility] appointment Disposition Disposition: Home, Self Care
[2023-04-11 13:41] LABS: Basophil# 0.06 X10^3/uL; Basophil% 0.7 % (0-1); Eosinophil# 0.49 X10^3/uL; Eosinophils% 5.5 % (0-5); Hematocrit 41.5 % (40-54); Hemoglobin 13.6 g/dL (13.0-16.5); Lymphocyte % 13.4 % (19-41); Mean Corp Hgb Conc 32.8 g/dL (32-36); Mean Corpuscular Volume 94.5 fL (80-94); Mean Platelet Vol. 10.2 fl (6.2-12.0); Monocyte# 1.21 X10^3/uL; Monocyte% 13.5 % (0-10); NRBC Flagged by Analyzer 0 % (0-5); Neutrophil # 5.98 X10^3/uL (2.7-7.7); Neutrophil % 66.7 % (47-70); Platelet Count 339 K/mm3 (150-450); RBC Distribution Width CV 15.6 % (11.6-14.6); RBC Distribution Width SD 53.6 fl (35.1-43.9); Red Blood Count 4.39 M/mm3 (4.6-6.2)
--- NOTE | 2023-04-11 13:42 | RAD_ITS ---
EXAM: XR CHEST, 1 VIEW CLINICAL INDICATION: sob TECHNIQUE: Frontal view of the chest. COMPARISON: 01/08/2023. FINDINGS: LUNGS AND PLEURAL SPACES: Unremarkable. No consolidation or edema. No pneumothorax. No effusion. HEART: Unremarkable. Cardiac silhouette not enlarged. MEDIASTINUM: Central airways and mediastinal contour are unremarkable. BONES/JOINTS: Multiple old left rib fractures. SOFT TISSUES: Unremarkable. RAD/Chest 1 View (Portable) IMPRESSION: No acute cardiopulmonary abnormality. Electronically Signed: Baudilio Antonio MD at 13:59 EST ,
[2023-04-11 13:56] LABS: Anion Gap 3 (5-15); BNP,B-Type NATRIURETIC PEPTIDE 136.5 pg/mL (0-100); BUN 17 mg/dL (7-18); BUN/Creat Ratio 12.2 RATIO (10-20); Calcium,Total 9.1 mg/dL (8.5-10.1); Chloride 106 mmol/L (98-107); Creatinine, Serum 1.39 mg/dL (0.70-1.30); EST Glomerular Filtration Rate 52 mL/min (>60); Est Glom Filt Rate - Afr Amer 63 mL/min (>60); Estimated Creatinine Clearance 40.29 ml/min; Glucose 119 mg/dL (74-106); Potassium 5.1 mmol/L (3.5-5.1); Sodium Level 137 mmol/L (136-145)
[2023-04-11 13:58] LABS: International Normalized Ratio 2.5; Prothrombin Time (Protime)PT. 27.5 SECONDS (11.7-14.9)
[2023-04-11 15:00] VITALS: BP 97/62; PULSE 55; RESP 16; O2SAT 93
[2023-04-11] MEDS: Cephalexin 250 MG Capsule 500 MG PO (15:07)
== END 2023-04-11 15:25 | disposition home or self-care (01) ==
PROVIDERS: Emergency Provider Emergency Medicine; PCP Family Medicine; Visit Provider Emergency Medicine
DX: I89.0 Lymphedema, not elsewhere classified (principal); J44.9 Chronic obstructive pulmonary disease, unspecified; I50.9 Heart failure, unspecified; N18.30 Chronic kidney disease, stage 3 unspecified; R06.02 Shortness of breath; G47.33 Obstructive sleep apnea (adult) (pediatric); Z86.718 Personal history of other venous thrombosis and embolism; Z87.891 Personal history of nicotine dependence
CPT/HCPCS: 71045; 80048; 83880; 85025; 85610; 93005; 99285

== ENCOUNTER 2023-04-20 13:05 | Outpatient (RCR) | payer MEDICARE, OTHER, SELFPAY ==
[2023-04-20 13:15] VITALS: BP 148/63; PULSE 75; RESP 16; TEMP 36.4; BMI 46.2
--- NOTE | 2023-04-21 07:27 | HP.PCM_ITS ---
History of Present Illness Date of Service: 04/20/23 Chief Complaint: Bilateral lower extremity edema History of Wound: Mr. Vaughn Street is a 77-year-old male who presents to the wound healing center today for evaluation management of bilateral lower extremity edema. He has been seen at the wound center before for the same, previously followed with Dr. Moore. Recently, he was admitted to SNF following a hospital stay in which she was treated for cellulitis. He has had bilateral lower extremity edema for several years now and he does have associated weeping and recurrent cellulitis. Several years ago he had an accident in which he so from significant height and sustained significant trauma requiring open abdominal surgery with splenectomy. 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 He really started to notice the lower extremity swelling around that time and just has continued to get progressively worse. He also reports history of a clotting disorder. He does have an IVC filter in place. He is also anticoagulated with Coumadin for atrial fibrillation. His medical hi story is otherwise significant for CHF, HTN, CKD stage III. He has very limited activity due to his CHF/back pain/obesity and his BLE edema further limits his mobility. He does not really wear any compression at home. He does sleep in a recliner though he recently got an electric recliner that allows him to really elevate his legs higher than a traditional recliner. He is back at home now and states able to care for himself well enough; however, he reports he does not wear compression because he cannot put them on himself due to limited mobility. He does have HHC but only 1 day per week. He is not sure what agency. There is an area on the medial aspect of his L calf which is seeping/lymphorrhea, no defined wounds. Papillomas, hyperpigmentation, and hyperkeratosis noted bilaterally. [facility]LY [facility] Medical History Anemia due to acute blood loss Anticoagulant long-term use Asplenia after surgical procedure Atrial fibrillation Broken collarbone Broken ribs CHF (congestive heart failure) Chronic renal insufficiency, stage III (moderate) COPD (chronic obstructive pulmonary disease) Current use of buttermaker anticoagulation Degenerative joint disease of spine DVT (deep venous thrombosis) Failed fundoplication Former smoker GI bleed History of deep vein thrombosis History of gastrointestinal bleeding History of pulmonary embolism HTN (hypertension) Hyperlipidemia Irregular heart beat Kidney disease Kidney stones Leg edema Leg swelling Limited mobility Lymphedema of left lower extremity Lymphedema of right lower extremity Migraines Morbid obesity with BMI of 45.0-49.9, adult Obstructive sleep apnea Prediabetes Presence of IVC filter Pulmonary embolism Sleep apnea Venous stasis dermatitis of both lower extremities Home Medications calcium citrate 315 mg calcium-vitamin D3 6.25 mcg (250 unit) tablet 1 ea PO DAILY SUPPLEMENT 10/01/13 [History Last Taken 11/11/21] potassium chloride 20 mEq tablet,extended release(part/cryst) (Klor-Con M) 40 meq PO BID SUPPLEMENT 10/01/13 [History Last Taken 11/12/21] spironolactone 25 mg tablet 25 mg PO DINNER FLUID 10/01/13 [History Last Taken 11/11/21] atorvastatin 20 mg tablet 20 mg PO DAILY CHOLESTEROL 11/12/21 [History Last Taken 11/12/21] bumetanide 1 mg tablet 1 mg PO DINNER FLUID 11/12/21 [History Last Taken 11/11/21] bumetanide 1 mg tablet 2 mg PO QHS FLUID 11/12/21 [History Last Taken 11/11/21] metoprolol tartrate 50 mg tablet 25 mg PO BID HEART 11/12/21 [History Last Taken 11/12/21] warfarin 1 mg tablet See Rx Instructions .Route .COMPLEX BLOOD THINNER 11/12/21 [History Last Taken 11/12/21 00:00] omeprazole 20 mg capsule,delayed release 40 mg (2 x 20 mg) PO BID GERD #60 caps 11/13/21 [Rx Last Taken 11/12/21] ferrous sulfate 325 mg (65 mg iron) tablet (FeroSul) 1 tab PO BID 12/08/21 [History Last Taken Unknown] umeclidinium 62.5 mcg/actuation blister powder for inhalation (Incruse Ellipta) See Rx Instructions .Route .COMPLEX Check with primary doctor 12/08/21 [History Last Taken 12/08/21] Coumadin 04/20/23 [History Last Taken Unknown] Allergy/AdvReac Type Severity Reaction Status Date / Time chlorpromazine HCl Allergy Other Verified 04/11/23 13:03 [From Thorazine] metformin Allergy PT UNSURE Verified 04/11/23 13:03 OF REACTION Family History Other Heart disease Hypertension Surgical History History of embolic filter insertion History of Myrtle fundoplication History of splenectomy History of ventral hernia repair Status post splenectomy Social History household members: none Smoking Status: Former smoker substance use type: does not use Vital Signs Vital Signs Vital Signs: 04/20/23 13:15 Temperature 97.5 F L Temperature Source Temporal Pulse Rate 75 Respiratory Rate 16 Blood Pressure 148/63 H Blood Pressure Mean 91 Blood Pressure Source Monitor Blood Pressure Position Sitting Blood Pressure Location Right Arm Weight Weight: 295 lb Body Mass Index (BMI) 46.2 Physical Exam Const alert, oriented x3 and no apparent distress General Appearance: cooperative HEENT normocephalic, hearing grossly normal bilaterally, external ears normal and external nose normal Eyes EOMs intact bilaterally General Eye: normal appearance of both eyes Neck General: normal visual inspection and trachea midline Resp normal respiratory effort, normal air movement, no retractions and no use of accessory muscles Effort and Inspection: able to speak in complete sentences Cardio regular rate and regular rhythm Extremity Extremity Narrative: Bilateral lower extremity edema 3+. Skin Wound Narrative: There is an area on the medial aspect of his L calf which is seeping /lymphorrhea, no defined wounds. Papillomas, hyperpigmentation, and hyperkeratosis noted bilaterally. Neuro CN's II-XII intact bilaterally, moves all extremities, no focal motor deficits and no sensory deficits noted Psych Appearance: grossly normal Attitude: calm and engaged Activity / Motor Behavior: appropriate eye contact Speech: normal speech Mood & Affect: euthymic mood Judgement: judgement good Debridement Note Debridement Note No debridement was completed: No debridement was completed today Charges/Coding Visit Charges Office Visits / Consults: 15972 OV L3 New Assessment/Plan Assessment/Plan (1) Morbid obesity with BMI of 45.0-49.9, adult: CODE(S): E66.01 - Morbid (severe) obesity due to excess calories; Z68.42 - Body mass index [BMI] 45.0-49.9, adult (2) Venous stasis dermatitis of both lower extremities: CODE(S): I87.2 - Venous insufficiency (chronic) (peripheral) (3) Lymphedema of right lower extremity: CODE(S): I89.0 - Lymphedema, not elsewhere classified (4) Lymphedema of left lower extremity: CODE(S): I89.0 - Lymphedema, not elsewhere classified PLAN: Plan We will apply Unna boots bilaterally to manage weeping and edema. He is instructed to keep the wraps dry. He is instructed to elevate his legs to the level of his heart or higher as much as tolerated while resting and sleeping. He is advised to get up and walk around as much as tolerated every couple hours throughout the day. We discussed utilizing pneumatic leg pumps to help manage his edema as well. May need to consider if there are any donning/doffing tools which could help him to be more compliant with compression as this will be [place] in preventing continued progression of his lymphedema/chronic skin changes. He is to call us back and let us know what [facility] agency is working with him so we can send orders to have wraps changed Mon/Tu next week. He will return to the wound care center in 1 week or sooner as needed.
== END 2023-04-20 23:59 | disposition home or self-care (01) ==
LOC: WC 13:05
PROVIDERS: PCP Family Medicine; Referring Provider Family Medicine; Visit Provider Physician Assistant
DX: I89.0 Lymphedema, not elsewhere classified (principal); J44.9 Chronic obstructive pulmonary disease, unspecified; I13.0 Hypertensive heart and chronic kidney disease with heart failure and stage 1 through stage 4 chronic kidney disease, or unspecified chronic kidney disease; I50.9 Heart failure, unspecified; Z68.42 Body mass index [BMI] 45.0-49.9, adult; E66.01 Morbid (severe) obesity due to excess calories; N18.30 Chronic kidney disease, stage 3 unspecified; R60.0 Localized edema; Z87.891 Personal history of nicotine dependence; E78.5 Hyperlipidemia, unspecified; Z79.899 Other long term (current) drug therapy; Z79.01 Long term (current) use of anticoagulants; I87.2 Venous insufficiency (chronic) (peripheral)
CPT/HCPCS: 29580; 99213; G0463

== ENCOUNTER 2023-05-18 13:30 | Outpatient (RCR) | payer MEDICARE, OTHER, SELFPAY ==
[2023-04-21 00:05] VITALS: BP 148/63; PULSE 75; RESP 16; TEMP 36.4; BMI 46.2
[2023-04-27 13:23] VITALS: BP 158/60; PULSE 74; RESP 18; TEMP 35.9; BMI 46.2
--- NOTE | 2023-04-28 15:09 | PCM.WC.PN ---
History of Present Illness Date of Service: 04/27/23 Chief Complaint: Severe swelling, edema, lymphedema, and venous stasis dermatitis in the lower extremities bilaterally History of Wound: This is a morbidly obese 76-year-old male who presented with very profound venous stasis dermatitis in his lower extremities bilaterally, associated with swelling, edema, and lymphedema. His lower extremities have been in this condition for at least 2 to 3 years. The patient's mobility is extremely limited. He ambulates very slowly and deliberately due to shortness of breath secondary to COPD, as well as back problems. He requires the use of a cane. He sleeps in a recliner, and sits idly throughout the day. He rarely elevates his lower extremities. Furthermore, he is morbidly obese. Subjective Subjective He did well with the Unna boots last week, he states no pain, itching, etc. His legs are measuring smaller this week. Prior weeping area is decreased in size. No new open areas. [facility] did not change his Unna boots half way through the week as planned. He thinks he has [facility]. He is having scheduling issues with them at this time, is not happy that they do not seem to be able to accommodate his preferred day of the week for visits. Objective Data Objective Data Vital Signs: Vital Signs Temp Pulse Resp BP O2 Del Method 96.7 F L 74 18 158/60 H Room Air 04/27/23 13:23 04/27/23 13:23 04/27/23 13:23 04/27/23 13:23 04/27/23 13:23 Oxygen Delivery Method Room Air Weight: 295 lb Body Mass Index (BMI) 46.2 Charges/Coding Visit Charges Office Visits / Consults: 74835 OV L3 Est Physical Exam Const alert, oriented x3 and no apparent distress General Appearance: cooperative HEENT normocephalic, hearing grossly normal bilaterally, external ears normal and external nose normal Eyes EOMs intact bilaterally General Eye: normal appearance of both eyes Neck General: normal visual inspection and trachea midline Resp normal respiratory effort, normal air movement, no retractions and no use of accessory muscles Effort and Inspection: able to speak in complete sentences Cardio regular rate and regular rhythm Extremity Extremity Narrative: Bilateral lower extremity edema 3+. Skin Wound Narrative: There is an area on the medial aspect of his L calf which is seeping/lymphorrhea but reduced in size from last week, no defined wounds. Papillomas, hyperpigmentation, and hyperkeratosis noted bilaterally. Neuro CN's II-XII intact bilaterally, moves all extremities, no focal motor deficits and no sensory deficits noted Psych Appearance: grossly normal Attitude: calm and engaged Activity / Motor Behavior: appropriate eye contact Speech: normal speech Mood & Affect: euthymic mood Judgement: judgement good Debridement Note Debridement Note No debridement was completed: No debridement was completed today Post-Debridement Measurements and Additional Note: Post-Debridement Measurements/Treatment WC - Nurse 1 - General Ulcer Assessment Start: 04/27/23 13:23 Freq: Status: Active Protocol: THAO Activity Type Activity Date Activity User E-sign Co-sign Detail Recorded Client Recorded Date Recorded By Document 04/27/23 13:23 KW Desktop 04/27/23 13:48 KW 04/27/23 13:23 WC - Today's Visit Information Type of service Follow-up Visit (Physician/CONTROL TECHNICIAN ) Arrival Mode Ambulatory,Cane Patient Identification Verified (Name & Yes ) Height and Weight Body Mass Index (BMI) 46.2 BMI Classification Obese Vital Signs Temperature (97.8 F-99.1 F) 96.7 F L Temperature Source Temporal Pulse Rate (60-100) 74 Respiratory Rate (12-18) 18 Respiratory rate source Observation Oxygen Delivery Method Room Air Blood Pressure (90/60-120/80) 158/60 H Blood Pressure Mean (mm Hg) 92 Source Monitor Position Sitting Blood Pressure Location Left Arm History Since Last Visit- (Skip if this is Patient's initial visit) Have you changed medications since your No last visit? Any new allergies or adverse reactions No Had a fall/change in ADL's that may No increase risk of falls Signs or symptoms of abuse and/or No neglect since last visit Have you been in the hospital since your No last visit? Has dressing in place as prescribed Yes Has compression in place as prescribed Yes Has offloadiing in place as prescribed No Experienced any changes in pain level or No management Left Footwear Regular Shoe Right Footwear Regular Shoe Pain Scale: 0-10 Numeric Is Patient Pain Free? Yes CAROL - Nurse 1 - General Ulcer Measurement Start: 04/27/23 13:23 Freq: Status: Active Protocol: Activity Type Activity Date Activity User E-sign Co-sign Detail Recorded Client Recorded Date Recorded By Document 04/27/23 13:23 KW Desktop 04/27/23 13:48 KW 04/27/23 13:23 Wound Center Nurse 1 Right Calf (cm) 55.0 Right Ankle (cm) 30 Left Calf (cm) 54.5 Left Ankle (cm) 33.0 WC - Nurse 3 - General Ulcer D/C NN Start: 04/27/23 13:23 Freq: Status: Active Protocol: Activity Type Activity Date Activity User E-sign Co-sign Detail Recorded Client Recorded Date Recorded By Document 04/27/23 14:14 DL Desktop 04/27/23 14:15 DL 04/27/23 14:14 Wound Care Center Nurse 3 srikanth -Multi-Layered Wrap Application Unna Boot - Bilateral ($) Treatment Response Procedure Tolerated Well Pain Scale: 0-10 Numeric Is Patient Pain Free? Yes WC - Visit Discharge Discharge Condition Stable Ambulatory Status Ambulatory,Cane Transportation Private Auto Assessment/Plan Assessment/Plan (1) Morbid obesity with BMI of 45.0-49.9, adult: CODE(S): E66.01 - Morbid (severe) obesity due to excess calories; Z68.42 - Body mass index [BMI] 45.0-49.9, adult (2) Venous stasis dermatitis of both lower extremities: CODE(S): I87.2 - Venous insufficiency (chronic) (peripheral) (3) Lymphedema of right lower extremity: CODE(S): I89.0 - Lymphedema, not elsewhere classified (4) Lymphedema of left lower extremity: CODE(S): I89.0 - Lymphedema, not elsewhere classified PLAN: Plan We will again apply Unna boots bilaterally. Ideally, [facility] would change half way through the week. Will send orders to [facility]. He is instructed to elevate his legs to the level of his heart or higher as much as tolerated while resting and sleeping. He is advised to get up and walk around as much as tolerated every couple hours throughout the day. It seems that last time he was seen at the wound center Dr. Moore had prescribed lymphedema pumps and they were ordered through [employer]. However, patient reports he no longer has them, not clear why but perhaps an insurance issue. Will re-apply for pneumatic pumps through a different company. I feel that he would significantly benefit from pneumatic compression pumps given his mobility is too limited to consistently apply measured compression stockings or wraps, and additionally he struggles to elevate his legs to an adequate level due to back pain. He will need to be cleared from a cardiac perspective, but seems he was in the past so hopefully this will not be an issue. He will return to the wound care center in 1 week or sooner as needed.
[2023-05-04 13:36] VITALS: BP 160/72; PULSE 71; RESP 20; TEMP 35.8; BMI 46.2
--- NOTE | 2023-05-04 13:57 | PN.PCM_ITS ---
History of Present Illness Date of Service: 05/04/23 Chief Complaint: Severe swelling, edema, lymphedema, and venous stasis tavon matitis in the lower extremities bilaterally History of Wound: Mr. Vaughn Street is a 77-year-old male who presents to the wound healing center today for evaluation management of bilateral lower extremity edema. He has been seen at the wound center before for the same, previously followed with Dr. Moore. Recently, he was admitted to [facility] following a hospital stay in which she was treated for cellulitis. He has had bilateral lower extremity edema for several years now and he does have associated weeping and recurrent cellulitis. 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 He really started to notice the lower extremity swelling around that time and just has continued to get progressively worse. He also reports history of a clotting disorder. He does have an IVC filter in place. He is also anticoagulated with Coumadin for atrial fibrillation. His medical history is otherwise significant for CHF, HTN, CKD stage III. He has very limited activity due to his CHF/back pain/obesity and his BLE edema further limits his mobility. He does not really wear any compression at home. He does sleep in a recliner though he recently got an electric recliner that allows him to really elevate his legs higher than a traditional recliner. He is back at home now and states able to care for himself well enough; however, he reports he does not wear compression because he cannot put them on himself due to limited mobility. He does have HHC but only 1 day per week. Subjective Subjective Patient is doing well this week overall. [facility]HC did change his leg wraps on Monday, however, he notes they reused the same wrapping and it is unclear if they applied the coban portion or not. This week he did have an increase in his lower extremity swelling so I question if there was some confusion with the wraps with HHC. Otherwise, no N/V, F/C. Objective Data Objective Data Vital Signs: Vital Signs Temp Pulse Resp BP O2 Del Method 96.5 F L 71 20 H 160/72 H Room Air 05/04/23 13:36 05/04/23 13:36 05/04/23 13:36 05/04/23 13:36 05/04/23 13:36 Oxygen Delivery Method Room Air Weight: 295 lb Body Mass Index (BMI) 46.2 Charges/Coding Visit Charges Office Visits / Consults: 28934 OV L3 Est Physical Exam Const alert, oriented x3 and no apparent distress General Appearance: cooperative HEENT normocephalic, hearing grossly normal bilaterally, external ears normal and external nose normal Eyes EOMs intact bilaterally General Eye: normal appearance of both eyes Neck General: normal visual inspection and trachea midline Resp normal respiratory effort, normal air movement, no retractions and no use of accessory muscles Effort and Inspection: able to speak in complete sentences Extremity Extremity Narrative: Bilateral lower extremity edema 3+. Skin Wound Narrative: There are no further open, weeping areas. Papillomas, hyperpigmentation, and hyperkeratosis noted bilaterally. Neuro CN's II-XII intact bilaterally, moves all extremities, no focal motor deficits and no sensory deficits noted Psych Appearance: grossly normal Attitude: calm and engaged Activity / Motor Behavior: appropriate eye contact Speech: normal speech Mood & Affect: euthymic mood Judgement: judgement good Debridement Note Debridement Note No debridement was completed: No debridement was completed today Post-Debridement Measurements and Additional Note: Post-Debridement Measurements/Treatment - Nurse 1 - General Ulcer Assessment Start: 04/27/23 13:23 Freq: Status: Active Protocol: THAO Activity Type Activity Date Activity User E-sign Co-sign Detail Recorded Client Recorded Date Recorded By Document 04/27/23 13:23 KW Desktop 04/27/23 13:48 KW Document 05/04/23 13:36 KW Desktop 05/04/23 13:41 KW 04/27/23 05/04/23 13:23 13:36 - Today's Visit Information Type of service Follow-up Visit Follow-up Visit (Physician/MORTUARY BEAUTICIAN (Physician/MORTUARY BEAUTICIAN ) ) Arrival Mode Ambulatory,Cane Ambulatory Transfer Assistance None Patient Identification Verified (Name & Yes Yes ) Patient Requires Transmission-Based No Precautions Height and Weight Body Mass Index (BMI) 46.2 46.2 BMI Classification Obese Obese Vital Signs Temperature (97.8 F-99.1 F) 96.7 F L 96.5 F L Temperature Source Temporal Temporal Pulse Rate (60-100) 74 71 Pulse Location Monitor Respiratory Rate (12-18) 18 20 H Respiratory rate source Observation Observation Oxygen Delivery Method Room Air Room Air Blood Pressure (90/60-120/80) 158/60 H 160/72 H Blood Pressure Mean (mm Hg) 92 101 Source Monitor Monitor Position Sitting Sitting Blood Pressure Location Left Arm Left Arm History Since Last Visit- (Skip if this is Patient's initial visit) Have you changed medications since your No No last visit? Any new allergies or adverse reactions No No Had a fall/change in ADL's that may No No increase risk of falls Signs or symptoms of abuse and/or No No neglect since last visit Have you been in the hospital since your No No last visit? Has dressing in place as prescribed Yes Yes Has compression in place as prescribed Yes Yes Has offloadiing in place as prescribed No N/A Experienced any changes in pain level or No No management Left Footwear Regular Shoe Regular Shoe Right Footwear Regular Shoe Regular Shoe Pain Scale: 0-10 Numeric Is Patient Pain Free? Yes Yes - Nurse 1 - General Ulcer Measurement Start: 04/27/23 13:23 Freq: Status: Active Protocol: Activity Type Activity Date Activity User E-sign Co-sign Detail Recorded Client Recorded Date Recorded By Document 04/27/23 13:23 KW Desktop 04/27/23 13:48 KW Document 05/04/23 13:36 KW Desktop 05/04/23 13:41 KW 04/27/23 05/04/23 13:23 13:36 Wound Center Nurse 1 Lower Limb Edema Present Yes Right Calf (cm) 55.0 59.4 Right Ankle (cm) 30 31.5 Left Calf (cm) 54.5 57.7 Left Ankle (cm) 33.0 31.4 - Nurse 3 - General Ulcer D/C NN Start: 04/27/23 13:23 Freq: Status: Active Protocol: Activity Type Activity Date Activity User E-sign Co-sign Detail Recorded Client Recorded Date Recorded By Document 04/27/23 14:14 DL Desktop 04/27/23 14:15 DL 04/27/23 14:14 Wound Care Center Nurse 3 srikanth -Multi-Layered Wrap Application Unna Boot - Bilateral ($) Treatment Response Procedure Tolerated Well Pain Scale: 0-10 Numeric Is Patient Pain Free? Yes WC - Visit Discharge Discharge Condition Stable Ambulatory Status Ambulatory,Cane Transportation Private Auto Assessment/Plan Assessment/Plan (1) Morbid obesity with BMI of 45.0-49.9, adult: CODE(S): E66.01 - Morbid (severe) obesity due to excess calories; Z68.42 - Body mass index [BMI] 45.0-49.9, adult (2) Venous stasis dermatitis of both lower extremities: CODE(S): I87.2 - Venous insufficiency (chronic) (peripheral) (3) Lymphedema of right lower extremity: CODE(S): I89.0 - Lymphedema, not elsewhere classified (4) Lymphedema of left lower extremity: CODE(S): I89.0 - Lymphedema, not elsewhere classified PLAN: Plan We will again apply Unna boots bilaterally. Will have them remain in place all week as long as tolerated to try to better control his edema. He is instructed to elevate his legs to the level of his heart or higher as much as tolerated while resting and sleeping. He is advised to get up and walk around as much as tolerated every couple hours throughout the day. We have submitted for pneumatic leg pumps. He will return to the wound care center in 1 week or sooner as needed.
[2023-05-11 11:09] VITALS: BP 160/79; PULSE 80; RESP 18; TEMP 36.1; BMI 46.2
--- NOTE | 2023-05-12 07:51 | PN.PCM_ITS ---
History of Present Illness Date of Service: 05/11/23 Chief Complaint: Severe swelling, edema, lymphedema, and venous stasis tavon matitis in the lower extremities bilaterally History of Wound: Mr. Vaughn Street is a 77-year-old male who presents to the wound healing center today for evaluation management of bilateral lower extremity edema. He has been seen at the wound center before for the same, previously followed with Dr. Moore. Recently, he was admitted to [facility] following a hospital stay in which she was treated for cellulitis. He has had bilateral lower extremity edema for several years now and he does have associated weeping and recurrent cellulitis. 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 He really started to notice the lower extremity swelling around that time and just has continued to get progressively worse. He also reports history of a clotting disorder. He does have an IVC filter in place. He is also anticoagulated with Coumadin for atrial fibrillation. His medical history is otherwise significant for CHF, HTN, CKD stage III. He has very limited activity due to his CHF/back pain/obesity and his BLE edema further limits his mobility. He does not really wear any compression at home. He does sleep in a recliner though he recently got an electric recliner that allows him to really elevate his legs higher than a traditional recliner. He is back at home now and states able to care for himself well enough; however, he reports he does not wear compression because he cannot put them on himself due to limited mobility. He does have HHC but only 1 day per week. Subjective Subjective Patient did well with compression wraps this week. Has not yet heard from company regarding pneumatic pumps. No new wounds or open areas. Objective Data Objective Data Vital Signs: Vital Signs Temp Pulse Resp BP O2 Del Method 97.0 F L 80 18 160/79 H Room Air 05/11/23 11:09 05/11/23 11:09 05/11/23 11:09 05/11/23 11:09 05/11/23 11:09 Oxygen Delivery Method Room Air Weight: 295 lb Body Mass Index (BMI) 46.2 Charges/Coding Visit Charges Office Visits / Consults: 41010 OV L3 Est Physical Exam Const alert, oriented x3 and no apparent distress General Appearance: cooperative HEENT normocephalic, hearing grossly normal bilaterally, external ears normal and external nose normal Eyes EOMs intact bilaterally General Eye: normal appearance of both eyes Neck General: normal visual inspection and trachea midline Resp normal respiratory effort, normal air movement, no retractions and no use of accessory muscles Effort and Inspection: able to speak in complete sentences Extremity Extremity Narrative: Bilateral lower extremity edema 3+. Skin Wound Narrative: There are no further open, weeping areas. Papillomas, hyperpigmentation, and hyperkeratosis noted bilaterally. Neuro CN's II-XII intact bilaterally, moves all extremities, no focal motor deficits and no sensory deficits noted Psych Appearance: grossly normal Attitude: calm and engaged Activity / Motor Behavior: appropriate eye contact Speech: normal speech Mood & Affect: euthymic mood Judgement: judgement good Debridement Note Debridement Note No debridement was completed: No debridement was completed today Post-Debridement Measurements and Additional Note: Post-Debridement Measurements/Treatment - Nurse 1 - General Ulcer Assessment Start: 04/27/23 13:23 Freq: Status: Active Protocol: CAROLGrandisFRED Activity Type Activity Date Activity User E-sign Co-sign Detail Recorded Client Recorded Date Recorded By Document 04/27/23 13:23 KW Desktop 04/27/23 13:48 KW Document 05/04/23 13:36 KW Desktop 05/04/23 13:41 KW Document 05/11/23 11:09 KW Desktop 05/11/23 11:14 KW 04/27/23 05/04/23 05/11/23 13:23 13:36 11:09 - Today's Visit Information Type of service Follow-up Visit Follow-up Visit Follow-up Visit (Physician/CONSULTING SYSTEMS ENGINEER (Physician/CONSULTING SYSTEMS ENGINEER (Physician/CONSULTING SYSTEMS ENGINEER ) ) ) Arrival Mode Ambulatory,Cane Ambulatory Ambulatory,Cane Transfer Assistance None Patient Identification Verified (Name & Yes Yes Yes ) Patient Requires Transmission-Based No Precautions Height and Weight Body Mass Index (BMI) 46.2 46.2 46.2 BMI Classification Obese Obese Obese Vital Signs Temperature (97.8 F-99.1 F) 96.7 F L 96.5 F L 97.0 F L Temperature Source Temporal Temporal Temporal Pulse Rate (60-100) 74 71 80 Pulse Location Monitor Monitor Respiratory Rate (12-18) 18 20 H 18 Respiratory rate source Observation Observation Observation Oxygen Delivery Method Room Air Room Air Room Air Blood Pressure (90/60-120/80) 158/60 H 160/72 H 160/79 H Blood Pressure Mean (mm Hg) 92 101 106 Source Monitor Monitor Monitor Position Sitting Sitting Sitting Blood Pressure Location Left Arm Left Arm Left Arm History Since Last Visit- (Skip if this is Patient's initial visit) Have you changed medications since your No No No last visit? Any new allergies or adverse reactions No No No Had a fall/change in ADL's that may No No No increase risk of falls Signs or symptoms of abuse and/or No No No neglect since last visit Have you been in the hospital since your No No No last visit? Has dressing in place as prescribed Yes Yes Yes Has compression in place as prescribed Yes Yes Yes Has offloadiing in place as prescribed No N/A No Experienced any changes in pain level or No No No management Left Footwear Regular Shoe Regular Shoe Regular Shoe Right Footwear Regular Shoe Regular Shoe Regular Shoe Pain Scale: 0-10 Numeric Is Patient Pain Free? Yes Yes Yes WC - Nurse 1 - General Ulcer Measurement Start: 04/27/23 13:23 Freq: Status: Active Protocol: Activity Type Activity Date Activity User E-sign Co-sign Detail Recorded Client Recorded Date Recorded By Document 04/27/23 13:23 KW Desktop 04/27/23 13:48 KW Document 05/04/23 13:36 KW Desktop 05/04/23 13:41 KW Document 05/11/23 11:09 KW Desktop 05/11/23 11:14 KW 04/27/23 05/04/23 05/11/23 13:23 13:36 11:09 Wound Center Nurse 1 Lower Limb Edema Present Yes Right Calf (cm) 55.0 59.4 59 Right Ankle (cm) 30 31.5 30.6 Left Calf (cm) 54.5 57.7 56.9 Left Ankle (cm) 33.0 31.4 30.5 WC - Nurse 3 - General Ulcer D/C NN Start: 04/27/23 13:23 Freq: Status: Active Protocol: Activity Type Activity Date Activity User E-sign Co-sign Detail Recorded Client Recorded Date Recorded By Document 04/27/23 14:14 DL Desktop 04/27/23 14:15 DL Document 05/04/23 14:03 KW Desktop 05/04/23 14:03 KW Document 05/11/23 11:36 BM Desktop 05/11/23 11:37 BM 04/27/23 05/04/23 05/11/23 14:14 14:03 11:36 Wound Care Center Nurse 3 srikanth -Multi-Layered Wrap Application Unna Boot - Unna Boot - Multi-Layer Bilateral ($) Bilateral ($) Comp - Bilat ($ ) Treatment Response Procedure Procedure Tolerated Well Tolerated Well Pain Scale: 0-10 Numeric Is Patient Pain Free? Yes Yes Yes WC - Visit Discharge Discharge Condition Stable Stable Stable Ambulatory Status Ambulatory,Cane Ambulatory Ambulatory,Cane Transportation Private Auto Private Auto Private Auto Medication Reconcilliation completed & No provided to patient/care provider Clinical Summary of Care Provided Yes Assessment/Plan Assessment/Plan (1) Morbid obesity with BMI of 45.0-49.9, adult: CODE(S): E66.01 - Morbid (severe) obesity due to excess calories; Z68.42 - Body mass index [BMI] 45.0-49.9, adult (2) Venous stasis dermatitis of both lower extremities: CODE(S): I87.2 - Venous insufficiency (chronic) (peripheral) (3) Lymphedema of right lower extremity: CODE(S): I89.0 - Lymphedema, not elsewhere classified (4) Lymphedema of left lower extremity: CODE(S): I89.0 - Lymphedema, not elsewhere classified PLAN: Plan Will increase level of compression this week by applying 3M wraps bilaterally. These will stay in place all week as long as tolerated and no excess drainage. He is instructed to elevate his legs to the level of his heart or higher as much as tolerated while resting and sleeping. He is advised to get up and walk around as much as tolerated every couple hours throughout the day. We have submitted for pneumatic leg pumps. He will return to the wound care center in 1 week or sooner as needed.
[2023-05-18 13:37] VITALS: BP 152/71; PULSE 69; RESP 24; TEMP 35.9; BMI 46.2
--- NOTE | 2023-05-19 00:24 | PCM.WC.PN ---
History of Present Illness Date of Service: 05/18/23 Chief Complaint: Severe swelling, edema, lymphedema, and venous stasis dermatitis in the lower extremities bilaterally History of Wound: Mr. Vaughn Street is a 77-year-old male who presents to the wound healing center today for evaluation management of bilateral lower extremity edema. He has been seen at the wound center before for the same, previously followed with Dr. Moore. Recently, he was admitted to [facility] following a hospital stay in which she was treated for cellulitis. He has had bilateral lower extremity edema for several years now and he does have associated weeping and recurrent cellulitis. 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 He really started to notice the lower extremity swelling around that time and just has continued to get progressively worse. He also reports history of a clotting disorder. He does have an IVC filter in place. He is also anticoagulated with Coumadin for atrial fibrillation. His medical history is otherwise significant for CHF, HTN, CKD stage III. He has very limited activity due to his CHF/back pain/obesity and his BLE edema further limits his mobility. He does not really wear any compression at home. He does sleep in a recliner though he recently got an electric recliner that allows him to really elevate his legs higher than a traditional recliner. He is back at home now and states able to care for himself well enough; however, he reports he does not wear compression because he cannot put them on himself due to limited mobility. He does have HHC but only 1 day per week. Subjective Subjective Significant improvement was noted in his lower extremity edema with 3M wraps this week. He reports they have been comfortable, no issues. No new wounds or leaking areas. He has been having diarrhea the last week but otherwise no complaints, no F/C. Objective Data Objective Data Vital Signs: Vital Signs Temp Pulse Resp BP O2 Del Method 96.6 F L 69 24 H 152/71 H Room Air 05/18/23 13:37 05/18/23 13:37 05/18/23 13:37 05/18/23 13:37 05/11/23 11:09 Oxygen Delivery Method Room Air Weight: 295 lb Body Mass Index (BMI) 46.2 Charges/Coding Visit Charges Office Visits / Consults: 24600 OV L3 Est Physical Exam Const alert, oriented x3 and no apparent distress General Appearance: cooperative HEENT normocephalic, hearing grossly normal bilaterally, external ears normal and external nose normal Eyes EOMs intact bilaterally General Eye: normal appearance of both eyes Neck General: normal visual inspection and trachea midline Resp normal respiratory effort, normal air movement, no retractions and no use of accessory muscles Effort and Inspection: able to speak in complete sentences Extremity Extremity Narrative: Bilateral lower extremity edema 2+. Skin Wound Narrative: There are no further open, weeping areas. Papillomas, hyperpigmentation, and hyperkeratosis noted bilaterally. Neuro CN's II-XII intact bilaterally, moves all extremities, no focal motor deficits and no sensory deficits noted Psych Appearance: grossly normal Attitude: calm and engaged Activity / Motor Behavior: appropriate eye contact Speech: normal speech Mood & Affect: euthymic mood Judgement: judgement good Debridement Note Debridement Note No debridement was completed: No debridement was completed today Post-Debridement Measurements and Additional Note: Post-Debridement Measurements/Treatment - Nurse 1 - General Ulcer Assessment Start: 04/27/23 13:23 Freq: Status: Active Protocol: WC.LOWSINDI Activity Type Activity Date Activity User E-sign Co-sign Detail Recorded Client Recorded Date Recorded By Document 04/27/23 13:23 KW Desktop 04/27/23 13:48 KW Document 05/04/23 13:36 KW Desktop 05/04/23 13:41 KW Document 05/11/23 11:09 KW Desktop 05/11/23 11:14 KW Document 05/18/23 13:37 DL Desktop 05/18/23 13:44 DL 04/27/23 05/04/23 05/11/23 13:23 13:36 11:09 - Today's Visit Information Type of service Follow-up Visit Follow-up Visit Follow-up Visit (Physician/BULLET CHARGING MACHINE OPERATOR (Physician/BULLET CHARGING MACHINE OPERATOR (Physician/BULLET CHARGING MACHINE OPERATOR ) ) ) Arrival Mode Ambulatory,Cane Ambulatory Ambulatory,Cane Transfer Assistance None Patient Identification Verified (Name & Yes Yes Yes ) Patient Requires Transmission-Based No Precautions Height and Weight Body Mass Index (BMI) 46.2 46.2 46.2 BMI Classification Obese Obese Obese Vital Signs Temperature (97.8 F-99.1 F) 96.7 F L 96.5 F L 97.0 F L Temperature Source Temporal Temporal Temporal Pulse Rate (60-100) 74 71 80 Pulse Location Monitor Monitor Respiratory Rate (12-18) 18 20 H 18 Respiratory rate source Observation Observation Observation Oxygen Delivery Method Room Air Room Air Room Air Blood Pressure (90/60-120/80) 158/60 H 160/72 H 160/79 H Blood Pressure Mean (mm Hg) 92 101 106 Source Monitor Monitor Monitor Position Sitting Sitting Sitting Blood Pressure Location Left Arm Left Arm Left Arm Comment History Since Last Visit- (Skip if this is Patient's initial visit) Have you changed medications since your No No No last visit? Any new allergies or adverse reactions No No No Had a fall/change in ADL's that may No No No increase risk of falls Signs or symptoms of abuse and/or No No No neglect since last visit Have you been in the hospital since your No No No last visit? Has dressing in place as prescribed Yes Yes Yes Has compression in place as prescribed Yes Yes Yes Has offloadiing in place as prescribed No N/A No Experienced any changes in pain level or No No No management Left Footwear Regular Shoe Regular Shoe Regular Shoe Right Footwear Regular Shoe Regular Shoe Regular Shoe Pain Scale: 0-10 Numeric Is Patient Pain Free? Yes Yes Yes 05/18/23 13:37 WC - Today's Visit Information Type of service Follow-up Visit (Physician/BULLET CHARGING MACHINE OPERATOR ) Arrival Mode Ambulatory, Walker Transfer Assistance None Patient Identification Verified (Name & Yes ) Patient Requires Transmission-Based No Precautions Height and Weight Body Mass Index (BMI) 46.2 BMI Classification Obese Vital Signs Temperature (97.8 F-99.1 F) 96.6 F L Temperature Source Temporal Pulse Rate (60-100) 69 Pulse Location Monitor Respiratory Rate (12-18) 24 H Respiratory rate source Oxygen Delivery Method Blood Pressure (90/60-120/80) 152/71 H Blood Pressure Mean (mm Hg) 98 Source Monitor Position Blood Pressure Location Comment Sp02 94-95 History Since Last Visit- (Skip if this is Patient's initial visit) Have you changed medications since your No last visit? Any new allergies or adverse reactions No Had a fall/change in ADL's that may No increase risk of falls Signs or symptoms of abuse and/or No neglect since last visit Have you been in the hospital since your No last visit? Has dressing in place as prescribed No Has compression in place as prescribed Yes Has offloadiing in place as prescribed N/A Experienced any changes in pain level or No management Left Footwear Slipper Right Footwear Regular Shoe Pain Scale: 0-10 Numeric Is Patient Pain Free? Yes WC - Nurse 1 - General Ulcer Measurement Start: 04/27/23 13:23 Freq: Status: Active Protocol: Activity Type Activity Date Activity User E-sign Co-sign Detail Recorded Client Recorded Date Recorded By Document 04/27/23 13:23 KW Desktop 04/27/23 13:48 KW Document 05/04/23 13:36 KW Desktop 05/04/23 13:41 KW Document 05/11/23 11:09 KW Desktop 05/11/23 11:14 KW Document 05/18/23 13:37 DL Desktop 05/18/23 13:44 DL 04/27/23 05/04/23 05/11/23 13:23 13:36 11:09 Wound Center Nurse 1 Lower Limb Edema Present Yes Right Calf (cm) 55.0 59.4 59 Right Ankle (cm) 30 31.5 30.6 Point of Measurement (cm from the medial instep) Left Calf (cm) 54.5 57.7 56.9 Point of measurement (cm from the medial instep) Left Ankle (cm) 33.0 31.4 30.5 Point of Measurement (cm from the medial instep) 05/18/23 13:37 Wound Center Nurse 1 Lower Limb Edema Present Right Calf (cm) 52 Right Ankle (cm) Point of Measurement (cm from the medial 30.2 instep) Left Calf (cm) Point of measurement (cm from the medial 49 instep) Left Ankle (cm) Point of Measurement (cm from the medial 29 instep) WC - Nurse 3 - General Ulcer D/C NN Start: 04/27/23 13:23 Freq: Status: Active Protocol: Activity Type Activity Date Activity User E-sign Co-sign Detail Recorded Client Recorded Date Recorded By Document 04/27/23 14:14 DL Desktop 04/27/23 14:15 DL Document 05/04/23 14:03 KW Desktop 05/04/23 14:03 KW Document 05/11/23 11:36 BMF Desktop 12/21/23 11:37 BMF Document 05/18/23 14:11 DL Desktop 05/18/23 14:12 DL Document 05/18/23 14:22 DL Desktop 05/18/23 14:22 DL 04/27/23 05/04/23 05/11/23 14:14 14:03 11:36 Wound Care Center Nurse 3 srikanth -Lotion applied to leg before compression wrap -Multi-Layered Wrap Application Unna Boot - Unna Boot - Multi-Layer Bilateral ($) Bilateral ($) Comp - Bilat ($ ) Treatment Response Procedure Procedure Tolerated Well Tolerated Well Pain Scale: 0-10 Numeric Is Patient Pain Free? Yes Yes Yes WC - Visit Discharge Discharge Condition Stable Stable Stable Ambulatory Status Ambulatory,Cane Ambulatory Ambulatory,Cane Transportation Private Auto Private Auto Private Auto Medication Reconcilliation completed & No provided to patient/care provider Clinical Summary of Care Provided Yes Facility Type Orders Sent 05/18/23 05/18/23 14:11 14:22 Wound Care Center Nurse 3 srikanth -Lotion applied to leg before Yes compression wrap -Multi-Layered Wrap Application Multi-Layer Multi-Layer Comp - Bilat ($ Comp - Bilat ($ ) ) Treatment Response Procedure Procedure Tolerated Well Tolerated Well Pain Scale: 0-10 Numeric Is Patient Pain Free? Yes Yes WC - Visit Discharge Discharge Condition Stable Stable Ambulatory Status Ambulatory, Ambulatory,Cane Walker Transportation Private Auto Private Auto Medication Reconcilliation completed & provided to patient/care provider Clinical Summary of Care Provided Facility Type Intermediate Care Facility Orders Sent Yes Assessment/Plan Assessment/Plan (1) Morbid obesity with BMI of 45.0-49.9, adult: CODE(S): E66.01 - Morbid (severe) obesity due to excess calories; Z68.42 - Body mass index [BMI] 45.0-49.9, adult (2) Venous stasis dermatitis of both lower extremities: CODE(S): I87.2 - Venous insufficiency (chronic) (peripheral) (3) Lymphedema of right lower extremity: CODE(S): I89.0 - Lymphedema, not elsewhere classified (4) Lymphedema of left lower extremity: CODE(S): I89.0 - Lymphedema, not elsewhere classified PLAN: Plan Will continue with 3M wraps for compression as he had significant improvement in his BLE edema over the last week. He is instructed to elevate his legs to the level of his heart or higher as much as tolerated while resting and sleeping. He is advised to get up and walk around as much as tolerated every couple hours throughout the day. We have submitted for pneumatic leg pumps, still pending insurance approval. He will return to the wound care center in 1 week for a nurse visit and in 2 weeks to see me.
== END 2023-05-21 23:59 | disposition home or self-care (01) ==
LOC: WC 13:30
PROVIDERS: PCP Family Medicine; Referring Provider Family Medicine; Visit Provider Physician Assistant
DX: I89.0 Lymphedema, not elsewhere classified (principal); J44.9 Chronic obstructive pulmonary disease, unspecified; I13.0 Hypertensive heart and chronic kidney disease with heart failure and stage 1 through stage 4 chronic kidney disease, or unspecified chronic kidney disease; I50.9 Heart failure, unspecified; I48.91 Unspecified atrial fibrillation; E66.01 Morbid (severe) obesity due to excess calories; Z68.42 Body mass index [BMI] 45.0-49.9, adult; N18.30 Chronic kidney disease, stage 3 unspecified; I87.2 Venous insufficiency (chronic) (peripheral); Z79.01 Long term (current) use of anticoagulants; Z86.711 Personal history of pulmonary embolism; Z86.718 Personal history of other venous thrombosis and embolism; Z79.899 Other long term (current) drug therapy
CPT/HCPCS: 29580; 29581; 99213; G0463

== ENCOUNTER 2023-06-15 13:00 | Outpatient (RCR) | payer MEDICARE, OTHER, SELFPAY ==
[2023-05-22 00:32] VITALS: BP 152/71; PULSE 69; RESP 24; TEMP 35.9; BMI 46.2
[2023-05-25 13:19] VITALS: BP 160/85; PULSE 75; RESP 16; TEMP 35.7; BMI 46.2
[2023-06-01 13:27] VITALS: BP 162/57; PULSE 70; RESP 18; TEMP 35.7; BMI 46.2
--- NOTE | 2023-06-02 07:32 | PCM.WC.PN ---
History of Present Illness Date of Service: 06/01/23 Chief Complaint: Severe swelling, edema, lymphedema, and venous stasis dermatitis in the lower extremities bilaterally History of Wound: Mr. Vaughn Street is a 77-year-old male who presents to the wound healing center today for evaluation management of bilateral lower extremity edema. He has been seen at the wound center before for the same, previously followed with Dr. Moore. Recently, he was admitted to following a hospital stay in which she was treated for cellulitis. He has had bilateral lower extremity edema for several years now and he does have associated weeping and recurrent cellulitis. 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 He really started to notice the lower extremity swelling around that time and just has continued to get progressively worse. He also reports history of a clotting disorder. He does have an IVC filter in place. He is also anticoagulated with Coumadin for atrial fibrillation. His medical history is otherwise significant for CHF, HTN, CKD stage III. He has very limited activity due to his CHF/back pain/obesity and his BLE edema further limits his mobility. He does not really wear any compression at home. He does sleep in a recliner though he recently got an electric recliner that allows him to really elevate his legs higher than a traditional recliner. He is back at home now and states able to care for himself well enough; however, he reports he does not wear compression because he cannot put them on himself due to limited mobility. He does have HHC but only 1 day per week. Subjective Subjective Patient has increased lower extremity edema this week. HH replaced his wraps earlier this weeks but appears there were issues with this, patient reports they didn't have correct supplies and they applied something like an Unna boot instead of the 3M wraps we have been applying. Fortunately, he has not developed any new wounds. No N/V, F/C, increased redness/warmth/drainage from the lower extremities. Objective Data Objective Data Vital Signs: Vital Signs Temp Pulse Resp BP O2 Del Method 96.2 F L 70 18 162/57 H Room Air 06/01/23 13:27 06/01/23 13:27 06/01/23 13:27 06/01/23 13:27 06/01/23 13:27 Oxygen Delivery Method Room Air Weight: 295 lb Body Mass Index (BMI) 46.2 Charges/Coding Visit Charges Office Visits / Consults: 27019 OV L4 Est 30min Physical Exam Const alert, oriented x3 and no apparent distress General Appearance: cooperative HEENT normocephalic, hearing grossly normal bilaterally, external ears normal and external nose normal Eyes EOMs intact bilaterally General Eye: normal appearance of both eyes Neck General: normal visual inspection and trachea midline Resp normal respiratory effort, normal air movement, no retractions and no use of accessory muscles Effort and Inspection: able to speak in complete sentences Extremity Extremity Narrative: Bilateral lower extremity edema 3+. Skin Wound Narrative: There are no further open, weeping areas. Papillomas, hyperpigmentation, and hyperkeratosis noted bilaterally. Neuro CN's II-XII intact bilaterally, moves all extremities, no focal motor deficits and no sensory deficits noted Psych Appearance: grossly normal Attitude: calm and engaged Activity / Motor Behavior: appropriate eye contact Speech: normal speech Mood & Affect: euthymic mood Judgement: judgement good Debridement Note Debridement Note No debridement was completed: No debridement was completed today Post-Debridement Measurements and Additional Note: Post-Debridement Measurements/Treatment - Nurse 1 - General Ulcer Assessment Start: 05/25/23 13:19 Freq: Status: Active Protocol: CAROL.FRED Activity Type Activity Date Activity User E-sign Co-sign Detail Recorded Client Recorded Date Recorded By Document 05/25/23 13:19 Laptop 05/25/23 13:20 Document 06/01/23 13:27 Desktop 06/01/23 13:43 KW 05/25/23 06/01/23 13:19 13:27 - Today's Visit Information Type of service Nurse-only Follow-up Visit Visit (Physician/PROJECT MANAGEMENT INSTRUCTOR ) Arrival Mode Ambulatory Ambulatory,Cane Transfer Assistance None Patient Identification Verified (Name & Yes Yes ) Patient Requires Transmission-Based No Precautions Height and Weight Body Mass Index (BMI) 46.2 46.2 BMI Classification Obese Obese Vital Signs Temperature (97.8 F-99.1 F) 96.3 F L 96.2 F L Temperature Source Temporal Temporal Pulse Rate (60-100) 75 70 Pulse Location Monitor Monitor Respiratory Rate (12-18) 16 18 Respiratory rate source Observation Observation Oxygen Delivery Method Room Air Room Air Blood Pressure (90/60-120/80) 160/85 H 162/57 H Blood Pressure Mean (mm Hg) 110 92 Source Monitor Monitor Position Sitting Semi-Fowlers Blood Pressure Location Left Arm History Since Last Visit- (Skip if this is Patient's initial visit) Have you changed medications since your No No last visit? Any new allergies or adverse reactions No No Had a fall/change in ADL's that may No No increase risk of falls Signs or symptoms of abuse and/or No No neglect since last visit Have you been in the hospital since your No No last visit? Has dressing in place as prescribed No Has compression in place as prescribed Yes No Has offloadiing in place as prescribed N/A No Experienced any changes in pain level or No No management Left Footwear Regular Shoe Regular Shoe Right Footwear Regular Shoe Regular Shoe Pain Scale: 0-10 Numeric Is Patient Pain Free? Yes Yes WC - Nurse 1 - General Ulcer Measurement Start: 05/25/23 13:19 Freq: Status: Active Protocol: Activity Type Activity Date Activity User E-sign Co-sign Detail Recorded Client Recorded Date Recorded By Document 05/25/23 13:19 [employer] Laptop 05/25/23 13:20 JF Document 06/01/23 13:27 KW Desktop 06/01/23 13:43 KW 05/25/23 06/01/23 13:19 13:27 Wound Center Nurse 1 Lower Limb Edema Present Yes Right Calf (cm) 52 59.5 Right Ankle (cm) 30.8 32 Left Calf (cm) 50.5 58.5 Left Ankle (cm) 30.5 29.2 - Nurse 3 - General Ulcer D/C NN Start: 05/25/23 13:19 Freq: Status: Active Protocol: Activity Type Activity Date Activity User E-sign Co-sign Detail Recorded Client Recorded Date Recorded By Document 05/25/23 13:19 [employer] Laptop 05/25/23 13:20 JF Document 06/01/23 14:33 BMF Desktop 06/01/23 14:33 BMF 05/25/23 06/01/23 13:19 14:33 Vital Signs Temperature (97.8 F-99.1 F) 96.3 F L Temperature Source Temporal Pulse Rate (60-100) 75 Pulse Location Monitor Respiratory Rate (12-18) 16 Respiratory rate source Observation Oxygen Delivery Method Room Air Blood Pressure (90/60-120/80) 160/85 H Blood Pressure Mean (mm Hg) 110 Source Monitor Position Sitting Pain Scale: 0-10 Numeric Is Patient Pain Free? Yes Yes Wound Care Center Nurse 3 ble -Lotion applied to leg before Yes compression wrap -Multi-Layered Wrap Application Multi-Layer Multi-Layer Comp - Bilat ($ Comp - Bilat ($ ) ) Treatment Response Procedure Procedure Tolerated Well Tolerated Well WC - Visit Discharge Discharge Condition Stable Stable Ambulatory Status Ambulatory Ambulatory,Cane Transportation Private Auto Private Auto Facility Type [facility] Facility Assessment/Plan Assessment/Plan (1) Morbid obesity with BMI of 45.0-49.9, adult: CODE(S): E66.01 - Morbid (severe) obesity due to excess calories; Z68.42 - Body mass index [BMI] 45.0-49.9, adult (2) Venous stasis dermatitis of both lower extremities: CODE(S): I87.2 - Venous insufficiency (chronic) (peripheral) (3) Lymphedema of right lower extremity: CODE(S): I89.0 - Lymphedema, not elsewhere classified (4) Lymphedema of left lower extremity: CODE(S): I89.0 - Lymphedema, not elsewhere classified PLAN: Plan Will continue with 3M wraps for compression as he had significant improvement in his BLE edema over the last week. Will plan to just continue to apply the 3M wraps here at the wound healing center given inconsistencies with HH. He will have a nurse visit in 1 week for wrap changes and then return in 2 weeks to see me. He is instructed to elevate his legs to the level of his heart or higher as much as tolerated while resting and sleeping. He is advised to get up and walk around as much as tolerated every couple hours throughout the day. We have submitted for pneumatic leg pumps, still pending insurance approval.
[2023-06-08 13:01] VITALS: BP 138/66; PULSE 69; RESP 18; TEMP 36.1; BMI 46.2
[2023-06-15 13:24] VITALS: BP 158/62; PULSE 58; RESP 20; TEMP 35.9; O2SAT 93; BMI 46.2
--- NOTE | 2023-06-16 08:44 | PN.PCM_ITS ---
History of Present Illness Date of Service: 06/15/23 Chief Complaint: Severe swelling, edema, lymphedema, and venous stasis tavon matitis in the lower extremities bilaterally History of Wound: Mr. Vaughn Street is a 77-year-old male who presents to the wound healing center today for evaluation management of bilateral lower extremity edema. He has been seen at the wound center before for the same, previously followed with Dr. Moore. Recently, he was admitted to [facility] following a hospital stay in which she was treated for cellulitis. He has had bilateral lower extremity edema for several years now and he does have associated weeping and recurrent cellulitis. 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 He really started to notice the lower extremity swelling around that time and just has continued to get progressively worse. He also reports history of a clotting disorder. He does have an IVC filter in place. He is also anticoagulated with Coumadin for atrial fibrillation. His medical history is otherwise significant for CHF, HTN, CKD stage III. He has very limited activity due to his CHF/back pain/obesity and his BLE edema further limits his mobility. He does not really wear any compression at home. He does sleep in a recliner though he recently got an electric recliner that allows him to really elevate his legs higher than a traditional recliner. He is back at home now and states able to care for himself well enough; however, he reports he does not wear compression because he cannot put them on himself due to limited mobility. He does have HHC but only 1 day per week. Subjective Subjective Patient tells me that lymphedema pump company a uniforms sales representative from the commode to his house and fit him for any leg pumps. Additionally he instructed him in how to use the leg pumps. Patient does feel that this is something that he will be able to do regularly and will help manage his edema long-term. He reports that the uniforms sales representative informed him it may still be another month before they are able to provide him with the pumps measured and fitted for him. Objective Data Objective Data Vital Signs: Vital Signs Temp Pulse Resp BP Pulse Ox O2 Del Method 96.6 F L 58 L 20 H 158/62 H 93 Room Air 06/15/23 13:24 06/15/23 13:24 06/15/23 13:24 06/15/23 13:24 06/15/23 13:24 06/15/23 13:24 Oxygen Delivery Method Room Air Weight: 295 lb Body Mass Index (BMI) 46.2 Charges/Coding Visit Charges Office Visits / Consults: 16910 OV L3 Est 20min Physical Exam Const alert, oriented x3 and no apparent distress General Appearance: cooperative HEENT normocephalic, hearing grossly normal bilaterally, external ears normal and external nose normal Eyes EOMs intact bilaterally General Eye: normal appearance of both eyes Neck General: normal visual inspection and trachea midline Resp normal respiratory effort, normal air movement, no retractions and no use of accessory muscles Effort and Inspection: able to speak in complete sentences Extremity Extremity Narrative: Bilateral lower extremity edema 3+. Skin Wound Narrative: There are no further open, weeping areas. Papillomas, hyperpigmentation, and hyperkeratosis noted bilaterally. Neuro CN's II-XII intact bilaterally, moves all extremities, no focal motor deficits and no sensory deficits noted Psych Appearance: grossly normal Attitude: calm and engaged Activity / Motor Behavior: appropriate eye contact Speech: normal speech Mood & Affect: euthymic mood Judgement: judgement good Debridement Note Debridement Note No debridement was completed: No debridement was completed today Post-Debridement Measurements and Additional Note: Post-Debridement Measurements/Treatment - Nurse 1 - General Ulcer Assessment Start: 05/25/23 13:19 Freq: Status: Active Protocol: CAROL.FRED Activity Type Activity Date Activity User E-sign Co-sign Detail Recorded Client Recorded Date Recorded By Document 05/25/23 13:19 [employer] Laptop 05/25/23 13:20 Document 06/01/23 13:27 [place] Desktop 06/01/23 13:43 Document 06/08/23 13:01 KW Desktop 06/08/23 13:21 KW Document 06/15/23 13:24 Desktop 06/15/23 13:32 05/25/23 06/01/23 06/08/23 13:19 13:27 13:01 - Today's Visit Information Type of service Nurse-only Follow-up Visit Nurse-only Visit (Physician/WAD BLANKING PRESS ADJUSTER Visit ) Arrival Mode Ambulatory Ambulatory,Cane Ambulatory,Cane Transfer Assistance None Patient Identification Verified (Name & Yes Yes Yes ) Patient Requires Transmission-Based No Precautions Height and Weight Body Mass Index (BMI) 46.2 46.2 46.2 BMI Classification Obese Obese Obese Vital Signs Temperature (97.8 F-99.1 F) 96.3 F L 96.2 F L 97.0 F L Temperature Source Temporal Temporal Temporal Pulse Rate (60-100) 75 70 69 Pulse Location Monitor Monitor Monitor Respiratory Rate (12-18) 16 18 18 Respiratory rate source Observation Observation Observation Pulse Oximetry Oxygen Delivery Method Room Air Room Air Room Air Blood Pressure (90/60-120/80) 160/85 H 162/57 H 138/66 H Blood Pressure Mean (mm Hg) 110 92 90 Source Monitor Monitor Monitor Position Sitting Semi-Fowlers Semi-Fowlers Blood Pressure Location Left Arm Left Arm History Since Last Visit- (Skip if this is Patient's initial visit) Have you changed medications since your No No No last visit? Any new allergies or adverse reactions No No No Had a fall/change in ADL's that may No No No increase risk of falls Signs or symptoms of abuse and/or No No No neglect since last visit Have you been in the hospital since your No No No last visit? Has dressing in place as prescribed No Yes Has compression in place as prescribed Yes No Yes Has offloadiing in place as prescribed N/A No N/A Experienced any changes in pain level or No No No management Left Footwear Regular Shoe Regular Shoe Regular Shoe Right Footwear Regular Shoe Regular Shoe Regular Shoe Pain Scale: 0-10 Numeric Is Patient Pain Free? Yes Yes Yes Teaching: Wound Center Compression Wraps & Stockings -Person Taught -Teaching Method -Response to teaching 06/15/23 13:24 WC - Today's Visit Information Type of service Follow-up Visit (Physician/WAD BLANKING PRESS ADJUSTER ) Arrival Mode Ambulatory,Cane Transfer Assistance None Patient Identification Verified (Name & Yes ) Patient Requires Transmission-Based No Precautions Height and Weight Body Mass Index (BMI) 46.2 BMI Classification Obese Vital Signs Temperature (97.8 F-99.1 F) 96.6 F L Temperature Source Oral Pulse Rate (60-100) 58 L Pulse Location Monitor Respiratory Rate (12-18) 20 H Respiratory rate source Observation Pulse Oximetry 93 Oxygen Delivery Method Room Air Blood Pressure (90/60-120/80) 158/62 H Blood Pressure Mean (mm Hg) 94 Source Monitor Position Sitting Blood Pressure Location Left Arm History Since Last Visit- (Skip if this is Patient's initial visit) Have you changed medications since your No last visit? Any new allergies or adverse reactions No Had a fall/change in ADL's that may No increase risk of falls Signs or symptoms of abuse and/or No neglect since last visit Have you been in the hospital since your No last visit? Has dressing in place as prescribed Yes Has compression in place as prescribed Yes Has offloadiing in place as prescribed N/A Experienced any changes in pain level or No management Left Footwear Regular Shoe Right Footwear Regular Shoe Pain Scale: 0-10 Numeric Is Patient Pain Free? Yes Teaching: Wound Center Compression Wraps & Stockings -Person Taught Patient -Teaching Method Discussion -Response to teaching Verbalize understanding - Nurse 1 - General Ulcer Measurement Start: 05/25/23 13:19 Freq: Status: Active Protocol: Activity Type Activity Date Activity User E-sign Co-sign Detail Recorded Client Recorded Date Recorded By Document 05/25/23 13:19 [employer] Laptop 05/25/23 13:20 Document 06/01/23 13:27 KW Desktop 06/01/23 13:43 KW Document 06/08/23 13:01 KW Desktop 06/08/23 13:21 KW Document 06/15/23 13:24 GM Desktop 06/15/23 13:32 05/25/23 06/01/23 06/08/23 13:19 13:27 13:01 Wound Center Nurse 1 Lower Limb Edema Present Yes Right Calf (cm) 52 59.5 54.5 Right Ankle (cm) 30.8 32 28.5 Left Calf (cm) 50.5 58.5 53 Left Ankle (cm) 30.5 29.2 29.6 06/15/23 13:24 Wound Center Nurse 1 Lower Limb Edema Present Right Calf (cm) 54 Right Ankle (cm) 29 Left Calf (cm) 58 Left Ankle (cm) 30 - Nurse 3 - General Ulcer D/C NN Start: 05/25/23 13:19 Freq: Status: Active Protocol: Activity Type Activity Date Activity User E-sign Co-sign Detail Recorded Client Recorded Date Recorded By Document 05/25/23 13:19 [employer] Laptop 05/25/23 13:20 Document 06/01/23 14:33 BMF Desktop 06/01/23 14:33 BMF Document 06/08/23 13:21 KW Desktop 06/08/23 13:22 KW Document 06/15/23 14:02 KW Desktop 06/15/23 14:02 KW 05/25/23 06/01/23 06/08/23 13:19 14:33 13:21 Vital Signs Temperature (97.8 F-99.1 F) 96.3 F L Temperature Source Temporal Pulse Rate (60-100) 75 Pulse Location Monitor Respiratory Rate (12-18) 16 Respiratory rate source Observation Oxygen Delivery Method Room Air Blood Pressure (90/60-120/80) 160/85 H Blood Pressure Mean (mm Hg) 110 Source Monitor Position Sitting Pain Scale: 0-10 Numeric Is Patient Pain Free? Yes Yes Yes Wound Care Center Nurse 3 ble -Lotion applied to leg before Yes compression wrap -Multi-Layered Wrap Application Multi-Layer Multi-Layer Multi-Layer Comp - Bilat ($ Comp - Bilat ($ Comp - Bilat ($ ) ) ) Treatment Response Procedure Procedure Tolerated Well Tolerated Well WC - Visit Discharge Discharge Condition Stable Stable Stable Ambulatory Status Ambulatory Ambulatory,Cane Ambulatory,Cane Transportation Private Auto Private Auto Private Auto Medication Reconcilliation completed & No provided to patient/care provider Clinical Summary of Care Provided Yes Facility Type Human Resources Director Care Facility 06/15/23 14:02 Vital Signs Temperature (97.8 F-99.1 F) Temperature Source Pulse Rate (60-100) Pulse Location Respiratory Rate (12-18) Respiratory rate source Oxygen Delivery Method Blood Pressure (90/60-120/80) Blood Pressure Mean (mm Hg) Source Position Pain Scale: 0-10 Numeric Is Patient Pain Free? Yes Wound Care Center Nurse 3 ble -Lotion applied to leg before compression wrap -Multi-Layered Wrap Application Multi-Layer Comp - Bilat ($ ) Treatment Response WC - Visit Discharge Discharge Condition Stable Ambulatory Status Ambulatory,Cane Transportation Private Auto Medication Reconcilliation completed & No provided to patient/care provider Clinical Summary of Care Provided Yes Facility Type Assessment/Plan Assessment/Plan (1) Morbid obesity with BMI of 45.0-49.9, adult: CODE(S): E66.01 - Morbid (severe) obesity due to excess calories; Z68.42 - Body mass index [BMI] 45.0-49.9, adult (2) Venous stasis dermatitis of both lower extremities: CODE(S): I87.2 - Venous insufficiency (chronic) (peripheral) (3) Lymphedema of right lower extremity: CODE(S): I89.0 - Lymphedema, not elsewhere classified (4) Lymphedema of left lower extremity: CODE(S): I89.0 - Lymphedema, not elsewhere classified PLAN: Plan Will continue with 3M wraps for compression until he receives his lymphedema pumps. Will have him return for a nurse visit early next week and then return to see me next . He is instructed to elevate his legs to the level of his heart or higher as much as tolerated while resting and sleeping. He is advised to get up and walk around as much as tolerated every couple hours throughout the day.
== END 2023-06-21 23:59 | disposition home or self-care (01) ==
LOC: WC 13:00
PROVIDERS: PCP Family Medicine; Referring Provider Family Medicine; Visit Provider Physician Assistant
DX: I89.0 Lymphedema, not elsewhere classified (principal); I50.9 Heart failure, unspecified; I13.0 Hypertensive heart and chronic kidney disease with heart failure and stage 1 through stage 4 chronic kidney disease, or unspecified chronic kidney disease; I48.91 Unspecified atrial fibrillation; Z68.42 Body mass index [BMI] 45.0-49.9, adult; N18.30 Chronic kidney disease, stage 3 unspecified; I87.2 Venous insufficiency (chronic) (peripheral); E66.9 Obesity, unspecified; Z79.01 Long term (current) use of anticoagulants
CPT/HCPCS: 29581; 99211; 99213; G0463

== ENCOUNTER 2023-07-20 15:00 | Outpatient (RCR) | payer MEDICARE, OTHER, SELFPAY ==
[2023-06-22 00:22] VITALS: BP 158/62; PULSE 58; RESP 20; TEMP 35.9; O2SAT 93; BMI 46.2
[2023-06-22 14:32] VITALS: BP 148/74; PULSE 83; RESP 20; TEMP 36.3; BMI 46.2
--- NOTE | 2023-06-23 09:33 | PCM.WC.PN ---
History of Present Illness Date of Service: 06/22/23 Chief Complaint: Severe swelling, edema, lymphedema, and venous stasis dermatitis in the lower extremities bilaterally History of Wound: Mr. Vaughn Street is a 77-year-old male who presents to the wound healing center today for evaluation management of bilateral lower extremity edema. He has been seen at the wound center before for the same, previously followed with Dr. Moore. Recently, he was admitted to [facility] following a hospital stay in which she was treated for cellulitis. He has had bilateral lower extremity edema for several years now and he does have associated weeping and recurrent cellulitis. 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 He really started to notice the lower extremity swelling around that time and just has continued to get progressively worse. He also reports history of a clotting disorder. He does have an IVC filter in place. He is also anticoagulated with Coumadin for atrial fibrillation. His medical history is otherwise significant for CHF, HTN, CKD stage III. He has very limited activity due to his CHF/back pain/obesity and his BLE edema further limits his mobility. He does not really wear any compression at home. He does sleep in a recliner though he recently got an electric recliner that allows him to really elevate his legs higher than a traditional recliner. He is back at home now and states able to care for himself well enough; however, he reports he does not wear compression because he cannot put them on himself due to limited mobility. He does have HHC but only 1 day per week. Subjective Subjective Patient has not yet received lymphedema pumps. He reports last time he spoke with the corporate representative they stated they would be reaching out in the next few weeks. Patient does note that his phone also has not been working, but is now fixed so hopefully they will be able to make contact. Otherwise, continues to do well with 3M wraps and his edema is overall stable. No new wounds. Objective Data Objective Data Vital Signs: Vital Signs Temp Pulse Resp BP Pulse Ox O2 Del Method 97.4 F L 83 20 H 148/74 H 93 Room Air 06/22/23 14:32 06/22/23 14:32 06/22/23 14:32 06/22/23 14:32 06/22/23 00:22 06/22/23 14:32 Oxygen Delivery Method Room Air Weight: 295 lb Body Mass Index (BMI) 46.2 Charges/Coding Visit Charges Office Visits / Consults: 75203 OV L3 Est 20min Physical Exam Const alert, oriented x3 and no apparent distress General Appearance: cooperative HEENT normocephalic, hearing grossly normal bilaterally, external ears normal and external nose normal Eyes EOMs intact bilaterally General Eye: normal appearance of both eyes Neck General: normal visual inspection and trachea midline Resp normal respiratory effort, normal air movement, no retractions and no use of accessory muscles Effort and Inspection: able to speak in complete sentences Extremity Extremity Narrative: Bilateral lower extremity edema 3+. Skin Wound Narrative: There are no further open, weeping areas. Papillomas, hyperpigmentation, and hyperkeratosis noted bilaterally. Neuro CN's II-XII intact bilaterally, moves all extremities, no focal motor deficits and no sensory deficits noted Psych Appearance: grossly normal Attitude: calm and engaged Activity / Motor Behavior: appropriate eye contact Speech: normal speech Mood & Affect: euthymic mood Judgement: judgement good Debridement Note Debridement Note No debridement was completed: No debridement was completed today Post-Debridement Measurements and Additional Note: Post-Debridement Measurements/Treatment - Nurse 1 - General Ulcer Assessment Start: 06/22/23 14:31 Freq: Status: Active Protocol: THAO Activity Type Activity Date Activity User E-sign Co-sign Detail Recorded Client Recorded Date Recorded By Document 06/22/23 14:32 Desktop 06/22/23 14:43 06/22/23 14:32 - Today's Visit Information Type of service Follow-up Visit (Physician/VOLCANOLOGY PROFESSOR ) Arrival Mode Ambulatory,Cane Transfer Assistance Manual Patient Identification Verified (Name & Yes ) Safety Precautions Fall Prevention Height and Weight Body Mass Index (BMI) 46.2 BMI Classification Obese Vital Signs Temperature (97.8 F-99.1 F) 97.4 F L Temperature Source Temporal Pulse Rate (60-100) 83 Pulse Location Monitor Respiratory Rate (12-18) 20 H Respiratory rate source Observation Oxygen Delivery Method Room Air Blood Pressure (90/60-120/80) 148/74 H Blood Pressure Mean (mm Hg) 98 Source Monitor Position Semi-Fowlers Blood Pressure Location Left Arm History Since Last Visit- (Skip if this is Patient's initial visit) Have you changed medications since your No last visit? Any new allergies or adverse reactions No Had a fall/change in ADL's that may No increase risk of falls Signs or symptoms of abuse and/or No neglect since last visit Have you been in the hospital since your No last visit? Has dressing in place as prescribed Yes Has compression in place as prescribed Yes Has offloadiing in place as prescribed N/A Experienced any changes in pain level or No management Left Footwear Regular Shoe Right Footwear Regular Shoe Pain Scale: 0-10 Numeric Is Patient Pain Free? Yes Teaching: Wound Center Compression Wraps & Stockings -Person Taught Patient -Teaching Method Discussion -Response to teaching Verbalize understanding - Nurse 1 - General Ulcer Measurement Start: 06/22/23 14:31 Freq: Status: Active Protocol: Activity Type Activity Date Activity User E-sign Co-sign Detail Recorded Client Recorded Date Recorded By Document 06/22/23 14:32 Desktop 06/22/23 14:43 06/22/23 14:32 Wound Center Nurse 1 Lower Limb Edema Present Yes Right Calf (cm) 55.5 Right Ankle (cm) 30.5 Left Calf (cm) 55.5 Left Ankle (cm) 30.5 - Nurse 3 - General Ulcer D/C NN Start: 06/22/23 14:31 Freq: Status: Active Protocol: Activity Type Activity Date Activity User E-sign Co-sign Detail Recorded Client Recorded Date Recorded By Document 06/22/23 14:56 KW Desktop 06/22/23 14:56 06/22/23 14:56 Wound Care Center Nurse 3 ble -Multi-Layered Wrap Application Multi-Layer Comp - Bilat ($ ) Pain Scale: 0-10 Numeric Is Patient Pain Free? Yes WC - Visit Discharge Discharge Condition Stable Ambulatory Status Ambulatory, Walker Transportation Private Auto Medication Reconcilliation completed & No provided to patient/care provider Clinical Summary of Care Provided Yes Assessment/Plan Assessment/Plan (1) Morbid obesity with BMI of 45.0-49.9, adult: CODE(S): E66.01 - Morbid (severe) obesity due to excess calories; Z68.42 - Body mass index [BMI] 45.0-49.9, adult (2) Venous stasis dermatitis of both lower extremities: CODE(S): I87.2 - Venous insufficiency (chronic) (peripheral) (3) Lymphedema of right lower extremity: CODE(S): I89.0 - Lymphedema, not elsewhere classified (4) Lymphedema of left lower extremity: CODE(S): I89.0 - Lymphedema, not elsewhere classified PLAN: Plan Will continue with 3M wraps for compression until he receives his lymphedema pumps. He is instructed to reach out to the lymphedema pump company now that his phone is working again. He is instructed to elevate his legs to the level of his heart or higher as much as tolerated while resting and sleeping. He is advised to get up and walk around as much as tolerated every couple hours throughout the day.
[2023-06-29 15:00] VITALS: BP 148/75; PULSE 78; RESP 18; TEMP 36.3; BMI 46.2
[2023-07-06 15:34] VITALS: BP 130/79; PULSE 70; RESP 24; TEMP 36; BMI 46.2
--- NOTE | 2023-07-07 08:05 | PN.PCM_ITS ---
History of Present Illness Date of Service: 07/06/23 Chief Complaint: Severe swelling, edema, lymphedema, and venous stasis tavon matitis in the lower extremities bilaterally History of Wound: Mr. Vaughn Street is a 77-year-old male who presents to the wound healing center today for evaluation management of bilateral lower extremity edema. He has been seen at the wound center before for the same, previously followed with Dr. Moore. Recently, he was admitted to [facility] following a hospital stay in which she was treated for cellulitis. He has had bilateral lower extremity edema for several years now and he does have associated weeping and recurrent cellulitis. 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 He really started to notice the lower extremity swelling around that time and just has continued to get progressively worse. He also reports history of a clotting disorder. He does have an IVC filter in place. He is also anticoagulated with Coumadin for atrial fibrillation. His medical history is otherwise significant for CHF, HTN, CKD stage III. He has very limited activity due to his CHF/back pain/obesity and his BLE edema further limits his mobility. He does not really wear any compression at home. He does sleep in a recliner though he recently got an electric recliner that allows him to really elevate his legs higher than a traditional recliner. He is back at home now and states able to care for himself well enough; however, he reports he does not wear compression because he cannot put them on himself due to limited mobility. He does have HHC but only 1 day per week. Subjective Subjective Patient reports that he feels he has gained some weight over the last several days is feeling little more fatigued and has some increase in his dyspnea. He is not able to weigh himself at home as his scale does not read high enough. O therwise, no new wounds. He reports that he is getting the pneumatic leg pumps delivered tomorrow. Objective Data Objective Data Vital Signs: Vital Signs Temp Pulse Resp BP Pulse Ox O2 Del Method 96.8 F L 70 24 H 130/79 H 93 Room Air 07/06/23 15:34 07/06/23 15:34 07/06/23 15:34 07/06/23 15:34 06/22/23 00:22 06/29/23 15:00 Oxygen Delivery Method Room Air Weight: 295 lb Body Mass Index (BMI) 46.2 Charges/Coding Visit Charges Office Visits / Consults: 65745 OV L3 Est 20min Physical Exam Const alert, oriented x3 and no apparent distress General Appearance: cooperative HEENT normocephalic, hearing grossly normal bilaterally, external ears normal and exte rnal nose normal Eyes EOMs intact bilaterally General Eye: normal appearance of both eyes Neck General: normal visual inspection and trachea midline Resp normal respiratory effort, normal air movement, no retractions and no use of accessory muscles Effort and Inspection: able to speak in complete sentences Extremity Extremity Narrative: Bilateral lower extremity edema 3+. Skin Wound Narrative: There are no further open, weeping areas. Papillomas, hyperpigmentation, and hyperkeratosis noted bilaterally. Neuro CN's II-XII intact bilaterally, moves all extremities, no focal motor deficits and no sensory deficits noted Psych Appearance: grossly normal Attitude: calm and engaged Activity / Motor Behavior: appropriate eye contact Speech: normal speech Mood & Affect: euthymic mood Judgement: judgement good Debridement Note Debridement Note No debridement was completed: No debridement was completed today Post-Debridement Measurements and Additional Note: Post-Debridement Measurements/Treatment - Nurse 1 - General Ulcer Assessment Start: 06/22/23 14:31 Freq: Status: Active Protocol: THAO Activity Type Activity Date Activity User E-sign Co-sign Detail Recorded Client Recorded Date Recorded By Document 06/22/23 14:32 GM Desktop 06/22/23 14:43 GM Document 06/29/23 15:00 KW Desktop 06/29/23 15:19 KW Document 07/06/23 15:34 DL Desktop 07/06/23 15:43 DL 06/22/23 06/29/23 07/06/23 14:32 15:00 15:34 - Today's Visit Information Type of service Follow-up Visit Nurse-only Follow-up Visit (Physician/MOBILE NURSE Visit (Physician/MOBILE NURSE ) ) Arrival Mode Ambulatory,Cane Ambulatory,Cane Ambulatory,Cane Transfer Assistance Manual None Patient Identification Verified (Name & Yes Yes Yes ) Patient Requires Transmission-Based No Precautions Safety Precautions Fall Prevention Height and Weight Body Mass Index (BMI) 46.2 46.2 46.2 BMI Classification Obese Obese Obese Vital Signs Temperature (97.8 F-99.1 F) 97.4 F L 97.4 F L 96.8 F L Temperature Source Temporal Temporal Temporal Pulse Rate (60-100) 83 78 70 Pulse Location Monitor Monitor Monitor Respiratory Rate (12-18) 20 H 18 24 H Respiratory rate source Observation Observation Observation Oxygen Delivery Method Room Air Room Air Blood Pressure (90/60-120/80) 148/74 H 148/75 H 130/79 H Blood Pressure Mean (mm Hg) 98 99 96 Source Monitor Monitor Monitor Position Semi-Fowlers Sitting Blood Pressure Location Left Arm Right Arm History Since Last Visit- (Skip if this is Patient's initial visit) Have you changed medications since your No No No last visit? Any new allergies or adverse reactions No No No Had a fall/change in ADL's that may No No No increase risk of falls Signs or symptoms of abuse and/or No No No neglect since last visit Have you been in the hospital since your No No No last visit? Has dressing in place as prescribed Yes Yes Yes Has compression in place as prescribed Yes Yes Yes Has offloadiing in place as prescribed N/A N/A N/A Experienced any changes in pain level or No No No management Left Footwear Regular Shoe Regular Shoe Right Footwear Regular Shoe Regular Shoe Pain Scale: 0-10 Numeric Is Patient Pain Free? Yes Yes Yes Teaching: Wound Center Compression Wraps & Stockings -Person Taught Patient -Teaching Method Discussion -Response to teaching Verbalize understanding WC - Nurse 1 - General Ulcer Measurement Start: 06/22/23 14:31 Freq: Status: Active Protocol: Activity Type Activity Date Activity User E-sign Co-sign Detail Recorded Client Recorded Date Recorded By Document 06/22/23 14:32 GM Desktop 06/22/23 14:43 GM Document 06/29/23 15:00 KW Desktop 06/29/23 15:19 KW Document 07/06/23 15:34 DL Desktop 07/06/23 15:43 DL 06/22/23 06/29/23 07/06/23 14:32 15:00 15:34 Wound Center Nurse 1 Lower Limb Edema Present Yes Right Calf (cm) 55.5 59 55 Right Ankle (cm) 30.5 38.5 31 Left Calf (cm) 55.5 58 52.5 Left Ankle (cm) 30.5 38 30.8 WC - Nurse 2 - General Ulcer CM Notes Start: 06/22/23 14:31 Freq: Status: Active Protocol: Activity Type Activity Date Activity User E-sign Co-sign Detail Recorded Client Recorded Date Recorded By Document 07/06/23 15:48 GM Desktop 07/06/23 15:49 GM 07/06/23 15:48 Pain Scale: 0-10 Numeric Is Patient Pain Free? Yes WC - Nurse 3 - General Ulcer D/C NN Start: 06/22/23 14:31 Freq: Status: Active Protocol: Activity Type Activity Date Activity User E-sign Co-sign Detail Recorded Client Recorded Date Recorded By Document 06/22/23 14:56 KW Desktop 06/22/23 14:56 KW Document 06/29/23 15:19 KW Desktop 06/29/23 15:19 KW Document 07/06/23 16:05 GM Desktop 07/06/23 16:05 GM Document 07/06/23 16:13 DL Desktop 07/06/23 16:14 DL 06/22/23 06/29/23 07/06/23 14:56 15:19 16:05 Wound Care Center Nurse 3 ble -Lotion applied to leg before Yes compression wrap -Multi-Layered Wrap Application Multi-Layer Multi-Layer Multi-Layer Comp - Bilat ($ Comp - Bilat ($ Comp - Bilat ($ ) ) ) Pain Scale: 0-10 Numeric Is Patient Pain Free? Yes Yes Yes Teaching: Wound Center Compression Wraps & Stockings -Person Taught Patient -Teaching Method Discussion -Response to teaching Verbalize understanding WC - Visit Discharge Discharge Condition Stable Stable Stable Ambulatory Status Ambulatory, Ambulatory,Cane Ambulatory,Cane Walker Transportation Private Auto Private Auto Private Auto Medication Reconcilliation completed & No No Yes provided to patient/care provider Clinical Summary of Care Provided Yes Yes Yes Notes: Facility Type Orders Sent 07/06/23 16:13 Wound Care Center Nurse 3 ble -Lotion applied to leg before compression wrap -Multi-Layered Wrap Application Multi-Layer Comp - Bilat ($ ) Pain Scale: 0-10 Numeric Is Patient Pain Free? Yes Teaching: Wound Center Compression Wraps & Stockings -Person Taught -Teaching Method -Response to teaching - Visit Discharge Discharge Condition Stable Ambulatory Status Ambulatory,Cane Transportation Private Auto Medication Reconcilliation completed & provided to patient/care provider Clinical Summary of Care Provided Notes: Pt wt 316.2 Facility Type Home Health Orders Sent Yes Assessment/Plan Assessment/Plan (1) Morbid obesity with BMI of 45.0-49.9, adult: CODE(S): E66.01 - Morbid (severe) obesity due to excess calories; Z68.42 - Body mass index [BMI] 45.0-49.9, adult (2) Venous stasis dermatitis of both lower extremities: CODE(S): I87.2 - Venous insufficiency (chronic) (peripheral) (3) Lymphedema of right lower extremity: CODE(S): I89.0 - Lymphedema, not elsewhere classified (4) Lymphedema of left lower extremity: CODE(S): I89.0 - Lymphedema, not elsewhere classified PLAN: Plan Will apply 3M wraps today for compression until he receives the leg pumps tomorrow. As he does have scheduled delivery for these leg pumps, he is discharged from the wound healing center today. He is instructed to use the pneumatic leg pumps as directed for management of his lower extremity edema. We did obtain a weight on our scale here today. He is advised to contact his cementer hand with his weight and symptoms of dyspnea/fatigue as they may wish to modify his medications or see him in the office. He is also advised to present to the emergency room should he develop worsening of his dyspnea or any other concerning signs/symptoms. He acknowledges understanding. He will return as needed.
[2023-07-13 14:57] VITALS: BP 164/90; PULSE 77; RESP 20; TEMP 35.7; BMI 46.2
--- NOTE | 2023-07-14 08:31 | PN.PCM_ITS ---
History of Present Illness Date of Service: 07/13/23 Chief Complaint: Severe swelling, edema, lymphedema, and venous stasis tavon matitis in the lower extremities bilaterally History of Wound: Mr. Vaughn Street is a 77-year-old male who presents to the wound healing center today for evaluation management of bilateral lower extremity edema. He has been seen at the wound center before for the same, previously followed with Dr. Moore. Recently, he was admitted to [facility] following a hospital stay in which she was treated for cellulitis. He has had bilateral lower extremity edema for several years now and he does have associated weeping and recurrent cellulitis. 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 He really started to notice the lower extremity swelling around that time and just has continued to get progressively worse. He also reports history of a clotting disorder. He does have an IVC filter in place. He is also anticoagulated with Coumadin for atrial fibrillation. His medical history is otherwise significant for CHF, HTN, CKD stage III. He has very limited activity due to his CHF/back pain/obesity and his BLE edema further limits his mobility. He does not really wear any compression at home. He does sleep in a recliner though he recently got an electric recliner that allows him to really elevate his legs higher than a traditional recliner. He is back at home now and states able to care for himself well enough; however, he reports he does not wear compression because he cannot put them on himself due to limited mobility. He does have HHC but only 1 day per week. Subjective Subjective Patient has received his lymphedema pumps but they are sitting on his porch because he is not able to lift and carry them inside. He also tells me today that he is having a lot of trouble with urinary incontinence and he has a rash in his genital area and buttocks from this. He does continue to feel more SOB and like he is holding some weight, he did contact his digital production operator and was seen in their office. He also has close f/u with them next week. He has communicated that he is not able to bend to apply compression stockings or tubigrips to his lower extremities for compression. When he financial sales representative from the lymphedema pump company visited his home for the fitting, he felt that he would be able to apply the pumps at that time. Objective Data Objective Data Vital Signs: Vital Signs Temp Pulse Resp BP Pulse Ox O2 Del Method 96.2 F L 77 20 H 164/90 H 93 Room Air 07/13/23 14:57 07/13/23 14:57 07/13/23 14:57 07/13/23 14:57 06/22/23 00:22 07/13/23 14:57 Oxygen Delivery Method Room Air Weight: 295 lb Body Mass Index (BMI) 46.2 Charges/Coding Visit Charges Office Visits / Consults: 55474 OV L3 Est 20min Physical Exam Const alert, oriented x3 and no apparent distress General Appearance: cooperative HEENT normocephalic, hearing grossly normal bilaterally, external ears normal and e xternal nose normal Eyes EOMs intact bilaterally General Eye: normal appearance of both eyes Neck General: normal visual inspection and trachea midline Resp normal respiratory effort, normal air movement, no retractions and no use of accessory muscles Effort and Inspection: able to speak in complete sentences Extremity Extremity Narrative: Bilateral lower extremity edema 3+. Skin Wound Narrative: There is a small open, weeping area on the left medial calf. Papillomas, hyperpigmentation, and hyperkeratosis noted bilaterally. Neuro CN's II-XII intact bilaterally, moves all extremities, no focal motor deficits and no sensory deficits noted Psych Appearance: grossly normal Attitude: calm and engaged Activity / Motor Behavior: appropriate eye contact Speech: normal speech Mood & Affect: euthymic mood Judgement: judgement good Debridement Note Debridement Note No debridement was completed: No debridement was completed today Post-Debridement Measurements and Additional Note: Post-Debridement Measurements/Treatment - Nurse 1 - General Ulcer Assessment Start: 06/22/23 14:31 Freq: Status: Active Protocol: CAROL.FRED Activity Type Activity Date Activity User E-sign Co-sign Detail Recorded Client Recorded Date Recorded By Document 06/22/23 14:32 GM Desktop 06/22/23 14:43 GM Document 06/29/23 15:00 KW Desktop 06/29/23 15:19 KW Document 07/06/23 15:34 DL Desktop 07/06/23 15:43 DL Document 07/13/23 14:57 KW Desktop 07/13/23 15:06 KW Edit Result 07/13/23 14:57 KW (1) [id number] 07/13/23 15:09 KW (1) Pulse Rate (60-100) => 77 Blood Pressure (90/60-120/80) => 164/90 H Blood Pressure Mean (mm Hg) => 114 06/22/23 06/29/23 07/06/23 14:32 15:00 15:34 WC - Today's Visit Information Type of service Follow-up Visit Nurse-only Follow-up Visit (Physician/AIRCRAFT ENGINE TECHNICIAN Visit (Physician/AIRCRAFT ENGINE TECHNICIAN ) ) Arrival Mode Ambulatory,Cane Ambulatory,Cane Ambulatory,Cane Transfer Assistance Manual None Patient Identification Verified (Name & Yes Yes Yes ) Patient Requires Transmission-Based No Precautions Safety Precautions Fall Prevention Height and Weight Body Mass Index (BMI) 46.2 46.2 46.2 BMI Classification Obese Obese Obese Vital Signs Temperature (97.8 F-99.1 F) 97.4 F L 97.4 F L 96.8 F L Temperature Source Temporal Temporal Temporal Pulse Rate (60-100) 83 78 70 Pulse Location Monitor Monitor Monitor Respiratory Rate (12-18) 20 H 18 24 H Respiratory rate source Observation Observation Observation Oxygen Delivery Method Room Air Room Air Blood Pressure (90/60-120/80) 148/74 H 148/75 H 130/79 H Blood Pressure Mean (mm Hg) 98 99 96 Source Monitor Monitor Monitor Position Semi-Fowlers Sitting Blood Pressure Location Left Arm Right Arm History Since Last Visit- (Skip if this is Patient's initial visit) Have you changed medications since your No No No last visit? Any new allergies or adverse reactions No No No Had a fall/change in ADL's that may No No No increase risk of falls Signs or symptoms of abuse and/or No No No neglect since last visit Have you been in the hospital since your No No No last visit? Has dressing in place as prescribed Yes Yes Yes Has compression in place as prescribed Yes Yes Yes Has offloadiing in place as prescribed N/A N/A N/A Experienced any changes in pain level or No No No management Left Footwear Regular Shoe Regular Shoe Right Footwear Regular Shoe Regular Shoe Pain Scale: 0-10 Numeric Is Patient Pain Free? Yes Yes Yes Teaching: Wound Center Compression Wraps & Stockings -Person Taught Patient -Teaching Method Discussion -Response to teaching Verbalize understanding 07/13/23 14:57 WC - Today's Visit Information Type of service Follow-up Visit (Physician/AIRCRAFT ENGINE TECHNICIAN ) Arrival Mode Ambulatory,Cane Transfer Assistance Patient Identification Verified (Name & Yes ) Patient Requires Transmission-Based Precautions Safety Precautions Height and Weight Body Mass Index (BMI) 46.2 BMI Classification Obese Vital Signs Temperature (97.8 F-99.1 F) 96.2 F L Temperature Source Temporal Pulse Rate (60-100) 77 Pulse Location Monitor Respiratory Rate (12-18) 20 H Respiratory rate source Observation Oxygen Delivery Method Room Air Blood Pressure (90/60-120/80) 164/90 H Blood Pressure Mean (mm Hg) 114 Source Monitor Position Semi-Fowlers Blood Pressure Location Right Arm History Since Last Visit- (Skip if this is Patient's initial visit) Have you changed medications since your No last visit? Any new allergies or adverse reactions No Had a fall/change in ADL's that may No increase risk of falls Signs or symptoms of abuse and/or No neglect since last visit Have you been in the hospital since your No last visit? Has dressing in place as prescribed Yes Has compression in place as prescribed Yes Has offloadiing in place as prescribed N/A Experienced any changes in pain level or No management Left Footwear Regular Shoe Right Footwear Regular Shoe Pain Scale: 0-10 Numeric Is Patient Pain Free? Yes Teaching: Wound Center Compression Wraps & Stockings -Person Taught -Teaching Method -Response to teaching - Nurse 1 - General Ulcer Measurement Start: 06/22/23 14:31 Freq: Status: Active Protocol: Activity Type Activity Date Activity User E-sign Co-sign Detail Recorded Client Recorded Date Recorded By Document 06/22/23 14:32 GM Desktop 06/22/23 14:43 GM Document 06/29/23 15:00 KW Desktop 06/29/23 15:19 KW Document 07/06/23 15:34 DL Desktop 07/06/23 15:43 DL Document 07/13/23 14:57 KW Desktop 07/13/23 15:06 KW 06/22/23 06/29/23 07/06/23 14:32 15:00 15:34 Wound Center Nurse 1 Lower Limb Edema Present Yes Right Calf (cm) 55.5 59 55 Right Ankle (cm) 30.5 38.5 31 Left Calf (cm) 55.5 58 52.5 Left Ankle (cm) 30.5 38 30.8 07/13/23 14:57 Wound Center Nurse 1 Lower Limb Edema Present Right Calf (cm) 54 Right Ankle (cm) 29.6 Left Calf (cm) 53 Left Ankle (cm) 29.8 WC - Nurse 2 - General Ulcer CM Notes Start: 06/22/23 14:31 Freq: Status: Active Protocol: Activity Type Activity Date Activity User E-sign Co-sign Detail Recorded Client Recorded Date Recorded By Document 07/06/23 15:48 GM Desktop 07/06/23 15:49 GM 07/06/23 15:48 Pain Scale: 0-10 Numeric Is Patient Pain Free? Yes - Nurse 3 - General Ulcer D/C NN Start: 06/22/23 14:31 Freq: Status: Active Protocol: Activity Type Activity Date Activity User E-sign Co-sign Detail Recorded Client Recorded Date Recorded By Document 06/22/23 14:56 KW Desktop 06/22/23 14:56 KW Document 06/29/23 15:19 KW Desktop 06/29/23 15:19 KW Document 07/06/23 16:05 GM Desktop 07/06/23 16:05 GM Document 07/06/23 16:13 DL Desktop 07/06/23 16:14 DL Document 07/13/23 15:40 BMF Desktop 07/13/23 15:40 BMF 06/22/23 06/29/23 07/06/23 14:56 15:19 16:05 Wound Care Center Nurse 3 ble -Lotion applied to leg before Yes compression wrap -Multi-Layered Wrap Application Multi-Layer Multi-Layer Multi-Layer Comp - Bilat ($ Comp - Bilat ($ Comp - Bilat ($ ) ) ) Treatment Response Pain Scale: 0-10 Numeric Is Patient Pain Free? Yes Yes Yes Teaching: Wound Center Compression Wraps & Stockings -Person Taught Patient -Teaching Method Discussion -Response to teaching Verbalize understanding WC - Visit Discharge Discharge Condition Stable Stable Stable Ambulatory Status Ambulatory, Ambulatory,Cane Ambulatory,Cane Walker Transportation Private Auto Private Auto Private Auto Medication Reconcilliation completed & No No Yes provided to patient/care provider Clinical Summary of Care Provided Yes Yes Yes Notes: Facility Type Orders Sent 07/06/23 07/13/23 16:13 15:40 Wound Care Center Nurse 3 ble -Lotion applied to leg before compression wrap -Multi-Layered Wrap Application Multi-Layer Multi-Layer Comp - Bilat ($ Comp - Bilat ($ ) ) Treatment Response Procedure Tolerated Well Pain Scale: 0-10 Numeric Is Patient Pain Free? Yes Yes Teaching: Wound Center Compression Wraps & Stockings -Person Taught -Teaching Method -Response to teaching WC - Visit Discharge Discharge Condition Stable Stable Ambulatory Status Ambulatory,Cane Ambulatory,Cane Transportation Private Auto Private Auto Medication Reconcilliation completed & provided to patient/care provider Clinical Summary of Care Provided Notes: Pt wt 316.2 Facility Type Home Health Orders Sent Yes Assessment/Plan Assessment/Plan (1) Morbid obesity with BMI of 45.0-49.9, adult: CODE(S): E66.01 - Morbid (severe) obesity due to excess calories; Z68.42 - Body mass index [BMI] 45.0-49.9, adult (2) Venous stasis dermatitis of both lower extremities: CODE(S): I87.2 - Venous insufficiency (chronic) (peripheral) (3) Lymphedema of right lower extremity: CODE(S): I89.0 - Lymphedema, not elsewhere classified (4) Lymphedema of left lower extremity: CODE(S): I89.0 - Lymphedema, not elsewhere classified PLAN: Plan Will apply fibracol to the small open area on the L calf. Will wrap with 3M wraps bilaterally for compression. He is encouraged to see if a family member or friend can carry the leg pumps inside, at least so they are protected from the elements. I advise obtaining a barrier cream such as Calmoseptine, A&D, or Desitin to apply to the genital area and buttocks to prevent irritation from incontinence. He should ensure he cleanses the area with antibacterial soap and water prior to applying the barrier cream each time. He is also instructed to ensure he is not leaving soiled underwear/incontinence pads in place for long periods of time, these should be changed as soon as possible to prevent skin irritation and breakdown. He is also encouraged to discuss his increasing incontinence with his PCP. Nurse AGUSTIN will reach out to HH/SW. He has had HH in the past and was not very pleased with the service; however, I do think he would benefit from added help or at least further discussion of the option available. Long-term, coming to the wound center weekly for compression wraps is not a sustainable solution. I think he needs more support in place to help with managing his edema and other health conditions. Given his increased CHF symptoms lately, he is also encouraged to inform his cardiologists about the lymphedema pumps and ensure he is cleared to use them from their perspective at this time. He may need to wait until these symptoms are better controlled. He will return in 1 week.
[2023-07-20 15:19] VITALS: BP 162/78; PULSE 71; RESP 18; TEMP 36.1; BMI 46.2
--- NOTE | 2023-07-20 19:05 | PCM.WC.PN ---
History of Present Illness Date of Service: 07/20/23 Chief Complaint: Severe swelling, edema, lymphedema, and venous stasis dermatitis in the lower extremities bilaterally History of Wound: Mr. Vaughn Street is a 77-year-old male who presents to the wound healing center today for evaluation management of bilateral lower extremity edema. He has been seen at the wound center before for the same, previously followed with Dr. Moore. Recently, he was admitted to SNF following a hospital stay in which she was treated for cellulitis. He has had bilateral lower extremity edema for several years now and he does have associated weeping and recurrent cellulitis. 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 He really started to notice the lower extremity swelling around that time and just has continued to get progressively worse. He also reports history of a clotting disorder. He does have an IVC filter in place. He is also anticoagulated with Coumadin for atrial fibrillation. His medical history is otherwise significant for CHF, HTN, CKD stage III. He has very limited activity due to his CHF/back pain/obesity and his BLE edema further limits his mobility. He does not really wear any compression at home. He does sleep in a recliner though he recently got an electric recliner that allows him to really elevate his legs higher than a traditional recliner. He is back at home now and states able to care for himself well enough; however, he reports he does not wear compression because he cannot put them on himself due to limited mobility. He does have HHC but only 1 day per week. Subjective Subjective His edema remains overall stable with 3M compression wraps, at this time not seeing significant improvements in swelling from week to week. He does report that he was able to bring the lymphedema pumps into his house, but cannot remember how to use them. He is unable to apply compression wraps or stockings due to very limited ROM. He has been having difficulty with incontinence as well and resulting dermatitis. We discussed use of barrier creams at last visit. He is living at home alone with very little support in place; has a nephew who is able to help occasionally, his is in SNF. He has tried HHC in the past, but was not a good experience for him. Objective Data Objective Data Vital Signs: Vital Signs Temp Pulse Resp BP Pulse Ox O2 Del Method 97.0 F L 71 18 162/78 H 93 Room Air 07/20/23 15:19 07/20/23 15:19 07/20/23 15:19 07/20/23 15:19 06/22/23 00:22 07/20/23 15:19 Oxygen Delivery Method Room Air Weight: 295 lb Body Mass Index (BMI) 46.2 Charges/Coding Visit Charges Office Visits / Consults: 56784 OV L3 Est 20min Physical Exam Const alert, oriented x3 and no apparent distress General Appearance: cooperative HEENT normocephalic, hearing grossly normal bilaterally, external ears normal and external nose normal Eyes EOMs intact bilaterally General Eye: normal appearance of both eyes Neck General: normal visual inspection and trachea midline Resp normal respiratory effort, normal air movement, no retractions and no use of accessory muscles Effort and Inspection: able to speak in complete sentences Extremity Extremity Narrative: Bilateral lower extremity edema 3+. Skin Wound Narrative: There is a small open, weeping area on the left medial calf. Papillomas, hyperpigmentation, and hyperkeratosis noted bilaterally. Neuro CN's II-XII intact bilaterally, moves all extremities, no focal motor deficits and no sensory deficits noted Psych Appearance: grossly normal Attitude: calm and engaged Activity / Motor Behavior: appropriate eye contact Speech: normal speech Mood & Affect: euthymic mood Judgement: judgement good Debridement Note Debridement Note Post-Debridement Measurements and Additional Note: Post-Debridement Measurements/Treatment WC - Nurse 1 - General Ulcer Assessment Start: 06/22/23 14:31 Freq: Status: Active Protocol: THAO Activity Type Activity Date Activity User E-sign Co-sign Detail Recorded Client Recorded Date Recorded By Document 06/22/23 14:32 GM Desktop 06/22/23 14:43 GM Document 06/29/23 15:00 KW Desktop 06/29/23 15:19 KW Document 07/06/23 15:34 DL Desktop 07/06/23 15:43 DL Document 07/13/23 14:57 KW Desktop 07/13/23 15:06 KW Edit Result 07/13/23 14:57 KW (1) [id number] 07/13/23 15:09 KW Document 07/20/23 15:19 KW Desktop 07/20/23 15:33 KW (1) Pulse Rate (60-100) => 77 Blood Pressure (90/60-120/80) => 164/90 H Blood Pressure Mean (mm Hg) => 114 06/22/23 06/29/23 07/06/23 14:32 15:00 15:34 - Today's Visit Information Type of service Follow-up Visit Nurse-only Follow-up Visit (Physician/JOINT RUNNER Visit (Physician/JOINT RUNNER ) ) Arrival Mode Ambulatory,Cane Ambulatory,Cane Ambulatory,Cane Transfer Assistance Manual None Patient Identification Verified (Name & Yes Yes Yes ) Patient Requires Transmission-Based No Precautions Safety Precautions Fall Prevention Height and Weight Body Mass Index (BMI) 46.2 46.2 46.2 BMI Classification Obese Obese Obese Vital Signs Temperature (97.8 F-99.1 F) 97.4 F L 97.4 F L 96.8 F L Temperature Source Temporal Temporal Temporal Pulse Rate (60-100) 83 78 70 Pulse Location Monitor Monitor Monitor Respiratory Rate (12-18) 20 H 18 24 H Respiratory rate source Observation Observation Observation Oxygen Delivery Method Room Air Room Air Blood Pressure (90/60-120/80) 148/74 H 148/75 H 130/79 H Blood Pressure Mean (mm Hg) 98 99 96 Source Monitor Monitor Monitor Position Semi-Fowlers Sitting Blood Pressure Location Left Arm Right Arm History Since Last Visit- (Skip if this is Patient's initial visit) Have you changed medications since your No No No last visit? Any new allergies or adverse reactions No No No Had a fall/change in ADL's that may No No No increase risk of falls Signs or symptoms of abuse and/or No No No neglect since last visit Have you been in the hospital since your No No No last visit? Has dressing in place as prescribed Yes Yes Yes Has compression in place as prescribed Yes Yes Yes Has offloadiing in place as prescribed N/A N/A N/A Experienced any changes in pain level or No No No management Left Footwear Regular Shoe Regular Shoe Right Footwear Regular Shoe Regular Shoe Pain Scale: 0-10 Numeric Is Patient Pain Free? Yes Yes Yes Teaching: Wound Center Compression Wraps & Stockings -Person Taught Patient -Teaching Method Discussion -Response to teaching Verbalize understanding 07/13/23 07/20/23 14:57 15:19 - Today's Visit Information Type of service Follow-up Visit (Physician/JOINT RUNNER ) Arrival Mode Ambulatory,Cane Ambulatory,Cane Transfer Assistance Patient Identification Verified (Name & Yes Yes ) Patient Requires Transmission-Based Precautions Safety Precautions Height and Weight Body Mass Index (BMI) 46.2 46.2 BMI Classification Obese Obese Vital Signs Temperature (97.8 F-99.1 F) 96.2 F L 97.0 F L Temperature Source Temporal Temporal Pulse Rate (60-100) 77 71 Pulse Location Monitor Monitor Respiratory Rate (12-18) 20 H 18 Respiratory rate source Observation Observation Oxygen Delivery Method Room Air Room Air Blood Pressure (90/60-120/80) 164/90 H 162/78 H Blood Pressure Mean (mm Hg) 114 106 Source Monitor Monitor Position Semi-Fowlers Semi-Fowlers Blood Pressure Location Right Arm Left Arm History Since Last Visit- (Skip if this is Patient's initial visit) Have you changed medications since your No No last visit? Any new allergies or adverse reactions No No Had a fall/change in ADL's that may No No increase risk of falls Signs or symptoms of abuse and/or No No neglect since last visit Have you been in the hospital since your No No last visit? Has dressing in place as prescribed Yes Yes Has compression in place as prescribed Yes Yes Has offloadiing in place as prescribed N/A N/A Experienced any changes in pain level or No No management Left Footwear Regular Shoe Regular Shoe Right Footwear Regular Shoe Regular Shoe Pain Scale: 0-10 Numeric Is Patient Pain Free? Yes Yes Teaching: Wound Center Compression Wraps & Stockings -Person Taught -Teaching Method -Response to teaching - Nurse 1 - General Ulcer Measurement Start: 06/22/23 14:31 Freq: Status: Active Protocol: Activity Type Activity Date Activity User E-sign Co-sign Detail Recorded Client Recorded Date Recorded By Document 06/22/23 14:32 GM Desktop 06/22/23 14:43 GM Document 06/29/23 15:00 KW Desktop 06/29/23 15:19 KW Document 07/06/23 15:34 DL Desktop 07/06/23 15:43 DL Document 07/13/23 14:57 KW Desktop 07/13/23 15:06 KW Document 07/20/23 15:19 KW Desktop 07/20/23 15:33 KW 06/22/23 06/29/23 07/06/23 14:32 15:00 15:34 Wound Center Nurse 1 Lower Limb Edema Present Yes Right Calf (cm) 55.5 59 55 Right Ankle (cm) 30.5 38.5 31 Left Calf (cm) 55.5 58 52.5 Left Ankle (cm) 30.5 38 30.8 07/13/23 07/20/23 14:57 15:19 Wound Center Nurse 1 Lower Limb Edema Present Right Calf (cm) 54 60.5 Right Ankle (cm) 29.6 32 Left Calf (cm) 53 59.7 Left Ankle (cm) 29.8 30 - Nurse 2 - General Ulcer CM Notes Start: 06/22/23 14:31 Freq: Status: Active Protocol: Activity Type Activity Date Activity User E-sign Co-sign Detail Recorded Client Recorded Date Recorded By Document 07/06/23 15:48 GM Desktop 07/06/23 15:49 GM 07/06/23 15:48 Pain Scale: 0-10 Numeric Is Patient Pain Free? Yes - Nurse 3 - General Ulcer D/C NN Start: 06/22/23 14:31 Freq: Status: Active Protocol: Activity Type Activity Date Activity User E-sign Co-sign Detail Recorded Client Recorded Date Recorded By Document 06/22/23 14:56 KW Desktop 06/22/23 14:56 KW Document 06/29/23 15:19 KW Desktop 06/29/23 15:19 KW Document 07/06/23 16:05 Desktop 07/06/23 16:05 Document 07/06/23 16:13 DL Desktop 07/06/23 16:14 DL Document 07/13/23 15:40 BMF Desktop 07/13/23 15:40 [facility] 06/22/23 06/29/23 07/06/23 14:56 15:19 16:05 Wound Care Center Nurse 3 ble -Lotion applied to leg before Yes compression wrap -Multi-Layered Wrap Application Multi-Layer Multi-Layer Multi-Layer Comp - Bilat ($ Comp - Bilat ($ Comp - Bilat ($ ) ) ) Treatment Response Pain Scale: 0-10 Numeric Is Patient Pain Free? Yes Yes Yes Teaching: Wound Center Compression Wraps & Stockings -Person Taught Patient -Teaching Method Discussion -Response to teaching Verbalize understanding WC - Visit Discharge Discharge Condition Stable Stable Stable Ambulatory Status Ambulatory, Ambulatory,Cane Ambulatory,Cane Walker Transportation Private Auto Private Auto Private Auto Medication Reconcilliation completed & No No Yes provided to patient/care provider Clinical Summary of Care Provided Yes Yes Yes Notes: Facility Type Orders Sent 07/06/23 07/13/23 16:13 15:40 Wound Care Center Nurse 3 ble -Lotion applied to leg before compression wrap -Multi-Layered Wrap Application Multi-Layer Multi-Layer Comp - Bilat ($ Comp - Bilat ($ ) ) Treatment Response Procedure Tolerated Well Pain Scale: 0-10 Numeric Is Patient Pain Free? Yes Yes Teaching: Wound Center Compression Wraps & Stockings -Person Taught -Teaching Method -Response to teaching WC - Visit Discharge Discharge Condition Stable Stable Ambulatory Status Ambulatory,Cane Ambulatory,Cane Transportation Private Auto Private Auto Medication Reconcilliation completed & provided to patient/care provider Clinical Summary of Care Provided Notes: Pt wt 316.2 Facility Type Home Health Orders Sent Yes Assessment/Plan Assessment/Plan (1) Morbid obesity with BMI of 45.0-49.9, adult: CODE(S): E66.01 - Morbid (severe) obesity due to excess calories; Z68.42 - Body mass index [BMI] 45.0-49.9, adult (2) Venous stasis dermatitis of both lower extremities: CODE(S): I87.2 - Venous insufficiency (chronic) (peripheral) (3) Lymphedema of right lower extremity: CODE(S): I89.0 - Lymphedema, not elsewhere classified (4) Lymphedema of left lower extremity: CODE(S): I89.0 - Lymphedema, not elsewhere classified PLAN: Plan Will apply fibracol to the small open area on the L calf. Will wrap with 3M wraps bilaterally for compression. I have reached out to the [employer] account representative to see if someone can go to his home for re-education regarding the pumps. Alternatively, he may bring them to his next visit and we can provide education here as well. I advise obtaining a barrier cream such as Calmoseptine, A&D, or Desitin to apply to the genital area and buttocks to prevent irritation from incontinence. He should ensure he cleanses the area with antibacterial soap and water prior to applying the barrier cream each time. He is also instructed to ensure he is not leaving soiled underwear/incontinence pads in place for long periods of time, these should be changed as soon as possible to prevent skin irritation and breakdown. He is also encouraged to discuss his increasing incontinence with his PCP. Nurse AGUSTIN had discussed patient with social work. They recommended initiating conversation about assisted living which we did discuss today. I urge him to at least consider this option as I think his overall health would benefit from extra support, not only for more consistent application of compression to manage his edema but also for more prompt care for his other chronic conditions. Likewise, removes the burden of cooking/cleaning, etc. He will consider and was agreeable to discuss further with LEO. We will pass his contact information to LEO who can help discuss these options in more detail. Given his increased CHF symptoms lately, he is also encouraged to inform his cardiologists about the lymphedema pumps and ensure he is cleared to use them from their perspective at this time. He may need to wait until these symptoms are better controlled. He will return in 1 week.
== END 2023-07-20 23:59 | disposition home or self-care (01) ==
LOC: WC 15:00
PROVIDERS: PCP Family Medicine; Referring Provider Family Medicine; Visit Provider Physician Assistant
DX: I89.0 Lymphedema, not elsewhere classified (principal); I13.0 Hypertensive heart and chronic kidney disease with heart failure and stage 1 through stage 4 chronic kidney disease, or unspecified chronic kidney disease; I50.9 Heart failure, unspecified; I48.91 Unspecified atrial fibrillation; E66.01 Morbid (severe) obesity due to excess calories; Z68.42 Body mass index [BMI] 45.0-49.9, adult; N18.30 Chronic kidney disease, stage 3 unspecified; L30.9 Dermatitis, unspecified; Z60.2 Problems related to living alone; I87.2 Venous insufficiency (chronic) (peripheral); Z86.718 Personal history of other venous thrombosis and embolism; Z86.711 Personal history of pulmonary embolism
CPT/HCPCS: 29581; 99212; 99213; G0463

== ENCOUNTER 2023-08-10 15:00 | Outpatient (RCR) | payer MEDICARE, OTHER, SELFPAY ==
[2023-07-21 00:11] VITALS: BP 162/78; PULSE 71; RESP 18; TEMP 36.1; O2SAT 93; BMI 46.2
[2023-08-03 15:37] VITALS: BP 154/54; PULSE 64; RESP 22; TEMP 36.8; BMI 46.2
--- NOTE | 2023-08-03 16:53 | PN.PCM_ITS ---
History of Present Illness Date of Service: 08/03/23 Chief Complaint: Severe swelling, edema, lymphedema, and venous stasis tavon matitis in the lower extremities bilaterally History of Wound: Mr. Vaughn Street is a 77-year-old male who presents to the wound healing center today for evaluation management of bilateral lower extremity edema. He has been seen at the wound center before for the same, previously followed with Dr. Moore. Recently, he was admitted to [facility] following a hospital stay in which she was treated for cellulitis. He has had bilateral lower extremity edema for several years now and he does have associated weeping and recurrent cellulitis. 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 He really started to notice the lower extremity swelling around that time and just has continued to get progressively worse. He also reports history of a clotting disorder. He does have an IVC filter in place. He is also anticoagulated with Coumadin for atrial fibrillation. His medical history is otherwise significant for CHF, HTN, CKD stage III. He has very limited activity due to his CHF/back pain/obesity and his BLE edema further limits his mobility. He does not really wear any compression at home. He does sleep in a recliner though he recently got an electric recliner that allows him to really elevate his legs higher than a traditional recliner. He is back at home now and states able to care for himself well enough; however, he reports he does not wear compression because he cannot put them on himself due to limited mobility. He does have HHC but only 1 day per week. Subjective Subjective He continues to have some very superifical open, weeping areas on his L medial calf. He did miss his appointment last week due to illness so his wraps were on for an extra week. No signs/symptoms of infection. He has not been able to use the leg pumps yet as he needs re-educated. He has not heard from the lymphedema pump passenger service representative about scheduling a time for re-education, but he does admit to having several missed calls of which they may be one. Objective Data Objective Data Vital Signs: Vital Signs Temp Pulse Resp BP Pulse Ox O2 Del Method 98.2 F 64 22 H 154/54 H 93 Room Air 08/03/23 15:37 08/03/23 15:37 08/03/23 15:37 08/03/23 15:37 07/21/23 00:11 08/03/23 15:37 Oxygen Delivery Method Room Air Weight: 295 lb Body Mass Index (BMI) 46.2 Charges/Coding Visit Charges Office Visits / Consults: 37677 OV L3 Est 20min Physical Exam Const alert, oriented x3 and no apparent distress General Appearance: cooperative HEENT normocephalic, hearing grossly normal bilaterally, external ears normal and external nose normal Eyes EOMs intact bilaterally General Eye: normal appearance of both eyes Neck General: normal visual inspection and trachea midline Resp normal respiratory effort, normal air movement, no retractions and no use of accessory muscles Effort and Inspection: able to speak in complete sentences Extremity Extremity Narrative: Bilateral lower extremity edema 3+. Skin Wound Narrative: There is a small open, weeping area on the left medial calf. Papillomas, hyperpigmentation, and hyperkeratosis noted bilaterally. Neuro CN's II-XII intact bilaterally, moves all extremities, no focal motor deficits and no sensory deficits noted Psych Appearance: grossly normal Attitude: calm and engaged Activity / Motor Behavior: appropriate eye contact Speech: normal speech Mood & Affect: euthymic mood Judgement: judgement good Debridement Note Debridement Note Post-Debridement Measurements and Additional Note: Post-Debridement Measurements/Treatment - Nurse 1 - General Ulcer Assessment Start: 08/03/23 15:36 Freq: Status: Active Protocol: WC.LOWEXT Activity Type Activity Date Activity User E-sign Co-sign Detail Recorded Client Recorded Date Recorded By Document 08/03/23 15:37 MT Desktop 08/03/23 15:53 MT 08/03/23 15:37 - Today's Visit Information Type of service Follow-up Visit (Physician/[employer] ) Arrival Mode Ambulatory,Cane Accompanied by self Patient Identification Verified (Name & Yes ) Safety Precautions Fall Prevention Height and Weight Body Mass Index (BMI) 46.2 BMI Classification Obese Vital Signs Temperature (97.8 F-99.1 F) 98.2 F Temperature Source Temporal Pulse Rate (60-100) 64 Pulse Location Monitor Respiratory Rate (12-18) 22 H Respiratory rate source Observation Oxygen Delivery Method Room Air Blood Pressure (90/60-120/80) 154/54 H Blood Pressure Mean (mm Hg) 87 Source Monitor Position Sitting History Since Last Visit- (Skip if this is Patient's initial visit) Has dressing in place as prescribed Yes Has compression in place as prescribed N/A Has offloadiing in place as prescribed N/A Left Footwear Regular Shoe Right Footwear Regular Shoe Pain Scale: 0-10 Numeric Is Patient Pain Free? Yes - Nurse 1 - General Ulcer Measurement Start: 08/03/23 15:36 Freq: Status: Active Protocol: Activity Type Activity Date Activity User E-sign Co-sign Detail Recorded Client Recorded Date Recorded By Document 08/03/23 15:37 KS Desktop 08/03/23 15:53 KS 08/03/23 15:37 Wound Center Nurse 1 Right Calf (cm) 55.5 Right Ankle (cm) 36 Left Calf (cm) 53 Left Ankle (cm) 32 - Nurse 2 - General Ulcer CM Notes Start: 08/03/23 15:36 Freq: Status: Active Protocol: Activity Type Activity Date Activity User E-sign Co-sign Detail Recorded Client Recorded Date Recorded By Document 08/03/23 15:57 Desktop 08/03/23 16:02 08/03/23 15:57 Pain Scale: 0-10 Numeric Is Patient Pain Free? Yes - Nurse 3 - General Ulcer D/C NN Start: 08/03/23 15:36 Freq: Status: Active Protocol: Activity Type Activity Date Activity User E-sign Co-sign Detail Recorded Client Recorded Date Recorded By Document 08/03/23 16:08 KS Desktop 08/03/23 16:12 KS 08/03/23 16:08 Wound Care Center Nurse 3 ble -Multi-Layered Wrap Application Unna Boot - Bilateral ($) Treatment Response Procedure Tolerated Well Pain Scale: 0-10 Numeric Is Patient Pain Free? Yes - Visit Discharge Discharge Condition Stable Ambulatory Status Ambulatory,Cane Transportation Private Auto Assessment/Plan Assessment/Plan (1) Morbid obesity with BMI of 45.0-49.9, adult: CODE(S): E66.01 - Morbid (severe) obesity due to excess calories; Z68.42 - Body mass index [BMI] 45.0-49.9, adult (2) Venous stasis dermatitis of both lower extremities: CODE(S): I87.2 - Venous insufficiency (chronic) (peripheral) (3) Lymphedema of right lower extremity: CODE(S): I89.0 - Lymphedema, not elsewhere classified (4) Lymphedema of left lower extremity: CODE(S): I89.0 - Lymphedema, not elsewhere classified PLAN: Plan Will apply Unna boots bilaterally for both compression and treatment of the superficially open, weeping areas on his L medical calf. He is advised to contact the lymphedema pump company to set up an appt for the passenger service representative to return to his home and show him how to utilize the leg pumps. He does have their number. We discussed the importance of learning to use these. As he is unable to apply compression stockings or wraps, I believe these pumps are the best option for long-term management of his lymphedema. We again discussed his need for further assistance and support in his own care. He absolutely does not want to consider assisted living. He is open to [facility]. He has not heard from yet. Nurse AGUSTIN will reach out to them to ask that they contact patient to discuss these options. He is encouraged to keep an eye out for their call and to make sure he checks his voicemail as well. He will return in 1 week.
[2023-08-10 15:25] VITALS: BP 141/71; PULSE 70; RESP 18; TEMP 36.1; BMI 46.2
--- NOTE | 2023-08-10 18:23 | PCM.WC.PN ---
History of Present Illness Date of Service: 08/10/23 Chief Complaint: Severe swelling, edema, lymphedema, and venous stasis dermatitis in the lower extremities bilaterally History of Wound: Mr. Vaughn Street is a 77-year-old male who presents to the wound healing center today for evaluation management of bilateral lower extremity edema. He has been seen at the wound center before for the same, previously followed with Dr. Moore. Recently, he was admitted to SNF following a hospital stay in which she was treated for cellulitis. He has had bilateral lower extremity edema for several years now and he does have associated weeping and recurrent cellulitis. 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 He really started to notice the lower extremity swelling around that time and just has continued to get progressively worse. He also reports history of a clotting disorder. He does have an IVC filter in place. He is also anticoagulated with Coumadin for atrial fibrillation. His medical history is otherwise significant for CHF, HTN, CKD stage III. He has very limited activity due to his CHF/back pain/obesity and his BLE edema further limits his mobility. He does not really wear any compression at home. He does sleep in a recliner though he recently got an electric recliner that allows him to really elevate his legs higher than a traditional recliner. He is back at home now and states able to care for himself well enough; however, he reports he does not wear compression because he cannot put them on himself due to limited mobility. He does have HHC but only 1 day per week. Subjective Subjective The area of superficial skin breakdown on the left medial leg has improved with the Unna boots but there it still does remain small open area. Last week he was advised to reach out to the pneumatic device statement services representative to set up an appointment for further education as to how to use these pumps. Unfortunately he relates that family issues came up and he did not reach out to them. We also did have trouble getting in contact with him this week. Objective Data Objective Data Vital Signs: Vital Signs Temp Pulse Resp BP Pulse Ox O2 Del Method 97 F L 70 18 141/71 H 93 Room Air 08/10/23 15:25 08/10/23 15:25 08/10/23 15:25 08/10/23 15:25 07/21/23 00:11 08/10/23 15:25 Oxygen Delivery Method Room Air Weight: 295 lb Body Mass Index (BMI) 46.2 Charges/Coding Visit Charges Office Visits / Consults: 88137 OV L3 Est 20min Physical Exam Const alert, oriented x3 and no apparent distress General Appearance: cooperative HEENT normocephalic, hearing grossly normal bilaterally, external ears normal and external nose normal Eyes EOMs intact bilaterally General Eye: normal appearance of both eyes Neck General: normal visual inspection and trachea midline Resp normal respiratory effort, normal air movement, no retractions and no use of accessory muscles Effort and Inspection: able to speak in complete sentences Extremity Extremity Narrative: Bilateral lower extremity edema 3+. Skin Wound Narrative: There is a small open, weeping area on the left medial calf. Papillomas, hyperpigmentation, and hyperkeratosis noted bilaterally. Neuro CN's II-XII intact bilaterally, moves all extremities, no focal motor deficits and no sensory deficits noted Psych Appearance: grossly normal Attitude: calm and engaged Activity / Motor Behavior: appropriate eye contact Speech: normal speech Mood & Affect: euthymic mood Judgement: judgement good Debridement Note Debridement Note Post-Debridement Measurements and Additional Note: Post-Debridement Measurements/Treatment - Nurse 1 - General Ulcer Assessment Start: 08/03/23 15:36 Freq: Status: Active Protocol: THAO Activity Type Activity Date Activity User E-sign Co-sign Detail Recorded Client Recorded Date Recorded By Document 08/03/23 15:37 [facility] Desktop 08/03/23 15:53 MT Document 08/10/23 15:25 [facility] Desktop 08/10/23 15:37 [facility] 08/03/23 08/10/23 15:37 15:25 - Today's Visit Information Type of service Follow-up Visit Follow-up Visit (Physician/CIRCULATION SALES REPRESENTATIVE (Physician/CIRCULATION SALES REPRESENTATIVE ) ) Arrival Mode Ambulatory,Cane Ambulatory,Cane Transfer Assistance None Accompanied by self Patient Identification Verified (Name & Yes Yes ) Patient Requires Transmission-Based No Precautions Safety Precautions Fall Prevention Height and Weight Body Mass Index (BMI) 46.2 46.2 BMI Classification Obese Obese Vital Signs Temperature (97.8 F-99.1 F) 98.2 F 97 F L Temperature Source Temporal Temporal Pulse Rate (60-100) 64 70 Pulse Location Monitor Monitor Respiratory Rate (12-18) 22 H 18 Respiratory rate source Observation Observation Oxygen Delivery Method Room Air Room Air Blood Pressure (90/60-120/80) 154/54 H 141/71 H Blood Pressure Mean (mm Hg) 87 94 Source Monitor Monitor Position Sitting Sitting Blood Pressure Location Left Arm History Since Last Visit- (Skip if this is Patient's initial visit) Have you changed medications since your No last visit? Any new allergies or adverse reactions No Had a fall/change in ADL's that may No increase risk of falls Signs or symptoms of abuse and/or No neglect since last visit Have you been in the hospital since your No last visit? Has dressing in place as prescribed Yes Yes Has compression in place as prescribed N/A Yes Has offloadiing in place as prescribed N/A N/A Experienced any changes in pain level or No management Left Footwear Regular Shoe Regular Shoe Right Footwear Regular Shoe Regular Shoe Pain Scale: 0-10 Numeric Is Patient Pain Free? Yes Yes WC - Nurse 1 - General Ulcer Measurement Start: 08/03/23 15:36 Freq: Status: Active Protocol: Activity Type Activity Date Activity User E-sign Co-sign Detail Recorded Client Recorded Date Recorded By Document 08/03/23 15:37 MT Desktop 08/03/23 15:53 MT Document 08/10/23 15:25 [facility] Desktop 08/10/23 15:37 [facility] 08/03/23 08/10/23 15:37 15:25 Wound Center Nurse 1 Lower Limb Edema Present Yes Right Calf (cm) 55.5 59.2 Right Ankle (cm) 36 29 Left Calf (cm) 53 56.2 Left Ankle (cm) 32 28.9 WC - Nurse 2 - General Ulcer CM Notes Start: 08/03/23 15:36 Freq: Status: Active Protocol: Activity Type Activity Date Activity User E-sign Co-sign Detail Recorded Client Recorded Date Recorded By Document 08/03/23 15:57 GM Desktop 08/03/23 16:02 GM Document 08/10/23 15:55 GM Desktop 08/10/23 15:55 GM 08/03/23 08/10/23 15:57 15:55 Pain Scale: 0-10 Numeric Is Patient Pain Free? Yes Yes WC - Nurse 3 - General Ulcer D/C NN Start: 08/03/23 15:36 Freq: Status: Active Protocol: Activity Type Activity Date Activity User E-sign Co-sign Detail Recorded Client Recorded Date Recorded By Document 08/03/23 16:08 MT Desktop 08/03/23 16:12 MT Document 08/10/23 16:03 KW Desktop 08/10/23 16:03 KW 08/03/23 08/10/23 16:08 16:03 Wound Care Center Nurse 3 ble -Multi-Layered Wrap Application Unna Boot - Unna Boot - Bilateral ($) Bilateral ($) Treatment Response Procedure Tolerated Well Pain Scale: 0-10 Numeric Is Patient Pain Free? Yes Yes WC - Visit Discharge Discharge Condition Stable Stable Ambulatory Status Ambulatory,Cane Ambulatory,Cane Transportation Private Auto Private Auto Medication Reconcilliation completed & No provided to patient/care provider Clinical Summary of Care Provided Yes Assessment/Plan Assessment/Plan (1) Morbid obesity with BMI of 45.0-49.9, adult: CODE(S): E66.01 - Morbid (severe) obesity due to excess calories; Z68.42 - Body mass index [BMI] 45.0-49.9, adult (2) Venous stasis dermatitis of both lower extremities: CODE(S): I87.2 - Venous insufficiency (chronic) (peripheral) (3) Lymphedema of right lower extremity: CODE(S): I89.0 - Lymphedema, not elsewhere classified (4) Lymphedema of left lower extremity: CODE(S): I89.0 - Lymphedema, not elsewhere classified PLAN: Plan The superficially open and weeping area on his left medial calf is improved but still present. Will again apply Unna boots bilaterally for both compression and treatment. Anticipate that this will be the last week this is needed. Discussed again that it is very important that he have a method of compression in place for better long-term management of his chronic edema. He will have recurrence of his wounds without this. The lymphedema pumps were ordered, approved, and delivered. I have reached out to the pump company a few times in order to try to facilitate reeducation that he will feel comfortable applying these himself but they relate that they have not been able to get through to him. He has not reached out to them although he does have their number. He is gently reminded that he needs to reach out to them to set this up and also to try to ensure that he is answering his phone or at least checking his voicemails until this occurs. I do really feel that he needs more support in place to better care for himself and his many chronic conditions. He is adamant that he does not want to go to assisted living or any similar facility. However, he is agreeable to seeing what options are available within the community that might allow him to live more successfully in his own home. We will provide his information to the area on aging and a social professionals associated with them will reach out to discuss with him. He is again reminded that he will need to ensure he is checking his phone. He will return in 1 week.
== END 2023-08-20 23:59 | disposition home or self-care (01) ==
LOC: WC 15:00
PROVIDERS: PCP Family Medicine; Referring Provider Family Medicine; Visit Provider Physician Assistant
DX: I89.0 Lymphedema, not elsewhere classified (principal); I13.0 Hypertensive heart and chronic kidney disease with heart failure and stage 1 through stage 4 chronic kidney disease, or unspecified chronic kidney disease; I50.9 Heart failure, unspecified; I48.91 Unspecified atrial fibrillation; E66.01 Morbid (severe) obesity due to excess calories; Z68.42 Body mass index [BMI] 45.0-49.9, adult; N18.30 Chronic kidney disease, stage 3 unspecified; I87.2 Venous insufficiency (chronic) (peripheral); R60.0 Localized edema; Z79.01 Long term (current) use of anticoagulants
CPT/HCPCS: 29580; 99213; G0463

== ENCOUNTER 2023-08-24 15:19 | Outpatient (RCR) | payer MEDICARE, OTHER, SELFPAY ==
[2023-08-21 00:37] VITALS: BP 141/71; PULSE 70; RESP 18; TEMP 36.1; O2SAT 93; BMI 46.2
[2023-08-24 15:25] VITALS: BP 133/61; PULSE 73; RESP 20; TEMP 35.7; BMI 46.2
== END 2023-09-19 23:59 | disposition home or self-care (01) ==
LOC: WC 15:19
PROVIDERS: PCP Family Medicine; Referring Provider Family Medicine; Visit Provider Physician Assistant
DX: I89.0 Lymphedema, not elsewhere classified (principal)
CPT/HCPCS: 99213; G0463

== ENCOUNTER 2023-09-14 09:23 | Inpatient (IN) | payer MEDICARE, OTHER, SELFPAY ==
[2023-09-14] VITALS (12 sets, daily range): BP systolic 117–182; BP diastolic 61–95; PULSE 80–96; RESP 14–22; TEMP 36.1–37.2; O2SAT 92–98; BMI 48.5; BMI 49.4
--- NOTE | 2023-09-14 09:56 | EKG12_ITS ---
Test Reason : Blood Pressure : / mmHG Vent. Rate : 073 BPM Atrial Rate : 000 BPM P-R Int : 000 ms QRS Dur : 088 ms QT Int : 366 ms P-R-T Axes : 000 009 027 degrees QTc Int : 403 ms Atrial fibrillation Cannot rule out Inferior infarct (cited on or before 11-APR-2023) Abnormal ECG Confirmed by JOSE ANTONIO GUTIÉRREZ, HOOD ([id number]), order editor GUADALUPE DAVID ([id number]) on 09/18/2023 10:27:30 AM Referred By: Confirmed By:LEFTY BRADY MD
[2023-09-14 10:07] LABS: Absolute Lymphocyte Count 1.59 X10^3/uL (0.83-4.51); Absolute Neutrophil Count 7.3 X10^3/uL (2.0-7.7); Basophil# 0.09 X10^3/uL; Basophil% 0.8 % (0-1); Eosinophil# 1.07 X10^3/uL; Eosinophils% 9.5 % (0-5); Hematocrit 43.6 % (40-54); Hemoglobin 14.4 g/dL (13.0-16.5); Lymphocyte # 1.59 X10^3/ul (0.83-4.51); Lymphocyte % 14.1 % (19-41); Mean Corpuscular Hgb 31.6 pg (27.0-32.0); Mean Corpuscular Volume 95.6 fL (80-94); Monocyte# 1.18 X10^3/uL; Monocyte% 10.5 % (0-10); NRBC Flagged by Analyzer 0 % (0-5); Neutrophil # 7.26 X10^3/uL (2.7-7.7); Neutrophil % 64.6 % (47-70); Platelet Count 425 K/mm3 (150-450); RBC Distribution Width CV 14.9 % (11.6-14.6); Red Blood Count 4.56 M/mm3 (4.6-6.2); White Blood Count 11.3 K/mm3 (4.4-11.0)
--- NOTE | 2023-09-14 10:10 | RAD_ITS ---
STUDY: X-RAY CHEST REASON FOR EXAM: Male, 78 years old. SOB TECHNIQUE: Single AP portable view of the chest. COMPARISON: Comparison is made with prior study April 11, 2023. FINDINGS: EKG electrodes are seen. Mild vascular congestion with left basilar infiltrate. There is no demonstrated pleural abnormality. There is borderline cardiomegaly. Normal mediastinum and syd. Normal visualized pulmonary arteries. There is atherosclerotic calcification of the aortic arch with tortuosity. There is an increased kyphosis of the thoracic spine. Multiple healed left rib fractures. There is no demonstrated abnormality of the visualized soft tissue structures of the upper abdomen. RAD/Chest 1 View (Portable) IMPRESSION: Mild degree of vascular congestion with left basilar infiltrate and blunting of the left costo phrenic angle. Multiple healed left rib fractures. Electronically Signed: Yaya Walton MD at 10:41 EDT ,
[2023-09-14 10:25] LABS: Anion Gap 5 (5-15); BUN 19 mg/dL (7-18); BUN/Creat Ratio 16.5 RATIO (10-20); Calcium,Total 9.1 mg/dL (8.5-10.1); Chloride 105 mmol/L (98-107); Creatinine, Serum 1.15 mg/dL (0.70-1.30); EST Glomerular Filtration Rate 65 mL/min (>60); Est Glom Filt Rate - Afr Amer 79 mL/min (>60); Estimated Creatinine Clearance 69.49 ml/min; Glucose 100 mg/dL (74-106); Potassium 3.8 mmol/L (3.5-5.1); Sodium Level 138 mmol/L (136-145); Troponin-I HS 17 pg/mL (3.0-78.0)
--- NOTE | 2023-09-14 10:28 | EX.ED.DYSGE1 ---
HPI History of Present Illness Chief Complaint: Edema Detail of Chief Complaint: Bilateral lower extremity swelling. Informant: patient and family Onset/Context/Timing Onset: Weeks Context: Gradual Onset Current Severity: Mild Maximum Severity: Mild Narrative Narrative: 78-year-old male history of A-fib for which he is on Coumadin, CHF, COPD, chronic kidney disease. He is also prediabetic. Has not been in the hospital lately. He was going to the wound care center they told him according to the patient there was nothing more they can do and he would get outpatient follow-up. He took himself off his Bumex his diuretic about 2 weeks ago is increased swelling in his lower extremities and redness. Denies any fever. Prior similar symptoms: Yes Recent Illness/Hospitalization: No PFSH PFSH Medical History Anemia due to acute blood loss Anticoagulant long-term use Asplenia after surgical procedure Atrial fibrillation Broken collarbone Broken ribs CHF (congestive heart failure) Chronic renal insufficiency, stage III (moderate) COPD (chronic obstructive pulmonary disease) Current use of planner chief anticoagulation Degenerative joint disease of spine DVT (deep venous thrombosis) Failed fundoplication Former smoker GI bleed History of deep vein thrombosis History of gastrointestinal bleeding History of pulmonary embolism HTN (hypertension) Hyperlipidemia Irregular heart beat Kidney disease Kidney stones Leg edema Leg swelling Limited mobility Lymphedema of left lower extremity Lymphedema of right lower extremity Migraines Morbid obesity with BMI of 45.0-49.9, adult Obstructive sleep apnea Prediabetes Presence of IVC filter Pulmonary embolism Sleep apnea Venous stasis dermatitis of both lower extremities Home Medications calcium citrate 315 mg calcium-vitamin D3 6.25 mcg (250 unit) tablet 1 ea PO DAILY SUPPLEMENT 10/01/13 [History Last Taken 11/11/21] potassium chloride 20 mEq tablet,extended release(part/cryst) (Klor-Con M) 40 meq PO BID SUPPLEMENT 10/01/13 [History Last Taken 11/12/21] spironolactone 25 mg tablet 25 mg PO DINNER FLUID 10/01/13 [History Last Taken 11/11/21] atorvastatin 20 mg tablet 20 mg PO DAILY CHOLESTEROL 11/12/21 [History Last Taken 11/12/21] bumetanide 1 mg tablet 1 mg PO DINNER FLUID 11/12/21 [History Last Taken 11/11/21] bumetanide 1 mg tablet 2 mg PO QHS FLUID 11/12/21 [History Last Taken 11/11/21] metoprolol tartrate 50 mg tablet 25 mg PO BID HEART 11/12/21 [History Last Taken 11/12/21] warfarin 1 mg tablet 5 mg PO SUMOWETHFRSA BLOOD THINNER 11/12/21 [History Last Taken 11/12/21 00:00] omeprazole 20 mg capsule,delayed release 40 mg (2 x 20 mg) PO BID GERD #60 caps 11/13/21 [Rx Last Taken 11/12/21] ferrous sulfate 325 mg (65 mg iron) tablet (FeroSul) 1 tab PO BID 12/08/21 [History Last Taken Unknown] umeclidinium 62.5 mcg/actuation blister powder for inhalation (Incruse Ellipta) See Rx Instructions .Route .COMPLEX Check with primary doctor 12/08/21 [History Last Taken 12/08/21] Allergy/AdvReac Type Severity Reaction Status Date / Time chlorpromazine HCl Allergy Other Verified 09/14/23 09:39 [From Thorazine] metformin Allergy PT UNSURE Verified 09/14/23 09:39 OF REACTION Family History Other Heart disease Hypertension Surgical History History of embolic filter insertion History of Myrtle fundoplication History of splenectomy History of ventral hernia repair Status post splenectomy Social History household members: none Smoking Status: Former smoker substance use type: does not use ROS ROS ED ROS Narrative Denies recent illness. Review of Systems ROS Unobtainable: Denies due to encephalopathy Constitutional Constitutional ED: Denies fever(s) Eyes Eyes: Denies blurry vision ENT ENT ED: Denies ear pain Cardiovascular Cardiovascular: Denies chest pain Respiratory/Chest Respiratory/Chest: Denies cough or dyspnea Gastrointestinal Gastrointestinal: Denies abdominal pain Genitourinary Genitourinary ED: Denies hematuria Musculoskeletal Musculoskeletal: Denies arthralgias Integumentary Denies abscess or Abrasions Neurologic Neurologic: Denies headache(s) Psychiatric Psychiatric: Denies anxiety or depression Endocrine Endocrinology: Denies cold intolerance Hematologic/Lymphatic Hematologic/Lymphatic: Reports none Allergic/Immunologic Allergic/Immunologic ED: Denies mouth swelling or urticaria EXAM Physical Exam Narrative Exam Narrative: 78-year-old male vital signs stable afebrile. Pulse ox 96% on room air no hypoxia. H EENT exam unremarkable. Mild dry mucous membranes. Pupils are reactive light. No facial droop. Normal speech. Lungs clear to auscultation bilateral. Heart A-fib rate about 70. No murmur. Chest wall ribs nontender. Abdomen soft nontender. Moving all 4 extremities. 1+ pitting edema both lower extremities. Redness. Slight chronic venous stasis changes. Not warm to touch. Not specifically tender. Dorsi plantarflexion intact. There are wraps on his lower extremities which were removed. Neurologically is awake alert. He is answering questions following commands. Back nontender. Const Vital Signs: 09/14/23 09:24 09/14/23 09:40 09/14/23 09:47 Temperature 98.2 F 98.2 F Temperature Source Oral Oral Pulse Rate 86 93 Respiratory Rate 18 17 Respiratory Effort Normal Non-Labored Respiratory Pattern Normal Blood Pressure 171/81 H 165/95 H Blood Pressure Mean 111 118 Pulse Ox 96 97 Oxygen Delivery Method Room Air Room Air 09/14/23 10:33 09/14/23 11:34 Temperature 98.4 F 98.2 F Temperature Source Oral Oral Pulse Rate 89 85 Respiratory Rate 15 14 Respiratory Effort Respiratory Pattern Blood Pressure 117/61 155/74 H Blood Pressure Mean 79 101 Pulse Ox 95 92 Oxygen Delivery Method Room Air Room Air Positive well nourished and well developed; Negative for cachectic, contractures or unkempt General Appearance ED: well developed and NAD; Negative for unkempt, cachectic, contractures, cyanotic or diaphoretic Nutritional Appearance: Negative for cachectic HEENT Reports dry mucous membranes Negative for trauma or tenderness Mouth ED: Yes dry mucous membranes Mouth: dry mucous membranes Eyes PERRL and EOMs intact bilaterally General Eye ED: Negative for pale conjunctiva or scleral icterus Neck no lymphadenopathy, supple and no JVD General: Negative for tenderness Lymph Lymphatic: Negative for other Chest Wall inspection of chest normal and palpation of chest normal Chest: Negative for other Resp normal respiratory effort and clear to auscultation bilaterally Effort and Inspection: Negative for retractions Auscultation: Negative for rales, rhonchi or wheezes Cardio Negative for regular rate or regular rhythm Rhythm: abnormal rhythm irregularly irregular GI normal to inspection, nondistended, normoactive bowel sounds, non-tender and non-distended Auscultation: normoactive bowel sounds Palpation: soft; Negative for tender, guarding or rebound tenderness present Back/Spine no CVA tenderness Extremity Negative for normal to inspection Extremity Narrative: Bilateral lower extremity edema. Chronic venous stasis changes with redness. Nontender. No warmth. Normal dorsi plantarflexion. Chronic wraps. General Extremety ED: Yes edema General Extremity: edema Neuro oriented x3 and CN's II-XII intact bilaterally Sensorium / Orientation: alert; Negative for orientation impaired Motor Exam: strength 5/5 throughout Psych mental status grossly normal Appearance: Negative for unkempt Attitude: No agitated Mood & Affect: Negative for depressed, anxious or tearful Skin No no rashes or lesions noted and no wounds Skin Narrative: Venous stasis changes to lower extremities. General Skin Exam: Negative for jaundice Lesions: No lesion noted Rashes: rashes noted MDM MDM MDM Narrative Medical decision making narrative: 78-year-old male stopped his diuretic because he said he was peeing too much. He has increased swelling in his lower extremities and redness. I think this is venous stasis I do not really think it cellulitis. Screening labs are being obtained. I do not think he needs any imaging of his lower extremities. We are checking his Coumadin level because he is on anticoagulation due to prior DVTs and A-fib. Repeat exam no change. Patient has chronic venous stasis changes to both lower extremities. We took the wraps off. He and his daughter at bedside feel he needs to be admitted may need senior living placement. They have a particular location in mind. No running for some IV Lasix. Burning and hip x-ray because been complaint hip pain and I will speak to the hospitalist about admission. It is also an issue of failure to thrive. History & Record Review Discussion w/independent historian: Patient Additional record(s) reviewed:: Prior inpatient record, Prior outpatient record, Prior ED visit and Prior labs Lab Data Attestation: I reviewed the patient's lab results. Lab results narrative: CBC shows a white count 1.3. H&H 14 and 43. Platelets 425. Electrolytes show gap 5. BUN and creatinine are 19 and 1. Glucose 100. Troponin 17. BNP is only 119. PT and INR are 17.8 and 1.5 Labs: Laboratory Results - last 24 hr 09/14/23 09:52 WBC 11.3 H RBC 4.56 L Hgb 14.4 Hct 43.6 MCV 95.6 H MCH 31.6 MCHC 33.0 RDW Std Deviation 52.0 H RDW Coeff of Ira 14.9 H Plt Count 425 MPV 10.0 Immature Gran % (Auto) 0.500 Neut % (Auto) 64.6 Lymph % (Auto) 14.1 L Denali % (Auto) 10.5 H Eos % (Auto) 9.5 H Baso % (Auto) 0.8 Absolute Neuts (auto) 7.3 Absolute Lymphs (auto) 1.59 Nucleated RBC % 0 PT 17.8 H INR 1.5 Sodium 138 Potassium 3.8 Chloride 105 Carbon Dioxide 28.0 Anion Gap 5 BUN 19 H Creatinine 1.15 Estim Creat Clear Calc 69.49 Est GFR (MDRD) Af Amer 79 Est GFR (MDRD) Non-Af 65 BUN/Creatinine Ratio 16.5 Glucose 100 Calcium 9.1 Troponin I High Sens 17 B-Natriuretic Peptide 119.3 H Radiography Chest X-Ray - ED: 1 View, Mediastinum, No Acute Disease and Chronic Changes Diagnostic Testing: Clinical Impression(s) from Imaging Studies Chest X-Ray 09/14/23 10:10 IMPRESSION: Mild degree of vascular congestion with left basilar infiltrate and blunting of the left costo phrenic angle. Multiple healed left rib fractures. Electronically Signed: Yaya Walton MD at 10:41 EDT , Chest x-ray, portable, single view, interpreted by myself shows chronic changes. Old left-sided rib fractures. No acute process. No effusions. No significant edema. No infiltrate. Rhythm Strip Rhythm Strip: A-fib Rate: 73 Ectopy: None EKG Initial EKG: Attestation: I personally reviewed and interpreted this EKG as follows: Interpretation: Atrial Fibrillation Comments: A-fib rate of 73. No acute signs of [place] or ischemia. Discharge Plan Triage Chief Complaint: Edema ED Provider: Josué Marr Dx/Rx/DC Orders Clinical Impression: Adult failure to thrive, CHF (congestive heart failure), Prediabetes, Chronic anticoagulation, A-fib, Bilateral edema of lower extremity, Subtherapeutic anticoagulation Prescriptions: No Action spironolactone 25 MG tablet 25 mg PO DINNER potassium chloride [Klor-Con M20] 20 MEQ tablet 40 meq PO BID calcium citrate-vitamin D3 1 EACH tablet 1 ea PO DAILY atorvastatin 20 mg Tablet 20 mg PO DAILY metoprolol tartrate 50 mg tablet 25 mg PO BID bumetanide 1 mg tablet 1 mg PO DINNER Hold Instructions: pt not taking x2 weeks Patient Comments: TAKE 1 TABLET AT SUPPERwTIME AND 2 TABLETS AT BEDTIME bumetanide 1 mg tablet 2 mg PO QHS Hold Instructions: pt not taking x2 weesa Patient Comments: TAKE 1 TABLET AT SUPPERwTIME AND 2 TABLETS AT BEDTIME warfarin 1 mg tablet 5 mg PO SUMOWE Rx Instructions: takes 2.5mg on Monday omeprazole 20 MG capsule 40 mg PO BID Qty: 60 0RF Incruse Ellipta 62.5 mcg/actuation blister with device See Rx Instructions .ROUTE .COMPLEX Rx Instructions: one puff daily ferrous sulfate [FeroSul] 325 mg (65 mg iron) tablet 1 tab PO BID Patient Comments: Take 1 tablet by mouthEtwice daily with meals.N Primary Care Provider: Hubert Camarena Referrals: Hubert Camarena MD [Primary Care Provider] - Disposition Disposition: Acute Care [facility]
[2023-09-14 10:29] LABS: BNP,B-Type NATRIURETIC PEPTIDE 119.3 pg/mL (0-100)
--- NOTE | 2023-09-14 10:37 | ED.RN ---
removed leg dressings from wounds
[2023-09-14 10:49] LABS: International Normalized Ratio 1.5; Prothrombin Time (Protime)PT. 17.8 SECONDS (11.7-14.9)
--- NOTE | 2023-09-14 12:15 | RAD_ITS ---
STUDY: X-RAY - PELVIS AND LEFT HIP REASON FOR EXAM: Male, 78 years old. ATRAUMATIC LEFT HIP PAIN TECHNIQUE: 3 views of the pelvis and hip. COMPARISON: None. FINDINGS: There is a non-specific bowel gas pattern. Gallstones. Filter is seen in the inferior vena cava. There is narrowing with cortical sclerosis and osteophyte formation of the sacroiliac joint consistent with degenerative osteoarthritic changes. Normal bilateral superior and inferior pubic rami. Normal pubic symphysis. Normal bilateral ischial tuberosities. Some chondral cystic changes are seen in the left femoral head. Normal acetabulum. There is severe articular joint space narrowing of the hip. 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 Moderate degree of joint space narrowing of the right hip. 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 Gallstones. Electronically Signed: Yaya Walton MD at 12:58 EDT ,
[2023-09-14] MEDS: Furosemide 40 MG/4 ML Vial IV (12:28)
[2023-09-14] MEDS: Spironolactone 25 MG Tablet PO (16:47)
[2023-09-14] MEDS: Potassium Chloride Oral Tablet 20 MEQ PO (16:48)
[2023-09-14] MEDS: Ferrous Sulfate 325 MG Tablet PO (16:48)
[2023-09-14] MEDS: Furosemide 20 MG Tablet 60 MG PO (16:48)
--- NOTE | 2023-09-14 17:00 | CASEMGMT ---
Care Management - Initial Assessment Face to Face with patient after being informed that family in room requesting to speak to social work associate.? Initial transition planning/care coordination assessment completed during requested meeting.? 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 Patient lying in bed, alert and oriented. Patient willing to participate in conversation. Able to answer all questions appropriately.? Patient?s stepchildren Taisha Blandon and raquel Barrow present in room.? Care providers, pharmacy, and demographics verified. Admitting Diagnosis: Edema Other diagnosis history:? Per medical record - CHF, COPD, Afib, DVT, Kidney Disease, Morbid Obesity, and Sleep Apnea.? Lymphedema.?? Patient reports to have ?pre? diabetes.? PCP: Dr. Camarena Specialists: ?[facility]/Cardiology ? Dr. Urban, Urology ? Dr. Herrera;? Podiatry ? Dr. Aleman;?? [facility] Preferred [facility]acy: [facility] Insurance:? Medicare, [employer] Health Plan Prescription Benefit:? Yes Living Will/HPOA: Yes,? Stepdaughter Taisha ? to bring in paperwork at next visit.? LNOK: Patient is .? is at [facility] long term care social worker.? 2 stepchildren.? Living Arrangements: Currently lives alone in a mobile home.? Family reports home is in disrepair with patient not interested in cleaning or throwing things out.? Reports history of issues with mouse dropping in the home.?? 4-6 step into the home with grab bars/rails at steps.? Reports to make own meals. Reports to eat a lot of peanut butter and jelly and chocolate milk. Transportation: Reports to still drive.? DME: Forward wheeled walker, cane (what patient primarily uses), rails on the tub, shower chair, lift chair, BP machine, pulse ox;? NO glucometer,? NO oxygen, HX of CPAP but ?gave it away.?? HHC: [facility] for skilled, not current.?? Reports has had other HHC but can?t remember the names.? SNF:? [facility].?? Patient?s is currently at [facility].? Community Resources:? No current community resources.? Patient goals: Patient wishes to discharge home, with help to take care of his legs.? Patient reports has had trouble getting people to the home though.? If had to go to SNF at discharge, [facility] as this is where patient?s currently resides.? Family?s goals:? Stepdaughter, and reported [facility] reports concern about patient going home and the condition of patient?s home. Taisha reports is not able to check on the patient as the patient needs, and feels it is unsafe for patient to return home.? The stepson in the room, also voices concern about patient returning home but does voice belief patient could do it, but that patient needs to allow home health workers to help patient.?? Taisha reports patient often gets mad and fires the workers when they don?t do as patient likes.?? Summary:? Much supportive listening offered to patient and family.? Patient remained quiet while family talking, but would speak up at times, and when talked answered all questions appropriately.?? Stepdaughter expressed that would like for referral to SNF to be made, but patient voices that wants to go home. Taisha asked if [facility] has any ability to supersede the patient.? Educated that patient can make own decisions, even if decisions are poor.?(Patient alert and oriented, using a phone correctly, quickly looking up physician names for this typewriter assembler, and even able to say clearly why has stopped taking meds at home.) Educated all that if there are safety concerns with home going, sometimes APS gets involved in the community. ?? After much discussion, with focus on safety and concern that patient?s needs are not appearing to have been met at home, as evidenced by patient having a leg wrapping on for 2 weeks without assistance to replace/remove, the patient indicated [facility] would be the facility patient wants to go to.? Patient?s is at this facility.? Declination of SNF list, due to familiarity with SNFs in geographical region and wanting to be close to .? Educated that patient?s NF stay would be private pay due to being observation status.? Per Cyndy, patient does have enough funds to pay for NF at this time.?? Patient reports worry about spending all of his money and not having any left.? Educated to Medicaid and various community waivers to help support in home services, should patient?s money be spent down. Disposition Plan: To be determined.? Wait for PT/OT evals and then follow up with patient. SNF versus Home with HHC.? If SNF, would like to be with at [facility]. Care Management RN AGUSTIN and SW available as needed. -Meeta BETANCOURT
--- NOTE | 2023-09-14 18:41 | HP.PCM.HOS_ITS ---
HPI - General General Date of Admission: 09/14/23 Date of Service: 09/14/23 Chief Complaint: Leg edema HPI Narrative GLENYS ALARCON, is a 78 M who presents to the emergency room with increased swelling in his legs, he admits to not taking his medications for quite some time, he has not kept up his home, his stepdaughter states that there is debris all in his trailer and he does not bathe. Patient's is in a [facility] ([facility]) and stepdaughter talked with the patient last night and he consented to go short-term into a residential facility for rehab services. Patient has a history of chronic A-fib, he takes Coumadin, he also has chronic lymphedema of the legs. This examiner feels that he is noncompliant with taking his meds. Patient also has some chronic left hip pain which makes it difficult for him to ambulate. Workup in the emergency room was abnormal for white blood cell count of 11.3, patient's chemistry profile was normal except for slightly elevated BUN, patient's beta nitric peptide was elevated at 119.3. Patient's chest x-ray showed vascular congestion, he required supplemental oxygen at 3 L via nasal cannula to maintain his pulse ox above 90%. 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 The emergency room physician discussed temporary placement with the patient who agreed that it was needed at this time. Patient will be admitted to [facility] for anasarca and hypoxia with an overlay of pulmonary hypertension. Patient will be on oral Lasix and labs will be monitored. He will be seen by PT and OT I had a long conversation with the patient's stepdaughter about his medical care by phone, patient makes his own decisions and the patient's stepdaughter is his POA in case he cannot make decisions. I reminded the patient's stepdaughter that she was not able to make the decisions unless he was mentally unable to make decisions. [facility], [facility] Medical History Anemia due to acute blood loss Anticoagulant long-term use Asplenia after surgical procedure Atrial fibrillation Broken collarbone Broken ribs CHF (congestive heart failure) Chronic renal insufficiency, stage III (moderate) COPD (chronic obstructive pulmonary disease) Current use of long-term anticoagulation Degenerative joint disease of spine DVT (deep venous thrombosis) Failed fundoplication Former smoker GI bleed History of deep vein thrombosis History of gastrointestinal bleeding History of pulmonary embolism HTN (hypertension) Hyperlipidemia Irregular heart beat Kidney disease Kidney stones Leg edema Leg swelling Limited mobility Lymphedema of left lower extremity Lymphedema of right lower extremity Migraines Morbid obesity with BMI of 45.0-49.9, adult Obstructive sleep apnea Prediabetes Presence of IVC filter Pulmonary embolism Sleep apnea Venous stasis dermatitis of both lower extremities Home Medications calcium citrate 315 mg calcium-vitamin D3 6.25 mcg (250 unit) tablet 1 ea PO DAILY SUPPLEMENT 10/01/13 [History Last Taken 09/13/23] potassium chloride 20 mEq tablet,extended release(part/cryst) (Klor-Con M) 40 meq PO BID SUPPLEMENT 10/01/13 [History Last Taken 09/13/23] spironolactone 25 mg tablet 25 mg PO DINNER FLUID 10/01/13 [History Last Taken 09/13/23] atorvastatin 20 mg tablet 20 mg PO DAILY CHOLESTEROL 11/12/21 [History Last Taken 09/13/23] bumetanide 1 mg tablet 1 mg PO DINNER FLUID 11/12/21 [History Last Taken 08/31/23] bumetanide 1 mg tablet 2 mg PO QHS FLUID 11/12/21 [History Last Taken 08/31/23] metoprolol tartrate 50 mg tablet 25 mg PO BID HEART 11/12/21 [History Last Taken 09/13/23] warfarin 1 mg tablet 1 mg PO SUMOWETHFRSA BLOOD THINNER 11/12/21 [History Last Taken 09/13/23] ferrous sulfate 325 mg (65 mg iron) tablet (FeroSul) 1 tab PO BID 12/08/21 [History Last Taken 09/13/23] umeclidinium 62.5 mcg/actuation blister powder for inhalation (Incruse Ellipta) See Rx Instructions .Route .COMPLEX Check with primary doctor 12/08/21 [History Last Taken 09/13/23] famotidine 20 mg tablet 20 mg PO DAILY 09/14/23 [History Last Taken 09/13/23] warfarin 1 mg tablet 2.5 mg PO TU BLOOD THINNER 09/14/23 [History Last Taken 09/12/23] warfarin 4 mg tablet 4 mg PO SUMOWETHFRSA BLOOD THINNER 09/14/23 [History Last Taken 09/13/23] Allergy/AdvReac Type Severity Reaction Status Date / Time chlorpromazine HCl Allergy Other Verified 09/14/23 09:39 [From Thorazine] metformin Allergy PT UNSURE Verified 09/14/23 09:39 OF REACTION Family History Other Heart disease Hypertension Surgical History History of embolic filter insertion History of Myrtle fundoplication History of splenectomy History of ventral hernia repair Status post splenectomy Social History household members: none Smoking Status: Former smoker substance use type: does not use ROS Constitutional Constitutional: Reports weakness; Denies anorexia, change in weight, chills, fever(s) or night sweats Eyes Eyes: Denies blurry vision, change in vision, discharge from eye(s) or eye pain Cardiovascular Cardiovascular: Reports dyspnea on exertion; Denies chest pain, claudication, edema or palpitations Respiratory/Chest Respiratory/Chest: Reports dyspnea and shortness of breath with exertion; Denies cough, hemoptysis or shortness of breath at rest Gastrointestinal Gastrointestinal: Denies abdominal pain, constipation, diarrhea, hematemesis, hematochezia, melena, nausea or vomiting Genitourinary Genitourinary: Denies dysuria, hematuria, urinary frequency, urinary hesitancy, urinary incontinence or urinary urgency Musculoskeletal Musculoskeletal: Denies back pain, joint pain, joint stiffness, joint swelling, myalgias or neck pain Neurologic Neurologic: Denies abnormal gait, abnormal speech, dizziness, focal weakness, headache(s), loss of vision, numbness, other visual disturbances, paresthesias, syncope or tingling Psychiatric Psychiatric: Denies anxiety, cognitive impairment, depression, irritability, mood swings or suicidal ideation Endocrine Endocrinology: Denies change in body appearance, cold intolerance, excessive sweating, heat intolerance, polydipsia or polyuria Hematologic/Lymphatic Hematologic/Lymphatic: Denies none, anemia, easy bleeding, easy bruising or lymphadenopathy Allergic/Immunologic Allergic/Immunologic: Denies rhinitis, urticaria, eczemia or asthma Vital Signs Vital Signs Vital Signs: 09/14/23 09:24 09/14/23 09:40 09/14/23 09:47 Temperature 98.2 F 98.2 F Temperature Source Oral Oral Pulse Rate 86 93 Respiratory Rate 18 17 Respiratory Effort Normal Non-Labored Respiratory Pattern Normal Blood Pressure 171/81 H 165/95 H Blood Pressure Mean 111 118 Blood Pressure Source Blood Pressure Position Blood Pressure Location Pulse Ox 96 97 Oxygen Delivery Method Room Air Room Air Oxygen Flow Rate (L/min) 09/14/23 10:33 09/14/23 11:34 09/14/23 12:24 Temperature 98.4 F 98.2 F 98.4 F Temperature Source Oral Oral Pulse Rate 89 85 88 Respiratory Rate 15 14 22 H Respiratory Effort Respiratory Pattern Blood Pressure 117/61 155/74 H 155/74 H Blood Pressure Mean 79 101 101 Blood Pressure Source Blood Pressure Position Blood Pressure Location Pulse Ox 95 92 94 Oxygen Delivery Method Room Air Room Air Oxygen Flow Rate (L/min) 09/14/23 12:27 09/14/23 13:45 09/14/23 13:45 Temperature 98.4 F 97 F L 97.0 F L Temperature Source Oral Oral Oral Pulse Rate 85 80 80 Respiratory Rate 18 18 18 Respiratory Effort Respiratory Pattern Blood Pressure 182/95 H 165/71 H 165/71 H Blood Pressure Mean 124 102 102 Blood Pressure Source Monitor Blood Pressure Position Semi-Fowlers Blood Pressure Location Right Arm Pulse Ox 94 97 97 Oxygen Delivery Method Room Air Nasal Cannula Nasal Cannula Oxygen Flow Rate (L/min) 3 3 09/14/23 13:21 09/14/23 18:00 Temperature 98.9 F Temperature Source Temporal Pulse Rate 84 Respiratory Rate 18 18 Respiratory Effort Respiratory Pattern Blood Pressure 157/70 H Blood Pressure Mean 99 Blood Pressure Source Blood Pressure Position Blood Pressure Location Pulse Ox 98 Oxygen Delivery Method Nasal Cannula Nasal Cannula Oxygen Flow Rate (L/min) 3 3 Weight Weight: 143.1 kg Body Mass Index (BMI) 49.4 Physical Exam Const alert, oriented x3 and no apparent distress Constitutional Narrative: Patient is morbidly obese, hygiene is poor General Appearance: cooperative and well developed Orientation / Consciousness: awake, oriented to person, oriented to place and oriented to time HEENT normocephalic, head/scalp atraumatic and moist oral mucous membranes Eyes PERRL, EOMs intact bilaterally and conjunctivae normal Neck supple, no JVD, thyroid normal and no carotid bruits General: trachea midline Resp normal respiratory effort, no retractions and no use of accessory muscles Resp Narrative: Breath sounds are diminished bilaterally Auscultation: Negative for rales, rhonchi or wheezes Cardio S1 normal heart sound, S2 normal heart sound, no murmurs, no rub and no gallops Cardio Narrative: Heart rate and rhythm is irregular GI normal to inspection, nondistended, normoactive bowel sounds, soft to palpation, non-tender and non-distended Extremity Extremity Narrative: Patient has chronic lymphedematous changes to both lower legs, there is generalized edema also noted Skin Skin Narrative: Patient has lymphedematous changes of both lower extremities Neuro oriented x3, CN's II-XII intact bilaterally, moves all extremities, no focal motor deficits and no sensory deficits noted Sensorium / Orientation: awake and alert Speech: speech normal Psych affect normal Results Lab / Micro Data 09/14/23 09:52 09/14/23 09:52 Labs: Laboratory Results - last 24 hr 09/14/23 09:52: WBC 11.3 H, RBC 4.56 L, Hgb 14.4, Hct 43.6, MCV 95.6 H, MCH 31.6, MCHC 33.0, RDW Std Deviation 52.0 H, RDW Coeff of Ira 14.9 H, Plt Count 425, MPV 10.0, Immature Gran % (Auto) 0.500, Neut % (Auto) 64.6, Lymph % (Auto) 14.1 L, [place] % (Auto) 10.5 H, Eos % (Auto) 9.5 H, Baso % (Auto) 0.8, Absolute Neuts (auto) 7.3, Absolute Lymphs (auto) 1.59, Nucleated RBC % 0, PT 17.8 H, INR 1.5, Sodium 138, Potassium 3.8, Chloride 105, Carbon Dioxide 28.0, Anion Gap 5, BUN 19 H, Creatinine 1.15, Estim Creat Clear Calc 69.49, Est GFR (MDRD) Af Amer 79, Est GFR (MDRD) Non-Af 65, BUN/Creatinine Ratio 16.5, Glucose 100, Calcium 9.1, Troponin I High Sens 17, B-Natriuretic Peptide 119.3 H Rhythm Strip Rhythm Strip: A-fib Rate: 73 Ectopy: None Imaging Radiology Impression Chest X-Ray 09/14/23 10:10 IMPRESSION: Mild degree of vascular congestion with left basilar infiltrate and blunting of the left costo phrenic angle. Multiple healed left rib fractures. Electronically Signed: Yaya Walton MD at 10:41 EDT , Hip/Pelvis X-Ray 09/14/23 12:15 IMPRESSION: Findings suggestive of avascular necrosis of the left hip joint. Gallstones. Electronically Signed: Yaya Walton MD at 12:58 EDT , Assessment & Plan Assessment/Plan (1) Bilateral edema of lower extremity: PLAN: Plan 1. Hypoxia secondary to pulmonary hypertension and anasarca-patient's pulse ox will be monitored, he is on low-flow supplemental oxygen at this time #2 anasarca secondary to pulmonary hypertension-patient will be placed on oral Lasix and labs will be monitored #3 chronic lymphedema of the legs-complicates care, management, recovery, and prognosis #4 [id number]-qhdovcceofu care, management, recovery, and prognosis #5 chronic atrial fibrillation-patient's rate is controlled at this time #6 essential hypertension-patient is on metoprolol #7 hyperlipidemia-patient is on atorvastatin #8 chronic debility secondary to multiple medical problems and lack of compliance with medications-patient will be seen by PT and OT, he will need temporary placement in residential facility #9 noncompliance with medications-complicates care, management, recovery, and prognosis Total clinical time spent by myself addressing the patient's medical issues, reviewing all of his data, and collaborating with patient's care team: 75 minutes Charges/Coding Visit Charges Inpatient E&M: 19464 Init Hosp L3
[2023-09-14] MEDS: Metoprolol Tartrate 50 MG Tablet 25 MG PO (22:25)
[2023-09-14] MEDS: Potassium Chloride Oral Tablet 20 MEQ 40 MEQ PO (22:25)
[2023-09-15] VITALS (8 sets, daily range): BP systolic 128–149; BP diastolic 73–87; PULSE 67–77; RESP 16–20; TEMP 36.6–37.2; O2SAT 94–98
[2023-09-15 06:17] LABS: International Normalized Ratio 1.4; Prothrombin Time (Protime)PT. 17.5 SECONDS (11.7-14.9)
[2023-09-15 06:50] LABS: Anion Gap 4 (5-15); BUN 18 mg/dL (7-18); BUN/Creat Ratio 15.8 RATIO (10-20); Calcium,Total 8.8 mg/dL (8.5-10.1); Chloride 105 mmol/L (98-107); Creatinine, Serum 1.14 mg/dL (0.70-1.30); EST Glomerular Filtration Rate 66 mL/min (>60); Est Glom Filt Rate - Afr Amer 80 mL/min (>60); Estimated Creatinine Clearance 70.83 ml/min; Glucose 108 mg/dL (74-106); Potassium 4.2 mmol/L (3.5-5.1); Sodium Level 138 mmol/L (136-145)
[2023-09-15] MEDS: Potassium Chloride Oral Tablet 20 MEQ 40 MEQ PO ×2 (07:59→22:15)
[2023-09-15] MEDS: Famotidine 20 MG Tablet PO (07:59)
[2023-09-15] MEDS: Ferrous Sulfate 325 MG Tablet PO ×2 (08:00→17:28)
[2023-09-15] MEDS: Metoprolol Tartrate 50 MG Tablet 25 MG PO ×2 (08:00→22:15)
[2023-09-15] MEDS: Furosemide 40 MG Tablet PO ×2 (08:07→17:29)
--- NOTE | 2023-09-15 10:30 | CASEMGMT ---
Discharge Planning Referral sent to [facility] via [facility]. Suma Alvarez, Discharge Planning Asst.
[2023-09-15] MEDS: Menthol/Lanolin/Calamine/Znox 113 GM Tube 1 APPLIC TOPICAL ×2 (12:05→22:16)
[2023-09-15] MEDS: Nystatin Powder 15gm Bottle 1 APPLIC TOPICAL ×2 (12:06→22:16)
--- NOTE | 2023-09-15 14:26 | CASEMGMT ---
Social Work SW called [facility], message left inquiring whether or not they can take pt. SW spoke w/pt, he is agreeable to referral to [facility]. SW explianed is awaiting answer from [facility] to see if they can take pt. LEO will continue to follow. RENETTA Ni
--- NOTE | 2023-09-15 16:17 | CASEMGMT ---
Addendum entered by Vero Espinoza 09/15/23 16:50: Social Work SW did let step daughter know pt may get a bill for transport, she states understanding. Pt awake now, SW let him know [facility] can take him Monday. He states understanding, agreeable. RENETTA Ni Original Note: Social Work SW did speak w/Mary from [facility], they will have a bed for pt on Monday. SW attempted to let pt know but he is asleep. SW let pt's stepdaughter Taisha know that pt is accepted at [facility] and will go under his Medicare benefit on Monday. Taisha agreeable. PAS/RR completed, placed on chart along w/green sheet and transport forms in anticipation of weekend discharge. Plan: [facility], skilled on Monday. RENETTA Ni
--- NOTE | 2023-09-15 16:45 | PN.HOSP_ITS ---
Reason for Visit Reason for Visit: Diagnoses Localized edema (09/14/23) Subjective Subjective Patient was seen and examined today, he is more alert and talkative, he is not on any oxygen today. Patient has agreed to go to an extended care facility for short-term rehab services, I told him that there was no plan on keeping him in a [place] [facility] [place] facility permanently if he was able to advance his ADLs, I told him it was possible he may return home. Patient told nursing he is on an inhaler at home, I have elected to place him on DuoNebs, according to medical record it looks as though he may have a history of COPD. Objective Data Objective Data Vital Signs: Vital Signs Temp Pulse Resp BP Pulse Ox O2 Del Method O2 Flow Rate 98.9 F 67 20 H 128/87 H 98 Room Air 2 09/15/23 10:06 09/15/23 10:06 09/15/23 10:06 09/15/23 10:06 09/15/23 10:06 09/15/23 10:06 09/14/23 22:22 Oxygen Flow Rate (L/min) 2 Oxygen Delivery Method Room Air Weight: 143.1 kg Body Mass Index (BMI) 49.4 Intake & Output: Intake and Output for Last 24 Hours 09/13/23 09/14/23 09/15/23 23:59 23:59 23:59 Intake Total 550 / 550 800 / 800 Output Total 2600 / 2600 2700 / 2700 Balance -2050 / -2050 -1900 / -1900 Lab / Micro Data 09/14/23 09:52 09/15/23 05:50 Labs: Laboratory Results - last 24 hr 09/15/23 05:50: PT 17.5 H, INR 1.4, Sodium 138, Potassium 4.2, Chloride 105, Carbon Dioxide 29.0, Anion Gap 4 L, BUN 18, Creatinine 1.14, Estim Creat Clear Calc 70.83, Est GFR (MDRD) Af Amer 80, Est GFR (MDRD) Non-Af 66, BUN/Creatinine Ratio 15.8, Glucose 108 H, Calcium 8.8 Rhythm Strip Rhythm Strip: A-fib Rate: 73 Ectopy: None Physical Exam Narrative alert, oriented x3 and no apparent distress Constitutional Narrative: Patient is morbidly obese, hygiene is poor General Appearance: cooperative and well developed Orientation / Consciousness: awake, oriented to person, oriented to place and oriented to time HEENT normocephalic, head/scalp atraumatic and moist oral mucous membranes Eyes PERRL, EOMs intact bilaterally and conjunctivae normal Neck supple, no JVD, thyroid normal and no carotid bruits General: trachea midline Resp normal respiratory effort, no retractions and no use of accessory muscles Resp Narrative: Breath sounds are diminished bilaterally Auscultation: Negative for rales, rhonchi or wheezes Cardio S1 normal heart sound, S2 normal heart sound, no murmurs, no rub and no gallops Cardio Narrative: Heart rate and rhythm is irregular GI normal to inspection, nondistended, normoactive bowel sounds, soft to palpation, non-tender and non-distended Extremity Extremity Narrative: Patient has chronic lymphedematous changes to both lower legs, there is generalized edema also noted Skin Skin Narrative: Patient has lymphedematous changes of both lower extremities Neuro oriented x3, CN's II-XII intact bilaterally, moves all extremities, no focal motor deficits and no sensory deficits noted Sensorium / Orientation: awake and alert Speech: speech normal Psych affect normal Assessment & Plan Assessment/Plan (1) Bilateral edema of lower extremity: PLAN: Plan 1. Hypoxia secondary to pulmonary hypertension and anasarca-patient is currently on room air at this time #2 anasarca secondary to pulmonary hypertension-patient remains on oral Lasix at this time, I will administer 1 dose of IV Lasix today, BMP will be rechecked tomorrow #3 chronic lymphedema of the legs-complicates care, management, recovery, and prognosis #4 lzps-hgsnrtu-nbjspaniuro care, management, recovery, and prognosis #5 chronic atrial fibrillation-patient's rate is controlled at this time #6 essential hypertension-patient is on metoprolol #7 hyperlipidemia-patient is on atorvastatin #8 chronic debility secondary to multiple medical problems and lack of compliance with medications-patient will be seen by PT and OT, he will need temporary placement in long-term facility #9 noncompliance with medications-complicates care, management, recovery, and prognosis #10 chronic use of anticoagulants due to L-vks-fsubiqa's INR was low again today, I gave him extra warfarin, INR will be rechecked tomorrow Total clinical time spent by myself addressing the patient's medical issues, reviewing all of his data, and collaborating with patient's care team: 35 minutes Charges/Coding Visit Charges Inpatient E&M: 87035 Subs Hosp L2
[2023-09-15] MEDS: Spironolactone 25 MG Tablet PO (17:28)
[2023-09-15] MEDS: Furosemide 20 MG/2 ML VIAL IV (17:30)
[2023-09-15] MEDS: 0.9% Saline Lock 10 ML Syringe IV (17:30)
[2023-09-15] MEDS: Ipratropium/Albuterol Sulfate 3 ML AMPUL.NEB INHALATION (19:08)
[2023-09-15] MEDS: Atorvastatin Calcium 20 MG Tablet PO (22:15)
[2023-09-16] VITALS (12 sets, daily range): BP systolic 115–153; BP diastolic 54–71; PULSE 73–87; RESP 16–20; TEMP 36.4–37.1; O2SAT 87–99
[2023-09-16 05:40] LABS: Anion Gap 5 (5-15); BUN 22 mg/dL (7-18); BUN/Creat Ratio 20.4 RATIO (10-20); Calcium,Total 8.7 mg/dL (8.5-10.1); Chloride 106 mmol/L (98-107); Creatinine, Serum 1.08 mg/dL (0.70-1.30); EST Glomerular Filtration Rate 70 mL/min (>60); Est Glom Filt Rate - Afr Amer 85 mL/min (>60); Estimated Creatinine Clearance 74.77 ml/min; Glucose 126 mg/dL (74-106); Sodium Level 138 mmol/L (136-145)
[2023-09-16 05:47] LABS: International Normalized Ratio 1.4; Prothrombin Time (Protime)PT. 16.6 SECONDS (11.7-14.9)
[2023-09-16] MEDS: Ipratropium/Albuterol Sulfate 3 ML AMPUL.NEB INHALATION ×3 (07:28→19:37)
--- NOTE | 2023-09-16 08:04 | PN.HOSP_ITS ---
Reason for Visit Reason for Visit: Diagnoses Localized edema (09/14/23) Subjective Subjective Breathing well. Still with LE edema. States that he stopped Bumex because of urinary frequency. Objective Data Objective Data Vital Signs: Vital Signs Temp Pulse Resp BP Pulse Ox O2 Del Method O2 Flow Rate 36.9 C 73 16 153/71 H 94 Room Air 2 09/16/23 03:13 09/16/23 03:13 09/16/23 03:54 09/16/23 03:13 09/16/23 03:54 09/16/23 03:54 09/14/23 22:22 Oxygen Flow Rate (L/min) 2 Oxygen Delivery Method Room Air Weight: 143.1 kg Body Mass Index (BMI) 49.4 Intake & Output: Intake and Output for Last 24 Hours 09/14/23 09/15/23 09/16/23 23:59 23:59 23:59 Intake Total 550 / 550 800 / 1100 400 / 400 Output Total 2600 / 2600 3350 / 4150 1500 / 1500 Balance -2050 / -2050 -2550 / -3050 -1100 / -1100 Lab / Micro Data 09/14/23 09:52 09/16/23 04:35 Labs: Laboratory Results - last 24 hr 09/16/23 04:35: PT 16.6 H, INR 1.4, Sodium 138, Potassium 4.0, Chloride 106, Carbon Dioxide 27.0, Anion Gap 5, BUN 22 H, Creatinine 1.08, Estim Creat Clear Calc 74.77, Est GFR (MDRD) Af Amer 85, Est GFR (MDRD) Non-Af 70, BUN/Creatinine Ratio 20.4 H, Glucose 126 H, Calcium 8.7 Rhythm Strip Rhythm Strip: A-fib Rate: 73 Ectopy: None Physical Exam Const alert and no apparent distress Constitutional Narrative: flat affect. Extremity Extremity Narrative: bilateral LE edema. Neuro moves all extremities and no focal motor deficits Sensorium / Orientation: awake and alert Psych Psych Narrative: flat affect. Assessment & Plan Assessment/Plan (1) Bilateral edema of lower extremity: PLAN: Plan Acute HFpEF * POA based on CXR findings. * EF 60% from echofr m 12/09/2021. PASP 42 mmHg. * 2/2 non-compliance with medications * continue furosemide, spironolactone. Did receive several doses of IV furosemide * start lisinopril Debility * multifactorial: advanced age + multiple medical comorbidities * plan for SNF pending insurance authorization Chronic medical conditions: * chronic atrial fibrillation-stable on metoprolol tartrate. Warfarin for anticoagulation. Given his issues with compliance, DOAC would be a safer option for the patient rather than warfarin. Had a long conversation with with the patient and his stepdaughter. Explained to him that his INR was subtherapeutic when he arrived and still continues to be subtherapeutic. Told him for compliance and the lack of blood draws, a DOAC would be recommended as I do not see any contraindications to that. Patient states that he just takes what he is given in regards to his warfarin and is also concerned about the cost because his brother takes DOAC and its rather expensive. I did try to assuage his concerns by saying that there are financial programs available. I did talk to he and his stepdaughter about loosening of dietary restrictions being on a DOAC, the lack of concern when new medications, such as antibiotics are introduced. Patient essentially had no response to any of this and indicated no desire to start a DOAC. So patient will be continued on warfarin. Will give him 7.5 mg today and monitor. * essential hypertension-patient is on metoprolol * hyperlipidemia-patient is on atorvastatin Disposition: [facility] on the . Greater than 55 minutes of which greater than 50% of time was discussing with the patient and his stepdaughter about his medical compliance issues, discussing warfarin versus DOAC and making a recommendation for a DOAC and discussing the risk and benefits of both. Charges/Coding Visit Charges Inpatient E&M: 97882 Subs Hosp L3
[2023-09-16] MEDS: Metoprolol Tartrate 50 MG Tablet 25 MG PO ×2 (08:16→21:27)
[2023-09-16] MEDS: Famotidine 20 MG Tablet PO (08:16)
[2023-09-16] MEDS: Furosemide 40 MG Tablet PO ×2 (08:16→17:42)
[2023-09-16] MEDS: Menthol/Lanolin/Calamine/Znox 113 GM Tube 1 APPLIC TOPICAL ×2 (08:16→21:38)
[2023-09-16] MEDS: Ferrous Sulfate 325 MG Tablet PO ×2 (08:16→17:42)
[2023-09-16] MEDS: Potassium Chloride Oral Tablet 20 MEQ 40 MEQ PO ×2 (08:16→21:27)
[2023-09-16] MEDS: Lisinopril 10 MG Tablet PO (09:36)
[2023-09-16 12:02] LABS: International Normalized Ratio 1.2; Prothrombin Time (Protime)PT. 15.6 SECONDS (11.7-14.9)
[2023-09-16] MEDS: Spironolactone 25 MG Tablet PO (17:42)
[2023-09-16] MEDS: Atorvastatin Calcium 20 MG Tablet PO (21:27)
[2023-09-16] MEDS: Nystatin Powder 15gm Bottle 1 APPLIC TOPICAL (21:28)
[2023-09-17 01:26] VITALS: PULSE 77; RESP 18
[2023-09-17] MEDS: Ipratropium/Albuterol Sulfate 3 ML AMPUL.NEB INHALATION ×2 (01:26→07:30)
[2023-09-17 04:00] VITALS: BP 114/59; PULSE 74; RESP 18; TEMP 36.9; O2SAT 95
[2023-09-17 05:52] LABS: International Normalized Ratio 1.4; Prothrombin Time (Protime)PT. 17.4 SECONDS (11.7-14.9)
[2023-09-17 06:08] LABS: Anion Gap 4 (5-15); BUN 26 mg/dL (7-18); BUN/Creat Ratio 21.3 RATIO (10-20); Calcium,Total 8.5 mg/dL (8.5-10.1); Chloride 106 mmol/L (98-107); Creatinine, Serum 1.22 mg/dL (0.70-1.30); EST Glomerular Filtration Rate 61 mL/min (>60); Est Glom Filt Rate - Afr Amer 74 mL/min (>60); Estimated Creatinine Clearance 66.19 ml/min; Glucose 123 mg/dL (74-106); Potassium 4.4 mmol/L (3.5-5.1); Sodium Level 137 mmol/L (136-145)
--- NOTE | 2023-09-17 07:19 | TREXTCAR_ITS ---
Diet Diet Order/Speech Therapy: 09/14/23 15:40 Diet: Consistent Carb - Calorie Controlled Food consistency:: Regular Liquid Consistency:: Regular/Thin Dietary Modifications:: Cardiac / Heart Healthy Sodium Restricted Is pt able to select menu?: Yes How many daily calories?: 1800 calorie 1500mL fluid restriction. Routine Orders/Code Status O2 Liters per Minute: 2 O2 Frequency: Continuous Keep PO Greater than or Equal to (%): 90 Routine Lab Work: BMP (Monday) and INR (Monday, Wednesdays) Code Status: Full Code Wound(s) bilateral legs: Wound Type: Stasis Ulcer Therapies Physical Therapy: Eval and Treat Occupational Therapy: Eval and Treat Problem/Diagnosis (1) Bilateral edema of lower extremity: Status: Acute Code(s): R60.0 - Localized edema Plan Acute HFpEF * POA based on CXR findings. * EF 60% from echofr m 12/09/2021. PASP 42 mmHg. * 2/2 non-compliance with medications * continue furosemide, spironolactone. Did receive several doses of IV furosemide * start lisinopril Debility * multifactorial: advanced age + multiple medical comorbidities * plan for SNF pending insurance authorization Chronic medical conditions: * chronic atrial fibrillation-stable on metoprolol tartrate. Warfarin for anticoagulation. Given his issues with compliance, DOAC would be a safer option for the patient rather than warfarin. Had a long conversation with with the patient and his stepdaughter. Explained to him that his INR was subtherapeutic when he arrived and still continues to be subtherapeutic. Told him for compliance and the lack of blood draws, a DOAC would be recommended as I do not see any contraindications to that. Patient states that he just takes what he is given in regards to his warfarin and is also concerned about the cost because his brother takes DOAC and its rather expensive. I did try to assuage his concerns by saying that there are financial programs available. I did talk to he and his stepdaughter about loosening of dietary restrictions being on a DOAC, the lack of concern when new medications, such as antibiotics are introduced. Patient essentially had no response to any of this and indicated no desire to start a DOAC. So patient will be continued on warfarin. Will give him 7.5 mg today and monitor. * essential hypertension-patient is on metoprolol * hyperlipidemia-patient is on atorvastatin Disposition: Planning [facility] on the . Allergies/Procedures Done in Hospital Allergies chlorpromazine HCl [From Thorazine] Allergy (Verified 09/14/23 09:39) Other metformin Allergy (Verified 09/14/23 09:39) PT UNSURE OF REACTION Type of Care/Length of Stay Estimated LOS: Convalescent Care Less Than 30 days Type of Care Needed: Skilled Rehab Potential: Fair Prognosis: Fair Additional Orders/Day of Discharge Day of Discharge: 09/17/23 Dietary and Speech Recommendations Dietitian Recommendations/Changes: Will change diet to 1800 anurag Consistent CHO/ Cardiac, Sodium restricted - consider fluid restriction if indicated by MD Olvera Balta bid to help w/ stasis ulcers to BLE if indicated Consult for diet education if warranted by pt prior to d/c. Discharge Plan Admission Admit Date/Time: 09/14/23 19:40 Primary Reason for Your Visit: CHF exacerbation. Attending Provider: Александр Vizcarra Primary Care Provider: Hubert Camarena Consulting Providers: Tito Holland Instructions Patient Instructions: Heart Failure Flare Up Signs, Heart Failure Make Changes Diet, Heart Failure Dc, Heart Failure Care, Heart Failure and Physical Activity Discharge Orders/Prescriptions Prescriptions: New acetaminophen 325 mg Tablet 1,000 mg PO Q6H PRN PRN (Reason: Pain 1-10 Or Fever >100.7) Qty: 60 0RF furosemide 40 mg Tablet 40 mg PO BIDLX Qty: 0 0RF lisinopril 10 mg Tablet 10 mg PO DAILY Qty: 0 0RF menthol-zinc oxide [Calmoseptine] 0.44-20.6 % Ointment 1 applic topical BID Qty: 0 0RF Protocol: *Topical Application Instructions APPLICATION INSTRUCTIONS: buttocks nystatin [Nyamyc] 100,000 unit/gram Powder 1 applic topical BID Qty: 0 0RF Protocol: *Topical Application Instructions APPLICATION INSTRUCTIONS: groin and folds Continued spironolactone 25 MG tablet 25 mg PO DINNER calcium citrate-vitamin D3 1 EACH tablet 1 ea PO DAILY atorvastatin 20 mg Tablet 20 mg PO DAILY metoprolol tartrate 50 mg tablet 25 mg PO BID Incruse Ellipta 62.5 mcg/actuation blister with device See Rx Instructions .ROUTE .COMPLEX Rx Instructions: one puff daily ferrous sulfate [FeroSul] 325 mg (65 mg iron) tablet 1 tab PO BID Patient Comments: Take 1 tablet by mouthEtwice daily with meals.N famotidine 20 mg tablet 20 mg PO DAILY Changed warfarin 1 mg tablet 5 mg PO DAILY Qty: 30 0RF Discontinued potassium chloride [Klor-Con M20] 20 MEQ tablet 40 meq PO BID bumetanide 1 mg tablet 1 mg PO DINNER Hold Instructions: pt not taking x2 weeks Patient Comments: TAKE 1 TABLET AT SUPPERwTIME AND 2 TABLETS AT BEDTIME bumetanide 1 mg tablet 2 mg PO QHS Hold Instructions: pt not taking x2 weesa Patient Comments: TAKE 1 TABLET AT SUPPERwTIME AND 2 TABLETS AT BEDTIME warfarin 4 mg tablet 4 mg PO SUMO Rx Instructions: TAKE 4MG TABLET AND 1MG TABLET TO EQUAL 5MG DOSE ON EVERYDAY EXCEPT MONDAY. ON , TAKE 2.5 TABLETS TO EQUAL 2.5MG DOSE. warfarin 1 mg tablet 2.5 mg PO Rx Instructions: TAKE 4MG TABLET AND 1MG TABLET TO EQUAL 5MG DOSE ON EVERYDAY EXCEPT MONDAY. ON EDA, TAKE 2.5 TABLETS TO EQUAL 2.5MG DOSE. Referrals / Follow Up: [facility] [Provider Group] - Within 1 Month Hubert Camarena MD [Primary Care Provider] - Within 2 Weeks Disposition Disposition (needs filled in before D/C Order can be placed): [facility]
[2023-09-17 07:30] VITALS: PULSE 71; RESP 17; O2SAT 98
--- NOTE | 2023-09-17 07:32 | PCM.DC.SUM ---
Providers Date of Admission: 09/14/23 Primary Care Physician: Dr. Hubert Camarena MD Consultations 09/14/23 14:51 Consult: Onc/Wound/utilities manager Routine Comment: Reason For Visit: edema Diagnosis Discharge Diagnosis (1) Bilateral edema of lower extremity: Status: Acute Code(s): R60.0 - Localized edema Plan Acute HFpEF POA based on CXR findings. EF 60% from echofr m 12/09/2021. PASP 42 mmHg. 2/2 non-compliance with medications (stopped taking Bumex due to urinary frequency) continue furosemide, spironolactone. Did receive several doses of IV furosemide start lisinopril Debility multifactorial: advanced age + multiple medical comorbidities plan for SNF pending insurance authorization Chronic medical conditions: chronic atrial fibrillation-stable on metoprolol tartrate. Warfarin for anticoagulation. Given his issues with compliance, DOAC would be a safer option for the patient rather than warfarin. Had a long conversation with with the patient and his stepdaughter. Explained to him that his INR was subtherapeutic when he arrived and still continues to be subtherapeutic. Told him for compliance and the lack of blood draws, a DOAC would be recommended as I do not see any contraindications to that. Patient states that he just takes what he is given in regards to his warfarin and is also concerned about the cost because his brother takes DOAC and its rather expensive. I did try to assuage his concerns by saying that there are financial programs available. I did talk to he and his stepdaughter about loosening of dietary restrictions being on a DOAC, the lack of concern when new medications, such as antibiotics are introduced. Patient essentially had no response to any of this and indicated no desire to start a DOAC. So patient will be continued on warfarin. Will give him 7.5 mg today and monitor. essential hypertension-patient is on metoprolol hyperlipidemia-patient is on atorvastatin Disposition: [facility] on the . Medications at Discharge Home Medications calcium citrate 315 mg calcium-vitamin D3 6.25 mcg (250 unit) tablet 1 ea PO DAILY SUPPLEMENT 10/01/13 spironolactone 25 mg tablet 25 mg PO DINNER FLUID 10/01/13 atorvastatin 20 mg tablet 20 mg PO DAILY CHOLESTEROL 11/12/21 metoprolol tartrate 50 mg tablet 25 mg PO BID HEART 11/12/21 ferrous sulfate 325 mg (65 mg iron) tablet (FeroSul) 1 tab PO BID 12/08/21 umeclidinium 62.5 mcg/actuation blister powder for inhalation (Incruse Ellipta) See Rx Instructions .Route .COMPLEX Check with primary doctor 12/08/21 famotidine 20 mg tablet 20 mg PO DAILY 09/14/23 acetaminophen 325 mg tablet 1,000 mg (3.0769 x 325 mg) PO Q6H PRN PRN Pain 1-10 Or Fever >100.7 #60 tabs 09/17/23 furosemide 40 mg tablet 40 mg PO BIDLX #0 tabs 09/17/23 lisinopril 10 mg tablet 10 mg PO DAILY #0 tabs 09/17/23 menthol 0.44 %-zinc oxide 20.6 % topical ointment (Calmoseptine) 1 applic topical BID #0 grams 09/17/23 nystatin 100,000 unit/gram topical powder (Nyamyc) 1 applic topical BID #0 grams 09/17/23 warfarin 1 mg tablet 5 mg (5 x 1 mg) PO DAILY BLOOD THINNER #30 tabs 09/17/23 Hospital Course Operations None Procedures None Summary of Care Provided Minutes Spent on Discharge: 35 Hospital Course: Patient presents with shortness of breath. Patient was found to have CHF exacerbation. Weeks prior, patient stopped taking his Bumex because it was making him urinate frequently. Patient received several rounds of IV furosemide but was not continued on oral furosemide. Patient did respond well still is volume overloaded but otherwise stable. Patient requires just reminders to continue to take his diuretics. Complicating this is patient has stubbornness to change. For instance, had a very lengthy conversation with him on the about anticoagulation for his history of atrial fibrillation. I told him I did not see a reason why he could not be switched over to a DOAC from warfarin. He told me that he was told that he cannot because he is overweight. Secondly he is morbidly obese but when I review that does have limited absorption regards to DOACs when you are morbidly obese. He was reminded that his INR actually was subtherapeutic when he arrived. He seemed rather dismissive of any ankle I took in regards to discussing this with him including not having to worry about lab work, not having to modify his diet beyond what is already changed. He has no willingness to change. I once again asked him again today and he said he does not want change. It seems more of a standing his ground rather than actually any legitimate concerns that he may have. Told the patient that he would be discharged with Lasix. A total me that he needs Bumex because it is good for the kidneys. I told him that that is actually not true that they can both adversely affect the kidneys but some people tend respond better with Bumex rather than Lasix. Nonetheless, I will be discharging him with Lasix as his main issue was with this admission particularly was noncompliance he just stopped taking his medications. Patient's weight has gone up roughly 10 kg since last month. Presume this is all just diuretics. His lower extremities are profoundly edematous with lymphedema. But even looking back even further his weight has gone up roughly 50 kg since 2013. I do not know if this is all just due to fluid weight but presumably a large portion of that is. Compliance, buying into recommendations is going to be very challenging for this gentleman. It is unclear if the patient is overall depressed and giving up because when I spoke to the patient yesterday about the changing to a DOAC from warfarin, his stepdaughter was there and was hearing the same argument I was giving him and she would even echo what I was saying to him and he had no inclination to make any changes. Once again it may just be stubbornness, not knowing me from having seen me in the hospital before but hopefully patient can follow recommendations and be compliant. Though I am very concerned that he will not because he really needs to be on fluid restricted diet, check his weight daily as well as taking his medications having follow-up lab work. Seems very passive trigger with Coumadin he just states that he takes what he is given and that's that according to him. Physical Exam Narrative Complaining of a rash in the back of his legs. Const alert Constitutional Narrative: Patient was able to stand at his chair with some difficulty. Evaluating his buttocks he does not have any obvious rash I can appreciate than just some pressure area and may be some area that has been irritated due to his incontinence. But no cellulitis. Does have a stage II ulceration on his right buttock. Orientation / Consciousness: awake Extremity General Extremity: edema bilateral lower extremity Details: severe Weight / BMI Weight Weight: 143.1 kg Body Mass Index (BMI) 49.4 ABG / Lab / Microbiology Data 09/14/23 09:52 09/17/23 05:03 Laboratory: Laboratory Results - last 24 hr 09/16/23 11:30: PT 15.6 H, INR 1.2 09/17/23 05:03: PT 17.4 H, INR 1.4, Sodium 137, Potassium 4.4, Chloride 106, Carbon Dioxide 27.0, Anion Gap 4 L, BUN 26 H, Creatinine 1.22, Estim Creat Clear Calc 66.19, Est GFR (MDRD) Af Amer 74, Est GFR (MDRD) Non-Af 61, BUN/Creatinine Ratio 21.3 H, Glucose 123 H, Calcium 8.5 Meaningful Use Info Meaningful Use Meaningful Use Diagnoses (Choose all that apply): CHF CHF CHEO/ARB ordered at discharge?: Yes Documented LVEF (%): 60 Ischemic Stroke Statin Dosing Therapy Reference: STATIN DOSE THERAPY REFERENCE: * Patients > 75 years receive moderate or high dose statin therapy. * Patients 75 years or YOUNGER should receive HIGH intensity statin dose unless contraindicated. You will be required to document reason for non-treatment if statin daily dose does not meet guidelines. HIGH DOSE STATIN THERAPY DAILY Atorvastatin > than or = to 40 mg Rosuvastatin > than or = to 20 mg Amlodipine + Atorvastatin > than or = to 2.5/40 mg Ezetimibe + Simvastatin 10/80 mg Simvastatin 80mg Discharge Plan Admission Admit Date/Time: 09/14/23 19:40 Primary Reason for Your Visit: CHF exacerbation. Attending Provider: Александр Vizcarra Primary Care Provider: Hubert Camarena Consulting Providers: Tito Holland Instructions Patient Instructions: Heart Failure Flare Up Signs, Heart Failure Make Changes Diet, Heart Failure Dc, Heart Failure Care, Heart Failure and Physical Activity Discharge Orders/Prescriptions Prescriptions: New acetaminophen 325 mg Tablet 1,000 mg PO Q6H PRN PRN (Reason: Pain 1-10 Or Fever >100.7) Qty: 60 0RF furosemide 40 mg Tablet 40 mg PO BIDLX Qty: 0 0RF lisinopril 10 mg Tablet 10 mg PO DAILY Qty: 0 0RF menthol-zinc oxide [Calmoseptine] 0.44-20.6 % Ointment 1 applic topical BID Qty: 0 0RF Protocol: *Topical Application Instructions APPLICATION INSTRUCTIONS: buttocks nystatin [Nyamyc] 100,000 unit/gram Powder 1 applic topical BID Qty: 0 0RF Protocol: *Topical Application Instructions APPLICATION INSTRUCTIONS: groin and folds Continued spironolactone 25 MG tablet 25 mg PO DINNER calcium citrate-vitamin D3 1 EACH tablet 1 ea PO DAILY atorvastatin 20 mg Tablet 20 mg PO DAILY metoprolol tartrate 50 mg tablet 25 mg PO BID Incruse Ellipta 62.5 mcg/actuation blister with device See Rx Instructions .ROUTE .COMPLEX Rx Instructions: one puff daily ferrous sulfate [FeroSul] 325 mg (65 mg iron) tablet 1 tab PO BID Patient Comments: Take 1 tablet by mouthEtwice daily with meals.N famotidine 20 mg tablet 20 mg PO DAILY Changed warfarin 1 mg tablet 5 mg PO DAILY Qty: 30 0RF Discontinued potassium chloride [Klor-Con M20] 20 MEQ tablet 40 meq PO BID bumetanide 1 mg tablet 1 mg PO DINNER Hold Instructions: pt not taking x2 weeks Patient Comments: TAKE 1 TABLET AT SUPPERwTIME AND 2 TABLETS AT BEDTIME bumetanide 1 mg tablet 2 mg PO QHS Hold Instructions: pt not taking x2 weesa Patient Comments: TAKE 1 TABLET AT SUPPERwTIME AND 2 TABLETS AT BEDTIME warfarin 4 mg tablet 4 mg PO SUMOWE Rx Instructions: TAKE 4MG TABLET AND 1MG TABLET TO EQUAL 5MG DOSE ON EVERYDAY EXCEPT MONDAY. ON , TAKE 2.5 TABLETS TO EQUAL 2.5MG DOSE. warfarin 1 mg tablet 2.5 mg PO Rx Instructions: TAKE 4MG TABLET AND 1MG TABLET TO EQUAL 5MG DOSE ON EVERYDAY EXCEPT MONDAY. ON EDA, TAKE 2.5 TABLETS TO EQUAL 2.5MG DOSE. Referrals / Follow Up: [facility] [Provider Group] - Within 1 Month Hubert Camarena MD [Primary Care Provider] - Within 2 Weeks Disposition Disposition (needs filled in before D/C Order can be placed): [facility] Charges/Coding Visit Charges Inpatient E&M: 48528 Disch Hosp >30min
[2023-09-17 07:45] VITALS: BP 125/67; PULSE 83; RESP 18; TEMP 36.7; O2SAT 95
[2023-09-17] MEDS: Lisinopril 10 MG Tablet PO (07:50)
[2023-09-17 07:51] VITALS: PULSE 72
[2023-09-17] MEDS: Ferrous Sulfate 325 MG Tablet PO (07:51)
[2023-09-17] MEDS: Metoprolol Tartrate 50 MG Tablet 25 MG PO (07:51)
[2023-09-17] MEDS: Furosemide 40 MG Tablet PO (07:51)
[2023-09-17] MEDS: Potassium Chloride Oral Tablet 20 MEQ 40 MEQ PO (07:51)
[2023-09-17] MEDS: Famotidine 20 MG Tablet PO (07:51)
== END 2023-09-17 10:38 | disposition skilled nursing facility (03) | DRG 291 ==
LOC: ED 11:49 → MS3 15:49
PROVIDERS: Admitting Provider Internal Medicine; Emergency Provider Emergency Medicine; PCP Family Medicine
DX: I13.0 Hypertensive heart and chronic kidney disease with heart failure and stage 1 through stage 4 chronic kidney disease, or unspecified chronic kidney disease (principal); I50.31 Acute diastolic (congestive) heart failure; Z68.42 Body mass index [BMI] 45.0-49.9, adult; I48.20 Chronic atrial fibrillation, unspecified; I27.20 Pulmonary hypertension, unspecified; L89.312 Pressure ulcer of right buttock, stage 2; J44.9 Chronic obstructive pulmonary disease, unspecified; N18.30 Chronic kidney disease, stage 3 unspecified; E66.01 Morbid (severe) obesity due to excess calories; E78.5 Hyperlipidemia, unspecified; G47.33 Obstructive sleep apnea (adult) (pediatric); R53.81 Other malaise; Z79.899 Other long term (current) drug therapy; Z79.01 Long term (current) use of anticoagulants; Z86.718 Personal history of other venous thrombosis and embolism; Z86.711 Personal history of pulmonary embolism; Z87.891 Personal history of nicotine dependence; Z91.148 Patient's other noncompliance with medication regimen for other reason
CPT/HCPCS: 36415; 71045; 73502; 80048; 83880; 84484; 85025; 85610; 93005; 94640; 97110; 97162; 97166; 97530; 97535; 97802; 99285; A4216; J1940